=== PATIENT | male | born 1955 | race Caucasian/White ===

== ENCOUNTER 2021-02-18 09:30 | Outpatient (REF) | payer OTHER, SELFPAY ==
[2021-02-18 12:32] LABS: Prostate Specific Antigen < 0.05 ng/mL (<0.05-4.0)
== END 2021-02-18 09:31 | disposition home or self-care (01) ==
LOC: HO.HMGCLDS 09:30
PROVIDERS: PCP Internal Medicine; Visit Provider Urology
DX: Z12.5 Encounter for screening for malignant neoplasm of prostate (principal); C61 Malignant neoplasm of prostate
CPT/HCPCS: 36415; 84153

== ENCOUNTER → 2021-02-19 14:23 | Outpatient (BNVA) | payer OTHER, SELFPAY | PROVIDERS: PCP Internal Medicine; Visit Provider Urology ==

== ENCOUNTER 2022-02-24 13:19 | Outpatient (AMB) | payer MEDICARE, SELFPAY ==
--- NOTE | 2022-02-24 08:23 | MHC.OFFVIS ---
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 Morales. They are seen in the office today for the following urologic conditions. ? - prostate cancer PSA stable Urine effective Prostate cancer: Low-grade prostate cancer radical prostatectomy 2007 ?Discussed results ?Continue ED treatment. - stream remains okay ? Prostate cancer was diagnosed?2007.? Diagnosis was reached by?needle biopsy, for elevated PSA, size at TRUS 49cc.? The Jadon grade is?3+3 = 6.? TNM Classification of Malignant Tumours (TNM)?T2a.? The D'Jaret (NCCN) risk category is?Low Risk (PSA< 10, Gl < 7, T1c).? Initial therapy included?Primary treatment, Prostatectomy (RRP/Robotic) ?, Additional treatment, Observation.? Recent labs included?a PSA (prostate-specific antigen) 2014 , < 0.1 ?12/2016 < 0.1, 02/17 < 0.1, 03/21 < 0.1, 03/22 < 0.1, 02/20 <0.1, 02/21 <0.1 ? Associated conditions ? erectile dysfunction ?Yes ? Erectile SIDRA Score ?18 respond to viagra ? hematuria ?No ? hot flashes ?No ? incontinence ?No ? osteopenia ?No ? pathologic fracture ?No ? radiation cystitis ?No ? rectal urgency ?No ? Therapeutic plan:?Continue with surveillance.? Current symptoms include?had narrowing of stream and requred BNI 2009.? PFSH Medical History Allergies BPH (benign prostatic hyperplasia) CA of prostate Erectile dysfunction following radical prostatectomy Hyperlipidemia Spinal stenosis Surgical History History of surgery Social History Patient Tobacco Use Status: Former Tobacco user Review of Systems Const Denies chills and Denies fever(s) Card Reports no additional complaints and Denies syncope Resp Denies cough GI Denies abdominal pain and Denies heartburn Reports as per HPI and Denies change in libido Neuro Denies syncope Psych Denies change in libido Endo Denies change in libido Physical Exam Const General: cooperative, healthy appearing, comfortable and no acute distress Orientation/consciousness: patient oriented x3 HEENT Face and sinus: Yes normal facial exam Mouth: moist mucous membranes Neck Neck: Yes normal visual inspection, Yes full ROM and Yes trachea midline Chest Chest palpation & inspection: normal inspection of the chest Resp Effort & Inspection: normal respiratory effort, able to speak in complete sentences and no respiratory distress GI Inspection: Yes normal to inspection Back/Spine/Pelvis Cervical Spine: normal cervical lordosis Thoracic/Lumbar Spine: thoracic and lumbar spine normal to inspection Skin General skin exam: no rashes or lesions noted Neuro General: patient oriented x3, gait normal, tone normal and moves all extremities Extrem General: Yes normal to inspection and Yes capillary refill normal Assessment & Plan Assessment & Plan (1) Bladder neck stricture: Code(s): N32.0 - Bladder-neck obstruction (2) Otitis media: Code(s): H66.90 - Otitis media, unspecified, unspecified ear (3) Erectile dysfunction following radical prostatectomy: Code(s): N52.31 - Erectile dysfunction following radical prostatectomy Plan continue 6 m review Patient Instructions: Imaging studies, laboratory and physical exam results were discussed and reviewed in detail. No major barriers to patient understanding were identified. An opportunity to ask questions regarding the treatment plan was provided. All questions were answered. The patient expressed understanding and agreement with the above treatment plan. The patient is aware they should contact our office by phone for worsening of their current condition or the appearance of new urologic symptoms. Compliance is encouraged with any medications and followup testing that is ordered. It is a privilege to participate in the urologic care of your patient. If you have any questions or concerns regarding treatment for the above conditions, or other urologic issues, please do not hesitate to contact me. The office telephone contact is [phone]. This note is constructed using voice recognition software. While every effort has been made to ensure accuracy demand planner errors may have been included. Yours sincerely, Dr Eduardo Atkinson MD, [facility] - Urology Providers of Expert, Compassionate Care for the Genitourinary System Coding Level of Care Code Est Pt Level 3 (55358) Diagnoses Bladder neck stricture N32.0 Otitis media H66.90 Erectile dysfunction following radical prostatectomy N52.31
== END 2022-02-24 14:22 | disposition home or self-care (01) ==
PROVIDERS: PCP Internal Medicine; Visit Provider Urology
DX: N32.0 Bladder-neck obstruction (principal); H66.90 Otitis media, unspecified, unspecified ear; N52.31 Erectile dysfunction following radical prostatectomy
CPT/HCPCS: 99499

== ENCOUNTER → 2022-08-26 14:26 | Outpatient (BNVA) | payer MEDICARE, SELFPAY | PROVIDERS: PCP Internal Medicine; Visit Provider Urology | DX: C61 Malignant neoplasm of prostate (principal); N52.31 Erectile dysfunction following radical prostatectomy; N32.0 Bladder-neck obstruction | CPT/HCPCS: 51798; 99212 ==

== ENCOUNTER 2023-03-03 11:13 | Outpatient (AMB) | payer MEDICARE, SELFPAY ==
--- NOTE | 2023-03-03 11:32 | MHC.OFFVIS ---
Intake Intake Visit Reasons: 6M/PSA(set) Intake Note: Patient is present for Follow Up psa Urology Med: None Antibiotic Allergy: Cipro Blood Thinner: Eliquis Pharmacy: [facility] Allergies ciprofloxacin [From CIPRO] Allergy (Unknown, Verified 03/03/23 11:32) UNKNOWN From CIPRO Allergy (Unknown, Uncoded 03/03/23 11:32) UNKNOWN Statins Support Allergy (Unknown, Uncoded 03/03/23 11:32) Unknown Medication List - Last Reconciled 03/03/23 by Eduardo Atkinson MD alirocumab (Praluent Pen) mg subcut amiodarone 100 mg PO DAILY apixaban (Eliquis) 5 mg PO BID aspirin 81 mg PO DAILY azithromycin take 500 mg today (day 1), then 250 mg for 4 days (days 2-5) PO ezetimibe 10 mg PO DAILY metoprolol succinate ER 100 mg PO DAILY pantoprazole 20 mg PO DAILY sertraline 25 mg PO DAILY HPI HPI Comments History of Present Illness Details Mr Lopez is a very pleasant male. He is a patient of Dr. Morales. He is seen for the following urologic conditions. - prostate cancer - bladder neck stricture Has been walking a great deal Feels good about current urinary performance Understands Has likely stricture but at this stage will defer therapy PSA remains low Prostate cancer: Low-grade prostate cancer radical prostatectomy 2007 ?Discussed results ?Continue ED treatment. - stream remains okay ? Prostate cancer was diagnosed?2007.? Diagnosis was reached by?needle biopsy, for elevated PSA, size at TRUS 49cc.? The Jadon grade is?3+3 = 6.? TNM Classification of Malignant Tumours (TNM)?T2a.? The D'Jaret (NCCN) risk category is?Low Risk (PSA< 10, Gl < 7, T1c).? Initial therapy included?Primary treatment, Prostatectomy (RRP/Robotic) ?, Additional treatment, Observation.? Recent labs included?a PSA (prostate-specific antigen) 2014 , < 0.1 ?12/2016 < 0.1, 02/17 < 0.1, 03/21 < 0.1, 03/22 < 0.1, 02/20 <0.1, 02/21 <0.1, 02/22 <0.1 ? Associated conditions ? erectile dysfunction ?Yes ? Erectile SIDRA Score ?18 respond to viagra ? Therapeutic plan:?Continue with surveillance.? Current symptoms include?had narrowing of stream and requred BNI 2009.? PFSH Medical History Allergies BPH (benign prostatic hyperplasia) CA of prostate Erectile dysfunction following radical prostatectomy Hyperlipidemia Spinal stenosis Surgical History History of surgery Social History Patient Tobacco Use Status: Former Tobacco user Review of Systems Const Denies chills and Denies fever(s) Card Reports no additional complaints and Denies syncope Resp Denies cough GI Denies abdominal pain and Denies heartburn Reports as per HPI and Denies change in libido Neuro Denies syncope Psych Denies change in libido Endo Denies change in libido Physical Exam Const General: cooperative, healthy appearing, comfortable and no acute distress Orientation/consciousness: patient oriented x3 HEENT Face and sinus: Yes normal facial exam Mouth: moist mucous membranes Neck Neck: Yes normal visual inspection, Yes full ROM and Yes trachea midline Chest Chest palpation & inspection: normal inspection of the chest Resp Effort & Inspection: normal respiratory effort, able to speak in complete sentences and no respiratory distress GI Inspection: Yes normal to inspection Back/Spine/Pelvis Cervical Spine: normal cervical lordosis Thoracic/Lumbar Spine: thoracic and lumbar spine normal to inspection Skin General skin exam: no rashes or lesions noted Neuro General: patient oriented x3, gait normal, tone normal and moves all extremities Extrem General: Yes normal to inspection and Yes capillary refill normal Assessment & Plan Assessment & Plan (1) Bladder neck stricture: Code(s): N32.0 - Bladder-neck obstruction (2) CA of prostate: Comment: Radical prostatectomy 2008 low-grade Code(s): C61 - Malignant neoplasm of prostate (3) Erectile dysfunction following radical prostatectomy: Code(s): N52.31 - Erectile dysfunction following radical prostatectomy Plan Twelve month follow-up PSA Orders: Orders Prostate Specific Antigen 364 Days C61 - Malignant neoplasm of prostate Patient Instructions: Imaging studies, laboratory and physical exam results were discussed and reviewed in detail. No major barriers to patient understanding were identified. An opportunity to ask questions regarding the treatment plan was provided. All questions were answered. The patient expressed understanding and agreement with the above treatment plan. The patient is aware they should contact our office by phone for worsening of their current condition or the appearance of new urologic symptoms. Compliance is encouraged with any medications and followup testing that is ordered. It is a privilege to participate in the urologic care of your patient. If you have any questions or concerns regarding treatment for the above conditions, or other urologic issues, please do not hesitate to contact me. The office telephone contact is [phone]. This note is constructed using voice recognition software. While every effort has been made to ensure accuracy presiding judge errors may have been included. Yours sincerely, Dr Eduardo Atkinson MD, [facility] - Urology Providers of Expert, Compassionate Care for the Genitourinary System Coding Level of Care Code Est Pt Level 4 (76746) Diagnoses Bladder neck stricture N32.0 CA of prostate C61 Erectile dysfunction following radical prostatectomy N52.31
== END 2023-03-03 11:51 | disposition home or self-care (01) ==
PROVIDERS: PCP Internal Medicine; Visit Provider Urology
DX: N32.0 Bladder-neck obstruction (principal); C61 Malignant neoplasm of prostate; N52.31 Erectile dysfunction following radical prostatectomy
CPT/HCPCS: 99214

== ENCOUNTER → 2023-03-03 11:13 | Outpatient (BNVA) | payer MEDICARE, SELFPAY | PROVIDERS: Visit Provider Urology | DX: N32.0 Bladder-neck obstruction (principal); C61 Malignant neoplasm of prostate; N52.31 Erectile dysfunction following radical prostatectomy | CPT/HCPCS: 99212 ==

== ENCOUNTER 2024-03-05 09:21 | Outpatient (AMB) | payer MEDICARE, SELFPAY ==
--- NOTE | 2024-03-05 09:25 | A.OFFVIS_ITS ---
Intake Visit Reasons: cysto/PSA(Hematuria) Intake Note: Patient is present for Cystoscopy/PSA(HEMATURIA) Urology Medication:DIAZEPAM Antibiotic Allergy:CIPROFLOXACIN Blood Thinner:ASPIRIN, ELIQUIS Lot:[id number] Exp:08/17/2026 Food Service Supervisor Required: No Allergies ciprofloxacin [From CIPRO] Allergy (Unknown, Verified 03/05/24 09:27) UNKNOWN From CIPRO Allergy (Unknown, Uncoded 03/05/24 09:27) UNKNOWN Statins Support Allergy (Unknown, Uncoded 03/05/24 09:27) Unknown Medication List - Last Reconciled 03/05/24 by Eduardo Atkinson MD alirocumab (Praluent Pen) mg subcut amiodarone 100 mg PO DAILY apixaban (Eliquis) 5 mg PO BID aspirin 81 mg PO DAILY azithromycin take 500 mg today (day 1), then 250 mg for 4 days (days 2-5) PO diazepam 2 mg PO BID PRN 1 day ezetimibe 10 mg PO DAILY metoprolol succinate ER 100 mg PO DAILY pantoprazole 20 mg PO DAILY sertraline 25 mg PO DAILY HPI Comments Details: Mr Lopez is a very pleasant male. He is a patient of Dr. Morales. He is seen for the following urologic conditions. - prostate cancer - bladder neck stricture Here for cystoscopy 3+ blood urine Has been on Xarelto for AFib Cystoscopy with good vesicourethral junction Has multiple areas of inflamed bladder mucosa Recommend bladder biopsy fulguration Prostate cancer: Low-grade prostate cancer radical prostatectomy 2007 ?Discussed results ?Continue ED treatment. - stream remains okay - probable stricture ? Prostate cancer was diagnosed?2007.? Diagnosis was reached by?needle biopsy, for elevated PSA, size at TRUS 49cc.? The Jadon grade is?3+3 = 6.? TNM Classification of Malignant Tumours (TNM)?T2a.? The D'Jaret (NCCN) risk category is?Low Risk (PSA< 10, Gl < 7, T1c).? Initial therapy included?Primary treatment, Prostatectomy (RRP/Robotic) ?, Additional treatment, Observation.? Recent labs included?a PSA (prostate-specific antigen) 2014 , < 0.1 ?12/2016 < 0.1, 02/17 < 0.1, 03/21 < 0.1, 03/22 < 0.1, 02/20 <0.1, 02/21 <0.1, 02/22 <0.1, 02/23 <0.1 ? Associated conditions ? erectile dysfunction ?Yes ? Erectile SIDRA Score ?18 respond to viagra ? Therapeutic plan:?Continue with surveillance.? Current symptoms include?had narrowing of stream and requred BNI 2009.? PFSH Medical History Allergies BPH (benign prostatic hyperplasia) CA of prostate Erectile dysfunction following radical prostatectomy Hyperlipidemia Spinal stenosis Surgical History History of surgery Social History Patient Tobacco Use Status: Former Tobacco user Review of Systems Const Denies chills and Denies fever(s) Card Reports no additional complaints and Denies syncope Resp Denies cough GI Denies abdominal pain and Denies heartburn Reports as per HPI and Denies change in libido Neuro Denies syncope Psych Denies change in libido Endo Denies change in libido Physical Exam Const General: cooperative, healthy appearing, comfortable and no acute distress Orientation/consciousness: patient oriented x3 HEENT Face and sinus: Yes normal facial exam Mouth: moist mucous membranes Neck Neck: Yes normal visual inspection, Yes full ROM and Yes trachea midline Chest Chest palpation & inspection: normal inspection of the chest Resp Effort & Inspection: normal respiratory effort, able to speak in complete sentences and no respiratory distress GI Inspection: Yes normal to inspection Back/Spine/Pelvis Cervical Spine: normal cervical lordosis Thoracic/Lumbar Spine: thoracic and lumbar spine normal to inspection Skin General skin exam: no rashes or lesions noted Neuro General: patient oriented x3, gait normal, tone normal and moves all extremities Extrem General: Yes normal to inspection and Yes capillary refill normal Office Procedures Cystoscopy Consent Discussed risk and benefit or proposed procedure with the patient. Information consent for procedure given to the patient. Discussed technical aspects, risks, benefits and alternatives in full. Addressed all of the patient's questions and concerns regarding the procedure. The patient demonstrated knowledge and understanding. They wish to proceed with this procedure. Preparation The patient was prepped in the usual manner. A dcs engineer was present and in the room. Genitalia was prepped with betadine solution in a sterile manner. Lidocaine Jelly 2% was placed into the urethra and 16Fr flexible Olympus cystoscope was inserted into the meatus after adequate lubrication. Procedure Cystoscopy performed using a disposable Urovue digital 16 Uzbek cystoscope. Meatus normal position Urethra anterior and posterior urethra normal Prostatic Urethra prior prostatectomy with effective anastomosis Bladder examination with retroflexion of cystoscope Bladder Orifices normal shape and position Bladder Capacity medium Trabeculations stage I Cellule Formation - Diverticulum Formation - Mucosal Erythema areas of inflammation particularly on left lateral sidewall Bladder Tumor - [id number]-[id number] DISPOSABLE SCOPE URO-G FLEXIBLE SCOPE Procedure code (CPT) selection complete Office Meds lidocaine HCl 2 % mucosal jelly in applicator Performing Provider: Eduardo Atkinson MD [place] [facility] [facility] Administered by: Shailesh Michaud LPN on 03/05/24 09:48 Dose Route Admin Location Dispensed Lot Number Expiration Date NDC Stock Control Supervisor 10 mL intra-urethral 10 mL nitrofurantoin monohydrate/macrocrystals 100 mg capsule Performing Provider: Eduardo Atkinson MD [place] [facility] [place] [facility] Administered by: Shailesh Michaud LPN on 03/05/24 09:48 Dose Route Admin Location Dispensed Lot Number Expiration Date NDC Stock Control Supervisor 100 mg PO 1 cap naproxen 500 mg tablet Performing Provider: Eduardo Atkinson MD [place] [facility] [place] [facility] Administered by: Shailesh Mcihaud LPN on 03/05/24 09:48 Dose Route Admin Location Dispensed Lot Number Expiration Date NDC Stock Control Supervisor 500 mg PO 1 tab Results AMB Urinalysis, Automated UA Leukoctes 0 Josselyn/uL Last Edit by DEAN Dick on 03/05/24 09:51 UA Nitrite Negative Last Edit by DEAN Dick on 03/05/24 09:51 UA Urobilinogen 0.2 mg/dL Last Edit by DEAN Dick on 03/05/24 09:5 1 UA Protein 0 mg/dL Last Edit by DEAN Dick on 03/05/24 09:51 UA pH 6.0 Last Edit by DEAN Dick on 03/05/24 09:51 UA Blood 200 Chandan/uL Last Edit by DEAN Dick on 03/05/24 09:51 UA Specific Mouthcard 1.020 Last Edit by DEAN Dick on 03/05/24 09: 51 UA Ketone Negative Last Edit by DEAN Dick on 03/05/24 09:51 UA Bilirubin 0 mg/dL Last Edit by DEAN Dick on 03/05/24 09:51 UA Glucose 0 mg/dL Last Edit by DEAN Dick on 03/05/24 09:51 Results Reviewed Results Reviewed: Laboratory Last Values Urine pH (Auto) 6.0 03/05/24 09:50 Specific Mouthcard (Auto) 1.020 03/05/24 09:50 Urine Protein (Auto) 0 mg/dL 03/05/24 09:50 Glucose (UA)(Auto) 0 mg/dL 03/05/24 09:50 Urine Ketones (Auto) Negative 03/05/24 09:50 Urine Blood (Auto) 200 Chandan/uL 03/05/24 09:50 Urine Nitrite (Auto) Negative 03/05/24 09:50 Urine Bilirubin (Auto) 0 mg/dL 03/05/24 09:50 Urine Urobilinogen (Auto) 0.2 mg/dL 03/05/24 09:50 Leukocyte Esterase (Auto) 0 Josselyn/uL 03/05/24 09:50 Assessment & Plan Assessment & Plan (1) Cystitis: Code(s): N30.90 - Cystitis, unspecified without hematuria Category: Medical (2) Gross hematuria: Code(s): R31.0 - Gross hematuria Category: Medical Plan Risks, benefits and alternatives to therapy were discussed. These include but are not limited to infection, bleeding, damage to local organs and tissues, need for further interventions. Anesthetic risks regarding cardiac arrhythmia, blood clots, and potential mortality were discussed. The patient understands the typical recovery time and the outpatient nature of the procedure. After consideration of these risks the patient gives full informed consent and they wish to move ahead with the procedure. Cystoscopy with bladder biopsy fulguration Orders: Orders AMB Cystoscopy Today C61 - Malignant neoplasm of prostate, N32.0 - Bladder-neck obstruction, N52.31 - Erectile dysfunction following radical prostatectomy AMB Urinalysis Automated Today Z13.9 - Encounter for screening, unspecified Patient Instructions: Imaging studies, laboratory and physical exam results were discussed and reviewed in detail. No major barriers to patient understanding were identified. An opportunity to ask questions regarding the treatment plan was provided. All questions were answered. The patient expressed understanding and agreement with the above treatment plan. The patient is aware they should contact our office by phone for worsening of their current condition or the appearance of new urologic symptoms. Compliance is encouraged with any medications and followup testing that is ordered. It is a privilege to participate in the urologic care of your patient. If you have any questions or concerns regarding treatment for the above conditions, or other urologic issues, please do not hesitate to contact me. The office telephone contact is [phone]. This note is constructed using voice recognition software. While every effort has been made to ensure accuracy reaming machine operator errors may have been included. Yours sincerely, Dr Eduardo Atkinson MD, [facility] - Urology Providers of Expert, Compassionate Care for the Genitourinary System Coding Level of Care Code Est Pt Level 4 (77754) Diagnoses Cystitis N30.90 Gross hematuria R31.0 CPT Codes Cystoscopy - CPT: 22069-[id number] ([id number])
== END 2024-03-05 10:28 | disposition home or self-care (01) ==
PROVIDERS: PCP Internal Medicine; Visit Provider Urology
DX: N32.0 Bladder-neck obstruction (principal); N52.31 Erectile dysfunction following radical prostatectomy; C61 Malignant neoplasm of prostate; N30.90 Cystitis, unspecified without hematuria; R31.0 Gross hematuria; Z13.9 Encounter for screening, unspecified
CPT/HCPCS: 52000; 99214

== ENCOUNTER → 2024-03-05 09:21 | Outpatient (BNVA) | payer MEDICARE, SELFPAY | PROVIDERS: PCP Internal Medicine; Visit Provider Urology | DX: N30.91 Cystitis, unspecified with hematuria (principal); C61 Malignant neoplasm of prostate | CPT/HCPCS: 52000; 81003; 99212 ==

== ENCOUNTER 2024-04-01 06:53 | Day surgery (SDC) | payer MEDICARE, SELFPAY ==
[2024-03-29 08:37] VITALS: BMI 29.6
--- NOTE | 2024-03-29 12:05 | HO.ANESPROP2 ---
Documented by User: Ramona Wilkerson NP 03/29/24 12:09 HPI - Anesthesia Eval Consult details Narrative: 68yo M for Cystoscopy Bladder Fulguration,with biopsy Follows [facility] cardiology for CAD s/p CABG 2020, ND, PAF, CMP (resolved) Cardiac optimized per 03/2024 addenedum [facility] Active Problems Active Problems: All Active Problems Gross hematuria (Acute) Cystitis (Acute) Otitis media (Acute) Bladder neck stricture (Acute) Erectile dysfunction following radical prostatectomy (Acute) CA of prostate (Acute) Past Medical History Medical History Wears dentures Spinal stenosis Back pain Arthritis GERD (gastroesophageal reflux disease) Hx of transient ischemic attack (TIA) (~2021) Cardiomyopathy Hx of myocardial infarction CAD (coronary artery disease) PAF (paroxysmal atrial fibrillation) Seasonal allergies PONV (postoperative nausea and vomiting) Spinal stenosis Allergies Hyperlipidemia BPH (benign prostatic hyperplasia) Erectile dysfunction following radical prostatectomy CA of prostate Family History Family History Sister PONV (postoperative nausea and vomiting) Sister PONV (postoperative nausea and vomiting) Surgical History Surgical History Hx of tonsillectomy Hx of cardiac catheterization Hx of coronary artery bypass graft (~2019) Hx of radical prostatectomy (~2008) History of bilateral knee replacement Social History Social History Are you a primary home health care coordinator to a significant other at home: No Do you presently have visiting nurse or other home services: No Patient Tobacco Use Status: Former Tobacco user Tobacco use type: Cigarette Smoked in Last 30 Days: No Use of substances other than those prescribed or required for medical reasons: No Have you been hit, kicked, punched, or otherwise hurt by someone within the past year? If so, by whom?: No Are you DNR?: No Advance Directives: No Advance Directives Information Provided: Yes Advance Directives on File: No Recently lost weight without trying: No Nutrition Risks: No Nutritional Risk Meds Allergies Allergy/AdvReac Type Severity Reaction Status Date / Time oxycodone Allergy Severe Nausea and Verified 04/01/24 08:00 Vomiting ciprofloxacin [From CIPRO] Allergy Unknown UNKNOWN Verified 04/01/24 08:00 [id number] Reductase AdvReac Intermediate Muscle Pain Verified 04/01/24 08:00 Inhibitor Home Medications ?Medication ?Instructions ?Recorded ?Confirmed ?Last Taken ?Type aspirin 81 mg tablet,delayed 81 mg PO DAILY 02/19/21 04/01/24 03/25/24 History release alirocumab 150 mg/mL subcutaneous 150 mg subcut Q2W 08/26/22 04/01/24 Unknown History pen injector (Praluent Pen) pantoprazole 20 mg tablet,delayed 20 mg PO DAILY 08/26/22 04/01/24 04/01/24 History release carvedilol 3.125 mg tablet 3.125 mg PO BID 03/29/24 04/01/24 04/01/24 History cetirizine 10 mg tablet 10 mg PO DAILY 03/29/24 04/01/24 04/01/24 History rivaroxaban 20 mg tablet (Xarelto) 20 mg PO QPM 03/29/24 04/01/24 03/29/24 History Exam Height,Weight and Vital Signs: Height 5 ft 8.9 in Weight 90.718 kg Narrative Narrative: EKG 02/2024 Ventricular Rate: 50 BPM Atrial Rate: 50 BPM P-R Interval: 264 ms QRS Duration: 126 ms Q-T Interval: 436 ms QTC Calculation(Bazett): 397 ms P [place]: 44 degrees R [place]: -46 degrees T [place]: -26 degrees Sinus bradycardia with 1st degree A-V block Left axis deviation Non-specific intra-ventricular conduction block Minimal voltage criteria for LVH, may be normal variant ( Nitin product ) Nonspecific T wave abnormality Abnormal ECG When compared with ECG of 12-FEB-2024 09:08, Non-specific intra-ventricular conduction delay has replaced Right bundle branch block Confirmed by Dre Layne ([id number]) on 02/12/2024 3:48:42 PM Echocardiogram - Complete ? 14:00:10 Summary The left ventricular size is normal. Left ventricular wall thickness is normal. The LV systolic function is normal . The left ventricular ejection fraction is 60-65 %. No obvious wall motion abnormalities seen on limited views. There is abnormal septal motion consistent with prior cardiac surgery . Normal diastolic function. The aortic valve is trileaflet . The right coronary cusp is moderately thickened and calcified . The aortic valve leaflet opening is mildly decreased . There is no significant aortic stenosis. There is mild to moderate aortic regurgitation. The right ventricle is normal in size. Right ventricular systolic function appears preserved. Comparison Comparison is made to the study of May 19, 2020. There is only mild to moderate aortic regurgitation. VL Carotid Duplex Scan Bilat ? 08:51:11 Summary: Right Side: 50-69% stenosis in the Bulb/Internal Carotid Artery. Antegrade flow in the Vertebral Artery. Turbulent / disturbed flow is seen in the Subclavian Artery. Left Side: 1-49% stenosis in the Internal Carotid Artery. Antegrade flow in the Vertebral Artery. Multiphasic flow is seen in the Subclavian Artery. Assessment and Plan Assessment Anesthesia Assessment: Chart Reviewed Documented by User: Lisa Ding MD 04/01/24 08:45 PMFSH Past Medical History Medical History Wears dentures Spinal stenosis Back pain Arthritis GERD (gastroesophageal reflux disease) Hx of transient ischemic attack (TIA) (~2021) Cardiomyopathy Hx of myocardial infarction CAD (coronary artery disease) PAF (paroxysmal atrial fibrillation) Seasonal allergies PONV (postoperative nausea and vomiting) Spinal stenosis Allergies Hyperlipidemia BPH (benign prostatic hyperplasia) Erectile dysfunction following radical prostatectomy CA of prostate Family History Family History Sister PONV (postoperative nausea and vomiting) Sister PONV (postoperative nausea and vomiting) Family history of problems with anesthesia: No Surgical History Surgical History Hx of tonsillectomy Hx of cardiac catheterization Hx of coronary artery bypass graft (~2019) Hx of radical prostatectomy (~2008) History of bilateral knee replacement History of Problems with Anesthesia: No Social History Social History Are you a primary home health care coordinator to a significant other at home: No Do you presently have visiting nurse or other home services: No Patient Tobacco Use Status: Former Tobacco user Tobacco use type: Cigarette Smoked in Last 30 Days: No Use of substances other than those prescribed or required for medical reasons: No Have you been hit, kicked, punched, or otherwise hurt by someone within the past year? If so, by whom?: No Are you DNR?: No Advance Directives: No Advance Directives Information Provided: Yes Advance Directives on File: No Recently lost weight without trying: No Nutrition Risks: No Nutritional Risk Meds Allergies Allergy/AdvReac Type Severity Reaction Status Date / Time oxycodone Allergy Severe Nausea and Verified 04/01/24 08:00 Vomiting ciprofloxacin [From CIPRO] Allergy Unknown UNKNOWN Verified 04/01/24 08:00 Esyfove-[id number]-KeT Reductase AdvReac Intermediate Muscle Pain Verified 04/01/24 08:00 Inhibitor Home Medications ?Medication ?Instructions ?Recorded ?Confirmed ?Last Taken ?Type aspirin 81 mg tablet,delayed 81 mg PO DAILY 02/19/21 04/01/24 03/25/24 History release alirocumab 150 mg/mL subcutaneous 150 mg subcut Q2W 08/26/22 04/01/24 Unknown History pen injector (Praluent Pen) pantoprazole 20 mg tablet,delayed 20 mg PO DAILY 08/26/22 04/01/24 04/01/24 History release carvedilol 3.125 mg tablet 3.125 mg PO BID 03/29/24 04/01/24 04/01/24 History cetirizine 10 mg tablet 10 mg PO DAILY 03/29/24 04/01/24 04/01/24 History rivaroxaban 20 mg tablet (Xarelto) 20 mg PO QPM 03/29/24 04/01/24 03/29/24 History Exam Airway Mallampati Class: II TM Dist: >3cm Neck ROM: Limited Denture: Upper Heart: rrr Lungs: cta Assessment and Plan Assessment Anesthesia Assessment: Anesthesia Plan Discussed Final Anesthetic Review Family History of Problems with Anesthesia: No History of Problems with Anesthesia: No NPO: Yes ASA Class: III Final Preanesthetic Review: No Changes in Pt Med Stat, Meds/Allgs Chart Reviewed, Consent Obtained/Reviewed and Anes Risks/Benef Reviewed Patient Risk: Intermediate Procedure Risk: Low Anesthetic Plan Anesthetic Plan: GA (ekg ordered stat) Disposition: Standard PACU
--- OUTSIDE RECORDS SUMMARY | 2024-04-01 06:55 | XMS_ITS | Continuity of Care Document ---
Author Organization [facility] Address [address] [place] [address]- Care Team Providers Care Egg Sorter Name Role Phone Carmen KENT, Samir Ansari Primary Care Physician [phone] Encounter [facility] [place] Date(s): 10/05/20 - 12/06/20 [facility] [address] [place] [id number] Attending Physician: Gilma Goss MD Admitting Physician: Ana Paula KENT, Gilma Referring Physician: Samir Morales MD Allergies, Adverse Reactions, Alerts Substance Reaction Severity Status ciprofloxacin Active statins 1 Active 1severe muscle aches Immunizations Not Given Vaccine Date Status Refusal Reason influenza virus vaccine, inactivated 04/06/20 Not Given Patient Refuses Medications apixaban 5 mg oral tablet 1 tablet = 5 mg, By Mouth, 2 times a day, # 60 tablet, 11 Refills, Maintenance, 11/03/20 9:16:00 EDT, Tablet, [facility] # [id number], 175, cm, 06/13/20 7:01:00 EST, Height, 91.1, kg, 06/12/20 19:26:00EST, Dry Weight Start Date: 11/03/20 Stop Date: 10/29/21 Status: Ordered aspirin 81 mg oral delayed release tablet = 81 mg, By Mouth, Daily, # 30 tablet, 5 Refills, Maintenance, 05/06/20 11:44:00 EST, EC Tablet, [facility] # 302, 175, cm, 05/05/20 10:39:00 EST, Height, 90.8, kg, 03/31/20 17:25:00 EDT, Dry Weight Start Date: 05/06/20 Stop Date: 11/02/20 Status: Ordered Docusate Sodium Capsule 100 mg, 1, capsule, By Mouth, 2 times a day, Refills 0, Maintenance, 04/09/20 9:25:00 EDT Start Date: 04/09/20 Status: Ordered KLS Aspirin Low Dose Oral Tablet Delayed Release 81 MG KLS Aspirin Low Dose Oral Tablet Delayed Release 81 MG, 1, tablet, By Mouth, Daily, # 30 tablet, 11Refills, Maintenance, 10/23/20 10:56:00 EDT, 175, cm, 06/13/20 7:01:00 EST, Height, 91.1, kg, 06/12/20 19:26:00 EST, Dry Weight Start Date: 10/23/20 Status: Ordered Metoprolol Succinate ER 100 mg oral tablet, extended release 1 tablet, By Mouth, Daily, # 30 tablet, 5 Refills, Maintenance, 12/03/20 15:07:00 EDT, [facility] #[id number], 175, cm, 11/06/20 9:43:00 EDT, Height, 91.1, kg, 06/12/20 19:26:00 EST, Dry Weight Start Date: 12/03/20 Status: Ordered Repatha 140 mg/mL subcutaneous solution = 140 mg, Subcutaneous Infusion, Every 28 days, # 1 kit, 11 Refills, Maintenance, 11/06/20 10:01:00EDT, [facility] # [facility], Partial fill upon patient request if the prescription is for a scheduleII opioid drug., 175, cm, 11/06/20 9:43:00 EDT, Hei... Start Date: 11/06/20 Status: Ordered Symbicort 160mcg/4.5mcg Inhaler 2, puffs, Inhalation, 2 times a day, # 6 Gm, Refills 0, Maintenance, 03/31/20 19:06:00 EDT, Aerosol Start Date: 03/31/20 Status: Ordered Zetia 10 mg oral tablet 1 tablet = 10 mg, By Mouth, Daily, # 30 tablet, 11 Refills, Maintenance, 11/18/20 14:19:00 EDT, Tablet, [facility] # 302, Partial fill upon patient request if the prescription is for a schedule II opioid drug., 175, cm, 11/06/20 9:43:00 EDT, Heig... Start Date: 11/18/20 Stop Date: 11/13/21 Status: Ordered ZyrTEC 10 mg oral tablet 1 tablet = 10 mg, By Mouth, Daily, # 30 tablet, 0 Refills, Maintenance, 03/31/20 19:05:00 EDT, Tablet Start Date: 03/31/20 Status: Ordered Problem List Condition Effective Dates Status Health Status Inform ant FH: CABG (coronary artery by pass surgery)(Confirmed) Active Hypercholesteremia(Confirmed) Active Ischemic cardiomyopathy(Confirmed) Active Old myocardial infarct(Confirmed) Active PAF (paroxysmal atrial fibrillation)(Confirmed) Active Statin intolerance(Confirmed) Active Social History Social History Type Response Smoking Status Former smoker, quit more than 30 days ago entered on: 03/31/20 Sex
--- OUTSIDE RECORDS SUMMARY | 2024-04-01 06:55 | XMS_ITS | Continuity of Care Document ---
Author Organization [facility] Address [address] [place] [address]- Care Team Providers Care Graphic Engineer Name Role Phone Carmen KENT, Samir Ansari Primary Care Physician [phone] Encounter [facility] Date(s): 11/06/20 - 12/06/20 [facility] [address] [place] [id number] Attending Physician: Anna Marie Becerra Admitting Physician: AdmAnna Marie roberts Referring Physician: AdmtrAnna Marie Allergies, Adverse Reactions, Alerts Substance Reaction Severity Status ciprofloxacin Active statins 1 Active 1severe muscle aches Immunizations Not Given Vaccine Date Status Refusal Reason influenza virus vaccine, inactivated 04/06/20 Not Given Patient Refuses Medications apixaban 5 mg oral tablet 1 tablet = 5 mg, By Mouth, 2 times a day, # 60 tablet, 11 Refills, Maintenance, 11/03/20 9:16:00 EDT, Tablet, [facility] # 302, 175, cm, 06/13/20 7:01:00 EST, Height, 91.1, kg, 06/12/20 19:26:00EST, Dry Weight Start Date: 11/03/20 Stop Date: 10/29/21 Status: Ordered aspirin 81 mg oral delayed release tablet = 81 mg, By Mouth, Daily, # 30 tablet, 5 Refills, Maintenance, 05/06/20 11:44:00 EST, EC Tablet, [facility] # 302, 175, cm, 05/05/20 10:39:00 [...] tablet, 5 Refills, Maintenance, 12/03/20 15:07:00 EDT, [facility] #[id number], 175, cm, 11/06/20 9:43:00 EDT, Height, 91.1, kg, 06/12/20 19:26:00 EST, Dry Weight Start Date: 12/03/20 Status: Ordered Repatha 140 mg/mL subcutaneous solution = 140 mg, Subcutaneous Infusion, Every 28 days, # 1 kit, 11 Refills, Maintenance, 11/06/20 10:01:00EDT, [facility] # 302, Partial fill upon patient [...] 11 Refills, Maintenance, 11/18/20 14:19:00 EDT, Tablet, [facility] # 302, Partial fill upon patient [...]
--- OUTSIDE RECORDS SUMMARY | 2024-04-01 06:55 | XMS_ITS | Continuity of Care Document ---
Author Organization [facility] Address [address] [place] [id number]- Care Team Providers Care Lead Custodian Name Role Phone Carmen KENT, Samir Ansari Primary Care Physician [phone] Encounter [facility] [place] Date(s): 06/18/21 - 07/18/21 [facility] [address] [place] [id number] [place] Allergies, Adverse Reactions, Alerts Substance Reaction Severity Status ciprofloxacin Active statins 1 Active 1severe muscle aches Immunizations Not Given Vaccine Date Status Refusal Reason influenza virus vaccine, inactivated 04/06/20 Not Given Patient Refuses Medications apixaban 5 mg oral tablet 1 tablet = 5 mg, By Mouth, 2 times a day, # 60 tablet, 11 Refills, Maintenance, 11/03/20 9:16:00 EDT, Tablet, [facility] # 302, 175, cm, 06/13/20 7:01:00 EST, Height, 91.1, kg, 06/12/20 19:26:00EST, Dry Weight Start Date: 11/03/20 Stop Date: 10/29/21 Status: Ordered aspirin 81 mg oral delayed release tablet = 81 mg, By Mouth, Daily, # 30 tablet, 5 Refills, Maintenance, 05/06/20 11:44:00 EST, EC Tablet, [facility] # 302, 175, cm, 05/05/20 10:39:00 EST, Height, 90.8, kg, 03/31/20 17:25:00 EDT, Dry Weight Start Date: 05/06/20 Stop Date: 11/02/20 Status: Ordered Docusate Sodium Capsule 100 mg, 1, capsule, By Mouth, 2 times a day, Refills 0, Maintenance, 04/09/20 9:25:00 EDT Start Date: 04/09/20 Status: Ordered Metoprolol Succinate ER 100 mg oral tablet, extended release 1 tablet, By Mouth, Daily, # 30 tablet, 6 Refills, [facility] #[id number], 175, cm, 11/06/20 9:43:00 EDT, Height, 91.1, kg, 06/12/20 19:26:00 EST, Dry Weight Start Date: 05/28/21 Status: Ordered Symbicort 160mcg/4.5mcg Inhaler 2, puffs, Inhalation, 2 times a day, # 6 Gm, Refills 0, Maintenance, 03/31/20 19:06:00 EDT, Aerosol Start Date: 03/31/20 Status: Ordered Zetia 10 mg oral tablet 1 tablet = 10 mg, By Mouth, Daily, # 30 tablet, 11 Refills, Maintenance, 11/18/20 14:19:00 EDT, Tablet, [facility] # 302, Partial fill upon patient [...]
--- OUTSIDE RECORDS SUMMARY | 2024-04-01 06:55 | XMS_ITS | Continuity of Care Document ---
Author Organization [facility] Address [address] [place] [id number]- Care Team Providers Care Instructor Of Education Name Role Phone Carmen KENT, Samir Ansari Primary Care Physician Encounter [facility] [place] Date(s): 03/15/22 - 04/14/22 [facility] [address] [place] [id number]- Allergies, Adverse Reactions, Alerts Substance Reaction Severity Status ciprofloxacin Active statins 1 Active 1severe muscle aches Immunizations Not Given Vaccine Date Status Refusal Reason influenza virus vaccine, inactivated 04/06/20 Not Given Patient Refuses Medications acetaminophen 325 mg oral tablet 650 mg, By Mouth, Every 6 hours, May take OTC, follow directions on bottle, Refills 0, Maintenance,10/09/21 7:57:00 EDT, Partial fill upon patient request if the prescription is for a schedule II opioid drug. Start Date: 10/09/21 Status: Ordered docusate sodium 100 mg oral capsule 100 mg, 1, capsule, By Mouth, 2 times a day, hold for loose stool, # 60 capsule, Refills 0, Tot. Refills 0, Maintenance, 10/09/21 7:58:00 EDT, Route to Pharmacy Electronically, [id number], Partial fill upon patient request if the prescri... Start Date: 10/09/21 Status: Ordered Maalox Plus Liquid 30 mL, By Mouth, Every 4 hours, PRN Other, Heartburn, 0 Refills, Maintenance, 10/09/21 7:58:00 EDT,Suspension, Partial fill upon patient request if the prescription is for a schedule II opioid drug. Start Date: 10/09/21 Status: Ordered Metoprolol Succinate ER 100 mg oral tablet, extended release 1 tablet, By Mouth, Daily, # 30 tablet, 5 Refills, [facility] #[id number], 175, cm, 11/01/21 10:05:00 EDT, Height, 87, kg, 10/08/21 6:42:00 EDT, Dry Weight Start Date: 12/28/21 Status: Ordered Milk of Magnesia Liquid 30 mL, By Mouth, Daily, PRN Constipation, 0 Refills, Maintenance, 10/09/21 8:01:00 EDT, Suspension,Partial fill upon patient request if the prescription is for a schedule II opioid drug. Start Date: 10/09/21 Status: Ordered MiraLax Powder 1 pack/packet = 17 Gm, By Mouth, Daily, PRN Constipation, 0 Refills, Maintenance, 10/09/21 8:02:00 EDT, Powder, Partial fill upon patient request if the prescription is for a schedule II opioid drug. Start Date: 10/09/21 Status: Ordered pantoprazole 40 mg oral delayed release tablet = 40 mg, By Mouth, Daily in AM, # 30 tablet, 0 Refills, Maintenance, 10/09/21 11:08:00 EDT, EC Tablet, 175, cm, 10/09/21 7:05:00 EDT, Height, 87, kg, 10/08/21 6:42:00 EDT, Dry Weight Start Date: 10/09/21 Stop Date: 11/08/21 Status: Ordered pantoprazole 40 mg oral delayed release tablet = 40 mg, By Mouth, Daily, # 30 tablet, 0 Refills, Maintenance, 08/19/21 7:20:00 EST, EC Tablet, 175, cm, 08/19/21 6:30:00 EST, Height, 91.1, kg, 08/18/21 7:55:00 EST, Dry Weight Start Date: 08/19/21 Stop Date: 09/18/21 Status: Ordered Praluent Pen 150 mg/mL subcutaneous solution = 150 mg, Subcutaneous Infusion, Every 14 days, # 2 each, 11 Refills, Maintenance, 07/19/21 8:14:00EST, [facility] # [facility], 175, cm, 06/23/21 12:10:00 EST, Height, 91.1, kg, 06/12/20 19:26:00 EST, Dry Weight Start Date: 07/19/21 Stop Date: 07/14/22 Status: Ordered senna 187 mg oral tablet 1 tablet = 8.6 mg, By Mouth, Daily at bedtime, PRN as needed for constipation, 0 Refills, Maintenance, 10/09/21 8:02:00 EDT, Tablet, Partial fill upon patient request if the prescription is for a schedule II opioid drug. Start Date: 10/09/21 Status: Ordered Symbicort 160mcg/4.5mcg Inhaler 2, puffs, Inhalation, 2 times a day, # 6 Gm, Refills 0, Maintenance, 03/31/20 19:06:00 EDT, Aerosol Start Date: 03/31/20 Status: Ordered Xarelto 20 mg oral tablet 1 tablet = 20 mg, By Mouth, Daily at supper, discontinue eliquis, # 90 tablet, 3 Refills, Maintenance, 12/09/21 12:19:00 EDT, Tablet, [facility][id number], 175, cm, 11/01/21 10:05:00 EDT, Height, 87, kg, 10/08/21 6:42:00 EDT, Dry Weight Start Date: 12/09/21 Stop Date: 12/04/22 Status: Ordered Zetia 10 mg oral tablet 1 tablet = 10 mg, By Mouth, Daily, # 30 tablet, 11 Refills, Maintenance, 11/18/20 14:19:00 EDT, Tablet, [facility] # 302, Partial fill upon patient request if the prescription is for a schedule II opioid drug., 175, cm, 11/06/20 9:43:00 EDT, Heig... Start Date: 11/18/20 Stop Date: 11/13/21 Status: Ordered ZyrTEC 10 mg oral tablet 1 tablet = 10 mg, By Mouth, Daily, # 30 tablet, 0 Refills, Maintenance, 03/31/20 19:05:00 EDT, Tablet Start Date: 03/31/20 Status: Ordered Problem List Condition Confirmation Course Effective Dates Status Health Status Informant FH: CABG (coronary artery bypass surgery) Confirmed Active Hypercholesteremia Confirmed Active Ischemic cardiomyopathy Confirmed Active Old myocardial infarct Confirmed Active PAF (paroxysmal atrial fibrillation) Confirmed Active Statin intolerance Confirmed Active Social History Social History Type Response Smoking Status Former smoker, quit more than 30 days ago entered on: 03/31/20 Sex Patient Care team information Personnel Name: Carmen KENT, Samir Ansari Address: Address: [address] [place] [id number]
--- OUTSIDE RECORDS SUMMARY | 2024-04-01 06:55 | XMS_ITS | Continuity of Care Document ---
Author Organization [facility] ter Address [address] [place] [id number]- Care Team Providers Care Campus Administrator Name Role Phone Samir Morales MD Primary Care Physician [phone] Encounter [facility] [place] Date(s): 04/07/20 - 05/07/[address] [address] Attending Physician: Not on Staff, Attending MD Admitting Physician: Not on Staff, Admitting MD Referring Physician: Not on Staff, Referring MD Allergies, Adverse Reactions, Alerts Substance Reaction Severity Status ciprofloxacin Active Immunizations Not Given Vaccine Date Status Refusal Reason influenza virus vaccine, inactivated 04/06/20 Not Given Patient Refuses Medications acetaminophen 325 mg oral tablet 975 mg, By Mouth, Every 6 hours, Refills 0, Maintenance, 04/09/20 9:20:00 EDT Start Date: 04/09/20 Status: Ordered albuterol 0.083% inhalation solution 3 mL = 2.5 mg, Inhalation, Every 6 hours, # 120 each, 0 Refills, Maintenance, 03/31/20 19:06:00 EDT, Solution Start Date: 03/31/20 Status: Ordered amiodarone 200 mg oral tablet 200 mg, 1, tablet, By Mouth, 2 times a day, START on 04/13/20, once higher dose is finished., # 60 tablet, Refills 0, Tot. Refills 0, Maintenance, 04/13/20 9:00:00 EDT, Route to Pharmacy Electronically, [facility] 175, cm, 04/09/20 7:28... Start Date: 04/13/20 Stop Date: 05/13/20 Status: Ordered apixaban 5 mg oral tablet 1 tablet = 5 mg, By Mouth, 2 times a day, # 60 tablet, 5 Refills, Maintenance, 05/06/20 11:44:00 EST, Tablet, [facility] # 302, 175, cm, 05/05/20 10:39:00 EST, Height, 90.8, kg, 03/31/20 17:25:00 EDT, Dry Weight Start Date: 05/06/20 Stop Date: 11/02/20 Status: Ordered aspirin 81 mg oral delayed release tablet = 81 mg, By Mouth, Daily, # 30 tablet, 5 Refills, Maintenance, 05/06/20 11:44:00 EST, EC Tablet, [facility] # 302, 175, cm, 05/05/20 10:39:00 EST, Height, 90.8, kg, 03/31/20 17:25:00 EDT, Dry Weight Start Date: 05/06/20 Stop Date: 11/02/20 Status: Ordered atorvastatin 80 mg oral tablet 1 tablet = 80 mg, By Mouth, Daily at bedtime, # 30 tablet, 5 Refills, Maintenance, 05/06/20 11:44:00 EST, Tablet, [facility] # 302, 175, cm, 05/05/20 10:39:00 EST, Height, 90.8, kg, 03/31/20 17:25:00 EDT, Dry Weight Start Date: 05/06/20 Stop Date: 11/02/20 Status: Ordered Docusate Sodium Capsule 100 mg, 1, capsule, By Mouth, 2 times a day, Refills 0, Maintenance, 04/09/20 9:25:00 EDT Start Date: 04/09/20 Status: Ordered metoprolol 100 mg oral tablet, extended release 100 mg, 1, tablet, By Mouth, Daily, # 30 tablet, Refills 0, Tot. Refills 0, Maintenance, 05/05/20 10:47:00 EST, Route to Pharmacy Electronically, [facility] # 302, 175, cm, 05/05/20 10:39:00 EST, Height, 90.8, kg, 03/31/20 17:25:00 EDT, Dry Weight Start Date: 05/05/20 Status: Ordered MiraLax Powder 1 pack/packet = 17 Gm, By Mouth, Daily, 0 Refills, Maintenance, 04/09/20 9:25:00 EDT, Powder Start Date: 04/09/20 Status: Ordered Symbicort 160mcg/4.5mcg Inhaler 2, puffs, Inhalation, 2 times a day, # 6 Gm, Refills 0, Maintenance, 03/31/20 19:06:00 EDT, Aerosol Start Date: 03/31/20 Status: Ordered ZyrTEC 10 mg oral tablet 1 tablet = 10 mg, By Mouth, Daily, # 30 tablet, 0 Refills, Maintenance, 03/31/20 19:05:00 EDT, Tablet Start Date: 03/31/20 Status: Ordered Social History Social History Type Response Smoking Status Former smoker, quit more than 30 days ago entered on: 03/31/20 Sex
--- OUTSIDE RECORDS SUMMARY | 2024-04-01 06:55 | XMS_ITS | Continuity of Care Document ---
Author Organization [facility] Address [address] [place] [phone]- Care Team Providers Care Monorail Charger Operator Name Role Phone Carmen KENT, Samir Ansari Primary Care Physician [phone] [place] [facility] [place] Date(s): 10/13/23 - 11/12/23 [facility] [address] [place] [address]- Allergies, Adverse Reactions, Alerts Substance Reaction Severity Status ciprofloxacin Active statins 1 Active 1severe muscle aches Medications acetaminophen 325 mg oral tablet 650 mg, By Mouth, Every 6 hours, May take OTC, follow directions on bottle, Refills 0, Maintenance,10/09/21 7:57:00 EDT, Partial fill upon patient request if the prescription is for a schedule II opioid drug. Start Date: 10/09/21 Status: Ordered aspirin 81 mg oral capsule 1 capsule = 81 mg, By Mouth, Daily at bedtime, 0 Refills, Maintenance, 09/09/22 16:03:00 EST, Partial fill upon patient request if the prescription is for a schedule II opioid drug. Start Date: 09/09/22 Status: Ordered docusate sodium 100 mg oral capsule 100 mg, 1, capsule, By Mouth, 2 times a day, hold for loose stool, # 60 capsule, Refills 0, Tot. Refills 0, Maintenance, 10/09/21 7:58:00 EDT, Route to Pharmacy Electronically, [facility], Partial fill upon patient [...] Mouth, Daily, # 30 tablet, 5 Refills, [facility][id number], 175, cm, 11/01/21 10:05:00 EDT, Height, 87, kg, 10/08/21 6:42:00 EDT, Dry Weight Start Date: 12/28/21 Status: Ordered Metoprolol Succinate ER 100 mg oral tablet, extended release See Instructions, TAKE ONE TABLET BY MOUTH ONCE DAILY, # 30 tablet, 11 Refills, Maintenance, 07/23/22 15:53:00 EST, [facility] #[id number], 175, cm, 03/23/22 10:03:00 EDT, Height, 87, kg, 10/08/21 6:42:00 EDT, Dry Weight Start Date: 07/23/22 Status: Ordered Milk of Magnesia Liquid 30 [...] Ordered Praluent Pen 150 mg/mL subcutaneous solution See Instructions, INJECT 150MG SUBCUTANEOUSLY EVERY 14 DAYS, # 2 mL, 10 Refills, Maintenance, 09/07/23 15:16:00 EST, [facility], 175, cm, 11/02/22 9:38:00 EDT, Height, 87, kg, 10/08/21 6:42:00 EDT, Dry Weight Start Date: 09/07/23 Status: Ordered senna 187 mg oral tablet 1 tablet = 8.6 mg, By Mouth, Daily at bedtime, PRN as needed for constipation, 0 Refills, Maintenance, 10/09/21 8:02:00 EDT, Tablet, Partial fill upon patient request if the prescription is for a schedule II opioid drug. Start Date: 10/09/21 Status: Ordered sertraline 25 mg oral tablet TAKE 1 TABLET BY MOUTH DAILY Start Date: 11/02/22 Status: Ordered Symbicort 160mcg/4.5mcg Inhaler 2, puffs, Inhalation, 2 times a day, # 6 Gm, Refills 0, Maintenance, 03/31/20 19:06:00 EDT, Aerosol Start Date: 03/31/20 Status: Ordered Xarelto 20 mg oral tablet 1 tablet = 20 mg, By Mouth, Daily at supper, discontinue eliquis, # 90 tablet, 3 Refills, Maintenance, 11/19/23 10:45:00 EDT, Tablet, [facility]198, 175, cm, 11/02/22 9:38:00 EDT, Height, 87, kg, 10/08/21 6:42:00 EDT, Dry Weight Start Date: 11/19/23 Stop Date: 11/13/24 Status: Ordered Xarelto 20 mg oral tablet 1 tablet = 20 mg, By Mouth, Daily at supper, for 90 days, discontinue eliquis, # 90 tablet, 3 Refills, Hard Stop 08/26/24 12:49:00 EST, 09/01/23 12:49:00 EST, Tablet, [facility][id number], 175, cm, 11/02/22 9:38:00 EDT, Height, 87, kg, 10/08/21 6:42:00... Start Date: 09/01/23 Stop Date: 08/26/24 Status: Ordered Zetia 10 mg oral tablet 1 tablet = 10 mg, By Mouth, Daily, # 30 tablet, 11 Refills, Maintenance, 11/18/20 14:19:00 EDT, Tablet, [facility] # 302, Partial fill upon patient [...] on: 03/31/20 Sex Patient Care team information Care Team Personnel Name: Herminia David RN Position: S RN Member Role: Primary Care Nurse Name: Naila Mcgregor RN Position: S RN Member Role: Primary Care Nurse Name: Mary Joshi RN Position: S RN Member Role: Primary Care Nurse Name: Samir Moraels MD Position: Reference Physician Member Role: PCP Address: Address: [address] [place] [address]- Care Team Related Persons Name: LALIT NELSON Address: home [address] [place] [address]
--- OUTSIDE RECORDS SUMMARY | 2024-04-01 06:55 | XMS_ITS | Continuity of Care Document ---
Author Organization [facility] Address [address] [place] [address]- Care Team Providers Care Clinical Evaluator Name Role Phone Carmen KENT, Samir Ansari Primary Care Physician En[place] [facility] [place] Date(s): 08/02/22 - 09/01/22 [facility] [address] [place] [address]- Allergies, Adverse Reactions, Alerts Substance Reaction Severity [...] 10/09/21 7:58:00 EDT, Route to Pharmacy Electronically, [facility], Partial fill upon patient request [...] Mouth, Daily, # 30 tablet, 5 Refills, [facility] #[id number], 175, cm, 11/01/21 10:05:00 EDT, Height, 87, kg, 10/08/21 6:42:00 EDT, Dry Weight Start Date: 12/28/21 Status: Ordered Metoprolol Succinate ER 100 mg oral tablet, extended release See Instructions, TAKE ONE TABLET BY MOUTH ONCE DAILY, # 30 tablet, 11 Refills, Maintenance, 07/23/22 15:53:00 EST, [facility] #[id number], 175, cm, 03/23/22 10:03:00 EDT, Height, 87, [...] See Instructions, INJECT 150MG SUBCUTANEOUSLY EVERY 14 DAYS , # 2 mL, 6 Refills, Maintenance, 06/07/22 11:53:00 EST, [facility] #[id number], 175, cm, 03/23/22 10:03:00 EDT, Height, 87, kg, 10/08/21 6:42:00 EDT, Dry Weight Start Date: 06/07/22 Status: Ordered Praluent Pen 150 mg/mL subcutaneous solution = 150 mg, Subcutaneous Infusion, Every 14 days, # 2 each, 11 Refills, Maintenance, 07/19/21 8:14:00EST, [facility] # 302, 175, cm, 06/23/21 12:10:00 [...] 3 Refills, Maintenance, 12/09/21 12:19:00 EDT, Tablet, [facility]198, 175, cm, 11/01/21 10:05:00 EDT, Height, 87, kg, 10/08/21 6:42:00 EDT, Dry Weight Start Date: 12/09/21 Stop Date: 12/04/22 Status: Ordered Zetia 10 mg oral tablet 1 tablet = 10 mg, By Mouth, Daily, # 30 tablet, 11 Refills, Maintenance, 11/18/20 14:19:00 EDT, Tablet, [facility] # 302, Partial fill upon patient [...] RN Member Role: Primary Care Nurse Name: Nyla Torres RN Position: S RN Member Role: Primary Care Nurse Name: Samir Morales MD Position: Reference Physician Member Role: PCP Address: Address: [address] [place] [address]- Care Team Related Persons Name: LESLIE LALIT Address: [address] [address]
--- OUTSIDE RECORDS SUMMARY | 2024-04-01 06:55 | XMS_ITS | Continuity of Care Document ---
Author Organization [facility] Address [address] [place] [phone]- Care Team Providers Care Professional Housing Consultant Name Role Phone Samir Morales MD Primary Care Physician Encounter [facility] [place] Date(s): 05/06/20 - 07/03/20 [facility] [address] [place] [address] Attending Physician: Maria Fernanda Ferreira NP Admitting Physician: Maria Fernanda Ferreira NP Referring Physician: Samir Morales MD Allergies, Adverse [...] Status: Ordered amiodarone 200 mg oral tablet 100 mg, 0.5, tablet, By Mouth, Daily, # 45 tablet, Refills 3, Tot. Refills 3, Maintenance, 06/04/2015:32:00 EST, Route to Pharmacy Electronically, [facility] # [facility], 175, cm, 06/02/20 9:11:00 EST, Height, 90.8, kg, 03/31/20 17:25:00 EDT, Dry Weight Start Date: 06/04/20 Stop Date: 07/04/20 Status: Ordered apixaban 5 mg oral tablet 1 tablet = 5 mg, By Mouth, 2 times a day, # 60 tablet, 5 Refills, Maintenance, 05/06/20 11:44:00 EST, Tablet, [facility] # 302, 175, cm, 05/05/20 10:39:00 EST, Height, 90.8, kg, 03/31/20 17:25:00 EDT, Dry Weight Start Date: 05/06/20 Stop Date: 11/02/20 Status: Ordered aspirin 81 mg oral delayed release tablet = 81 mg, By Mouth, Daily, # 30 tablet, 5 Refills, Maintenance, 05/06/20 11:44:00 EST, EC Tablet, [facility] # 302, 175, cm, 05/05/20 10:39:00 EST, Height, 90.8, kg, 03/31/20 17:25:00 EDT, Dry Weight Start Date: 05/06/20 Stop Date: 11/02/20 Status: Ordered atorvastatin 80 mg oral tablet 1 tablet = 80 mg, By Mouth, Daily at bedtime, # 30 tablet, 5 Refills, Maintenance, 05/06/20 11:44:00 EST, Tablet, [facility] # 302, 175, cm, 05/05/20 10:39:00 EST, Height, 90.8, kg, 03/31/20 17:25:00 EDT, Dry Weight Start Date: 05/06/20 Stop Date: 11/02/20 Status: Ordered Docusate Sodium Capsule 100 mg, 1, capsule, By Mouth, 2 times a day, Refills 0, Maintenance, 04/09/20 9:25:00 EDT Start Date: 04/09/20 Status: Ordered ibuprofen 400 mg oral tablet 400 mg, 1, tablet, By Mouth, 3 times a day, PRN, Refills 0, Maintenance, Pain , Moderate, 06/13/20 11:30:00 EST, Partial fill upon patient request if the prescription is for a schedule II opioid drug. Start Date: 06/13/20 Status: Ordered metoprolol 100 mg oral tablet, extended release 100 mg, 1, tablet, By Mouth, Daily, # 30 tablet, Refills 5, Tot. Refills 5, Maintenance, 06/08/20 12:13:00 EST, Route to Pharmacy Electronically, [facility] # 302, 175, cm, 06/02/20 9:11:00 EST,Height, 90.8, kg, 03/31/20 17:25:00 EDT, Dry Weight Start Date: 06/08/20 Stop Date: 12/05/20 Status: Ordered MiraLax Powder 1 pack/packet = 17 Gm, By Mouth, Daily, 0 Refills, Maintenance, 04/09/20 9:25:00 EDT, Powder Start Date: 04/09/20 Status: Ordered omeprazole 20 mg oral enteric coated capsule 1 capsule = 20 mg, By Mouth, Daily, # 30 capsule, 0 Refills, Maintenance, 06/02/20 9:15:00 EST, EC Capsule, Partial fill upon patient request Start Date: 06/02/20 Status: Ordered Symbicort 160mcg/4.5mcg Inhaler 2, puffs, [...]
--- OUTSIDE RECORDS SUMMARY | 2024-04-01 06:55 | XMS_ITS | Continuity of Care Document ---
Author Organization [facility] ter Address [address] [place] [id number]- Care Team Providers Care Otolaryngology Physician Name Role Phone Carmen KENT, Samir Ansari Primary Care Physician Encounter [facility] [place] Date(s): 06/12/20 - 06/13/[address] [address] Discharge Disposition: A-D/C Home Attending Physician: Osorio Desai MD Admitting Physician: Margaux Wellington MD Referring Physician: Not on Staff, Referring MD Allergies, Adverse Reactions, Alerts Substance Reaction Severity Status ciprofloxacin Active Immunizations Not Given Vaccine Date Status Refusal Reason influenza virus vaccine, inactivated 04/06/20 Not Given Patient Refuses Medications acetaminophen 325 mg oral tablet 975 mg, By Mouth, Every 6 hours, Refills 0, Maintenance, 04/09/20 9:20:00 EDT Start Date: 04/09/20 Status: Ordered acetaminophen 325 mg oral tablet 975 mg, Tablet, By Mouth, 06/13/20 6:00:00 EST Start Date: 06/13/20 Stop Date: 06/13/20 Status: Completed albuterol 0.083% inhalation solution 3 mL = 2.5 mg, Inhalation, Every 6 hours, # 120 each, 0 Refills, Maintenance, 03/31/20 19:06:00 EDT, Solution Start Date: 03/31/20 Status: Ordered amiodarone 200 mg oral tablet 100 mg, 0.5, tablet, By Mouth, Daily, # 45 tablet, Refills 3, Tot. Refills 3, Maintenance, 06/04/2015:32:00 EST, Route to Pharmacy Electronically, [facility] # [facility], 175, cm, 06/02/20 9:11:00 EST, Height, 90.8, kg, 03/31/20 17:25:00 EDT, Dry Weight Start Date: 06/04/20 Stop Date: 07/04/20 Status: Ordered apixaban 5 mg oral tablet 1 tablet = 5 mg, By Mouth, 2 times a day, # 60 tablet, 5 Refills, Maintenance, 05/06/20 11:44:00 EST, Tablet, [facility] # [facility], 175, cm, 05/05/20 10:39:00 EST, Height, 90.8, kg, 03/31/20 17:25:00 EDT, Dry Weight Start Date: 05/06/20 Stop Date: 11/02/20 Status: Ordered aspirin 81 mg oral delayed release tablet = 81 mg, By Mouth, Daily, # 30 tablet, 5 Refills, Maintenance, 05/06/20 11:44:00 EST, EC Tablet, [facility] # 302, 175, cm, 05/05/20 10:39:00 EST, Height, 90.8, kg, 03/31/20 17:25:00 EDT, Dry Weight Start Date: 05/06/20 Stop Date: 11/02/20 Status: Ordered atorvastatin 80 mg oral tablet 1 tablet = 80 mg, By Mouth, Daily at bedtime, # 30 tablet, 5 Refills, Maintenance, 05/06/20 11:44:00 EST, Tablet, [facility] # 302, 175, cm, 05/05/20 10:39:00 [...] 06/08/20 12:13:00 EST, Route to Pharmacy Electronically, [facility] # [facility], 175, cm, 06/02/20 9:11:00 [...] EDT, Tablet Start Date: 03/31/20 Status: Ordered Results Radiology Reports * Exam Date Time Procedure Performing Provider Status 06/12/20 10:22 AM Chest Portable Cyndy Fernandez; Susi (Verified) Notes: (Chest Portable) Reason For Exam: Chest Pain;Other: RESULT: Chest Portable Chest Portable Hx of Present Illness: Pt to Ed with CP in left side started last night while sleeping. pain worse while taking a deep breath. Denies fever, chills. 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 LUNGS AND PLEURA: Minimal left basilar subsegmental atelectasis. No pleural effusion. No pneumothorax. HEART, MEDIASTINUM AND GIOVANI: Heart is normal in size. Normal upper mediastinal and hilar contour. BONES AND SOFT TISSUES: No acute abnormality. Status post median sternotomy. IMPRESSION: Minimal left basilar subsegmental atelectasis. Lungs are otherwise clear. WSN: [id number] Ordering Physician: Neeru Pinedo Dictated By: Mode Skelton MD Dictated Date/Time: 06/12/20 10:24 a Reviewed By: Mode Skelton MD Signed By: Mode Skelton MD Signed Date/Time: 06/12/20 10:24 am Transcribed By: ESTELLA Transcribed Date/Time: 06/12/20 10:23 am Vital Signs Most recent to oldest [Reference Range]: 1 2 3 Height 175 cm (06/13/20 7:01 AM) 175 cm (06/13/20 4:24 AM) 175 cm (06/12/20 11:31 PM) Weight 91.1 kg (06/12/20 7:26 PM) 84.5 kg (06/12/20 9:53 AM) 84.5 kg (06/12/20 8:58 AM) Oxygen Saturation [94-100 %] 96 % (06/13/20 7:01 AM) 97 % (06/13/20 4:24 AM) 93 % *L* (06/12/20 11:31 PM) Pulse Rate [55-90 bpm] 71 bpm (06/13/20 7:01 AM) 66 bpm (06/13/20 4:24 AM) 76 bpm (06/12/20 11:31 PM) Body Mass Index [18.5-24.99] 29.75 *H* (06/12/20 7:26 PM) 27.59 *H* (06/12/20 9:53 AM) 27.59 *H* (06/12/20 8:58 AM) Blood Pressure [90-138/55-84 mm Hg] 113/61mm Hg (06/13/20 7:01 AM) 104/57mm Hg (06/13/20 4:24 AM) 121/72mm Hg (06/12/20 11:31 PM) Respiratory Rate [16-30 br/min] 18 br/min (06/13/20 9:00 AM) 18 br/min (06/13/20 8:49 AM) 20 br/min (06/13/20 7:01 AM) Temperature [96.8-100.4 DegF] 97.6 DegF (06/13/20 7:01 AM) 98.7 DegF (06/13/20 4:24 AM) 99.9 DegF (06/12/20 11:31 PM) Mode of Delivery (Oxygen) Room air (06/13/20 7:01 AM) Room air (06/13/20 4:24 AM) Room air (06/12/20 11:31 PM) Blood pressure sites Arm, left (06/13/20 7:01 AM) Arm, left (06/13/20 4:24 AM) Arm, right (06/12/20 11:31 PM) Temperature Route Oral (06/13/20 7:01 AM) Oral (06/13/20 4:24 AM) Oral (06/12/20 11:31 PM) Dry Weight 91.1 kg (06/12/20 7:26 PM) 84.5 kg (06/12/20 9:53 AM) 84.5 kg (06/12/20 8:58 AM) Weight Obtained Via Bed scale (06/12/20 7:26 PM) Standing scale (06/12/20 8:58 AM) Dry Weight Obtained Via Bed scale (06/12/20 7:26 PM) Standing scale (06/12/20 8:58 AM) Social History Social History Type Response Smoking Status Former smoker, quit more than 30 days ago entered on: 03/31/20 Sex
--- OUTSIDE RECORDS SUMMARY | 2024-04-01 06:55 | XMS_ITS | Continuity of Care Document ---
Author Organization [facility] Address [address] [place] [address]- Care Team Providers Care Tongue Lining Stitcher Name Role Phone Samir Morales MD Primary Care Physician Encounter [facility] [place] Date(s): 06/09/21 - 07/09/21 [facility] [address] [place] [id number]- Attending Physician: Anna Marie Becerra Admitting Physician: Anna Marie Becerra Referring Physician: Anna Marie Becerra Allergies, Adverse Reactions, Alerts Substance Reaction Severity Status ciprofloxacin Active statins 1 Active 1severe muscle aches Immunizations Not Given Vaccine Date Status Refusal Reason influenza virus vaccine, inactivated 04/06/20 Not Given Patient Refuses Medications apixaban 5 mg oral tablet 1 tablet = 5 mg, By Mouth, 2 times a day, # 60 tablet, 11 Refills, Maintenance, 11/03/20 9:16:00 EDT, Tablet, [email or web address] # 302, 175, cm, 06/13/20 7:01:00 EST, Height, 91.1, kg, 06/12/20 19:26:00EST, Dry Weight Start Date: 11/03/20 Stop Date: 10/29/21 Status: Ordered aspirin 81 mg oral delayed release tablet = 81 mg, By Mouth, Daily, # 30 tablet, 5 Refills, Maintenance, 05/06/20 11:44:00 EST, EC Tablet, [email or web address] # 302, 175, cm, 05/05/20 10:39:00 [...] Mouth, Daily, # 30 tablet, 6 Refills, [facility] #[id number], 175, cm, 11/06/20 9:43:00 EDT, Height, 91.1, [...] 11 Refills, Maintenance, 11/18/20 14:19:00 EDT, Tablet, [email or web address] # 302, Partial fill upon patient [...]
--- OUTSIDE RECORDS SUMMARY | 2024-04-01 06:55 | XMS_ITS | Continuity of Care Document ---
Author Organization [facility] Address [address] [place] [address]- Care Team Providers Care Information Systems Auditor Name Role Phone Carmen KENT, Samir Ansari Primary Care Physician [phone] Encounter [facility] [place] Date(s): 03/09/22 - 04/08/22 [facility] [address] [place] [address]- Allergies, Adverse Reactions, Alerts Substance Reaction Severity [...] 10/09/21 7:58:00 EDT, Route to Pharmacy Electronically, [facility], Partial fill upon patient request [...] Mouth, Daily, # 30 tablet, 5 Refills, [facility] #[id number], 175, cm, 11/01/21 10:05:00 EDT, Height, 87, [...] 2 each, 11 Refills, Maintenance, 07/19/21 8:14:00EST, [facility] # 302, 175, cm, 06/23/21 12:10:00 [...] 3 Refills, Maintenance, 12/09/21 12:19:00 EDT, Tablet, [facility] #198, 175, cm, 11/01/21 10:05:00 EDT, Height, 87, kg, 10/08/21 6:42:00 EDT, Dry Weight Start Date: 12/09/21 Stop Date: 12/04/22 Status: Ordered Zetia 10 mg oral tablet 1 tablet = 10 mg, By Mouth, Daily, # 30 tablet, 11 Refills, Maintenance, 11/18/20 14:19:00 EDT, Tablet, [facility] # 302, Partial fill upon patient [...] Name: Carmen KENT, Samir Ansari Address: Address: [address] [place] [address]
--- OUTSIDE RECORDS SUMMARY | 2024-04-01 06:55 | XMS_ITS | Continuity of Care Document ---
Author Organization [facility] Address [address] [place] [phone]- Care Team Providers Care Chorus Dancer Name Role Phone Carmen KENT, Samir Ansari Primary Care Physician [phone] Encounter [facility] [place] [facility] R [id number] Date(s): 07/06/20 - 07/13/20 [facility] [address] [place] [id number] Attending Physician: Donn Thomas MD Referring Physician: Ana Paula KENT, [facility] Allergies, Adverse Reactions, Alerts Substance Reaction Severity [...] Maintenance, 06/04/2015:32:00 EST, Route to Pharmacy Electronically, [facility] # 302, 175, cm, 06/02/20 9:11:00 EST, Height, 90.8, kg, 03/31/20 17:25:00 EDT, Dry Weight Start Date: 06/04/20 Stop Date: 07/04/20 Status: Ordered apixaban 5 mg oral tablet 1 tablet = 5 mg, By Mouth, 2 times a day, # 60 tablet, 5 Refills, Maintenance, 05/06/20 11:44:00 EST, Tablet, [facility] # 302, 175, cm, 05/05/20 10:39:00 EST, Height, 90.8, kg, 03/31/20 17:25:00 EDT, Dry Weight Start Date: 05/06/20 Stop Date: 11/02/20 Status: Ordered aspirin 81 mg oral delayed release tablet = 81 mg, By Mouth, Daily, # 30 tablet, 5 Refills, Maintenance, 05/06/20 11:44:00 EST, EC Tablet, [facility] # 302, 175, cm, 05/05/20 10:39:00 EST, Height, 90.8, kg, 03/31/20 17:25:00 EDT, Dry Weight Start Date: 05/06/20 Stop Date: 11/02/20 Status: Ordered atorvastatin 80 mg oral tablet 1 tablet = 80 mg, By Mouth, Daily at bedtime, # 30 tablet, 5 Refills, Maintenance, 05/06/20 11:44:00 EST, Tablet, [facility] # 302, 175, cm, 05/05/20 10:39:00 [...] 06/08/20 12:13:00 EST, Route to Pharmacy Electronically, [facility] # 302, 175, cm, 06/02/20 9:11:00 [...]
--- OUTSIDE RECORDS SUMMARY | 2024-04-01 06:55 | XMS_ITS | Continuity of Care Document ---
Author Organization [facility] Address [address] [place] [address]- Care Team Providers Care Chemical Plant Technical Director Name Role Phone Samir Morales MD Primary Care Physician [phone] Encounter [facility] [place] Date(s): 07/22/21 - 08/21/21 [facility] [address] [place] [id number]- Attending Physician: Anna Marie Becerra Admitting Physician: Anna Marie Becerra Referring Physician: Anna Marie Becerra Allergies, Adverse Reactions, Alerts Substance Reaction Severity Status ciprofloxacin Active statins 1 Active 1severe muscle aches Immunizations Not Given Vaccine Date Status Refusal Reason influenza virus vaccine, inactivated 04/06/20 Not Given Patient Refuses Medications acetaminophen 325 mg oral tablet 650 mg, By Mouth, Every 6 hours, May take OTC not to exceed 3000 mg/day, Refills 0, Maintenance, 08/19/21 7:28:00 EST, Partial fill upon patient request if the prescription is for a schedule II opioid drug. Start Date: 08/19/21 Status: Ordered apixaban 2.5 mg oral tablet 1 tablet = 2.5 mg, By Mouth, 2 times a day, Take for the first 7 days, 0 Refills, Maintenance, 08/19/21 7:28:00 EST, Tablet, Partial fill upon patient request if the prescription is for a schedule IIopioid drug. Start Date: 08/19/21 Status: Ordered apixaban 5 mg oral tablet 1 tablet = 5 mg, By Mouth, 2 times a day, # 60 tablet, 11 Refills, Maintenance, 11/03/20 9:16:00 EDT, Tablet, [facility], 175, cm, 06/13/20 7:01:00 EST, Height, 91.1, kg, 06/12/20 19:26:00EST, Dry Weight Start Date: 11/03/20 Stop Date: 10/29/21 Status: Ordered Dilaudid 2 mg oral tablet See Instructions, PRN Pain , Severe, 1-2 tablet By Mouth Every 4 hours, # 84 tablet, 0 Refills, Acute 08/26/21 7:25:00 EST, 08/19/21 7:25:00 EST, Tablet, [facility], Partial fill upon patient request if the prescription is for a schedule... Start Date: 08/19/21 Stop Date: 08/26/21 Status: Ordered docusate sodium 100 mg oral capsule 1 capsule = 100 mg, By Mouth, 2 times a day, # 60 capsule, 0 Refills, Maintenance, 08/19/21 7:20:00EST, Capsule, [facility], Partial fill upon patient request if the prescription is for a schedule II opioid drug., 175, cm, 08/19/21 6:30... Start Date: 08/19/21 Status: Ordered Metoprolol Succinate ER 100 mg oral tablet, extended release 1 tablet, By Mouth, Daily, # 30 tablet, 6 Refills, [facility] #[id number], 175, cm, 11/06/20 9:43:00 EDT, Height, 91.1, kg, 06/12/20 19:26:00 EST, Dry Weight Start Date: 05/28/21 Status: Ordered MiraLax Powder 1 pack/packet = 17 Gm, By Mouth, Daily, PRN Constipation, 0 Refills, Maintenance, 08/19/21 7:28:00 EST, Powder, Partial fill upon patient request if the prescription is for a schedule II opioid drug. Start Date: 08/19/21 Status: Ordered ondansetron 4 mg oral tablet 1 tablet = 4 mg, By Mouth, Every 8 hours, PRN as needed for nausea/vomiting, for 7 days, # 21 tablet, 0 Refills, Acute 08/26/21 7:21:00 EST, 08/19/21 7:21:00 EST, Tablet, [facility], Partial fill upon patient request if the prescription... Start Date: 08/19/21 Stop Date: 08/26/21 Status: Ordered pantoprazole 40 mg oral delayed [...] 2 each, 11 Refills, Maintenance, 07/19/21 8:14:00EST, [facility], 175, cm, 06/23/21 12:10:00 EST, Height, 91.1, kg, 06/12/20 19:26:00 EST, Dry Weight Start Date: 07/19/21 Stop Date: 07/14/22 Status: Ordered senna 187 mg oral tablet 1 tablet = 8.6 mg, By Mouth, Daily at bedtime, PRN as needed for constipation, 0 Refills, Maintenance, 08/19/21 7:29:00 EST, Tablet, Partial fill upon patient request if the prescription is for a schedule II opioid drug. Start Date: 08/19/21 Status: Ordered Symbicort 160mcg/4.5mcg Inhaler 2, puffs, Inhalation, 2 times a day, # 6 Gm, Refills 0, Maintenance, 03/31/20 19:06:00 EDT, Aerosol Start Date: 03/31/20 Status: Ordered traMADol 50 mg oral tablet See Instructions, PRN Pain , Mild, 1-2 tablet By Mouth Every 6 hours not to exceed 400 mg/day, # 56tablet, 0 Refills, Acute 08/26/21 7:25:00 EST, 08/19/21 7:24:00 EST, Tablet, [facility], Partial fill upon patient request if the presc... Start Date: 08/19/21 Stop Date: 08/26/21 Status: Ordered Zetia 10 mg oral tablet 1 tablet = 10 mg, By Mouth, Daily, # 30 tablet, 11 Refills, Maintenance, 11/18/20 14:19:00 EDT, Tablet, [facility] # [facility], Partial fill upon [...]
--- OUTSIDE RECORDS SUMMARY | 2024-04-01 06:55 | XMS_ITS | Continuity of Care Document ---
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 Start Date: 04/13/20 Stop Date: 05/13/20 Status: Ordered apixaban 5 mg oral tablet 1 tablet = 5 mg, By Mouth, 2 times a day, # 60 tablet, 0 Refills, Maintenance, 04/09/20 9:24:00 EDT, Tablet, [facility], 175, cm, 04/09/20 7:28:00 EDT, Height, 90.8, kg, 03/31/20 17:25:00 EDT, Dry Weight Start Date: 04/09/20 Status: Ordered aspirin 81 mg oral delayed release tablet = 81 mg, By Mouth, Daily, # 30 tablet, 0 Refills, Maintenance, 04/09/20 9:24:00 EDT, EC Tablet, [facility], 175, cm, 04/09/20 7:28:00 EDT, Height, 90.8, kg, 03/31/20 17:25:00 EDT, Dry Weight Start Date: 04/09/20 Stop Date: 05/09/20 Status: Ordered atorvastatin 80 mg oral tablet 1 tablet = 80 mg, By Mouth, Daily at bedtime, # 30 tablet, 0 Refills, Maintenance, 04/09/20 9:20:00EDT, [facility], [facility], 04/09/20 7:28:00 EDT, Height, 90.8, kg, 03/31/20 17:25:00 EDT, Dry Weight Start Date: 04/09/20 Status: Ordered Docusate Sodium Capsule 100 mg, 1, capsule, By Mouth, 2 times a day, Refills 0, Maintenance, 04/09/20 9:25:00 EDT Start Date: 04/09/20 Status: Ordered metoprolol 50 mg oral tablet 50 mg, 1, tablet, By Mouth, 3 times a day, # 90 tablet, Refills 0, Tot. Refills 0, Maintenance, 04/09/20 9:25:00 EDT, Route to Pharmacy Electronically, [facility], 175, cm, 04/09/20 7:28:00 EDT, Height, 90.8, kg, 03/31/20 17:25:00 EDT, D... Start Date: 04/09/20 Stop Date: 05/09/20 Status: Ordered MiraLax Powder 1 pack/packet = [...]
--- OUTSIDE RECORDS SUMMARY | 2024-04-01 06:55 | XMS_ITS | Continuity of Care Document ---
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 Start Date: 09/09/22 Status: Ordered carvedilol 6.25 mg oral tablet 6.25 mg, 1, tablet, By Mouth, 2 times a day, # 180 tablet, Refills 3, Tot. Refills 3, Maintenance, 12/26/23 15:59:00 EDT, Route to Pharmacy Electronically, [facility] # [id number], Partial fill upon patient request if the prescription is for a schedule... Start Date: 12/26/23 Stop Date: 12/20/24 Status: Ordered docusate sodium 100 mg oral capsule 100 mg, 1, capsule, By Mouth, 2 times a day, hold for loose stool, # 60 capsule, Refills 0, Tot. Refills 0, Maintenance, 10/09/21 7:58:00 EDT, Route to Pharmacy Electronically, [facility], Partial fill upon patient request if the prescri... Start Date: 10/09/21 Status: Ordered Maalox Plus Liquid 30 mL, By Mouth, Every 4 hours, PRN Other, Heartburn, 0 Refills, Maintenance, 10/09/21 7:58:00 EDT,Suspension, Partial fill upon patient request if the prescription is for a schedule II opioid drug. Start Date: 10/09/21 Status: Ordered Milk of Magnesia Liquid 30 [...] mL, 10 Refills, Maintenance, 09/07/23 15:16:00 EST, [facility], 175, cm, 11/02/22 9:38:00 [...] 3 Refills, Maintenance, 11/19/23 10:45:00 EDT, Tablet, [id number], 175, cm, 11/02/22 9:38:00 EDT, Height, 87, kg, 10/08/21 6:42:00 EDT, Dry Weight Start Date: 11/19/23 Stop Date: 11/13/24 Status: Ordered Xarelto 20 mg oral tablet 1 tablet = 20 mg, By Mouth, Daily at supper, for 90 days, discontinue eliquis, # 90 tablet, 3 Refills, Hard Stop 08/26/24 12:49:00 EST, 09/01/23 12:49:00 EST, Tablet, [facility] #[id number], 175, cm, 11/02/22 9:38:00 EDT, Height, 87, kg, 10/08/21 6:42:00... Start Date: 09/01/23 Stop Date: 08/26/24 Status: Ordered Zetia 10 mg oral tablet 1 tablet = 10 mg, By Mouth, Daily, # 30 tablet, 11 Refills, Maintenance, 11/18/20 14:19:00 EDT, Tablet, [facility] # [facility], Partial fill upon [...] Reference Physician Member Role: PCP Address: Address: [address] [place] [address] Care Team Related Persons Name: LALIT NELSON Address: [address] [place] [address]
--- OUTSIDE RECORDS SUMMARY | 2024-04-01 06:55 | XMS_ITS | Continuity of Care Document ---
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 Name Role Phone Samir Morales MD Primary Care Physician Encounter [facility] [place] Date(s): 07/06/20 - 08/05/20 [facility] [address] [place] [id number] Attending Physician: Anna Marie Becerra Admitting Physician: AdmtrAnna Marie Referring Physician: Admtr, Ar8 Allergies, Adverse Reactions, Alerts Substance Reaction Severity [...] Maintenance, 06/04/2015:32:00 EST, Route to Pharmacy Electronically, [id number], 175, cm, 06/02/20 9:11:00 EST, Height, 90.8, kg, 03/31/20 17:25:00 EDT, Dry Weight Start Date: 06/04/20 Stop Date: 07/04/20 Status: Ordered apixaban 5 mg oral tablet 1 tablet = 5 mg, By Mouth, 2 times a day, # 60 tablet, 5 Refills, Maintenance, 05/06/20 11:44:00 EST, Tablet, [facility], 175, cm, 05/05/20 10:39:00 EST, Height, 90.8, kg, 03/31/20 17:25:00 EDT, Dry Weight Start Date: 05/06/20 Stop Date: 11/02/20 Status: Ordered aspirin 81 mg oral delayed release tablet = 81 mg, By Mouth, Daily, # 30 tablet, 5 Refills, Maintenance, 05/06/20 11:44:00 EST, EC Tablet, [facility], 175, cm, 05/05/20 10:39:00 EST, Height, 90.8, kg, 03/31/20 17:25:00 EDT, Dry Weight Start Date: 05/06/20 Stop Date: 11/02/20 Status: Ordered atorvastatin 80 mg oral tablet 1 tablet = 80 mg, By Mouth, Daily at bedtime, # 30 tablet, 5 Refills, Maintenance, 05/06/20 11:44:00 EST, Tablet, [facility] # [facility], 175, cm, 05/05/20 [...] 06/08/20 12:13:00 EST, Route to Pharmacy Electronically, [facility] # [facility], 175, cm, 06/02/20 9:11:00 [...]
--- OUTSIDE RECORDS SUMMARY | 2024-04-01 06:55 | XMS_ITS | Continuity of Care Document ---
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 Start Date: 10/09/21 Status: Ordered apixaban 2.5 mg oral tablet 1 tablet = 2.5 mg, By Mouth, 2 times a day, may split 5 mg tablets in half for 1 week then restart home dose in 1 week, # 60 tablet, 0 Refills, Maintenance, 10/09/21 7:56:00 EDT, Tablet, [facility], Partial fill upon patient request if t... Start Date: 10/09/21 Status: Ordered apixaban 5 mg oral tablet 1 tablet = 5 mg, By Mouth, 2 times a day, # 60 tablet, 11 Refills, Maintenance, 11/03/20 9:16:00 EDT, Tablet, [facility], 175, cm, 06/13/20 7:01:00 EST, Height, 91.1, kg, 06/12/20 19:26:00EST, Dry Weight Start Date: 11/03/20 Stop Date: 10/29/21 Status: Ordered docusate sodium 100 mg oral capsule 100 mg, 1, capsule, By Mouth, 2 times a day, hold for loose stool, # 60 capsule, Refills 0, Tot. Refills 0, Maintenance, 10/09/21 7:58:00 EDT, Route to Pharmacy Electronically, [facility], Partial fill upon patient request if the prescri... Start Date: 10/09/21 Status: Ordered HYDROmorphone 2 mg oral tablet See Instructions, PRN Pain , Moderate, Take 1-2 tablets By Mouth Every 4 hours as needed, # 84 tablet, 0 Refills, Acute 10/16/21 8:01:00 EDT, 10/09/21 7:59:00 EDT, Tablet, [facility], Partial fill upon patient request if the prescription... Start Date: 10/09/21 Stop Date: 10/16/21 Status: Ordered Maalox Plus Liquid 30 mL, By Mouth, Every 4 hours, PRN Other, Heartburn, 0 Refills, Maintenance, 10/09/21 7:58:00 EDT,Suspension, Partial fill upon patient request if the prescription is for a schedule II opioid drug. Start Date: 10/09/21 Status: Ordered Metoprolol Succinate ER 100 mg oral tablet, extended release 1 tablet, By Mouth, Daily, # 30 tablet, 6 Refills, [facility] #[id number], 175, cm, 11/06/20 9:43:00 EDT, Height, 91.1, kg, 06/12/20 19:26:00 EST, Dry Weight Start Date: 05/28/21 Status: Ordered Milk of Magnesia Liquid 30 [...] opioid drug. Start Date: 10/09/21 Status: Ordered ondansetron 4 mg oral tablet, disintegrating = 4 mg, By Mouth, Every 6 hours, PRN Nausea & Vomiting, for 7 days, # 28 tablet, 0 Refills, Acute 10/16/21 8:01:00 EDT, 10/09/21 8:01:00 EDT, Tablet, [facility], Partial fill upon patient request if the prescription is for a schedule II... Start Date: 10/09/21 Stop Date: 10/16/21 Status: Ordered pantoprazole 40 mg oral delayed [...] 2 each, 11 Refills, Maintenance, 07/19/21 8:14:00EST, [facility], 175, cm, 06/23/21 [...] tablet See Instructions, PRN Pain , Mild, Take 1-2 tablets By Mouth Every 6 hours as needed, # 56 tablet, 0 Refills, Acute 10/16/21 8:04:00 EDT, 10/09/21 8:02:00 EDT, Tablet, [facility], Partial fill upon patient request if the prescription is... Start Date: 10/09/21 Stop Date: 10/16/21 Status: Ordered Zetia 10 mg oral tablet [...]
--- OUTSIDE RECORDS SUMMARY | 2024-04-01 06:55 | XMS_ITS | Continuity of Care Document ---
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 Name Role Phone Carmen KENT, Samir Ansari Primary Care Physician Encounter [facility] [place] Date(s): 10/29/21 - 11/28/21 [facility] [address] [place] [id number]- [place] Allergies, Adverse Reactions, Alerts Substance Reaction [...] 10/09/21 7:58:00 EDT, Route to Pharmacy Electronically, [facility], Partial fill upon patient request [...] Mouth, Daily, # 30 tablet, 6 Refills, [facility][id number], 175, cm, 11/06/20 9:43:00 EDT, Height, 91.1, [...] 2 each, 11 Refills, Maintenance, 07/19/21 8:14:00EST, [facility], 175, [...] Mouth, Daily at supper, discontinue eliquis, # 30 tablet, 5 Refills, Maintenance, 11/01/21 14:13:00 EDT, Tablet, [facility], 175, cm, 11/01/21 10:05:00 EDT, Height, 87, kg, 10/08/21 6:42:00 EDT, Dry Weight Start Date: 11/01/21 Stop Date: 04/30/22 Status: Ordered Zetia 10 mg oral tablet 1 tablet = 10 mg, By Mouth, Daily, # 30 tablet, 11 Refills, Maintenance, 11/18/20 14:19:00 EDT, Tablet, [facility] # [facility], Partial fill upon patient [...]
--- OUTSIDE RECORDS SUMMARY | 2024-04-01 06:55 | XMS_ITS | Continuity of Care Document ---
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 Phone Carmen KENT, Samir Ansari Primary Care Physician Encounter [facility] Date(s): 03/31/20 - 04/09/[address] [address]- [facility] Encounter Diagnosis Non-ST elevation [place] (NSTEMI)(Final) - 04/07/20 Discharge Disposition: A-D/C Home Attending Physician: Donn Thomas MD Admitting Physician: Blanca Lakhani MD Referring Physician: Blanca Lakhani MD Allergies, Adverse Reactions, Alerts Substance Reaction [...] Status: Ordered amiodarone 200 mg oral tablet 400 mg, 2, tablet, By Mouth, 2 times a day, TAKE 2 tablets by mouth tonight, then twice a day starting tomorrow morning., # 14 tablet, Refills 0, Tot. Refills 0, Maintenance, 04/09/20 21:00:00 EDT, Route to Pharmacy Electronically, [facility] Start Date: 04/09/20 Stop Date: 04/13/20 Status: Ordered amiodarone 200 mg oral tablet 200 mg, 1, tablet, By Mouth, 2 times a day, START on 04/13/20, once higher dose is finished., # 60 tablet, Refills 0, Tot. Refills 0, Maintenance, 04/13/20 9:00:00 EDT, Route to Pharmacy Electronically, [facility], 175, cm, 04/09/20 7:28... Start Date: 04/13/20 Stop Date: 05/13/20 Status: Ordered apixaban 5 mg oral tablet 1 tablet = 5 mg, By Mouth, 2 times a day, # 60 tablet, 0 Refills, Maintenance, 04/09/20 9:24:00 EDT, Tablet, [facility], 175, cm, 04/09/20 7:28:00 EDT, Height, 90.8, kg, 03/31/20 17:25:00 EDT, Dry Weight Start Date: 04/09/20 Status: Ordered aspirin 81 mg oral delayed release tablet = 81 mg, By Mouth, Daily, # 30 tablet, 0 Refills, Maintenance, 04/09/20 9:24:00 EDT, EC Tablet, [facility], 175, cm, 04/09/20 7:28:00 EDT, Height, 90.8, kg, 03/31/20 17:25:00 EDT, Dry Weight Start Date: 04/09/20 Stop Date: 05/09/20 Status: Ordered atorvastatin 80 mg oral tablet 1 tablet = 80 mg, By Mouth, Daily at bedtime, # 30 tablet, 0 Refills, Maintenance, 04/09/20 9:20:00EDT, [facility], [facility], cm, 04/09/20 7:28:00 EDT, Height, 90.8, kg, 03/31/20 17:25:00 EDT, Dry Weight Start Date: 04/09/20 Status: Ordered Docusate Sodium Capsule 100 mg, 1, capsule, By Mouth, 2 times a day, Refills 0, Maintenance, 04/09/20 9:25:00 EDT Start Date: 04/09/20 Status: Ordered Lasix 40 mg oral tablet 40 mg, 1, tablet, By Mouth, Daily, # 5 tablet, Refills 0, Tot. Refills 0, Maintenance, 04/10/20 9:25:00 EDT, Route to Pharmacy Electronically, [facility], 175, cm, 04/09/20 7:28:00 EDT,Height, 90.8, kg, 03/31/20 17:25:00 EDT, Dry Weight Start Date: 04/10/20 Stop Date: 04/15/20 Status: Ordered metoprolol 50 mg oral tablet 50 mg, 1, tablet, By Mouth, 3 times a day, # 90 tablet, Refills 0, Tot. Refills 0, Maintenance, 04/09/20 9:25:00 EDT, Route to Pharmacy Electronically, [facility], 175, cm, 04/09/20 7:28:00 EDT, Height, 90.8, kg, 03/31/20 17:25:00 EDT, D... Start Date: 04/09/20 Stop Date: 05/09/20 Status: Ordered MiraLax Powder 1 pack/packet = 17 Gm, By Mouth, Daily, 0 Refills, Maintenance, 04/09/20 9:25:00 EDT, Powder Start Date: 04/09/20 Status: Ordered Senna 8.6 mg oral tablet 17.2 mg, 2, tablet, By Mouth, Daily, stop taking if having loose stool. take with plenty of water for 7 days, # 14 tablet, Refills 0, Tot. Refills 0, Acute, 04/16/20 9:25:00 EDT, 04/09/20 9:25:00 EDT, Route to Pharmacy Electronically, [facility] Start Date: 04/09/20 Stop Date: 04/16/20 Status: Ordered Symbicort 160mcg/4.5mcg Inhaler 2, puffs, [...] Exam Date Time Procedure Performing Provider Status 04/08/20 6:53 AM Chest Portable Kayla Barba; Auth (V erified) Notes: (Chest Portable) Reason For Exam: 2 LNC diurese;S/P Cardiac Surgery RESULT: Chest Portable Chest Portable Reason: S P Cardiac Surgery; 2 LNC diurese; Clinical Question(s): Pleural Effusion COMPARISON: Wrist radiograph, 04/05/2020 FINDINGS: LINES AND TUBES: None. LUNGS AND PLEURA: Bibasilar airspace opacity again demonstrated, with probable pleural effusions, right greater than left. No pneumothorax. HEART, MEDIASTINUM AND LINDSAY: Unchanged cardiomegaly. BONES AND SOFT TISSUES: No acute abnormality. IMPRESSION: Persistent bibasilar airspace disease with probable pleural effusions, right greater than left. WSN: [id number] Ordering Physician: Nikita Bunch Dictated By: Debbie Garsia MD Dictated Date/Time: 04/08/20 12:33 p Reviewed By: Debbie Garsia MD Signed By: Debbie Garsia MD Signed Date/Time: 04/08/20 12:33 pm Transcribed By: ESTELLA Transcribed Date/Time: 04/08/20 12:32 pm * Exam Date Time Procedure Performing Provider Status 04/05/20 10:48 AM Chest Portable Maria Fernanda Owusu; [facility] (Verified) Notes: (Chest Portable) Reason For Exam: tube removal;Other: RESULT: Chest Portable Chest Portable AP upright Reason: Other:; tube removal; Clinical Question(s): Pneumothorax COMPARISON: 04/04/2020 and sent to 2019. FINDINGS: LINES AND TUBES: None. LUNGS AND PLEURA: There are bibasilar lung opacities compatible with atelectasis versus airspace disease. Underlying pleural effusions cannot be excluded. No pneumothorax. HEART, MEDIASTINUM AND LINDSAY: The cardiomediastinal silhouette is enlarged. There is bilateral prominence of the lindsay. BONES AND SOFT TISSUES: No acute abnormality. IMPRESSION: 1. Bibasilar lung opacities compatible with atelectasis versus airspace disease. Underlying effusions cannot be excluded. 2. Persistent enlarged cardiomediastinal silhouette. 3. Bilateral prominence of the lindsay which may represent adenopathy. WSN: [id number] Ordering Physician: Mirian Newsome Dictated By: Elisa Thakkar MD Dictated Date/Time: 04/05/20 1:51 pm Reviewed By: Elisa Thakkar MD Signed By: Elisa Thakkar MD Signed Date/Time: 04/05/20 1:51 pm Transcribed By: ESTELLA Transcribed Date/Time: 04/05/20 1:49 pm * Exam Date Time Procedure Performing Provider Status 04/04/20 6:38 AM Chest Portable Del Vigil; Auth (Verified) Notes: (Chest Portable) Reason For Exam: S/P Cardiac Surgery RESULT: Chest Portable Chest Portable Reason: S P Cardiac Surgery COMPARISON: 04/03/2020 FINDINGS: Stable right IJ Tatamy-Lenny catheter. Stable mediastinal drain. Stable intra-aortic balloon pump marker. Endotracheal tube has been removed. Enteric tube has been removed. Left basilar thoracostomy tube is stable. Stable mild left basilar consolidation. IMPRESSION: Support lines and tubes are outlined above. Stable mild left basilar consolidation. WSN: [id number] Ordering Physician: Nikita Bunch Dictated By: Jose Maria Humphries MD Dictated Date/Time: 04/04/20 10:34 a Reviewed By: Jose Maria Humphries MD Signed By: Jose Maria Humphries MD Signed Date/Time: 04/04/20 10:34 am Transcribed By: ESTELLA Transcribed Date/Time: 04/04/20 10:32 am * Exam Date Time Procedure Performing Provider Status 04/03/20 3:46 PM Chest Portable Sara Morocho; Auth (Verified) Notes: (Chest Portable) Reason For Exam: S/P Cardiac Surgery RESULT: Chest Portable Chest Portable Reason: S P Cardiac Surgery; Clinical Question(s): Other:; Cardiac Tamponade; Special Instructions:On Admission to [facility] COMPARISON: Prior chest radiographs, most recently April 03, 2020. FINDINGS: LINES AND TUBES: The endotracheal tube terminates 2.3 cm in ying. Enteric tube extends to at least the level of the diaphragm but is not clearly seen more distally. A right IJ approach Tatamy-Lenny catheter is noted with tip in the region of the right main pulmonary artery. There is a midline mediastinal drain, and a chest tube noted in the left lung base. LUNGS AND PLEURA: Lung volumes are low with vascular crowding and bibasilar atelectasis. Pulmonary vascularity is mildly congested without aleyda edema. There is no pleural effusion or pneumothorax. HEART, MEDIASTINUM AND LINDSAY: Expected postoperative appearance of the mediastinum. BONES AND SOFT TISSUES: No acute abnormality. IMPRESSION: Enteric tube is not well seen below the diaphragm, likely due to underpenetration and superimposition of additional support devices. If confirmation of placement is desired, consider radiographs of the upper abdomen. Otherwise well-positioned support devices with low lung volumes and mild pulmonaryvascular congestion but no edema or pneumothorax. WSN: [id number] Ordering Physician: Carlos Kenyon Dictated By: Samir Szymanski MD Dictated Date/Time: 04/03/20 4:17 pm Reviewed By: Samir Szymanski MD Signed By: Samir Szymanski MD Signed Date/Time: 04/03/20 4:17 pm Transcribed By: ESTELLA Transcribed Date/Time: 04/03/20 4:14 pm * Exam Date Time Procedure Performing Provider Status 04/03/20 6:24 AM Chest Portable Nata Lopez ( Verified) Notes: (Chest Portable) Reason For Exam: Line Placement RESULT: Chest Portable Chest Portable INDICATION: Line Placement COMPARISON: Multiple priors, most recent 04/02/2020. FINDINGS: LINES AND TUBES: IABP in place with marker projecting approximately 3.6 cm inferior to the top of the aortic arch. LUNGS AND PLEURA: Clear lungs. Normal pulmonary vascularity. No pleural effusion. No pneumothorax. HEART, MEDIASTINUM AND LINDSAY: Unchanged cardiomediastinal silhouette. BONES AND SOFT TISSUES: No acute abnormality. IMPRESSION: IABP in place with marker projecting approximately 3.6 cm inferior to top of the aortic arch. I have personally reviewed the images and I agree with this report. WSN: [id number] Ordering Physician: Jose Maria Burden Dictated By: Yuan Gardner MD Dictated Date/Time: 04/03/20 8:57 am Reviewed By: Vonda Garcia MD, V Signed By: Vonda Garcia MD, V Signed Date/Time: 04/03/20 9:02 am Transcribed By: ESTELLA Transcribed Date/Time: 04/03/20 8:54 am * Exam Date Time Procedure Performing Provider Status 04/02/20 3:05 AM Chest Portable Deotte , Deja; Susi (V erified) Notes: (Chest Portable) Reason For Exam: Tube Placement RESULT: Chest Portable Chest Portable INDICATION: Tube Placement COMPARISON: 04/01/2020, 03/31/2020 FINDINGS: LINES AND TUBES: IABP in place with marker projecting approximately 3 cm inferior to the top of the aortic arch, and2 cm above the level of the ying. Multiple wires project over the patient. LUNGS AND PLEURA: Low lung volumes with mild basilar atelectasis. Lungs are otherwise clear with no consolidation or edema. No pleural effusion. No pneumothorax. HEART, MEDIASTINUM AND LINDSAY: Unchanged cardiomediastinal silhouette. BONES AND SOFT TISSUES: No acute abnormality. IMPRESSION: No significant change. IABP with marker projecting approximately 3 cm inferior to top of the aortic arch. I have personally reviewed the images and I agree with this report. WSN: [id number] Ordering Physician: Noemi Venegas Dictated By: Yuan Gardner MD Dictated Date/Time: 04/02/20 8:21 am Reviewed By: Efrain Rodriguez MD Signed By: Efrain Rodriguez MD Signed Date/Time: 04/02/20 8:26 am Transcribed By: ESTELLA Transcribed Date/Time: 04/02/20 8:13 am * Exam Date Time Procedure Performing Provider Status 04/01/20 6:20 AM Chest Portable Larissa Maciel (V erified) Notes: (Chest Portable) Reason For Exam: Line Placement RESULT: Chest Portable Chest Portable performed supine at 5:14 AM Reason: Line Placement COMPARISON: Chest x-ray dated 03/31/2020. FINDINGS: LINES AND TUBES: The metallic marker of an intra-aortic balloon pump is seen projecting inferior to the top of the aortic arch by 4 cm. LUNGS AND PLEURA: Clear lungs. Normal pulmonary vascularity. No pleural effusion. No pneumothorax. HEART, MEDIASTINUM AND LINDSAY: Heart is normal in size. Normal mediastinal and hilar contour. BONES AND SOFT TISSUES: No acute abnormality. IMPRESSION: 1. Intra-aortic balloon pump marker seen 4 cm inferior to the top of the aortic arch. 2. No acute pulmonary process. WSN: [id number] Ordering Physician: Nevin Chen Dictated By: Maddy Boggs MD Dictated Date/Time: 04/01/20 9:00 am Reviewed By: Maddy Boggs MD Signed By: Mdady Boggs MD Signed Date/Time: 04/01/20 9:00 am Transcribed By: ESTELLA Transcribed Date/Time: 04/01/20 8:59 am * Exam Date Time Procedure Performing Provider Status 03/31/20 4:54 PM Chest Portable Melissa Chávez; Auth (Verified) Notes: (Chest Portable) Reason For Exam: Line Placement RESULT: Chest Portable AP supine portable view of the chest dated March 31, 2020. No prior studies are available. HISTORY: Line placement. FINDINGS: The cardiac silhouette is at the upper limits of normal for size. The aorta is mildly unfolded. A marker clip from an intra-aortic balloon pump is present at the level of the ying. This is inferior to the superior margin of the aortic arch by approximately 6.2 cm. No airspace infiltrate or pleural effusion is seen. Minimal degenerative changes are noted in the spine. IMPRESSION: Intra-aortic balloon pump in place as described above. No evidence of acute pulmonary disease. Examination 69820. Thank you for allowing me to participate in the care of this patient. WSN: [id number] Ordering Physician: Rafi Nicolas Dictated By: Derian Nogueira MD Dictated Date/Time: 03/31/20 5:37 pm Reviewed By: Derian Nogueira MD Signed By: Derian Nogueira MD Signed Date/Time: 03/31/20 5:37 pm Transcribed By: ESTELLA Transcribed Date/Time: 03/31/20 5:27 pm Vital Signs Most recent to oldest [Reference Range]: 1 2 3 Height 175 cm (04/09/20 7:28 AM) 175 cm (04/09/20 5:20 AM) 175 cm (04/08/20 10:39 PM) Weight 90.1 kg (04/09/20 5:21 AM) 93 kg (04/08/20 6:30 AM) 93.6 kg (04/07/20 7:31 AM) Oxygen Saturation [94-100 %] 94 % (04/09/20 7:28 AM) 97 % (04/09/20 5:20 AM) 96 % (04/08/20 10:39 PM) Pulse Rate [55-90 bpm] 70 bpm (04/09/20 8:23 AM) 70 bpm (04/09/20 7:28 AM) 67 bpm (04/09/20:20 AM) Body Mass Index [18.5-24.99] 29.65 *H* (03/31/20 4:50 PM) Blood Pressure [90-138/55-84 mm Hg] 148/66mm Hg *H* (04/09/20 8:23 AM) 148/66mm Hg *H* (04/09/20: AM) 153/78mm Hg *H* (04/09/20:20 AM) Respiratory Rate [16-30 br/min] 18 br/min (04/09/20:28 AM) 18 br/min (04/09/20: AM) 18 br/min (04/08/20 11:14 PM) Temperature [96.8-100.4 DegF] 97.9 DegF (04/09/20:28 AM) 98.2 DegF (04/09/20:20 AM) 98.1 DegF (04/08/20 10:39 PM) Liters per Minute 2 L/min (04/07/20 7:27 AM) 2 L/min (04/07/20 3:00 AM) 2 L/min (04/06/20 11:37 PM) Mode of Delivery (Oxygen) Room air (04/09/20 7:28 AM) Room air (04/09/20 5:20 AM) Room air (04/08/20 10:39 PM) Blood pressure sites Arm, right (04/09/20 7:28 AM) Arm, right (04/09/20 5:20 AM) Arm, right (04/08/20 10:39 PM) Temperature Route Oral (04/09/20 7:28 AM) Oral (04/09/20 5:20 AM) Oral (04/08/20 10:39 PM) Dry Weight 90.8 kg (03/31/20 4:50 PM) Weight Obtained Via Standing scale (04/09/20 5:21 AM) Bed scale (04/08/20 3:57 AM) Bed scale (04/03/20 5:19 AM) Mobility assistance Independent (04/05/20 8:00 AM) Partial assistance (04/05/20 12:00 AM) Partial assistance (04/04/20 8:00 PM) Social History Social History Type Response Smoking Status Former smoker, quit more than 30 days ago entered on: 03/31/20 Sex
--- OUTSIDE RECORDS SUMMARY | 2024-04-01 06:55 | XMS_ITS | Continuity of Care Document ---
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 Role Phone Samir Morales MD Primary Care Physician [phone] Encounter [facility] Date(s): 09/27/22 - 10/27/[address] [place] [address]- Allergies, Adverse Reactions, Alerts Substance Reaction Severity [...] 10/09/21 7:58:00 EDT, Route to Pharmacy Electronically, [facility], Partial fill upon patient request if [...] Mouth, Daily, # 30 tablet, 5 Refills, [id number], 175, cm, 11/01/21 10:05:00 EDT, Height, 87, kg, 10/08/21 6:42:00 EDT, Dry Weight Start Date: 12/28/21 Status: Ordered Metoprolol Succinate ER 100 mg oral tablet, extended release See Instructions, TAKE ONE TABLET BY MOUTH ONCE DAILY, # 30 tablet, 11 Refills, Maintenance, 07/23/22 15:53:00 EST, [id number], 175, cm, 03/23/22 10:03:00 EDT, Height, 87, [...] SUBCUTANEOUSLY EVERY 14 DAYS, # 2 mL, 5 Refills, Maintenance, 09/27/22 14:38:00 EDT, [facility], 175, cm, 03/23/22 10:03:00 EDT, Height, 87, kg, 10/08/21 6:42:00 EDT, Dry Weight Start Date: 09/27/22 Status: Ordered senna 187 mg oral tablet [...] 3 Refills, Maintenance, 12/09/21 12:19:00 EDT, Tablet, [facility], 175, cm, 11/01/21 10:05:00 EDT, Height, 87, kg, 10/08/21 6:42:00 EDT, Dry Weight Start Date: 12/09/21 Stop Date: 12/04/22 Status: Ordered Zetia 10 mg oral tablet 1 tablet = 10 mg, By Mouth, Daily, # 30 tablet, 11 Refills, Maintenance, 11/18/20 14:19:00 EDT, Tablet, [facility], Partial fill upon patient [...] Reference Physician Member Role: PCP Address: Address: [address] [place] [id number]- Care Team Related Persons Name: LESLIE LALIT Address: home [address] [place] [address]
--- OUTSIDE RECORDS SUMMARY | 2024-04-01 06:55 | XMS_ITS | Continuity of Care Document ---
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 Start Date: 04/13/20 Stop Date: 05/13/20 Status: Ordered apixaban 5 mg oral tablet 1 tablet = 5 mg, By Mouth, 2 times a day, # 60 tablet, 0 Refills, Maintenance, 04/09/20 9:24:00 EDT, Tablet, [facility], 175, cm, 04/09/20 7:28:00 EDT, Height, 90.8, kg, 03/31/20 17:25:00 EDT, Dry Weight Start Date: 04/09/20 Status: Ordered aspirin 81 mg oral delayed release tablet = 81 mg, By Mouth, Daily, # 30 tablet, 0 Refills, Maintenance, 04/09/20 9:24:00 EDT, EC Tablet, [facility], 175, cm, 04/09/20 7:28:00 EDT, Height, 90.8, kg, 03/31/20 17:25:00 EDT, Dry Weight Start Date: 04/09/20 Stop Date: 05/09/20 Status: Ordered atorvastatin 80 mg oral tablet 1 tablet = 80 mg, By Mouth, Daily at bedtime, # 30 tablet, 0 Refills, Maintenance, 04/09/20 9:20:00EDT, Tablet, [facility], 175, cm, 04/09/20 7:28:00 EDT, Height, [...] 04/09/20 9:25:00 EDT, Route to Pharmacy Electronically, [facility], 175, cm, 04/09/20 7:28:00 EDT, Height, [...]
--- OUTSIDE RECORDS SUMMARY | 2024-04-01 06:55 | XMS_ITS | Continuity of Care Document ---
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 Start Date: 09/09/22 Status: Ordered carvedilol 3.125 mg oral tablet 3.125 mg, 1, tablet, By Mouth, 2 times a day, # 60 tablet, Refills 0, Tot. Refills 0, Maintenance, 03/21/24 15:49:00 EDT, Route to Pharmacy Electronically, [facility], Partial fill upon patient request if the prescription is for a lauren... Start Date: 03/21/24 Status: Ordered docusate sodium 100 mg oral capsule 100 mg, 1, capsule, By Mouth, 2 times a day, hold for loose stool, # 60 capsule, Refills 0, Tot. Refills 0, Maintenance, 10/09/21 7:58:00 EDT, Route to Pharmacy Electronically, [facility], Partial fill upon patient [...] mL, 10 Refills, Maintenance, 09/07/23 15:16:00 EST, [facility], 175, cm, 11/02/22 9:38:00 [...] opioid drug. Start Date: 10/09/21 Status: Ordered Xarelto 20 mg oral tablet 1 tablet = 20 mg, By Mouth, Daily at supper, discontinue eliquis, # 90 tablet, 3 Refills, Maintenance, 11/19/23 10:45:00 EDT, Tablet, [facility], 175, cm, 11/02/22 9:38:00 EDT, Height, 87, kg, 10/08/21 6:42:00 EDT, Dry Weight Start Date: 11/19/23 Stop Date: 11/13/24 Status: Ordered Xarelto 20 mg oral tablet 1 tablet = 20 mg, By Mouth, Daily at supper, for 90 days, discontinue eliquis, # 90 tablet, 3 Refills, Hard Stop 02/13/25 15:05:00 EDT, 02/19/24 15:05:00 EDT, Tablet, [facility],178, cm, 02/13/24 8:03:00 EDT, Height, 90.8, kg, 08... Start Date: 02/19/24 Stop Date: 02/13/25 Status: Ordered Zetia 10 mg oral tablet 1 tablet = 10 mg, By Mouth, Daily, # 30 tablet, 11 Refills, Maintenance, 11/18/20 14:19:00 EDT, Tablet, [facility], Partial fill upon patient [...] RN Member Role: Primary Care Nurse Name: Arianna Arenas RN Position: S RN Member Role: Primary Care Nurse Name: Samir Morales MD Position: Reference Physician Member Role: PCP Address: Address: [address] [place] [address]- Care Team Related Persons Name: LALIT NELSON Address: [address] [address]
--- OUTSIDE RECORDS SUMMARY | 2024-04-01 06:55 | XMS_ITS | Continuity of Care Document ---
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 Name Role Phone Carmen KENT, Samir Ansari Primary Care Physician [phone] [place] [facility] [place] 06/24/21 - 07/24/21 [facility] [address] [place] [address]- Allergies, Adverse Reactions, Alerts Substance Reaction Severity Status ciprofloxacin Active statins 1 Active 1severe muscle aches Immunizations Not Given Vaccine Date Status Refusal Reason influenza virus vaccine, inactivated 04/06/20 Not Given Patient Refuses Medications apixaban 5 mg oral tablet 1 tablet = 5 mg, By Mouth, 2 times a day, # 60 tablet, 11 Refills, Maintenance, 11/03/20 9:16:00 EDT, Tablet, [facility], 175, cm, 06/13/20 7:01:00 EST, Height, 91.1, kg, 06/12/20 19:26:00EST, Dry Weight Start Date: 11/03/20 Stop Date: 10/29/21 Status: Ordered aspirin 81 mg oral delayed release tablet = 81 mg, By Mouth, Daily, # 30 tablet, 5 Refills, Maintenance, 05/06/20 11:44:00 EST, EC Tablet, [facility], 175, cm, 05/05/20 10:39:00 [...] Mouth, Daily, # 30 tablet, 6 Refills, [id number], 175, cm, 11/06/20 9:43:00 EDT, Height, 91.1, kg, 06/12/20 19:26:00 EST, Dry Weight Start Date: 05/28/21 Status: Ordered Praluent Pen 150 mg/mL subcutaneous solution = 150 mg, Subcutaneous Infusion, Every 14 days, # 2 each, 11 Refills, Maintenance, 07/19/21 8:14:00EST, [facility], 175, cm, 06/23/21 12:10:00 EST, Height, 91.1, kg, 06/12/20 19:26:00 EST, Dry Weight Start Date: 07/19/21 Stop Date: 07/14/22 Status: Ordered Symbicort 160mcg/4.5mcg Inhaler 2, puffs, Inhalation, 2 times a day, # 6 Gm, Refills 0, Maintenance, 03/31/20 19:06:00 EDT, Aerosol Start Date: 03/31/20 Status: Ordered Zetia 10 mg oral tablet 1 tablet = 10 mg, By Mouth, Daily, # 30 tablet, 11 Refills, Maintenance, 11/18/20 14:19:00 EDT, Tablet, [facility] # [facility], Partial fill upon patient [...]
--- OUTSIDE RECORDS SUMMARY | 2024-04-01 06:55 | XMS_ITS | Continuity of Care Document ---
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 Name Role Phone Carmen KENT, Samir Ansari Primary Care Physician Encounter [facility] [place] Date(s): 06/11/21 - 07/11/21 [facility] [address] [place] [address]- Allergies, Adverse Reactions, Alerts Substance Reaction Severity Status ciprofloxacin Active statins 1 Active 1severe muscle aches Immunizations Not Given Vaccine Date Status Refusal Reason influenza virus vaccine, inactivated 04/06/20 Not Given Patient Refuses Medications apixaban 5 mg oral tablet 1 tablet = 5 mg, By Mouth, 2 times a day, # 60 tablet, 11 Refills, Maintenance, 11/03/20 9:16:00 EDT, Tablet, [facility] # 302, 175, cm, 06/13/20 7:01:00 EST, Height, 91.1, kg, 06/12/20 19:26:00EST, Dry Weight Start Date: 11/03/20 Stop Date: 10/29/21 Status: Ordered aspirin 81 mg oral delayed release tablet = 81 mg, By Mouth, Daily, # 30 tablet, 5 Refills, Maintenance, 05/06/20 11:44:00 EST, EC Tablet, [facility] # 302, 175, cm, 05/05/20 10:39:00 [...] # 30 tablet, 6 Refills, [facility] #[id number], 175, cm, 11/06/20 9:43:00 EDT, Height, 91.1, [...] 11 Refills, Maintenance, 11/18/20 14:19:00 EDT, Tablet, [facility] # 302, Partial fill upon patient [...]
--- OUTSIDE RECORDS SUMMARY | 2024-04-01 06:55 | XMS_ITS | Continuity of Care Document ---
Author Organization [facility] Address [address] [place] [address] [address] [place] [address]- Care Team Providers Care Millstone Cleaner Name Role Phone Samir Morales MD Primary Care Physician [phone] Encounter [facility] [place] Date(s): 08/01/23 - 08/31/[address] [place] [address]- Allergies, Adverse Reactions, Alerts Substance Reaction Severity [...] 10/09/21 7:58:00 EDT, Route to Pharmacy Electronically, [facility], Partial fill upon patient request [...] Mouth, Daily, # 30 tablet, 5 Refills, [facility] #[id number], 175, cm, 11/01/21 10:05:00 EDT, Height, 87, kg, 10/08/21 6:42:00 EDT, Dry Weight Start Date: 12/28/21 Status: Ordered Metoprolol Succinate ER 100 mg oral tablet, extended release See Instructions, TAKE ONE TABLET BY MOUTH ONCE DAILY, # 30 tablet, 11 Refills, Maintenance, 07/23/22 15:53:00 EST, [facility] #[id number], 175, cm, 03/23/22 10:03:00 EDT, Height, 87, [...] DAYS, # 2 mL, 5 Refills, Maintenance, 03/14/23 9:13:00 EDT, [facility], 175, cm, 11/02/22 9:38:00 EDT, Height, 87, kg, :42:00 EDT, Dry Weight Start Date: 03/14/23 Status: Ordered senna 187 mg oral tablet [...] # 90 tablet, 3 Refills, Hard Stop 11/19/23 10:45:00 EDT, 11/24/22 10:45:00 EDT, Tablet, [facility] # 302, 175, cm, 11/02/22 9:38:00 EDT, Height, 87, kg, 10/08/21 6:42:... Start Date: 11/24/22 Stop Date: 11/19/23 Status: Ordered Xarelto 20 mg oral tablet 1 tablet = 20 mg, By Mouth, Daily at supper, discontinue eliquis, # 90 tablet, 3 Refills, Maintenance, 11/19/23 10:45:00 EDT, Tablet, [facility] #198, 175, cm, 11/02/22 9:38:00 EDT, Height, 87, kg, 10/08/21 6:42:00 EDT, Dry Weight Start Date: 11/19/23 Stop Date: 11/13/24 Status: Ordered Zetia 10 mg oral tablet 1 tablet = 10 mg, By Mouth, Daily, # 30 tablet, 11 Refills, Maintenance, 11/18/20 14:19:00 EDT, Tablet, [facility] # 302, Partial fill upon patient [...] Reference Physician Member Role: PCP Address: Address: [address] [place] [address]- Care Team Related Persons Name: LALIT NELSON Address: home [address] [place] [address]
--- OUTSIDE RECORDS SUMMARY | 2024-04-01 06:55 | XMS_ITS | Continuity of Care Document ---
Author Organization [facility] Address [address] [place] [address]- Care Team Providers Care Tenter Name Role Phone Carmen KENT, Samir Ansari Primary Care Physician Encounter [facility] Date(s): 05/25/20 - 06/24/20 [facility] [address] [place] [id number] Allergies, Adverse Reactions, Alerts Substance Reaction Severity [...] Maintenance, 06/04/2015:32:00 EST, Route to Pharmacy Electronically, [facility] # 302, 175, cm, 06/02/20 9:11:00 EST, Height, 90.8, kg, 03/31/20 17:25:00 EDT, Dry Weight Start Date: 06/04/20 Stop Date: 07/04/20 Status: Ordered apixaban 5 mg oral tablet 1 tablet = 5 mg, By Mouth, 2 times a day, # 60 tablet, 5 Refills, Maintenance, 05/06/20 11:44:00 EST, Tablet, [facility] # 302, 175, cm, 05/05/20 10:39:00 EST, Height, 90.8, kg, 03/31/20 17:25:00 EDT, Dry Weight Start Date: 05/06/20 Stop Date: 11/02/20 Status: Ordered aspirin 81 mg oral delayed release tablet = 81 mg, By Mouth, Daily, # 30 tablet, 5 Refills, Maintenance, 05/06/20 11:44:00 EST, EC Tablet, [facility] # 302, 175, cm, 05/05/20 10:39:00 EST, Height, 90.8, kg, 03/31/20 17:25:00 EDT, Dry Weight Start Date: 05/06/20 Stop Date: 11/02/20 Status: Ordered atorvastatin 80 mg oral tablet 1 tablet = 80 mg, By Mouth, Daily at bedtime, # 30 tablet, 5 Refills, Maintenance, 05/06/20 11:44:00 EST, Tablet, [facility] # 302, 175, cm, 05/05/20 10:39:00 [...] 06/08/20 12:13:00 EST, Route to Pharmacy Electronically, [facility] # 302, 175, cm, 06/02/20 9:11:00 [...]
--- OUTSIDE RECORDS SUMMARY | 2024-04-01 06:55 | XMS_ITS | Continuity of Care Document ---
Author Organization [facility] Address [address] [place] [address]- Care Team Providers Care Cv Tech Name Role Phone Carmen KENT, Samir Ansari Primary Care Physician [place] [facility] [place]/15[place]22 - 04/14/22 [facility] [address] [place] [address]- [place] Allergies, Adverse Reactions, Alerts Substance Reaction [...] 10/09/21 7:58:00 EDT, Route to Pharmacy Electronically, [facility], Partial fill upon patient request if [...] Mouth, Daily, # 30 tablet, 5 Refills, [facility] #[id number], 175, cm, 11/01/21 10:05:00 EDT, Height, 87, [...] 2 each, 11 Refills, Maintenance, 07/19/21 8:14:00EST, [facility] # [facility], 175, cm, 06/23/21 12:10:00 [...] 11 Refills, Maintenance, 11/18/20 14:19:00 EDT, Tablet, [facility] # 302, Partial fill upon patient [...] Name: Carmen KENT, Samir Ansari Address: Address: [address] [place] [id number]
--- OUTSIDE RECORDS SUMMARY | 2024-04-01 06:55 | XMS_ITS | Continuity of Care Document ---
Author Organization [facility] Address [address] [place] [address]- Care Team Providers Care Rheumatology Nurse Name Role Phone Samir Morales MD Primary Care Physician [place] [facility] [place] 11/15/23 - 12/15/23 [facility] [address] [place], [place] [id number]- Attending Physician: Anna Marie Becerra Admitting Physician: [...] times a day, # 60 tablet, Refills 11, Tot. Refills 11, Maintenance,11/15/23 12:13:00 EDT, Route to Pharmacy Electronically, [facility] # 302, Partial fill upon patient request if the prescription is for a schedule... Start Date: 11/15/23 Stop Date: 11/09/24 Status: Ordered docusate sodium 100 mg oral capsule 100 mg, 1, capsule, By Mouth, 2 times a day, hold for loose stool, # 60 capsule, Refills 0, Tot. Refills 0, Maintenance, 10/09/21 7:58:00 EDT, Route to Pharmacy Electronically, [facility], Partial fill upon patient request [...] mL, 10 Refills, Maintenance, 09/07/23 15:16:00 EST, [facility], 175, cm, 11/02/22 9:38:00 [...] 3 Refills, Maintenance, 11/19/23 10:45:00 EDT, Tablet, [facility] #198, 175, cm, 11/02/22 9:38:00 EDT, Height, 87, kg, 10/08/21 6:42:00 EDT, Dry Weight Start Date: 11/19/23 Stop Date: 11/13/24 Status: Ordered Xarelto 20 mg oral tablet 1 tablet = 20 mg, By Mouth, Daily at supper, for 90 days, discontinue eliquis, # 90 tablet, 3 Refills, Hard Stop 08/26/24 12:49:00 EST, 09/01/23 12:49:00 EST, Tablet, [id number], 175, cm, 11/02/22 9:38:00 EDT, Height, 87, kg, 10/08/21 6:42:00... Start Date: 09/01/23 Stop Date: 08/26/24 Status: Ordered Zetia 10 mg oral tablet 1 tablet = 10 mg, By Mouth, Daily, # 30 tablet, 11 Refills, Maintenance, 11/18/20 14:19:00 EDT, Tablet, [facility] # 302, Partial fill upon [...] 30 days ago entered on: 03/31/20 Sex Cardiology * Event Display: Non Cardiovascular Results Authored Date: * Event Display: EKG Non Authored Date: * Event Display: EKG Non Authored Date: Patient Care team information Care Team Personnel Name: Herminia David RN Position: [facility] RN Member Role: Primary Care Nurse Name: Naila Mcgregor RN Position: S RN Member Role: Primary Care Nurse Name: Mary Joshi RN Position: S RN Member Role: Primary Care Nurse Name: Samir Morales MD Position: Reference Physician Member Role: PCP Address: Address: [address] [place] [address]- Care Team Related Persons Name: LESLIE LALIT Address: home [address] [place] [address]
--- OUTSIDE RECORDS SUMMARY | 2024-04-01 06:55 | XMS_ITS | Continuity of Care Document ---
Author Organization [facility] Address [address] [place] [address]- Care Team Providers Care Road Contractor Name Role Phone Carmen KENT, Samir Ansari Primary Care Physician [phone] En[place] [facility] [place] Date(s): 06/23/21 - 07/23/21 [facility] [address] [place], [place] [address] Attending Physician: Anna Marie Becerra Admitting Physician: AdmtrAnna Marie Referring Physician: AdmtrAnna Marie Allergies, Adverse Reactions, [...] 11 Refills, Maintenance, 11/03/20 9:16:00 EDT, Tablet, [facility] # 302, 175, cm, 06/13/20 7:01:00 EST, Height, 91.1, kg, 06/12/20 19:26:00EST, Dry Weight Start Date: 11/03/20 Stop Date: 10/29/21 Status: Ordered aspirin 81 mg oral delayed release tablet = 81 mg, By Mouth, Daily, # 30 tablet, 5 Refills, Maintenance, 05/06/20 11:44:00 EST, EC Tablet, [facility] # 302, 175, cm, 05/05/20 10:39:00 [...] Mouth, Daily, # 30 tablet, 6 Refills, [facility] #[id number], 175, cm, 11/06/20 9:43:00 EDT, Height, 91.1, kg, 06/12/20 19:26:00 EST, Dry Weight Start Date: 05/28/21 Status: Ordered Praluent Pen 150 mg/mL subcutaneous solution = 150 mg, Subcutaneous Infusion, Every 14 days, # 2 each, 11 Refills, Maintenance, 07/19/21 8:14:00EST, [facility] # [facility], 175, cm, 06/23/21 12:10:00 [...] 11 Refills, Maintenance, 11/18/20 14:19:00 EDT, Tablet, [facility] # 302, Partial fill upon patient request if the prescription is for a schedule II opioid drug., 175, cm, 11/06/20 9:43:00 EDT, Xavier... Start Date: 11/18/20 Stop Date: 11/13/21 Status: [...]
--- OUTSIDE RECORDS SUMMARY | 2024-04-01 06:55 | XMS_ITS | Continuity of Care Document ---
Author Organization [facility] Address [address] [place] [address]- Care Team Providers Care Circus Performer Name Role Phone Samir Morales MD Primary Care Physician [phone] Encounter [facility] [place] Date(s): 06/01/20 - 07/08/20 [facility] [address] [place] [id number] Attending Physician: Maria Fernanda Ferreira NP Admitting [...] Maintenance, 06/04/2015:32:00 EST, Route to Pharmacy Electronically, [facility] # 302, 175, cm, 06/02/20 9:11:00 EST, Height, 90.8, kg, 03/31/20 17:25:00 EDT, Dry Weight Start Date: 06/04/20 Stop Date: 07/04/20 Status: Ordered apixaban 5 mg oral tablet 1 tablet = 5 mg, By Mouth, 2 times a day, # 60 tablet, 5 Refills, Maintenance, 05/06/20 11:44:00 EST, Tablet, [facility] # 302, 175, cm, 05/05/20 10:39:00 EST, Height, 90.8, kg, 03/31/20 17:25:00 EDT, Dry Weight Start Date: 05/06/20 Stop Date: 11/02/20 Status: Ordered aspirin 81 mg oral delayed release tablet = 81 mg, By Mouth, Daily, # 30 tablet, 5 Refills, Maintenance, 05/06/20 11:44:00 EST, EC Tablet, [facility] # 302, 175, cm, 05/05/20 10:39:00 EST, Height, 90.8, kg, 03/31/20 17:25:00 EDT, Dry Weight Start Date: 05/06/20 Stop Date: 11/02/20 Status: Ordered atorvastatin 80 mg oral tablet 1 tablet = 80 mg, By Mouth, Daily at bedtime, # 30 tablet, 5 Refills, Maintenance, 05/06/20 11:44:00 EST, Tablet, [facility] # 302, 175, cm, 05/05/20 10:39:00 [...] 06/08/20 12:13:00 EST, Route to Pharmacy Electronically, [facility] # 302, 175, cm, 06/02/20 9:11:00 [...]
--- OUTSIDE RECORDS SUMMARY | 2024-04-01 06:56 | XMS_ITS | Continuity of Care Document ---
Author Organization [facility] Address [address] [facility], [address] Floor, [address] [place] [address]- Care Team Providers Care Dynamics Ax Consultant Name Role Phone Samir Morales MD Primary Care Physician [phone] Encounter [facility] [place] [facility] R [id number] Date(s): 09/09/22 - 10/09/22 [facility] [address], [address], [address] [place] [address]- Attending Physician: Anna Marie Becerra Admitting Physician: AdmtrAnna Marie Referring Physician: Admtr, Anna Marie Allergies, Adverse Reactions, Alerts Substance Reaction [...] 10/09/21 7:58:00 EDT, Route to Pharmacy Electronically, [facility], Partial fill upon patient request [...] Mouth, Daily, # 30 tablet, 5 Refills, [facility] #[id number], 175, cm, 11/01/21 10:05:00 EDT, Height, 87, kg, 10/08/21 6:42:00 EDT, Dry Weight Start Date: 12/28/21 Status: Ordered Metoprolol Succinate ER 100 mg oral tablet, extended release See Instructions, TAKE ONE TABLET BY MOUTH ONCE DAILY, # 30 tablet, 11 Refills, Maintenance, 07/23/22 15:53:00 EST, [facility] #[id number], 175, cm, 03/23/22 10:03:00 EDT, Height, 87, [...] mL, 5 Refills, Maintenance, 09/27/22 14:38:00 EDT, [facility], 175, cm, 03/23/22 10:03:00 EDT, [...] 3 Refills, Maintenance, 12/09/21 12:19:00 EDT, Tablet, [facility] #198, 175, cm, 11/01/21 10:05:00 EDT, Height, 87, kg, 10/08/21 6:42:00 EDT, Dry Weight Start Date: 12/09/21 Stop Date: 12/04/22 Status: Ordered Zetia 10 mg oral tablet 1 tablet = 10 mg, By Mouth, Daily, # 30 tablet, 11 Refills, Maintenance, 11/18/20 14:19:00 EDT, Tablet, [facility] # 302, Partial fill upon patient request if the prescription is for a schedule II opioid drug., 175, cm, 11/06/20 9:43:00 EDT, Lily Start Date: 11/18/20 Stop Date: 11/13/21 Status: [...] Team Personnel Name: Herminia David RN Position: [facility] RN Member Role: Primary Care Nurse Name: Naila Mcgregor RN Position: S RN Member Role: Primary Care Nurse Name: Mary Joshi RN Position: [facility] RN Member Role: Primary Care Nurse Name: Nyla Torres RN Position: S RN Member Role: Primary Care Nurse Name: Samir Morales MD Position: Reference Physician Member Role: PCP Address: Address: [address] [place] [address]- Care Team Related Persons Name: LALIT NELSON Address: [address] [address]
--- OUTSIDE RECORDS SUMMARY | 2024-04-01 06:56 | XMS_ITS | Continuity of Care Document ---
Author Organization [facility] Address [address] [place] [address]- Care Team Providers Care Police Captain Precinct Name Role Phone Carmen KENT, Samir Ansari Primary Care Physician [phone] Encounter [facility] [place] Date(s): 08/05/20 - 09/04/20 [facility] [address] [place] [id number] Allergies, Adverse Reactions, Alerts Substance [...] Maintenance, 06/04/2015:32:00 EST, Route to Pharmacy Electronically, [facility] # 302, 175, cm, 06/02/20 9:11:00 EST, Height, 90.8, kg, 03/31/20 17:25:00 EDT, Dry Weight Start Date: 06/04/20 Stop Date: 07/04/20 Status: Ordered apixaban 5 mg oral tablet 1 tablet = 5 mg, By Mouth, 2 times a day, # 60 tablet, 5 Refills, Maintenance, 05/06/20 11:44:00 EST, Tablet, [facility] # 302, 175, cm, 05/05/20 10:39:00 EST, Height, 90.8, kg, 03/31/20 17:25:00 EDT, Dry Weight Start Date: 05/06/20 Stop Date: 11/02/20 Status: Ordered aspirin 81 mg oral delayed release tablet = 81 mg, By Mouth, Daily, # 30 tablet, 5 Refills, Maintenance, 05/06/20 11:44:00 EST, EC Tablet, [facility] # 302, 175, cm, 05/05/20 10:39:00 EST, Height, 90.8, kg, 03/31/20 17:25:00 EDT, Dry Weight Start Date: 05/06/20 Stop Date: 11/02/20 Status: Ordered atorvastatin 80 mg oral tablet 0.5 tablet = 40 mg, By Mouth, Daily at bedtime, # 15 tablet, 5 Refills, Maintenance, 05/06/20 11:44:00 EST, Tablet, [facility] # 302, 175, cm, 05/05/20 [...] 06/08/20 12:13:00 EST, Route to Pharmacy Electronically, [facility] # 302, 175, cm, 06/02/20 [...]
--- OUTSIDE RECORDS SUMMARY | 2024-04-01 06:56 | XMS_ITS | Continuity of Care Document ---
Author Organization [facility] Address [address] [place] [address]- Care Team Providers Care Staff Pharmacist Hospital Name Role Phone Carmen KENT, Samir Ansari Primary Care Physician [phone] Encounter [facility] [place] Date(s): 11/03/20 - 12/03/20 [facility] [address] [place] [id number] Allergies, Adverse Reactions, Alerts Substance Reaction Severity Status ciprofloxacin Active statins 1 Active 1severe muscle aches Immunizations Not Given Vaccine Date Status Refusal Reason influenza virus vaccine, inactivated 04/06/20 Not Given Patient Refuses Medications apixaban 5 mg oral tablet 1 tablet = 5 mg, By Mouth, 2 times a day, # 60 tablet, 11 Refills, Maintenance, 11/03/20 9:16:00 EDT, Tablet, [facility] # 302, 175, cm, 06/13/20 7:01:00 EST, Height, 91.1, kg, 06/12/20 19:26:00EST, Dry Weight Start Date: 11/03/20 Stop Date: 10/29/21 Status: Ordered aspirin 81 mg oral delayed release tablet = 81 mg, By Mouth, Daily, # 30 tablet, 5 Refills, Maintenance, 05/06/20 11:44:00 EST, EC Tablet, [facility] # 302, 175, cm, 05/05/20 10:39:00 [...] Dry Weight Start Date: 10/23/20 Status: Ordered metoprolol 100 mg oral tablet, extended release 100 mg, 1, tablet, By Mouth, Daily, # 30 tablet, Refills 5, Tot. Refills 5, Maintenance, 06/08/20 12:13:00 EST, Route to Pharmacy Electronically, [facility] # 302, 175, cm, 06/02/20 9:11:00 EST,Height, 90.8, kg, 03/31/20 17:25:00 EDT, Dry Weight Start Date: 06/08/20 Stop Date: 12/05/20 Status: Ordered Metoprolol Succinate ER 100 mg oral tablet, extended release 1 tablet, By Mouth, Daily, # 30 tablet, 5 Refills, Maintenance, 12/03/20 15:07:00 EDT, [facility] #[id number], 175, cm, 11/06/20 9:43:00 EDT, Height, 91.1, kg, 06/12/20 19:26:00 EST, Dry Weight Start Date: 12/03/20 Status: Ordered Repatha 140 mg/mL subcutaneous solution = 140 mg, Subcutaneous Infusion, Every 28 days, # 1 kit, 11 Refills, Maintenance, 11/06/20 10:01:00EDT, [facility] # 302, Partial fill upon [...] 11 Refills, Maintenance, 11/18/20 14:19:00 EDT, Tablet, [facility] # 302, Partial fill upon patient [...]
--- OUTSIDE RECORDS SUMMARY | 2024-04-01 06:56 | XMS_ITS | Continuity of Care Document ---
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 # [id number], Partial fill upon patient request if the prescription is for a schedule... Start Date: 12/26/23 Stop Date: 12/20/24 Status: Ordered docusate sodium 100 mg oral capsule 100 mg, 1, capsule, By Mouth, 2 times a day, hold for loose stool, # 60 capsule, Refills 0, Tot. Refills 0, Maintenance, 10/09/21 7:58:00 EDT, Route to Pharmacy Electronically, [facility], Partial fill upon patient request if [...] mL, 10 Refills, Maintenance, 09/07/23 15:16:00 EST, [facility], 175, cm, 11/02/22 9:38:00 EDT, Height, [...] 08/26/24 12:49:00 EST, 09/01/23 12:49:00 EST, Tablet, [facility] #[id number], 175, cm, 11/02/22 9:38:00 EDT, Height, 87, kg, 10/08/21 6:42:00... Start Date: 09/01/23 Stop Date: 08/26/24 Status: Ordered Zetia 10 mg oral tablet 1 tablet = 10 mg, By Mouth, Daily, # 30 tablet, 11 Refills, Maintenance, 11/18/20 14:19:00 EDT, Tablet, [facility] # [id number], Partial fill upon patient [...] fibrillation) Confirmed Active Statin intolerance Confirmed Active Results Radiology Reports * Exam Date Time Procedure Performing Provider Status 02/12/24 10:11 AM Chest 2 Views Frontal and Lat Mery Graf; Auth (Verified) Notes: (Chest 2 Views Frontal and Lat) Reason For Exam: Chest Pain;Other: RESULT: Chest 2 Views Frontal and Lat Chest 2 Views Frontal and Lat INDICATION: pt sts he woke up at 530 this morning with some increased chest pain on right sdie, worse when he moves around, sts pain decreased when he just stands , no other symptoms, does have hx of CABG; COMPARISON: 06/12/2020 FINDINGS: LINES AND TUBES: None. LUNGS AND PLEURA: Clear lungs. Normal pulmonary vascularity. No pleural effusion. No pneumothorax. HEART, MEDIASTINUM AND GIOVANI: Heart is normal in size. Normal mediastinal and hilar contour. BONES AND SOFT TISSUES: Prior median sternotomy. IMPRESSION: No radiographic evidence of an acute cardiopulmonary process. I have personally reviewed the images and I agree with this report. WSN: [id number] Ordering Physician: Una Nation Dictated By: Ray Bonilla MD Dictated Date/Time: 02/12/24 10:52 a Reviewed By: Ammon Galicia MD, V Signed By: Ammon Galicia MD, V Signed Date/Time: 02/12/24 10:57 am Transcribed By: ESTELLA Transcribed Date/Time: 02/12/24 10:26 am Vital Signs Most recent to oldest [Reference Range]: 1 2 3 Height 178 cm (02/13/24 8:03 AM) 178 cm (02/12/24 10:40 PM) 178 cm (02/12/24 3:58 PM) Weight 90.8 kg (02/12/24 10:40 PM) 90.8 kg (02/12/24 3:58 PM) 90.8 kg (02/12/24 8:57 AM) Oxygen Saturation [94-100 %] 98 % (02/13/24 8:03 AM) 96 % (02/13/24 4:00 AM) 98 % (02/12/24 10:40 PM) Pulse Rate [55-90 bpm] 62 bpm (02/13/24 8:03 AM) 61 bpm (02/13/24 4:00 AM) 52 bpm *L* (02/12/24 10:40 PM) Body Mass Index [18.5-24.99 kg/m2] 28.66 kg/m2 *H* (02/12/24 10:40 PM) 28.66 kg/m2 *H* (02/12/24 3:58 PM) 28.66 kg/m2 *H* (02/12/24 8:57 AM) Blood Pressure [90-138/55-84 mm Hg] 143/81mm Hg *H* (02/13/24 8:03 AM) 136/75mm Hg (02/13/24 4:00 AM) 176/66mm Hg *H* (02/12/24 10:40 PM) Respiratory Rate [16-30 br/min] 20 br/min (02/13/24 8:03 AM) 16 br/min (02/13/24 4:00 AM) 18 br/min (02/12/24 10:40 PM) Temperature [96.8-100.4 DegF] 97.9 DegF (02/13/24 8:03 AM) 97.7 DegF (02/13/24 4:00 AM) 97.5 DegF (02/12/24 10:40 PM) Mode of Delivery (Oxygen) Room air (02/13/24 8:03 AM) Room air (02/13/24 4:00 AM) Room air (02/12/24 10:40 PM) Blood pressure sites Arm, right (02/13/24 8:03 AM) Arm, right (02/13/24 4:00 AM) Arm, right (02/12/24 10:40 PM) Temperature Route Oral (02/13/24 8:03 AM) Oral (02/13/24 4:00 AM) Oral (02/12/24 10:40 PM) Dry Weight 90.8 kg (02/12/24 10:40 PM) 90.8 kg (02/12/24 3:58 PM) 90.8 kg (02/12/24 8:57 AM) Weight Obtained Via Patient/family state d (02/12/24 8:57 AM) Dry Weight Obtained Via Patient/family s tated (02/12/24 8:57 AM) Social History Social History Type Response Smoking Status Former smoker, quit more than 30 days ago entered on: 03/31/20 Sex Admission evaluation note * Nolan KENT, Tang Butcher: PERFORM, MODIFY Event Display: Admission Note Authored Date: [id number] Patient: ??RANJANA NELSON ? Age:??68 Years?Sex:??Male?:??1955?? Chief Complaint/Reason for Consultation chest pain, may need a consult History of Present Illness 68-year-old male patient with a past medical history of essential hypertension, dyslipidemia, coronary artery disease complicated by NSTEMI s/p CABG x 6, and paroxysmal atrial fibrillation who presents to the emergency department for evaluation of chest pain.?? Patient woke up this morning with pressure-like chest pain right-sided pressure-like chest pain started this morning when he tries to getup out of bed.?? He feels it is a positional nature and better when when he is lying flat however he claims that it is worse with ambulation.?? He denies fever, chills, dizziness, diaphoresis, shortness of breath, or sweating.?? Reports that he still have residual chest pain and never went away.?? He feels like he pulled a muscle since he played pickle ball at the [employer] a week ago.?? Upon presentation emergency department, he was hemodynamically stable pressure 140/69, afebrile, maintaining saturation at 96% on room air.?? Initial blood work was fairly stable without any abnormalities.?? Initial troponin was 10.?? EKG was obtained, reviewed by myself with evidence of sinus bradycardia, heartrate of 53, first-degree AV block, CT interval was 240 ms, evidence of bifascicular block includingright bundle branch block and left anterior hemiblock.?? Repeat EKG was similar sinus bradycardia bifascicular block was not noted.?? chest x-ray was obtained, reviewed by myself with no acute cardiopulmonary abnormalities (sternotomy wires noted),. Repeat troponin remained flat.?? Consult was placed in the ER and the patient was admitted under medicine for observation for cardiology evaluation.?? Upon my evaluation, he was lying comfortably bed without any signs of distress.?? Reports that he still have chest pain only when he gets up and walk Review of Systems A full review of systems was completed and is otherwise negative except as mentioned in history of present illness. Objective Measurements?? Height: 178 cm (02/12/24) Weight: 90.8 kg (02/12/24) Dry Weight: 90.8 kg (02/12/24) Body Mass Index:??28.66 kg/m2??High (02/12/24) ? Vital Signs?? Temperature: 98.4 DegF (02/12/24 15:58:00) Temperature Route: Oral (02/12/24 15:58:00) Pulse Rate:??52 bpm??Low (02/12/24 15:58:00) Respiratory Rate: 19 br/min (02/12/24 15:58:00) Systolic Blood Pressure:??144 mm Hg??High (02/12/24 15:58:00) Diastolic Blood Pressure:??96 mm Hg??High (02/12/24 15:58:00) Blood pressure sites: Arm, left (02/12/24 11:01:00) Mean Arterial Pressure: 112 mm Hg (02/12/24 15:58:00) Pulse Pressure: 48 mm Hg (02/12/24 15:58:00) Oxygen Saturation: 98 % (02/12/24 15:58:00) Mode of Delivery (Oxygen): Room air (02/12/24 15:58:00) Early Warning Score: 0 (02/12/24 16:56:39) ? Intake/Output? No Data Available ? Physical Exam General Appearance: The patient is in NAD. Head: atraumatic EENT: MMM, no scleral icterus Cardiovascular: RRR no MRG Respiratory:?? Breath sounds clear to auscultation bilaterally. No wheezing. room air. GI: Soft. Nontender and nondistended. Normal bowel sounds present throughout abdomen. MS:?? No edema or erythema in the lower extremities. Peripheral sensation intact. Skin: warm, dry, no rashes Neuro:?? No slurred speech.?? Patient seen moving their upper and lower extremities independently. Psych: calm Lines: Peripheral IV in place. Assessment/Plan Diagnoses Atrial fibrillation ??(I48.91) Bradycardia ??(R00.1) Chest pain ??(R07.9) Chest pain, unspecified ??(R07.9) Coronary artery disease ??(I25.10) Dyslipidemia ??(E78.5) Essential hypertension ??(I10) First degree AV block ??(I44.0) History of non-ST elevation myocardial infarction (NSTEMI) ??(I25.2) S/P CABG x 6 ??(Z95.1) Statin intolerance ??(Z78.9) ? Chest pain, unspecified (R07.9) ?Grouped with??S/P CABG x 6 (Z95.1),??Coronary artery disease (I25.10),??History of non-ST elevation myocardial infarction (NSTEMI) (I25.2) ? Patient with past medical history as noted above who was brought to the emergency department for evaluation??of??atypical chest pain. EKG is nonischemic. Troponins negative remained flat. EKG is dynamic in terms of??interventricular conduction delay??but no actual??T wave/ST changes. Cardiology's been consulted from the ER. Continue to monitor telemetry. Continue aspirin,??and beta-lopez. As needed EKG for chest pain. Pending cardiology evaluation in case they want??inpatient ischemic workup. ?? Bradycardia (R00.1) ?Grouped with??First degree AV block (I44.0) ? Bradycardia with heart rate of 57 noted on EKG. He had bradycardia on prior EKGs without AV block. Likely secondary to beta-lopez. Will decrease the dose ?? Essential hypertension (I10):??Resume Coreg ?? Dyslipidemia (E78.5) ?Grouped with??Statin intolerance (Z78.9) ? On Zetia, nonformulary. ?? Atrial fibrillation (I48.91):??Slow rate. Continue??Coreg, Xarelto. ?? VTE Prophylaxis:??on Xarelto ?VTE Prophylaxis Assessment:??VTE Prophylaxis Ordered ?? Discharge Planning:? Code Status:??Full code ?Order Code Status:??Code Status Ordered ? Histories Allergies Allergies ?(Active and Proposed Allergies Only) statins? (Severity: Unknown severity, Onset: Unknown) ?Comments: severe muscle aches ciprofloxacin? (Severity: Unknown severity, Onset: Unknown) ? Past Medical History/Problem List Active Problems(6) FH: CABG (coronary artery bypass surgery) Hypercholesteremia Ischemic cardiomyopathy Old myocardial infarct PAF (paroxysmal atrial fibrillation) Statin intolerance ? Past Surgical History No surgery history documented. ? Social History Tobacco Details:??Use: Former smoker, quit more than 30 days ago. ? Family History Brother: CAD - Coronary artery disease ? Medications Home Medications Acetaminophen (acetaminophen 325 mg oral tablet)?650?Milligram?By Mouth?Every 6 hours?May take OTC, follow directions on bottle Al Hydroxide/Mg Hydroxide/Simethicone (Maalox Plus Liquid)?30?Milliliter?By Mouth?Every4 hours?as needed?Other?Heartburn alirocumab (Praluent Pen 150 mg/mL subcutaneous solution)?See Instructions?INJECT 150MG SUBCUTANEOUSLY EVERY 14 DAYS Aspirin (aspirin 81 mg oral capsule)?1?capsule?81?Milligram?By Mouth?Daily at bedtime Budesonide-Formoterol (Symbicort 160mcg/4.5mcg Inhaler)?2?puff(s)?Inhalation?2 times a day Carvedilol (carvedilol 6.25 mg oral tablet)?6.25?Milligram?1?tablet?By Mouth?2 times a day?for 90?Days Cetirizine (ZyrTEC 10 mg oral tablet)?1?tab(s)?10?Milligram?By Mouth?Daily Docusate (docusate sodium 100 mg oral capsule)?100?Milligram?1?capsule?By Mouth?2times a day?hold for loose stool Ezetimibe (Zetia 10 mg oral tablet)?1?tab(s)?10?Milligram?By Mouth?Daily?for 30?Days Milk of Magnesia (Milk of Magnesia Liquid)?30?Milliliter?By Mouth?Daily?as needed?Constipation Pantoprazole (pantoprazole 40 mg oral delayed release tablet)?40?Milligram?By Mouth?Daily?for 30?Days Pantoprazole (pantoprazole 40 mg oral delayed release tablet)?40?Milligram?By Mouth?Daily in AM?for 30?Days Polyethylene Glycol 3350 (MiraLax Powder)?1?pack/packet?17?gram?By Mouth?Daily?as needed?Constipation rivaroxaban (Xarelto 20 mg oral tablet)?1?tab(s)?20?Milligram?By Mouth?Daily at supper?for 90?Days?discontinue eliquis rivaroxaban (Xarelto 20 mg oral tablet)?1?tab(s)?20?Milligram?By Mouth?Daily at supper?for 90?Days?discontinue eliquis Senna (senna 187 mg oral tablet)?1?tab(s)?8.6?Milligram?By Mouth?Daily at bedtime?as needed?as needed for constipation ? Results Recent Labs BLOOD COUNT & DIFF WBC 8.5 k/mm3 ()?? 02/12/2024 11:00 RBC 4.65 m/mm3 (Low)?? 02/12/2024 11:00 Hgb 15.0 Gm/dL ()?? 02/12/2024 11:00 Hct 43.5 % ()?? 02/12/2024 11:00 MCV 93.5 femtoliters ()?? 02/12/2024 11:00 MCH 32.3 pg ()?? 02/12/2024 11:00 MCHC 34.5 g/dL ()?? 02/12/2024 11:00 Platelet Count 192 k/mm3 ()?? 02/12/2024 11:00 RDW-SD 41.0 femtoliters ()?? 02/12/2024 11:00 MPV 9.4 femtoliters ()?? 02/12/2024 11:00 Nucleated RBC (Automated) 0.0 #/100 WBC'S ()?? 02/12/2024 11:00 Abs. NRBC 0.0 k/mm3 ()?? 02/12/2024 11:00 Abs. Neut 3.7 k/mm3 ()?? 02/12/2024 09:17 Abs. Lymph 3.4 k/mm3 (High)?? 02/12/2024 09:17 Abs. [place] 0.5 k/mm3 ()?? 02/12/2024 09:17 Abs. Eo 0.2 k/mm3 ()?? 02/12/2024 09:17 Abs. Baso 0.1 k/mm3 ()?? 02/12/2024 09:17 Neut % 46.5 % ()?? 02/12/2024 09:17 Lymph % 43.3 % (High)?? 02/12/2024 09:17 [place] % 6.0 % ()?? 02/12/2024 09:17 Eos % 3.0 % ()?? 02/12/2024 09:17 Baso % 0.8 % ()?? 02/12/2024 09:17 Imm Gran 0.4 % ()?? 02/12/2024 09:17 Abs. Imm Gran 0.0 k/mm3 ()?? 02/12/2024 09:17 ?? CARDIAC Nt-Probnp 71 pg/mL ()?? 02/12/2024 09:17 High Sensitivity Troponin (HSTnT) 10 ng/L ()?? 02/12/2024 14:45 ?? CHEM GENERAL Sodium 141 mmol/L ()?? 02/12/2024 09:17 Potassium 4.8 mmol/L ()?? 02/12/2024 09:17 Chloride 106 mmol/L ()?? 02/12/2024 09:17 Bicarbonate Level 24 mmol/L ()?? 02/12/2024 09:17 Anion Gap 11 ()?? 02/12/2024 09:17 Glucose Level 80 mg/dL ()?? 02/12/2024 09:17 BUN 18 mg/dL ()?? 02/12/2024 09:17 Creatinine-Blood 0.91 mg/dL ()?? 02/12/2024 09:17 Estimated GFR Creatinine 91 ML/MIN/1.73 M2 ()?? 02/12/2024 09:17 Calcium 9.2 mg/dL ()?? 02/12/2024 09:17 ?? HEME OTHER Hold Blue Top SPECIMEN DISCARDED AFTER 4 HOURS. ()?? 02/12/2024 09:17 ?? URINE OTHER Est Creatinine Clearance 78.18 mL/min ()?? 02/12/2024 10:22 ? EKG study * Event Display: ECG 12-Lead Authored Date: Please click on pdf link to open report * Event Display: ECG 12-Lead Authored Date: Ventricular Rate: 50 BPM Atrial Rate: 50 BPM P-R Interval: 264 ms QRS Duration: 126 ms Q-T Interval: 436 ms QTC Calculation(Bazett): 397 ms P [employer] [place]: 44 degrees R [employer] [place]: -46 degrees T [employer] [place]: -26 degrees Sinus bradycardia with 1st degree A-V block Left axis deviation Non-specific intra-ventricular conduction block Minimal voltage criteria for LVH, may be normal variant ( Nitin product ) Nonspecific T wave abnormality Abnormal ECG When compared with ECG of 12-FEB-2024 09:08, Non-specific intra-ventricular conduction delay has replaced Right bundle branch block Confirmed by Dre Layne ([id number]) on 02/12/2024 3:48:42 PM [place]: Dre Layne * Event Display: ECG 12-Lead Authored Date: Please click on pdf link to open report * Event Display: ECG 12-Lead Authored Date: Ventricular Rate: 53 BPM Atrial Rate: 53 BPM P-R Interval: 240 ms QRS Duration: 162 ms Q-T Interval: 464 ms QTC Calculation(Bazett): 435 ms P [employer] [place]: 54 degrees R [employer] [place]: -57 degrees T [employer] [place]: 25 degrees Sinus bradycardia with 1st degree A-V block Right bundle branch block Left anterior fascicular block Bifascicular block Abnormal ECG When compared with ECG of 23-MAR-2022 10:26, CT interval has increased Right bundle branch block is now Present Confirmed by BRITTANY ECKERT ([id number]) on 02/13/2024 10:00:52 AM [place]: BRITTANY ECKERT Cardiology * Event Display: Cardiac Rhythm Strips Authored Date: Consult note * Danielle KENT, [facility] [place]: MODIFY, PERFORM, MODIFY, MODIFY Event Display: Consultation Note Authored Date: Patient: ??RANJANA NELSON ? Age:??68 Years?Sex:??Male?:??1955?? Indication for Consult Requesting physician: Dr. Parada Consulting physician: Dr. Trejo Reason for consult: Chest pain and dynamic EKG changes Outpatient vp talent management: Dr. Goss History of Present Illness/Interval History 68-year-old male patient with PMHx of CAD s/p NSTEMI 2020 with cardiac catheterization showing left main or multivessel CAD s/p CABG x 6 (CARRILLO???LAD, radial???OM1, SVG???diagonal, SVG???OM 2/OM 3 and RPDA as a triple sequential graft) with postoperative paroxysmal A- fib presenting with chest pain ?? HPI: Patient follows in clinic with Dr. Goss and last saw him in October of this year and has been doing well with resolution of ischemic cardiomyopathy but he is maintained on carvedilol 6.25 as well as Xarelto for paroxysmal A-fib. ?? Patient presented to the ED on 02/11 complaining of pressure-like chest pain after waking up which is worse with exertion/walking and improves with rest and without any associated symptoms.?? In the ED, patient was hypertensive 142/69 but otherwise hemodynamically stable.?? EKG showed first-degree AV block and new RBBB with left anterior fascicular block.?? Patient's troponins were negative x2 10-10 and chest x-ray showed no acute cardiopulmonary process. ?? On my encounter, patient reports that he is extremely active, walking 25 miles a week??and doing??straight stretches of 5 miles??at once without having to stop for any chest pain or shortness of breath.?? Patient woke up this morning??and suddenly felt??chest pain that feels different from the painthat he had during his NSTEMI. ??It is described as soreness in his chest??like something hit him, retrosternal but radiating to the right side.?? Patient thinks that his pain??gets worse when he walks around at low speeds. ??Pain??3/10 at its worst. ?? Pertinent labs: CBC and BMP unremarkable.?? Troponin negative x 2.?? LDL 44. Pertinent home meds: Aspirin 81, carvedilol 6.25 twice daily, Xarelto 20 daily, Zetia 10. ?? Chest x-ray: No evidence of acute cardiopulmonary process EKG 02/12/2024 at 1433: Sinus bradycardia HR 50 with first-degree AV block, IVCD, left axis deviation. EKG 02/12/2024?? at 0908: Sinus bradycardia with third-degree AV block.?? Bifascicular block with RBBB and left anterior fascicular block (i.e. trifascicular block) Prior EKG 03/23/2022: Sinus bradycardia with left anterior fascicular block. TTE: 11/10/2022: EF 60 to 65%.?? No RWMA.?? Abnormal septal motion consistent with prior cardiac surgery.?? No significant aortic stenosis, mild to moderate AI, trivial MR.?? Normal RV size with preserved RV systolic function. Review of Systems Constitutional, Eye, Skin, Head/Neck, ENMT, Respiratory, Cardiovascular, Gastrointestinal, Endocrine, Musculoskeletal, Neurologic, Psych reviewed and negative except as noted in HPI Physical Exam Vitals & Measurements T:??98.4?F?? HR:??59??(Peripheral)?? RR:??16?? BP:??152/83?? SpO2:??96%?? HT:??178??cm?? WT:??90.8??kg?? BMI:??28.66?? Weight lb/oz: 200 lb 3 oz General:??No apparent distress, appears stated age. HEENT:??NCAT, EOMI, Sclera are anicteric. Moist oral mucosa. Neck:??Supple, No lymphadenopathy. No JVD noted. Cardiovascular:??Regular rate and rhythm, normal S1, S2. No S3 or S4 heard. No appreciable murmurs/gallops or rubs. No carotid bruits noted. Palpable peripheral upper and lower extremity pulses noted. Respiratory:??Clear to auscultation bilaterally without wheezes, rales or rhonchi. Abdomen:??Soft, nontender, non-distended, no abnormal BS, no HSM.?? Extremities:??No lower extremity edema noted.?? Neurology:??No focal neurological deficits.?? Assessment/Plan 68-year-old male patient with PMHx of CAD s/p NSTEMI 2019 with cardiac catheterization showing left main or multivessel CAD s/p CABG x 6 (CARRILLO???LAD, radial???OM1, SVG???diagonal, SVG???OM 2/OM 3 and RPDA as a triple sequential graft) with postoperative paroxysmal A- fib presenting with chest pain ?? Assessment and plan: Patient with??past medical history of significant CAD??who has been very active with no limitation??in the past making stable coronary artery disease less likely. ??Patient presents with??resting chest pain??since this morning. ??Patient's troponins have been negative so far??and with atypical??description of his chest pain,??ACS has been ruled out.??To rule out acute pericarditis, recommend obtaining ESR/CRP today. If negative, patient can be??discharged, and if positive he will need an echo to look for pericardial effusion. ?? Patient does have??new EKG changes in the form of??intermittent progression??of his AV marck conduction??disease.?? Patient has??baseline??first-degree AV block??and left anterior fascicular block??now shows evidence of intermittent??right bundle branch block.?? Patient denies any syncope, lighthead edness, dizziness or palpitations.?? There is no current indication for a permanent pacemaker??but we will plan to send the patient out??on a 2- week??monitor to screen for??worsening AV marck disease.? Recommendations: ??? ACS ruled out. ?Patient has no??evidence of angina. ?Check ESR/CRP today to help rule out acute pericarditis from the differential and if positive he will need a TTE. ??? Continue outpatient home medications including??aspirin,??Zetia, carvedilol and rivaroxaban. ?We will arrange for a 1-week??monitor to assess for any worsening AV marck disease. ?? Case discussed with attending, Dr. Trejo ?? Mohamud Santos MD, PGY-5 Cardiovascular disease fellow Pager [phone], available on [facility] Allergies ciprofloxacin statins Home Medications Acetaminophen: 650 mg, By Mouth, Every 6 hours, May take OTC, follow directions on bottle Al Hydroxide/Mg Hydroxide/Simethicone: 30 mL, By Mouth, Every 4 hours, PRN (Other), Heartburn alirocumab: See Instructions, INJECT 150MG SUBCUTANEOUSLY EVERY 14 DAYS Aspirin: 81 mg = 1 capsule, By Mouth, Daily at bedtime Budesonide-Formoterol: 2 puffs, Inhalation, 2 times a day Carvedilol: 6.25 mg = 1 tablet, By Mouth, 2 times a day Cetirizine: 10 mg = 1 tablet, By Mouth, Daily Docusate: 100 mg = 1 capsule, By Mouth, 2 times a day, hold for loose stool Ezetimibe: 10 mg = 1 tablet, By Mouth, Daily Milk of Magnesia: 30 mL, By Mouth, Daily, PRN (Constipation) Pantoprazole: 40 mg, By Mouth, Daily Pantoprazole: 40 mg, By Mouth, Daily in AM Polyethylene Glycol 3350: 17 Gm = 1 pack/packet, By Mouth, Daily, PRN (Constipation) rivaroxaban: 20 mg = 1 tablet, By Mouth, Daily at supper, discontinue eliquis rivaroxaban: 20 mg = 1 tablet, By Mouth, Daily at supper, discontinue eliquis Senna: 8.6 mg = 1 tablet, By Mouth, Daily at bedtime, PRN (as needed for constipation) Hospital Medications Medications (7) Active SCHEDULED: (1) NaCl 0.9% Flush 3ml (NaCL 0.9% Flush) ??3 mL, IV Push, Every 8 hours CONTINUOUS: (0) PRN: (6) Acetaminophen 325 mg Tablet (Acetaminophen Tablet) ??650 mg, By Mouth, Every 4 hours Docusate Sodium 100 mg Capsule (Docusate Sodium Capsule) ??100 mg 1 capsule, By Mouth, 2 times a day Melatonin 3 mg Tablet (Melatonin Tablet) ??3 mg, By Mouth, Daily at bedtime NaCl 0.9% Flush 3ml (NaCL 0.9% Flush) ??3 mL, IV Push, Every 8 hours Polyethylene Glycol 17 Gm Powder (MiraLax Powder) ??17 Gm 1 pack/packet, By Mouth, Daily Senna Tablet ??8.6 mg 1 tablet, By Mouth, 2 times a day Lab Results Cardiology Labs WBC: 8.5 k/mm3 (02/12/24) RBC:??4.65 m/mm3??Low (02/12/24) Hgb: 15 Gm/dL (02/12/24) Hct: 43.5 % (02/12/24) MCV: 93.5 femtoliters (02/12/24) MCH: 32.3 pg (02/12/24) MCHC: 34.5 g/dL (02/12/24) Platelet Count: 192 k/mm3 (02/12/24) RDW-SD: 41 femtoliters (02/12/24) Nucleated RBC (Automated): 0 #/100 WBC'S (02/12/24) Abs. Neut: 3.7 k/mm3 (02/12/24) Abs. Lymph:??3.4 k/mm3??High (02/12/24) Abs. [place]: 0.5 k/mm3 (02/12/24) Abs. Eo: 0.2 k/mm3 (02/12/24) Abs. Baso: 0.1 k/mm3 (02/12/24) Neut %: 46.5 % (02/12/24) [place] %: 6 % (02/12/24) Eos %: 3 % (02/12/24) Baso %: 0.8 % (02/12/24) Imm Gran: 0.4 % (02/12/24) Abs. Imm Gran: 0 k/mm3 (02/12/24) Sodium: 141 mmol/L (02/12/24) Potassium: 4.8 mmol/L (02/12/24) Chloride: 106 mmol/L (02/12/24) Bicarbonate Level: 24 mmol/L (02/12/24) Glucose Level: 80 mg/dL (02/12/24) BUN: 18 mg/dL (02/12/24) Creatinine-Blood: 0.91 mg/dL (02/12/24) Calcium: 9.2 mg/dL (02/12/24) Nt-Probnp: 71 pg/mL (02/12/24) Cholesterol: 110 mg/dL (11/06/23) Triglycerides: 94 mg/dL (11/06/23) HDL Cholesterol: 48 mg/dL (11/06/23) Non HDL Cholesterol: 62 mg/dL (11/06/23) LDL Chol Calc ([facility]): 44 mg/dL (11/06/23) Diagnostic Impression ECG ECG 12-Lead ?? 14:33:43 Please click on pdf link to open report ?? Signed By: Dre Layne MD ?? ECG 12-Lead ?? 14:33:43 Ventricular Rate: 50 BPM Atrial Rate: 50 BPM P-R Interval: 264 ms QRS Duration: 126 ms Q-T Interval: 436 ms QTC Calculation([place]): 397 ms P [place]: 44 degrees R [place]: -46 degrees T [place]: -26 degrees Sinus bradycardia with 1st degree A-V block Left axis deviation Non-specific intra-ventricular conduction block Minimal voltage criteria for LVH, may be normal variant ( [place] product ) Nonspecific T wave abnormality Abnormal ECG When compared with ECG of 12-FEB-2024 09:08, Non-specific intra-ventricular conduction delay has replaced Right bundle branch block Confirmed by Dre Layne ([id number]) on 02/12/2024 3:48:42 PM ?? [place]: Dre Layne ?? Signed By: Dre Layne MD Echo Echocardiogram - Complete ?? 14:00:10 Summary The left ventricular size is normal. Left ventricular wall thickness is normal. The LV systolic function is normal . The left ventricular ejection fraction is 60-65 %. No obvious wall motion abnormalities seen on limited views. There is abnormal septal motion consistent with prior cardiac surgery . Normal diastolic function. ?? The aortic valve is trileaflet . The right coronary cusp is moderately thickened and calcified . The aortic valve leaflet opening is mildly decreased . There is no significant aortic stenosis. There is mild to moderate aortic regurgitation. ?? The right ventricle is normal in size. Right ventricular systolic function appears preserved. ?? Comparison Comparison is made to the study of May 19, 2020. There is only mild to moderate aortic regurgitation. ?? Signature ?? Signed By: Zuleika KENT, Danis Ansari VL Studies VL Carotid Duplex Scan Bilat ?? 08:51:11 Summary: Right Side: 50-69% stenosis in the Bulb/Internal Carotid Artery. Antegrade flow in the Vertebral Artery. Turbulent / disturbed flow is seen in the Subclavian Artery. ?? Left Side: 1-49% stenosis in the Internal Carotid Artery. Antegrade flow in the Vertebral Artery. Multiphasic flow is seen in the Subclavian Artery. ?? Signed By: Jose R White MD Cardiac Cath Procedure Cardiac Cath Procedure ?? 14:52:00 Conclusions ?? Diagnostic Summary Recent onset angina culminating in NSTEMI with recurrent ischemic Sx at rest. Severe triple-vessel CAD with good targets for surgical revascularization. ?? Diagnostic Recommendations IABP insertion for ongoing ischemic symptoms. Urgent CABG during this hospitalization. ?? Signatures ?? Signed By: Kamryn KENT, James Hurst Problem List/Past Medical History Ongoing FH: CABG (coronary artery bypass surgery) Hypercholesteremia Ischemic cardiomyopathy Old myocardial infarct PAF (paroxysmal atrial fibrillation) Statin intolerance Procedure/Surgical History No qualifying data available. Social History Tobacco Use: Former smoker, quit more than 30 days ago. Family History Brother: CAD - Coronary artery disease * Maya KENT, Elvie Butcher: PERFORM Event Display: Consultation Note Authored Date: [id number] Attending Attestation: I have discussed the case and its management with the fellow and agree with the findings and plan as documented in the above note with the following modifications/additions (if any): Patient was discharged prior to my evaluation, I was not able to speak to or examine the patient. ?? The above note was prepared with the help of voice recognition software. Please excuse any grammatical or spelling errors that may have occurred. ?? Note * Arianna Arenas RN: PERFORM Event Display: Discharge/Transfer Note Hospital Authored Date: [id number] Nursing Discharge Note Entered On: 02/13/2024 10:44 EDT Performed On: 02/13/2024 10:43 EDT by Arianna Arenas RN Nursing Discharge Note 2 Discharge Time : 02/13/2024 10:40 EDT Discharge Level of Care at Discharge : Home/Detention/Foster Care Patient Left Unit Via : Ambulatory Patient Accompanied Off Unit with : Significant other DC Instructions Provided & Signed by Pt : Yes Patient Understands D/C Instructions : Yes Patient Instructions Discharge Signed : Yes Did Pt have Specialty Bed or Wound Vac : No Deepa MARTIN, Arianna - 02/13/2024 10:43 EDT * Patrick KENT, Madelyn: PERFORM Event Display: Discharge/Transfer Note Hospital Authored Date: [id number] Patient: ??RANJANA NELSON ? Age:??68 Years?Sex:??Male?:??1955?? Patient Information Discharge Location: B Primary Care Physician: Samir Morales MD Admit Date/Time: 02/12/24 08:49 Discharge Disposition Discharge Disposition: ?? Discharge Diagnosis Chest pain, unspecified (R07.9) Chest pain (R07.9) Coronary artery disease (I25.10) S/P CABG x 6 (Z95.1) History of non-ST elevation myocardial infarction (NSTEMI) (I25.2) Atrial fibrillation (I48.91) First degree AV block (I44.0) Bradycardia (R00.1) Dyslipidemia (E78.5) Statin intolerance (Z78.9) Essential hypertension (I10) _ Discharge Medications Acetaminophen (acetaminophen 325 mg oral tablet)?650?Milligram?By Mouth?Every 6 hours?May take OTC, follow directions on bottle Al Hydroxide/Mg Hydroxide/Simethicone (Maalox Plus Liquid)?30?Milliliter?By Mouth?Every4 hours?as needed?Other?Heartburn alirocumab (Praluent Pen 150 mg/mL subcutaneous solution)?See Instructions?INJECT 150MG SUBCUTANEOUSLY EVERY 14 DAYS Aspirin (aspirin 81 mg oral capsule)?1?capsule?81?Milligram?By Mouth?Daily at bedtime Carvedilol (carvedilol 6.25 mg oral tablet)?6.25?Milligram?1?tablet?By Mouth?2 times a day?for 90?Days Cetirizine (ZyrTEC 10 mg oral tablet)?1?tab(s)?10?Milligram?By Mouth?Daily Docusate (docusate sodium 100 mg oral capsule)?100?Milligram?1?capsule?By Mouth?2times a day?hold for loose stool Ezetimibe (Zetia 10 mg oral tablet)?1?tab(s)?10?Milligram?By Mouth?Daily?for 30?Days Milk of Magnesia (Milk of Magnesia Liquid)?30?Milliliter?By Mouth?Daily?as needed?Constipation Pantoprazole (pantoprazole 40 mg oral delayed release tablet)?40?Milligram?By Mouth?Daily?for 30?Days Pantoprazole (pantoprazole 40 mg oral delayed release tablet)?40?Milligram?By Mouth?Daily in AM?for 30?Days Polyethylene Glycol 3350 (MiraLax Powder)?1?pack/packet?17?gram?By Mouth?Daily?as needed?Constipation rivaroxaban (Xarelto 20 mg oral tablet)?1?tab(s)?20?Milligram?By Mouth?Daily at supper?for 90?Days?discontinue eliquis rivaroxaban (Xarelto 20 mg oral tablet)?1?tab(s)?20?Milligram?By Mouth?Daily at supper?for 90?Days?discontinue eliquis Senna (senna 187 mg oral tablet)?1?tab(s)?8.6?Milligram?By Mouth?Daily at bedtime?as needed?as needed for constipation ? Objective Assessment and Plan Assessment:??68-year-old male??with a past medical history of essential hypertension, dyslipidemia,coronary artery disease complicated by NSTEMI s/p CABG x 6, and paroxysmal atrial fibrillation who presents to the emergency department for evaluation of chest pain. ?? Patient also reported reproducible mid sternal chest pain??which did not??completely resolve after taking Tylenol.??He has no other associated??complaints, patient was seen by [facility] cardiology??rec ommended??inflammatory markers to be checked and outpatient follow-up??was planned. ?? Chest pain,??by history appears to be atypical and noncardiac There is associated reproducibility??patient is able to walk??more than 5 miles without any chest pain or shortness of breath ?Grouped with??S/P CABG x 6 (Z95.1),??Coronary artery disease (I25.10),??History of non-ST elevation myocardial infarction (NSTEMI) (I25.2) ? Patient with past medical history as noted above who was brought to the emergency department for evaluation??of??atypical chest pain. ?Troponins were negative??EKG showed??first-degree AV block patient was seen by [facility] cardiology??recommended to check ESR and CRP Currently clinically no evidence of pancreatitis,??CRP was unremarkable ESR pending ??? Continue outpatient home medications including??aspirin,??Zetia, carvedilol and rivaroxaban. Cardiology will arrange??a 1-week??monitor to assess for any worsening AV marck disease. Continue aspirin,??and beta-lopez. ? Essential hypertension (I10):??Resume Coreg ?? Dyslipidemia (E78.5) ?Grouped with??Statin intolerance (Z78.9) ? On Zetia, nonformulary. ?? Atrial fibrillation (I48.91):??Slow rate. Continue??Coreg, Xarelto. ? disposition, home ?? Discharge Planning:? Vital Signs?? Temperature: 97.9 DegF (02/13/24 08:03:00) Temperature Route: Oral (02/13/24 08:03:00) Pulse Rate: 62 bpm (02/13/24 08:03:00) Respiratory Rate: 20 br/min (02/13/24 08:03:00) Systolic Blood Pressure:??143 mm Hg??High (02/13/24 08:03:00) Diastolic Blood Pressure: 81 mm Hg (02/13/24 08:03:00) Blood pressure sites: Arm, right (02/13/24 08:03:00) Mean Arterial Pressure: 102 mm Hg (02/13/24 08:03:00) Pulse Pressure: 62 mm Hg (02/13/24 08:03:00) Oxygen Saturation: 98 % (02/13/24 08:03:00) Mode of Delivery (Oxygen): Room air (02/13/24 08:03:00) Early Warning Score: 2 (02/13/24 08:03:22) ? . Physical Exam General: [Alert, in no acute cardiopulmonary distress.] Mental Status: [Oriented to person, place and time. Normal affect.] Head: [Normocephalic.] Eyes: [Pupils are equal, round and reactive to light. Extraocular muscles intact.] Ear, Nose and Throat: [Oropharynx clear, mucous membranes moist. Ears and nose without masses, lesions or deformities. Tympanic membranes clear bilaterally. Trachea midline.] Neck: [Supple, Full range of motion.] Respiratory: [Clear to auscultation and percussion. No wheezing, rales or rhonchi.] Cardiovascular: [Heart sounds normal. No thrills. Regular rate and rhythm, no murmurs, rubs or gallops.] Gastrointestinal: [Abdomen soft, non-tender, non-distended. Normal bowel sounds. No pulsatile mass.No hepatosplenomegaly.] Genitourinary: [No costovertebral angle tenderness.] Neurologic: [Cranial nerves II-XII grossly intact. No focal neurological deficits. Deep tendon reflexes +2 bilaterally. Flexor plantar response. Moves all extremities spontaneously. Sensation intact bilaterally.] Skin: [No rashes or lesions. No petechiae or purpura. No edema.] Musculoskeletal: [No cyanosis or clubbing. No gross deformities. Normal range of motion.] Lymphatics: [Palpation of neck reveals no swelling or tenderness of neck nodes. Palpation of groin reveals no swelling or tenderness of groin nodes.] Psychiatric: [Not anxious fully cooperative following commands.] Pending Results Add On Lab Order ordered on 02/12/2024 High??Sensitivity??Troponin T ordered on 02/12/2024 Follow-Up Appointments Added Follow Up ?Time Frame ?Comments Carmen KENT , Samir Menjivar?1 to 2 weeks Post Discharge Care Discharge ?02/13/24 9:36:00 EDT Home Health Face to Face ^HomeHealthFTF Results Discharge Labs BLOOD COUNT & DIFF WBC 8.5 k/mm3 ()?? 02/12/2024 11:00 RBC 4.65 m/mm3 (Low)?? 02/12/2024 11:00 Hgb 15.0 Gm/dL ()?? 02/12/2024 11:00 Hct 43.5 % ()?? 02/12/2024 11:00 MCV 93.5 femtoliters ()?? 02/12/2024 11:00 MCH 32.3 pg ()?? 02/12/2024 11:00 MCHC 34.5 g/dL ()?? 02/12/2024 11:00 Platelet Count 192 k/mm3 ()?? 02/12/2024 11:00 RDW-SD 41.0 femtoliters ()?? 02/12/2024 11:00 MPV 9.4 femtoliters ()?? 02/12/2024 11:00 Nucleated RBC (Automated) 0.0 #/100 WBC'S ()?? 02/12/2024 11:00 Abs. NRBC 0.0 k/mm3 ()?? 02/12/2024 11:00 Abs. Neut 3.7 k/mm3 ()?? 02/12/2024 09:17 Abs. Lymph 3.4 k/mm3 (High)?? 02/12/2024 09:17 Abs. [place] 0.5 k/mm3 ()?? 02/12/2024 09:17 Abs. Eo 0.2 k/mm3 ()?? 02/12/2024 09:17 Abs. Baso 0.1 k/mm3 ()?? 02/12/2024 09:17 Neut % 46.5 % ()?? 02/12/2024 09:17 Lymph % 43.3 % (High)?? 02/12/2024 09:17 [place] % 6.0 % ()?? 02/12/2024 09:17 Eos % 3.0 % ()?? 02/12/2024 09:17 Baso % 0.8 % ()?? 02/12/2024 09:17 Imm Gran 0.4 % ()?? 02/12/2024 09:17 Abs. Imm Gran 0.0 k/mm3 ()?? 02/12/2024 09:17 ?? CARDIAC Nt-Probnp 71 pg/mL ()?? 02/12/2024 09:17 High Sensitivity Troponin (HSTnT) 11 ng/L ()?? 02/12/2024 23:11 ?? CHEM GENERAL Sodium 141 mmol/L ()?? 02/12/2024 09:17 Potassium 4.8 mmol/L ()?? 02/12/2024 09:17 Chloride 106 mmol/L ()?? 02/12/2024 09:17 Bicarbonate Level 24 mmol/L ()?? 02/12/2024 09:17 Anion Gap 11 ()?? 02/12/2024 09:17 Glucose Level 80 mg/dL ()?? 02/12/2024 09:17 BUN 18 mg/dL ()?? 02/12/2024 09:17 Creatinine-Blood 0.91 mg/dL ()?? 02/12/2024 09:17 Estimated GFR Creatinine 91 ML/MIN/1.73 M2 ()?? 02/12/2024 09:17 Calcium 9.2 mg/dL ()?? 02/12/2024 09:17 C-Reactive Protein <0.3 mg/dL ()?? 02/13/2024 08:28 ? HEME OTHER Hold Lavender Top SPECIMEN DISCARDED AFTER 24 HOURS. ()?? 02/12/2024 23:11 Hold Blue Top SPECIMEN DISCARDED AFTER 4 HOURS. ()?? 02/12/2024 09:17 ?? MISC. CHEMISTRY Hold Gel Top SPECIMEN DISCARDED AFTER 1 WEEK ()?? 02/12/2024 23:11 ? URINE OTHER Est Creatinine Clearance 78.18 mL/min ()?? 02/12/2024 10:22 ? VIROLOGY COVID-19 by RT-PCR NEGATIVE ()?? 02/12/2024 19:39 ? Microbiology ?? COVID-19 (Novel Coronavirus), Rapid PCR?? Completed?? Source: Nasal Body Site: Nose Collected Dt/Tm: 02/12/2024 15:27 Last Updated Dt/Tm: 02/12/2024 21:19 ? 25minutes spent on discharge * Arianna Arenas RN: PERFORM Event Display: Patient Education/Instruction Authored Date: Inpatient Adult Discharge Instructions. [address] [id number] Name: RANJANA NELSON : 1955?? Visit: 02/12/2024 08:49?? Current Date: 02/13/2024 10:05 ?? Account: [id number]?? Inpatient Adult Discharge Instructions We would like to thank you for allowing us to assist you with your healthcare needs. The following includes patient education materials and information regarding your injury/illness. Our entire staffstrives to provide an excellent experience for our patients and their families. PLEASE ENSURE YOU FOLLOW-UP PER THE INSTRUCTIONS BELOW! ?? YOUR OPINION IS IMPORTANT TO US! Please complete the survey you may receive by mail or email. Your feedback will be used to make improvements to the healthcare experiences of our patients and their families. Surveys are administered by [employer] ?? If further treatment with your primary care physician or another doctor is recommended, it is important for you to keep the appointment. Call your primary care physician or return to the Emergency Department immediately if your condition worsens, fails to improve, or new symptoms develop. If you need to find a doctor, you can call [facility] for a referral at [phone] or toll free at [phone] or log in to [email or web address].. ?? [facility], in keeping with [facility] guidance, no longer requires face masks for staff, patientsor visitors in most situations. Similiar to time spent indoors at other locations, there is the chance that you were exposed to repiratory viruses during your time with us (such as flu or COVID-19). If you develop symptoms concerning for a viral respiratory infection, please seek testing (and treatment if indicated) from your medical provider or home test kit. ?? You can view and manage your care through the patient portal or by using a health care reji of your choosing. [employer] is a website that allows you to securely view your medical information including your hospital discharge summary, office visit summaries, medications and follow-up visits. You can also request appointments, renew medications, and request access to your medical information using a health care reji of your choosing, or just ask a question. You can enroll at [email or web address] or register during your next office visit. You have been discharged from [facility], Patient Care Unit: D3B??. If you have any questions regarding these instructions, including results of studies pending, afteryou leave, please call us and we will be happy to assist you 23/01. [facility] Your Care Team Attending Physician Madelyn Nguyen MD?? Consulting Providers Madelyn Nguyen MD?? Discharging Providers Madelyn Nguyen MD Reason for Your Visit Dynamic EKG changes with Chest Pain?? Your Diagnosis Atrial fibrillation Bradycardia Chest pain Coronary artery disease Dyslipidemia Essential hypertension First degree AV block History of non-ST elevation myocardial infarction (NSTEMI) S/P CABG x 6 Statin intolerance Tests Performed Below is a partial list of the tests performed during your hospitalization. You may have had other tests and procedures not included in this list. Please discuss all test results with your provider. Basic Metabolic Panel CBC CBC w/ Differential COVID-19 (Novel Coronavirus), Rapid PCR CRP High??Sensitivity??Troponin T Hold Blue Top Tube HOLD GEL TUBE HOLD LAVENDER TUBE PROBNP XR Chest 2 Views Frontal and Lat Add On Lab Order (Lab Add On Order)?? B Type Natriuretic Peptide (PROBNP)?? Basic Metabolic Panel?? C Reactive Protein (CRP)?? CBC?? CBC w/ Differential?? COVID-19 (Novel Coronavirus), Rapid PCR?? High??Sensitivity??Troponin T?? Hold Blue Top Tube?? Hold Gel Top Tube (HOLD GEL TUBE)?? Hold Lavender Top Tube (HOLD LAVENDER TUBE)?? Chest 2 Views Frontal and Lat (XR Chest 2 Views Frontal and Lat)?? Primary Care Provider Samir Morales MD? Advance Directive Health Care Proxy on File Yes - Health Care Proxy Discharge Vitals Temperature: 97.9 DegF Height: 178 cm Pulse Rate: 62 bpm Weight: 90.8 kg Respiratory Rate: 20 br/min Body Mass Index:??28.66 kg/m2??High Systolic Blood Pressure:??143 mm Hg??High Body surface area: 2.12 Diastolic Blood Pressure: 81 mm Hg ?? Oxygen Saturation: 98 % ?? Studies Pending All studies ordered during this hospital stay have been completed unless listed below. Please discuss all pending results with your provider listed above in these instructions. ?? Add On Lab Order (Lab Add On Order)?? High??Sensitivity??Troponin T?? What to do next Instructions From Your Doctor ?? Orders? 02/13/24 9:36:00 EDT?? You Need to Schedule the Following Appointments Follow Up with??Samir Morales MD When:??Within 1 to 2 weeks Discharge Medications RANJANA NELSON :1955 Visit Date:02/12/2024 Medications: Please continue your medications until treatment is completed or stopped by your provider. Medications not listed below should be discontinued. Discuss any questions related to medications with your provider. What How Much When Instructions Next Dose Unchanged Acetaminophen (acetaminophen 325 mg oral tablet) 650 Milligram Oral Every 6 hours May take OTC, follow directions on bottle ?? As needed Unchanged Al Hydroxide/ Mg Hydroxide/ Simethicone (Maalox Plus Liquid) 30 Milliliter Oral Every 4 hours as needed for Other Heartburn ?? as needed Unchanged alirocumab (Praluent Pen 150 mg/ mL subcutaneous solution) See instructions INJECT 150MG SUBCUTANEOUSLY EVERY 14 DAYS ?? as instructed Unchanged Aspirin (aspirin 81 mg oral capsule) 1 capsule Oral Daily at Bedtime Tonight 02/13/2024 Unchanged Carvedilol (carvedilol 6.25 mg oral tablet) 1 tab(s) Oral Twice a day Duration: 90 Days Tonight 02/13/2024 Unchanged Cetirizine (ZyrTEC 10 mg oral tablet) 1 tab(s) Oral Daily Today 02/13/2024 Unchanged Docusate (docusate sodium 100 mg oral capsule) 1 capsule Oral Twice a day hold for loose stool ?? Tonight 02/13/2024 Unchanged Ezetimibe (Zetia 10 mg oral tablet) 1 tab(s) Oral Daily Duration: 30 Days Today 02/13/2024 Unchanged Milk of Magnesia (Milk of Magnesia Liquid) 30 Milliliter Oral Daily as needed for Constipation As needed Unchanged Pantoprazole (pantoprazole 40 mg oral delayed release tablet) 40 Milligram Oral Daily in the morning Duration: 30 Days Today 02/13/2024 Unchanged Polyethylene Glycol 3350 (MiraLax Powder) 17 gram Oral Daily as needed for Constipation As needed Unchanged rivaroxaban (Xarelto 20 mg oral tablet) 1 tab(s) Oral Daily at supper Duration: 90 Days discontinue eliquis ?? Today 02/13/2024 Unchanged Senna (senna 187 mg oral tablet) 1 tab(s) Oral Daily at Bedtime as needed for as needed for constipation As needed ?? What How Much When Comments Stop Taking Budesonide-Formoterol (Symbicort 160mcg/ 4.5mcg Inhaler) 2 puff(s) Inhalation Twice a day Prescription Given During Visit No new medications prescribed at time of discharge.?? Laboratory Results Below is a partial list of the most recent Laboratory test results done prior to this discharge. You may have had other tests and procedures not included in this list. Please discuss all test resultswith your provider. Est Creatinine Clearance - 78.18 mL/min (02/12/2024) Basic Metabolic Panel (02/12/2024) ???Sodium - 141 mmol/L???Potassium - 4.8 mmol/L???Chloride - 106 mmol/L???Bicarbonate Level - 24 mmol/L???Anion Gap - 11???Glucose Level - 80 mg/dL???BUN - 18 mg/dL???Creatinine-Blood - 0.91 mg/dL???Estimated GFR Creatinine - 91 ML/MIN/1.73 M2???Calcium - 9.2 mg/dL CBC (02/12/2024) ???WBC - 8.5 k/mm3???RBC - 4.65 m/mm3???Hgb - 15.0 Gm/dL???Hct - 43.5 %???MCV - 93.5 femtoliters???MCH - 32.3 pg???MCHC - 34.5 g/dL???Platelet Count - 192 k/mm3???RDW-SD - 41.0 femtoliters???MPV - 9.4 femtoliters???Nucleated RBC (Automated) - 0.0 #/100 WBC'S???Abs. NRBC - 0.0 k/mm3 CBC w/ Differential (02/12/2024) ???WBC - 7.9 k/mm3???RBC - 4.66 m/mm3???Hgb - 15.1 Gm/dL???Hct - 43.9 %???MCV - 94.2 femtoliters???MCH - 32.4 pg???MCHC - 34.4 g/dL???Platelet Count - 204 k/mm3???RDW-SD - 41.2 femtoliters???MPV - 9.3 femtoliters???Nucleated RBC (Automated) - 0.0 #/100 WBC'S???Abs. NRBC - 0.0 k/mm3???Abs. Neut - 3.7 k/mm3???Abs. Lymph - 3.4 k/mm3???Abs. [place] - 0.5 k/mm3???Abs. Eo - 0.2 k/mm3???Abs. Baso - 0.1 k/mm3???Neut % - 46.5 %???Lymph % - 43.3 %???[place] % - 6.0 %???Eos % - 3.0 %???Baso % - 0.8 %???Imm Gran- 0.4 %???Abs. Imm Gran - 0.0 k/mm3 COVID-19 (Novel Coronavirus), Rapid PCR (02/12/2024) ???COVID-19 by RT-PCR - NEGATIVE CRP (02/13/2024) ? ?C-Reactive Protein - <0.3 mg/dL High??Sensitivity??Troponin T (02/12/2024) ???High Sensitivity Troponin (HSTnT) - 11 ng/L Hold Blue Top Tube (02/12/2024) ???Hold Blue Top - SPECIMEN DISCARDED AFTER 4 HOURS. HOLD GEL TUBE (02/12/2024) ???Hold Gel Top - SPECIMEN DISCARDED AFTER 1 WEEK HOLD LAVENDER TUBE (02/12/2024) ???Hold Lavender Top - SPECIMEN DISCARDED AFTER 24 HOURS. PROBNP (02/12/2024) ???Nt-Probnp - 71 pg/mL You will be contacted within 72 hours with your results. Allergies (NKA means No Known Allergies) ciprofloxacin statins Problems Active Problems??(6) FH: CABG (coronary artery bypass surgery)?? Hypercholesteremia?? Ischemic cardiomyopathy?? Old myocardial infarct?? PAF (paroxysmal atrial fibrillation)?? Statin intolerance?? Education Materials Below is the list of Educational Leaflet Providered with your Discharge Instructions. Valuables and Belongings I fully understand and agree that [facility] accepts no responsibility for all my personal property including clothing, toilet articles, radios, jewelry, dentures, hearing aids, rings, money, or any other property that is in my possession or is brought to me after admission. I understand certain valuables may be placed in a hospital safe for a short period of time. I understand that the hospital is not liable for loss or damage due to accident, fire, or other natural occurrence while said property is in the safe. I accept full responsibility for any personal property that I keep with me, and will not hold the hospital responsible in case of loss or disappearance. I acknowledge that i have been encouraged to send valuables and belongings home. ?? Review of Valuable and Belonging List: With patient Date for Pt to Sign Valuables/Belongings: 02/12/24 15:56:00 ?? Other Discharge Information ? Pulmonary Rehab Status?? Pulmonary Rehab Discharge Status?? Respiratory Rate: 20 br/min ? Common Emergency Awareness Tips IS IT A STROKE? Act FAST and Check for these signs: FACE Does the face look uneven? ARM Does one arm drift down? SPEECH Does their speech sound strange? TIME Call at any sign of stroke ?? Heart Attack Signs Chest discomfort: Most heart attacks involve discomfort in the center of the chest and lasts more than a few minutes, or goes away and comes back. It can feel like uncomfortable pressure, squeezing, fullness or pain. Discomfort in upper body: Symptoms can include pain or discomfort in one or both arms, back, neck, jaw or stomach. Shortness of breath: With or without discomfort. Other signs: Breaking out in a cold sweat, nausea, or lightheaded. Remember, MINUTES DO MATTER. If you experience any of these heart attack warning signs, call to get immediate medical attention! ?? Smoking can increase your chances of developing chronic health problems and can cause harmful effects to other family members in your house. If you smoke, you are strongly encouraged to quit. Please call [facility] [employer] Link at [phone] or [phone] ([phone]) or log in to [email or web address] for referrals to smoking cessation programs. ?? 423 Suicide & Crisis Lifeline is available 23/01 if you or someone you know needs to find a reason to keep living. By calling 669 you'll be connected to a skilled, trained counselor at a crisis center in your area. INPATIENT DISCHARGE INSTRUCTIONS SIGNATURE PAGE RANJANA NELSON Location:[facility] Registration Date and Time:02/12/2024 08:49 EDT Primary Care Physician: Carmen KENT, Samir Ansari, Attending Physician: Madelyn Nguyen MD, I RANJANA NELSON, have received the above patient education materials/instructions and have verbalized understanding. If ambulance or transport services are being used I further acknowledge being given a choice of service. ?? If you need to contact me, please call me at this number: . Patient/Salesforce Administrator Name: Patient/Salesforce Administrator Signature: Relationship to Patient: Witness Name/Signature: Date: Patient Care team information Care Team [...] Reference Physician Member Role: PCP Address: Address: [address] [place] [id number] Care Team Related Persons Name: LALIT NELSON Address: home [address] [place] [address]
--- OUTSIDE RECORDS SUMMARY | 2024-04-01 06:56 | XMS_ITS | Continuity of Care Document ---
Author Organization [facility] Address [address] [place] [address]- Care Team Providers Care Lieutenant General Name Role Phone Carmen KENT, Samir Ansari Primary Care Physician Encounter [facility] [place] Date(s): 06/11/21 - 07/11/21 [facility] [address] [place] [address]- [place] Allergies, Adverse Reactions, Alerts Substance Reaction Severity Status ciprofloxacin Active statins 1 Active 1severe muscle aches Immunizations Not Given Vaccine Date Status Refusal Reason influenza virus vaccine, inactivated 04/06/20 Not Given Patient Refuses Medications apixaban 5 mg oral tablet 1 tablet = 5 mg, By Mouth, 2 times a day, # 60 tablet, 11 Refills, Maintenance, 11/03/20 9:16:00 EDT, Tablet, [facility] # 302, 175, cm, 06/13/20 7:01:00 EST, Height, 91.1, kg, 06/12/20 19:26:00EST, Dry Weight Start Date: 11/03/20 Stop Date: 10/29/21 Status: Ordered aspirin 81 mg oral delayed release tablet = 81 mg, By Mouth, Daily, # 30 tablet, 5 Refills, Maintenance, 05/06/20 11:44:00 EST, EC Tablet, [facility] # 302, 175, cm, 05/05/20 10:39:00 [...] # 30 tablet, 6 Refills, [facility] #[id number], 175, cm, 11/06/20 9:43:00 EDT, Height, 91.1, [...] 11 Refills, Maintenance, 11/18/20 14:19:00 EDT, Tablet, [facility] # 302, Partial fill upon patient [...]
--- OUTSIDE RECORDS SUMMARY | 2024-04-01 06:56 | XMS_ITS | Continuity of Care Document ---
Author Organization [facility] Address [address] [place] [address]- Care Team Providers Care Commercial Food Instructor Name Role Phone Carmen KENT, Samir Ansari Primary Care Physician [place] [facility] [place] 01/23/21 [facility] [address] [place] [id number] All[facility]ies, Adverse Reactions, Alerts Substance Reaction Severity Status ciprofloxacin Active statins 1 Active 1severe muscle aches Immunizations Not Given Vaccine Date Status Refusal Reason influenza virus vaccine, inactivated 04/06/20 Not Given Patient Refuses Medications apixaban 5 mg oral tablet 1 tablet = 5 mg, By Mouth, 2 times a day, # 60 tablet, 11 Refills, Maintenance, 11/03/20 9:16:00 EDT, Tablet, [facility] # 302, 175, cm, 06/13/20 7:01:00 EST, Height, 91.1, kg, 06/12/20 19:26:00EST, Dry Weight Start Date: 11/03/20 Stop Date: 10/29/21 Status: Ordered aspirin 81 mg oral delayed release tablet = 81 mg, By Mouth, Daily, # 30 tablet, 5 Refills, Maintenance, 05/06/20 11:44:00 EST, EC Tablet, [facility] # 302, 175, cm, 05/05/20 10:39:00 [...] tablet, 5 Refills, Maintenance, 12/03/20 15:07:00 EDT, [facility] #[id number], 175, cm, 11/06/20 9:43:00 EDT, Height, 91.1, kg, 06/12/20 19:26:00 EST, Dry Weight Start Date: 12/03/20 Status: Ordered Repatha 140 mg/mL subcutaneous solution = 140 mg, Subcutaneous Infusion, Every 28 days, # 1 kit, 11 Refills, Maintenance, 11/06/20 10:01:00EDT, [facility] # [facility], Partial fill upon [...] 11 Refills, Maintenance, 11/18/20 14:19:00 EDT, Tablet, [facility] # [facility], Partial fill upon [...]
--- OUTSIDE RECORDS SUMMARY | 2024-04-01 06:56 | XMS_ITS | Continuity of Care Document ---
Author Organization [facility] Address [address] [place] [address]- Care Team Providers Care Lamp Shade Sewer Name Role Phone Carmen KENT, Samir Ansari Primary Care Physician En[place] [facility] [place] Date(s): 12/03/20 - 01/02/21 [facility] [address] [place] [id number] Allergies, Adverse Reactions, Alerts Substance Reaction Severity Status ciprofloxacin Active statins 1 Active 1severe muscle aches Immunizations Not Given Vaccine Date Status Refusal Reason influenza virus vaccine, inactivated 04/06/20 Not Given Patient Refuses Medications apixaban 5 mg oral tablet 1 tablet = 5 mg, By Mouth, 2 times a day, # 60 tablet, 11 Refills, Maintenance, 11/03/20 9:16:00 EDT, Tablet, [facility] # 302, 175, cm, 06/13/20 7:01:00 EST, Height, 91.1, kg, 06/12/20 19:26:00EST, Dry Weight Start Date: 11/03/20 Stop Date: 10/29/21 Status: Ordered aspirin 81 mg oral delayed release tablet = 81 mg, By Mouth, Daily, # 30 tablet, 5 Refills, Maintenance, 05/06/20 11:44:00 EST, EC Tablet, [facility] # 302, 175, cm, 05/05/20 10:39:00 [...] tablet, 5 Refills, Maintenance, 12/03/20 15:07:00 EDT, [facility] #[id number], 175, cm, 11/06/20 9:43:00 EDT, Height, 91.1, kg, 06/12/20 19:26:00 EST, Dry Weight Start Date: 12/03/20 Status: Ordered Repatha 140 mg/mL subcutaneous solution = 140 mg, Subcutaneous Infusion, Every 28 days, # 1 kit, 11 Refills, Maintenance, 11/06/20 10:01:00EDT, [facility] # 302, Partial fill [...] 11 Refills, Maintenance, 11/18/20 14:19:00 EDT, Tablet, [facility] # [facility], Partial fill upon patient [...]
--- OUTSIDE RECORDS SUMMARY | 2024-04-01 06:56 | XMS_ITS | Continuity of Care Document ---
Author Organization [facility] Address [address] [place] [address]- Care Team Providers Care Warp Knitter Helper Name Role Phone Samir Morales MD Primary Care Physician [phone] Encounter [facility] [place] Date(s): 11/02/22 - 12/02/22 [facility] [address] [place] [address]- Attending Physician: Anna Marie Becerra Admitting Physician: [...] 10/09/21 7:58:00 EDT, Route to Pharmacy Electronically, [facility], Partial fill upon patient request if [...] Mouth, Daily, # 30 tablet, 5 Refills, [facility] #[id number], 175, cm, 11/01/21 10:05:00 EDT, Height, 87, kg, 10/08/21 6:42:00 EDT, Dry Weight Start Date: 12/28/21 Status: Ordered Metoprolol Succinate ER 100 mg oral tablet, extended release See Instructions, TAKE ONE TABLET BY MOUTH ONCE DAILY, # 30 tablet, 11 Refills, Maintenance, 07/23/22 15:53:00 EST, [facility] #[id number], 175, cm, 03/23/22 10:03:00 EDT, Height, 87, [...] mL, 5 Refills, Maintenance, 09/27/22 14:38:00 EDT, [facility], 175, cm, 03/23/22 10:03:00 [...] eliquis, # 90 tablet, 3 Refills, Maintenance, 11/24/22 10:45:00 EDT, Tablet, [facility] # 302, 175, cm, 11/02/22 9:38:00 EDT, Height, 87,kg, 10/08/21 6:42:00 EDT, Dry Weight Start Date: 11/24/22 Stop Date: 11/19/23 Status: Ordered Zetia 10 mg oral tablet 1 tablet = 10 mg, By Mouth, Daily, # 30 tablet, 11 Refills, Maintenance, 11/18/20 14:19:00 EDT, Tablet, [facility] # 302, Partial fill upon patient [...] Team Personnel Name: Herminia David RN Position: [facility] RN Member Role: Primary Care Nurse Name: Naila Mcgregor RN Position: S RN Member Role: Primary Care Nurse Name: Mary Joshi RN Position: S RN Member Role: Primary Care Nurse Name: Nyla Torres RN Position: [facility] RN Member Role: Primary Care Nurse Name: Samir Morales MD Position: Reference Physician Member Role: PCP Address: Address: [address] [place] [address]- Care Team Related Persons Name: MALCOLMSUHASLALIT BOSCH Address: home [address] [place] [address]
--- OUTSIDE RECORDS SUMMARY | 2024-04-01 06:56 | XMS_ITS | Continuity of Care Document ---
Author Organization [facility] Address [address] [place] [address]- Care Team Providers Care Systems Administrator Name Role Phone Samir Morales MD Primary Care Physician [phone] Encounter [facility] [place] Date(s): 03/24/22 - 04/23/22 [facility] [address] [place], [place] [address] Attending Physician: Anna Marie Becerra Admitting [...] 10/09/21 7:58:00 EDT, Route to Pharmacy Electronically, [facility], Partial fill upon patient request [...] Mouth, Daily, # 30 tablet, 5 Refills, [facility] #[id number], 175, cm, 11/01/21 10:05:00 EDT, Height, 87, [...] 2 each, 11 Refills, Maintenance, 07/19/21 8:14:00EST, [facility] # 302, 175, cm, 06/23/21 12:10:00 [...] 3 Refills, Maintenance, 12/09/21 12:19:00 EDT, Tablet, [facility] #198, 175, cm, 11/01/21 10:05:00 EDT, Height, 87, kg, 10/08/21 6:42:00 EDT, Dry Weight Start Date: 12/09/21 Stop Date: 12/04/22 Status: Ordered Zetia 10 mg oral tablet 1 tablet = 10 mg, By Mouth, Daily, # 30 tablet, 11 Refills, Maintenance, 11/18/20 14:19:00 EDT, Tablet, [facility] # 302, Partial fill upon [...] Name: Carmen KENT, Samir Ansari Address: Address: [address] [place] [address]
--- OUTSIDE RECORDS SUMMARY | 2024-04-01 06:56 | XMS_ITS | Continuity of Care Document ---
Author Organization [facility] Address [address] [place] [address] [address] [place] [address]- Care Team Providers Care Station Gateman Name Role Phone Samir Morales MD Primary Care Physician [phone] Encounter [id number] Date(s): 11/06/23 - 11/06/[address] [place] [address]- Allergies, Adverse Reactions, Alerts Substance Reaction Severity [...] 10/09/21 7:58:00 EDT, Route to Pharmacy Electronically, [facility], Partial fill upon patient request if [...] Mouth, Daily, # 30 tablet, 5 Refills, [facility] #[id number], 175, cm, 11/01/21 10:05:00 EDT, Height, 87, kg, 10/08/21 6:42:00 EDT, Dry Weight Start Date: 12/28/21 Status: Ordered Metoprolol Succinate ER 100 mg oral tablet, extended release See Instructions, TAKE ONE TABLET BY MOUTH ONCE DAILY, # 30 tablet, 11 Refills, Maintenance, 07/23/22 15:53:00 EST, [facility] #[id number], 175, cm, 03/23/22 10:03:00 EDT, Height, 87, [...] mL, 10 Refills, Maintenance, 09/07/23 15:16:00 EST, [facility], 175, cm, 11/02/22 9:38:00 [...] 3 Refills, Maintenance, 11/19/23 10:45:00 EDT, Tablet, [facility] #198, 175, cm, 11/02/22 9:38:00 EDT, Height, 87, kg, 10/08/21 6:42:00 EDT, Dry Weight Start Date: 11/19/23 Stop Date: 11/13/24 Status: Ordered Xarelto 20 mg oral tablet 1 tablet = 20 mg, By Mouth, Daily at supper, for 90 days, discontinue eliquis, # 90 tablet, 3 Refills, Hard Stop 08/26/24 12:49:00 EST, 09/01/23 12:49:00 EST, Tablet, [facility] #[id number], 175, cm, 11/02/22 9:38:00 EDT, Height, 87, kg, 10/08/21 6:42:00... Start Date: 09/01/23 Stop Date: 08/26/24 Status: Ordered Zetia 10 mg oral tablet 1 tablet = 10 mg, By Mouth, Daily, # 30 tablet, 11 Refills, Maintenance, 11/18/20 14:19:00 EDT, Tablet, [facility] # 302, Partial fill upon patient [...] Team Personnel Name: Herminia David RN Position: [facility] RN Member Role: Primary Care Nurse Name: Naila Mcgregor RN Position: S RN Member Role: Primary Care Nurse Name: Mary Joshi RN Position: S RN Member Role: Primary Care Nurse Name: Samir Morales MD Position: Reference Physician Member Role: PCP Address: Address: [address] [place] [address]- Care Team Related Persons Name: LALIT NELSON Address: home [address] [place] [address]
--- OUTSIDE RECORDS SUMMARY | 2024-04-01 06:56 | XMS_ITS | Continuity of Care Document ---
Author Organization [facility] ter Address [address] [place] [address]- Care Team Providers Care Residential Assistant Name Role Phone Carmen KENT, Samir Ansari Primary Care Physician [phone] [place] [facility] [place] - 10/09/[address] [address] Discharge Disposition: A-Transfer VNA/Home Health Attending Physician: Dre Ash MD Admitting Physician: Dre Ash MD Referring Physician: Dre Ash MD Allergies, Adverse Reactions, Alerts Substance Reaction [...] opioid drug. Start Date: 10/09/21 Status: Ordered Acetaminophen Tablet 650 mg, Tablet, By Mouth, 10/09/21 9:00:00 EDT Start Date: 10/09/21 Stop Date: 10/09/21 Status: Completed apixaban 2.5 mg oral tablet 1 tablet = 2.5 mg, By Mouth, 2 times a day, may split 5 mg tablets in half for 1 week then restart home dose in 1 week, # 60 tablet, 0 Refills, Maintenance, 10/09/21 7:56:00 EDT, Tablet, [facility], Partial fill upon patient request if t... Start Date: 10/09/21 Status: Ordered apixaban 5 mg oral tablet 1 tablet = 5 mg, By Mouth, 2 times a day, # 60 tablet, 11 Refills, Maintenance, 11/03/20 9:16:00 EDT, Tablet, [facility] # 302, 175, cm, 06/13/20 7:01:00 EST, Height, 91.1, kg, 06/12/20 19:26:00EST, Dry Weight Start Date: 11/03/20 Stop Date: 10/29/21 Status: Ordered docusate sodium 100 mg oral capsule 100 mg, 1, capsule, By Mouth, 2 times a day, hold for loose stool, # 60 capsule, Refills 0, Tot. Refills 0, Maintenance, 10/09/21 7:58:00 EDT, Route to Pharmacy Electronically, [facility], Partial fill upon patient request if the prescri... Start Date: 10/09/21 Status: Ordered HYDROmorphone 2 mg oral tablet See Instructions, PRN Pain , Moderate, Take 1-2 tablets By Mouth Every 4 hours as needed, # 84 tablet, 0 Refills, Acute 10/16/21 8:01:00 EDT, 10/09/21 7:59:00 EDT, Tablet, [facility], Partial fill upon patient request [...] Mouth, Daily, # 30 tablet, 6 Refills, [facility] #[id number], 175, cm, 11/06/20 9:43:00 EDT, Height, 91.1, [...] 10/16/21 8:01:00 EDT, 10/09/21 8:01:00 EDT, Tablet, [facility], Partial fill upon patient request [...] 2 each, 11 Refills, Maintenance, 07/19/21 8:14:00EST, [facility] # 302, 175, cm, [...] 10/16/21 8:04:00 EDT, 10/09/21 8:02:00 EDT, Tablet, [facility], Partial fill upon patient request if the prescription is... Start Date: 10/09/21 Stop Date: 10/16/21 Status: Ordered Tramadol Tablet 100 mg, Tablet, By Mouth, Every 6 hours, PRN for Pain , Moderate, Routine, 10/08/21 12:55:00 EDT Start Date: 10/08/21 Stop Date: 10/09/21 Status: Discontinued Zetia 10 mg oral tablet 1 tablet = 10 mg, By Mouth, Daily, # 30 tablet, 11 Refills, Maintenance, 11/18/20 14:19:00 EDT, Tablet, [facility] # 302, Partial fill [...] (paroxysmal atrial fibrillation)(Confirmed) Active Statin intolerance(Confirmed) Active Results Radiology Reports * Exam Date Time Procedure Performing Provider Status 10/08/21 11:14 PM Knee 1 or 2 Views Left Quinton Espitia; Susi (Verified) Notes: (Knee 1 or 2 Views Left) Reason For Exam: Postop;Postop RESULT: Knee 1 or 2 Views Left Knee 1 or 2 Views Left 1 view INDICATION/CLINICAL QUESTION: Reason: Postop; Clinical Question(s): Other:; Implant Position; Special Instructions: Do today at 2200, No flexed knee in the lateral position. Keep leg straight; 2 Views COMPARISON: None. FINDINGS: Total knee arthroplasty with intact hardware and normal alignment. No fracture. Surgical drain in place. IMPRESSION: No apparent complication. WSN: [id number] Ordering Physician: Brayden Christian Dictated By: Chase Mariee MD Dictated Date/Time: 10/08/21 11:24 p Reviewed By: Chase Mariee MD Signed By: Chase Mariee MD Signed Date/Time: 10/08/21 11:24 pm Transcribed By: ESTELLA Transcribed Date/Time: 10/08/21 11:24 pm Vital Signs Most recent to oldest [Reference Range]: 1 2 3 Height 175 cm (10/09/21 7:05 AM) 175 cm (10/09/21 4:56 AM) 175 cm (10/09/21 12:16 AM) Weight 87 kg (10/08/21 9:40 AM) 87 kg (10/08/21 6:42 AM) Oxygen Saturation [94-100 %] 99 % (10/09/21 7:05 AM) 98 % (10/09/21 4:56 AM) 96 % (10/09/21 12:16 AM) Pulse Rate [55-90 bpm] 57 bpm (10/09/21 7:05 AM) 57 bpm (10/09/21 4:56 AM) 62 bpm (10/09/21 12:16 AM) Body Mass Index [18.5-24.99] 28.41 *H* (10/08/21 9:40 AM) 28.41 *H* (10/08/21 6:42 AM) Blood Pressure [90-138/55-84 mm Hg] 128/72mm Hg (10/09/21 7:05 AM) 113/59mm Hg (10/09/21 4:56 AM) 111/59mm Hg (10/09/21 12:16 AM) Respiratory Rate [16-30 br/min] 18 br/min (10/09/21 10:51 AM) 18 br/min (10/09/21 10:51 AM) 20 br/min (10/09/21 7:05 AM) Temperature [96.8-100.4 DegF] 98.3 DegF (10/09/21 7:05 AM) 97.7 DegF (10/09/21 4:56 AM) 97.4 DegF (10/09/21 12:16 AM) Mode of Delivery (Oxygen) Room air (10/09/21 7:05 AM) Room air (10/09/21 4:56 AM) Room air (10/09/21 12:16 AM) Blood pressure sites Arm, left (10/09/21 7:05 AM) Arm, right (10/09/21 4:56 AM) Arm, right (10/09/21 12:16 AM) Temperature Route Oral (10/09/21 7:05 AM) Oral (10/09/21 4:56 AM) Oral (10/09/21 12:16 AM) Dry Weight 87 kg (10/08/21 6:42 AM) Social History Social History Type Response Smoking Status Former smoker, quit more than 30 days ago entered on: 03/31/20 Sex
--- OUTSIDE RECORDS SUMMARY | 2024-04-01 06:56 | XMS_ITS | Continuity of Care Document ---
Author Organization [facility] Address [address] [facility], [address] d Floor, [address] [place] [address]- Care Team Providers Care Holistic Health Practitioner Name Role Phone Samir Morales MD Primary Care Physician [phone] [place] [facility] [place]19[place]22 - 09/18/22 [facility] [address] [place], [address], [address] [place] [address]- Allergies, Adverse Reactions, Alerts Substance Reaction Severity [...] 7:58:00 EDT, Route to Pharmacy Electronically, [facility], Partial fill upon patient request [...] Daily, # 30 tablet, 5 Refills, [facility] #[id number], 175, cm, 11/01/21 10:05:00 EDT, Height, 87, kg, 10/08/21 6:42:00 EDT, Dry Weight Start Date: 12/28/21 Status: Ordered Metoprolol Succinate ER 100 mg oral tablet, extended release See Instructions, TAKE ONE TABLET BY MOUTH ONCE DAILY, # 30 tablet, 11 Refills, Maintenance, 07/23/22 15:53:00 EST, [facility] #[id number], 175, cm, 03/23/22 10:03:00 EDT, Height, 87, [...] 6 Refills, Maintenance, 06/07/22 11:53:00 EST, [facility] #[id number], 175, cm, 03/23/22 10:03:00 EDT, Height, 87, kg, 10/08/21 6:42:00 EDT, Dry Weight Start Date: 06/07/22 Status: Ordered Praluent Pen 150 mg/mL subcutaneous solution = 150 mg, Subcutaneous Infusion, Every 14 days, # 2 each, 11 Refills, Maintenance, 07/19/21 8:14:00EST, [facility] # [facility], 175, cm, 06/23/21 [...] 3 Refills, Maintenance, 12/09/21 12:19:00 EDT, Tablet, [facility] #[facility], 175, cm, 11/01/21 10:05:00 EDT, Height, 87, kg, 10/08/21 6:42:00 EDT, Dry Weight Start Date: 12/09/21 Stop Date: 12/04/22 Status: Ordered Zetia 10 mg oral tablet 1 tablet = 10 mg, By Mouth, Daily, # 30 tablet, 11 Refills, Maintenance, 11/18/20 14:19:00 EDT, Tablet, [facility] # 302, Partial fill upon patient [...] Reference Physician Member Role: PCP Address: Address: [address] [place] [address]- Care Team Related Persons Name: LALIT NELSON Address: home [address] [place] [address]
--- OUTSIDE RECORDS SUMMARY | 2024-04-01 06:56 | XMS_ITS | Continuity of Care Document ---
Author Organization [facility] ter Address [address] [place] [address]- Care Team Providers Care Surface Logging Systems Logger Name Role Phone Samir Morales MD Primary Care Physician [phone] [place] [facility] [place] 09/30/21 - 10/30/[address] [address] Attending Physician: Anna Marie Becerra [...] 0 Refills, Maintenance, 10/09/21 7:56:00 EDT, Tablet, [facility], Partial fill upon patient request if t... Start Date: 10/09/21 Status: Ordered apixaban 5 mg oral tablet 1 tablet = 5 mg, By Mouth, 2 times a day, # 60 tablet, 11 Refills, Maintenance, 11/03/20 9:16:00 EDT, Tablet, [facility], 175, cm, 06/13/20 7:01:00 EST, Height, 91.1, kg, 06/12/20 19:26:00EST, Dry Weight Start Date: 11/03/20 Stop Date: 10/29/21 Status: Ordered docusate sodium 100 mg oral capsule 100 mg, 1, capsule, By Mouth, 2 times a day, hold for loose stool, # 60 capsule, Refills 0, Tot. Refills 0, Maintenance, 10/09/21 7:58:00 EDT, Route to Pharmacy Electronically, [facility], Partial fill upon patient request [...] Mouth, Daily, # 30 tablet, 6 Refills, [facility][id number], 175, cm, 11/06/20 9:43:00 EDT, Height, 91.1, [...] each, 11 Refills, Maintenance, 07/19/21 8:14:00EST, [facility] # [facility], 175, cm, 06/23/21 12:10:00 [...] Refills, Maintenance, 11/18/20 14:19:00 EDT, Tablet, [facility] # 302, Partial fill upon patient [...]
--- OUTSIDE RECORDS SUMMARY | 2024-04-01 06:56 | XMS_ITS | Continuity of Care Document ---
Author Organization [facility] Address [address] [place] [phone]- Care Team Providers Care Sheriffs Detective Name Role Phone Carmen KENT, Samir Ansari Primary Care Physician Encounter [facility] [place] Date(s): 12/21/20 - 01/20/21 [facility] [address] [place] [id number] Allergies, Adverse Reactions, Alerts Substance Reaction Severity Status ciprofloxacin Active statins 1 Active 1severe muscle aches Immunizations Not Given Vaccine Date Status Refusal Reason influenza virus vaccine, inactivated 04/06/20 Not Given Patient Refuses Medications apixaban 5 mg oral tablet 1 tablet = 5 mg, By Mouth, 2 times a day, # 60 tablet, 11 Refills, Maintenance, 11/03/20 9:16:00 EDT, Tablet, [facility] # 302, 175, cm, 06/13/20 7:01:00 EST, Height, 91.1, kg, 06/12/20 19:26:00EST, Dry Weight Start Date: 11/03/20 Stop Date: 10/29/21 Status: Ordered aspirin 81 mg oral delayed release tablet = 81 mg, By Mouth, Daily, # 30 tablet, 5 Refills, Maintenance, 05/06/20 11:44:00 EST, EC Tablet, [facility] # 302, 175, cm, 05/05/20 10:39:00 [...] tablet, 5 Refills, Maintenance, 12/03/20 15:07:00 EDT, [facility] #[id number], 175, cm, 11/06/20 9:43:00 EDT, Height, 91.1, kg, 06/12/20 19:26:00 EST, Dry Weight Start Date: 12/03/20 Status: Ordered Repatha 140 mg/mL subcutaneous solution = 140 mg, Subcutaneous Infusion, Every 28 days, # 1 kit, 11 Refills, Maintenance, 11/06/20 10:01:00EDT, [facility] # 302, Partial fill [...] 11 Refills, Maintenance, 11/18/20 14:19:00 EDT, Tablet, [facility] # 302, Partial fill [...]
--- OUTSIDE RECORDS SUMMARY | 2024-04-01 06:56 | XMS_ITS | Continuity of Care Document ---
Author Organization [facility] Address [address] [place] [address]- Care Team Providers Care Water Systems Designer Name Role Phone Samir Morales MD Primary Care Physician Encounter 08/20/21 - 08/24/21 [facility] [address] [place] [address]- Discharge Disposition: [facility] Allergies, Adverse Reactions, [...] 11 Refills, Maintenance, 11/03/20 9:16:00 EDT, Tablet, [facility] # 302, 175, cm, 06/13/20 7:01:00 EST, Height, 91.1, kg, 06/12/20 19:26:00EST, Dry Weight Start Date: 11/03/20 Stop Date: 10/29/21 Status: Ordered Dilaudid 2 mg oral tablet See Instructions, PRN Pain , Severe, 1-2 tablet By Mouth Every 4 hours, # 84 tablet, 0 Refills, Acute 08/26/21 7:25:00 EST, 08/19/21 7:25:00 EST, Tablet, [facility], Partial fill upon patient request if the prescription is for a schedule... Start Date: 08/19/21 Stop Date: 08/26/21 Status: Ordered docusate sodium 100 mg oral capsule 1 capsule = 100 mg, By Mouth, 2 times a day, # 60 capsule, 0 Refills, Maintenance, 08/19/21 7:20:00EST, Capsule, [facility], Partial fill upon patient request if the prescription is for a schedule II opioid drug., 175, cm, 08/19/21 6:30... Start Date: 08/19/21 Status: Ordered Metoprolol Succinate ER 100 mg oral tablet, extended release 1 tablet, By Mouth, Daily, # 30 tablet, 6 Refills, [facility] #[id number], 175, cm, 11/06/20 9:43:00 EDT, Height, 91.1, [...] 08/26/21 7:21:00 EST, 08/19/21 7:21:00 EST, Tablet, [facility], Partial fill upon patient [...] 2 each, 11 Refills, Maintenance, 07/19/21 8:14:00EST, [facility] # 302, 175, cm, [...] 08/26/21 7:25:00 EST, 08/19/21 7:24:00 EST, Tablet, [facility], Partial fill upon patient request if the presc... Start Date: 08/19/21 Stop Date: 08/26/21 Status: Ordered Zetia 10 mg oral tablet 1 tablet = 10 mg, By Mouth, Daily, # 30 tablet, 11 Refills, Maintenance, 11/18/20 14:19:00 EDT, Tablet, [facility] # 302, Partial fill [...]
--- OUTSIDE RECORDS SUMMARY | 2024-04-01 06:56 | XMS_ITS | Continuity of Care Document ---
Author Organization [facility] Address [address] [place] [address]- Care Team Providers Care Pattern Marking Supervisor Name Role Phone Carmen KENT, Samir Ansari Primary Care Physician [phone] Encounter [facility] Date(s): 02/04/21 - 03/06/21 [facility] [address] [place] [address]- [place] Allergies, Adverse Reactions, Alerts Substance Reaction Severity Status ciprofloxacin Active statins 1 Active 1severe muscle aches Immunizations Not Given Vaccine Date Status Refusal Reason influenza virus vaccine, inactivated 04/06/20 Not Given Patient Refuses Medications apixaban 5 mg oral tablet 1 tablet = 5 mg, By Mouth, 2 times a day, # 60 tablet, 11 Refills, Maintenance, 11/03/20 9:16:00 EDT, Tablet, [facility] # 302, 175, cm, 06/13/20 7:01:00 EST, Height, 91.1, kg, 06/12/20 19:26:00EST, Dry Weight Start Date: 11/03/20 Stop Date: 10/29/21 Status: Ordered aspirin 81 mg oral delayed release tablet = 81 mg, By Mouth, Daily, # 30 tablet, 5 Refills, Maintenance, 05/06/20 11:44:00 EST, EC Tablet, [facility] # 302, 175, cm, 05/05/20 10:39:00 [...] tablet, 5 Refills, Maintenance, 12/03/20 15:07:00 EDT, [facility] #[id number], 175, cm, 11/06/20 9:43:00 EDT, Height, 91.1, kg, 06/12/20 19:26:00 EST, Dry Weight Start Date: 12/03/20 Status: Ordered Repatha 140 mg/mL subcutaneous solution = 140 mg, Subcutaneous Infusion, Every 28 days, # 1 kit, 11 Refills, Maintenance, 11/06/20 10:01:00EDT, [facility] # 302, Partial fill upon patient [...] 11 Refills, Maintenance, 11/18/20 14:19:00 EDT, Tablet, [facility] # [facility], Partial fill upon patient [...]
--- OUTSIDE RECORDS SUMMARY | 2024-04-01 06:56 | XMS_ITS | Continuity of Care Document ---
Author Organization [facility] Address [address] [place] [address]- Care Team Providers Care Consumer Experience Consultant Name Role Phone Samir Morales MD Primary Care Physician [place] [facility] [place] 04/22/22 [facility] [address] [place] [address]- Attending Physician: Anna Marie Becerra Admitting Physician: [...] 10/09/21 7:58:00 EDT, Route to Pharmacy Electronically, [facility], Partial fill upon patient request [...] Mouth, Daily, # 30 tablet, 5 Refills, [facility] #[id number], 175, cm, 11/01/21 10:05:00 EDT, Height, 87, [...] 3 Refills, Maintenance, 12/09/21 12:19:00 EDT, Tablet, [facility] #198, 175, cm, 11/01/21 10:05:00 EDT, Height, 87, kg, 10/08/21 6:42:00 EDT, Dry Weight Start Date: 12/09/21 Stop Date: 12/04/22 Status: Ordered Zetia 10 mg oral tablet 1 tablet = 10 mg, By Mouth, Daily, # 30 tablet, 11 Refills, Maintenance, 11/18/20 14:19:00 EDT, Tablet, [facility] # 302, Partial fill [...] Sex Patient Care team information Personnel Name: Samir Morales MD Address: Address: [address] [place] [id number]
--- OUTSIDE RECORDS SUMMARY | 2024-04-01 06:56 | XMS_ITS | Continuity of Care Document ---
Author Organization [facility] ter Address [address] [place] [address]- Care Team Providers Care Civil Structural Designer Name Role Phone Carmen KENT, Samir Ansari Primary Care Physician [phone] Encounter [facility] [place] Date(s): 09/15/21 - 10/30/[address] [address] Attending Physician: Dre Ash MD Admitting Physician: [...] 0 Refills, Maintenance, 10/09/21 7:56:00 EDT, Tablet, [facility], Partial fill upon patient request if t... Start Date: 10/09/21 Status: Ordered apixaban 5 mg oral tablet 1 tablet = 5 mg, By Mouth, 2 times a day, # 60 tablet, 11 Refills, Maintenance, 11/03/20 9:16:00 EDT, Tablet, [facility] # [facility], 175, cm, 06/13/20 7:01:00 EST, Height, 91.1, kg, 06/12/20 19:26:00EST, Dry Weight Start Date: 11/03/20 Stop Date: 10/29/21 Status: Ordered docusate sodium 100 mg oral capsule 100 mg, 1, capsule, By Mouth, 2 times a day, hold for loose stool, # 60 capsule, Refills 0, Tot. Refills 0, Maintenance, 10/09/21 7:58:00 EDT, Route to Pharmacy Electronically, [facility], Partial fill upon patient request [...] Mouth, Daily, # 30 tablet, 6 Refills, [facility] #[id number], 175, cm, 11/06/20 9:43:00 EDT, Height, 91.1, [...] 2 each, 11 Refills, Maintenance, 07/19/21 8:14:00EST, [facility] # [facility], 175, cm, [...] 11 Refills, Maintenance, 11/18/20 14:19:00 EDT, Tablet, [facility] # 302, Partial fill [...]
--- OUTSIDE RECORDS SUMMARY | 2024-04-01 06:56 | XMS_ITS | Continuity of Care Document ---
Author Organization [facility] Address [address] [place] [address]- Care Team Providers Care Cloud Security Architect Name Role Phone Carmen KENT, Samir Ansari Primary Care Physician [phone] Encounter [facility] [place] Date(s): 02/26/24 - 03/27/24 [facility] [address] [place] [address]- [place] Allergies, Adverse Reactions, Alerts Substance Reaction [...] 03/21/24 15:49:00 EDT, Route to Pharmacy Electronically, [facility], Partial fill upon patient request if the prescription is for a lauren... Start Date: 03/21/24 Status: Ordered docusate sodium 100 mg oral capsule 100 mg, 1, capsule, By Mouth, 2 times a day, hold for loose stool, # 60 capsule, Refills 0, Tot. Refills 0, Maintenance, 10/09/21 7:58:00 EDT, Route to Pharmacy Electronically, [facility], Partial fill upon patient request [...] mL, 10 Refills, Maintenance, 09/07/23 15:16:00 EST, [facility], 175, cm, 11/02/22 9:38:00 [...] 3 Refills, Maintenance, 11/19/23 10:45:00 EDT, Tablet, [facility] #198, 175, cm, 11/02/22 9:38:00 EDT, Height, 87, kg, 10/08/21 6:42:00 EDT, Dry Weight Start Date: 11/19/23 Stop Date: 11/13/24 Status: Ordered Xarelto 20 mg oral tablet 1 tablet = 20 mg, By Mouth, Daily at supper, for 90 days, discontinue eliquis, # 90 tablet, 3 Refills, Hard Stop 02/13/25 15:05:00 EDT, 02/19/24 15:05:00 EDT, Tablet, [facility] #198,178, cm, 02/13/24 8:03:00 EDT, Height, 90.8, kg, 08... Start Date: 02/19/24 Stop Date: 02/13/25 Status: Ordered Zetia 10 mg oral tablet 1 tablet = 10 mg, By Mouth, Daily, # 30 tablet, 11 Refills, Maintenance, 11/18/20 14:19:00 EDT, Tablet, [facility] # 302, Partial fill upon patient request if the prescription is for a schedule II opioid drug., 175, cm, 11/06/20 9:43:00 EDT, [facility]... Start Date: 11/18/20 Stop Date: 11/13/21 Status: [...] Reference Physician Member Role: PCP Address: Address: [address] [place] [address]- Care Team Related Persons Name: LALIT NELSON Address: [address] [address]
--- OUTSIDE RECORDS SUMMARY | 2024-04-01 06:56 | XMS_ITS | Continuity of Care Document ---
Author Organization [facility] Address [address] [place] [address]- Care Team Providers Care Nascar Racer Name Role Phone Carmen KENT, Samir Ansari Primary Care Physician Encounter [facility] [place] Date(s): 08/06/21 - 09/05/21 [facility] [address] [place] [address]- Allergies, Adverse Reactions, Alerts Substance Reaction Severity [...] 11 Refills, Maintenance, 11/03/20 9:16:00 EDT, Tablet, [facility], 175, cm, 06/13/20 7:01:00 EST, Height, 91.1, kg, 06/12/20 19:26:00EST, Dry Weight Start Date: 11/03/20 Stop Date: 10/29/21 Status: Ordered docusate sodium 100 mg oral capsule 1 capsule = 100 mg, By Mouth, 2 times a day, # 60 capsule, 0 Refills, Maintenance, 08/19/21 7:20:00EST, Capsule, [facility], Partial fill upon patient request if the prescription is for a schedule II opioid drug., 175, cm, 08/19/21 6:30... Start Date: 08/19/21 Status: Ordered Metoprolol Succinate ER 100 mg oral tablet, extended release 1 tablet, By Mouth, Daily, # 30 tablet, 6 Refills, [facility] #[id number], 175, cm, 11/06/20 9:43:00 EDT, Height, 91.1, kg, 06/12/20 19:26:00 EST, Dry Weight Start Date: 05/28/21 Status: Ordered MiraLax Powder 1 pack/packet = 17 Gm, By Mouth, Daily, PRN Constipation, 0 Refills, Maintenance, 08/19/21 7:28:00 EST, Powder, Partial fill upon patient request if the prescription is for a schedule II opioid drug. Start Date: 08/19/21 Status: Ordered pantoprazole 40 mg oral delayed [...] 2 each, 11 Refills, Maintenance, 07/19/21 8:14:00EST, [facility] # [facility], 175, cm, 06/23/21 12:10:00 [...] 11 Refills, Maintenance, 11/18/20 14:19:00 EDT, Tablet, [facility], Partial fill upon patient [...]
--- OUTSIDE RECORDS SUMMARY | 2024-04-01 06:56 | XMS_ITS | Continuity of Care Document ---
Author Organization [facility] Address [address] [place] [address]- Care Team Providers Care Personal Care Aid Name Role Phone Carmen KENT, Samir Ansari Primary Care Physician [phone] Encounter [facility] [place] Date(s): 06/23/20 - 07/23/20 [facility] [address] [place] [address] Attending Physician: Anna Marie Becerra Admitting Physician: Anna Marie Becerra Referring Physician: AdmtrAnna Marie Allergies, Adverse Reactions, [...] Maintenance, 06/04/2015:32:00 EST, Route to Pharmacy Electronically, [facility] # [facility], 175, cm, 06/02/20 9:11:00 EST, Height, 90.8, kg, 03/31/20 17:25:00 EDT, Dry Weight Start Date: 06/04/20 Stop Date: 07/04/20 Status: Ordered apixaban 5 mg oral tablet 1 tablet = 5 mg, By Mouth, 2 times a day, # 60 tablet, 5 Refills, Maintenance, 05/06/20 11:44:00 EST, Tablet, [facility] # 302, 175, cm, 05/05/20 10:39:00 EST, Height, 90.8, kg, 03/31/20 17:25:00 EDT, Dry Weight Start Date: 05/06/20 Stop Date: 11/02/20 Status: Ordered aspirin 81 mg oral delayed release tablet = 81 mg, By Mouth, Daily, # 30 tablet, 5 Refills, Maintenance, 05/06/20 11:44:00 EST, EC Tablet, [facility] # 302, 175, cm, 05/05/20 10:39:00 EST, Height, 90.8, kg, 03/31/20 17:25:00 EDT, Dry Weight Start Date: 05/06/20 Stop Date: 11/02/20 Status: Ordered atorvastatin 80 mg oral tablet 1 tablet = 80 mg, By Mouth, Daily at bedtime, # 30 tablet, 5 Refills, Maintenance, 05/06/20 11:44:00 EST, Tablet, [facility] # [facility], 175, [...] 06/08/20 12:13:00 EST, Route to Pharmacy Electronically, [facility] # [facility], 175, [...]
--- OUTSIDE RECORDS SUMMARY | 2024-04-01 06:57 | XMS_ITS | Continuity of Care Document ---
Author Organization [facility] ter Address [address] [place] [address]- Care Team Providers Care Agricultural Extension Agent Name Role Phone Samir Morales MD Primary Care Physician Encounter 12/24/23 - 12/25/[address] [address] Attending Physician: Not on Staff, Attending MD Referring Physician: Not on Staff, Referring [...] Maintenance,11/15/23 12:13:00 EDT, Route to Pharmacy Electronically, [facility] # [facility], Partial fill upon patient request if the prescription is for a schedule... Start Date: 11/15/23 Stop Date: 11/09/24 Status: Ordered docusate sodium 100 mg oral capsule 100 mg, 1, capsule, By Mouth, 2 times a day, hold for loose stool, # 60 capsule, Refills 0, Tot. Refills 0, Maintenance, 10/09/21 7:58:00 EDT, Route to Pharmacy Electronically, [facility], Partial fill upon patient request [...] mL, 10 Refills, Maintenance, 09/07/23 15:16:00 EST, [facility], 175, cm, 11/02/22 9:38:00 [...] 3 Refills, Maintenance, 11/19/23 10:45:00 EDT, Tablet, [facility]198, 175, cm, 11/02/22 [...] 11 Refills, Maintenance, 11/18/20 14:19:00 EDT, Tablet, [facility] # 302, Partial fill upon patient request if the prescription is for a schedule II opioid drug., 175, cm, 11/06/20 9:43:00 EDT, [facility] Start Date: 11/18/20 Stop Date: 11/13/21 Status: [...] Reference Physician Member Role: PCP Address: Address: [address] [place] [address]- Care Team Related Persons Name: LESLIE LALIT Address: home [address] [place] [address]
--- OUTSIDE RECORDS SUMMARY | 2024-04-01 06:57 | XMS_ITS | Continuity of Care Document ---
Author Organization [facility] Address [address] [place] [address]- Care Team Providers Care Manager Mechanical Maintenance Name Role Phone Carmen KENT, Samir Ansari Primary Care Physician Encounter [facility] [place] Date(s): 08/06/20 - 12/04/20 [facility] [address] [place] [id number] Attending Physician: Ana Paula KENT, Ashequdavid Admitting Physician: Ana Paula KENT, Ashequdavid Allergies, Adverse Reactions, Alerts Substance Reaction Severity Status ciprofloxacin Active statins 1 Active 1severe muscle aches Immunizations Not Given Vaccine Date Status Refusal Reason influenza virus vaccine, inactivated 04/06/20 Not Given Patient Refuses Medications apixaban 5 mg oral tablet 1 tablet = 5 mg, By Mouth, 2 times a day, # 60 tablet, 11 Refills, Maintenance, 11/03/20 9:16:00 EDT, Tablet, [facility], 175, cm, 06/13/20 7:01:00 EST, Height, 91.1, kg, 06/12/20 19:26:00EST, Dry Weight Start Date: 11/03/20 Stop Date: 10/29/21 Status: Ordered aspirin 81 mg oral delayed release tablet = 81 mg, By Mouth, Daily, # 30 tablet, 5 Refills, Maintenance, 05/06/20 11:44:00 EST, EC Tablet, [facility] # [facility], 175, cm, 05/05/20 10:39:00 [...] tablet, 5 Refills, Maintenance, 12/03/20 15:07:00 EDT, [facility] #[id number], 175, cm, 11/06/20 9:43:00 EDT, Height, 91.1, kg, 06/12/20 19:26:00 EST, Dry Weight Start Date: 12/03/20 Status: Ordered Repatha 140 mg/mL subcutaneous solution = 140 mg, Subcutaneous Infusion, Every 28 days, # 1 kit, 11 Refills, Maintenance, 11/06/20 10:01:00EDT, [facility] # 302, Partial [...]
--- OUTSIDE RECORDS SUMMARY | 2024-04-01 06:57 | XMS_ITS | Continuity of Care Document ---
Author Organization [facility] ter Address [address] [place] [address]- Care Team Providers Care Behavior Interventionist Name Role Phone Carmen KENT, Samir Ansari Primary Care Physician Encounter [facility] [place] Date(s): 08/18/21 - 08/19/[address] [address] Discharge Disposition: A-Transfer VNA/Home Health Attending Physician: [...] 11 Refills, Maintenance, 11/03/20 9:16:00 EDT, Tablet, [facility] # [facility], 175, cm, 06/13/20 7:01:00 EST, Height, 91.1, kg, 06/12/20 19:26:00EST, Dry Weight Start Date: 11/03/20 Stop Date: 10/29/21 Status: Ordered Dilaudid 2 mg oral tablet See Instructions, PRN Pain , Severe, 1-2 tablet By Mouth Every 4 hours, # 84 tablet, 0 Refills, Acute 08/26/21 7:25:00 EST, 08/19/21 7:25:00 EST, Tablet, [facility], Partial fill upon patient request if the prescription is for a schedule... Start Date: 08/19/21 Stop Date: 08/26/21 Status: Ordered docusate sodium 100 mg oral capsule 1 capsule = 100 mg, By Mouth, 2 times a day, # 60 capsule, 0 Refills, Maintenance, 08/19/21 7:20:00EST, Capsule, [facility], Partial fill upon patient request if the prescription is for a schedule II opioid drug., 175, cm, 08/19/21 6:30... Start Date: 08/19/21 Status: Ordered Metoprolol Succinate ER 100 mg oral tablet, extended release 1 tablet, By Mouth, Daily, # 30 tablet, 6 Refills, [facility][id number], 175, cm, 11/06/20 9:43:00 EDT, Height, 91.1, [...] 08/26/21 7:21:00 EST, 08/19/21 7:21:00 EST, Tablet, [facility], Partial fill upon patient request [...] 2 each, 11 Refills, Maintenance, 07/19/21 8:14:00EST, [facility] # [facility], 175, cm, [...] 08/26/21 7:25:00 EST, 08/19/21 7:24:00 EST, Tablet, [facility], Partial fill upon patient request if the presc... Start Date: 08/19/21 Stop Date: 08/26/21 Status: Ordered Tramadol Tablet 100 mg, Tablet, By Mouth, Every 6 hours, PRN for Pain , Moderate, Routine, 08/18/21 11:26:00 EST Start Date: 08/18/21 Stop Date: 08/19/21 Status: Discontinued Zetia 10 mg oral tablet 1 tablet = 10 mg, By Mouth, Daily, # 30 tablet, 11 Refills, Maintenance, 11/18/20 14:19:00 EDT, Tablet, [facility] # [facility], Partial fill upon patient [...] Exam Date Time Procedure Performing Provider Status 08/18/21 10:30 PM Knee 1 or 2 Views Right Juancho Hess na; Auth (Verified) Notes: (Knee 1 or 2 Views Right) Reason For Exam: Postop;Postop RESULT: Knee 1 or 2 Views Right PROCEDURE: Knee 1 or 2 Views Right CLINICAL INDICATION: 65 years old Male, status post total RIGHT knee joint replacement. TECHNIQUE: Portable AP and crosstable lateral views of the RIGHT knee obtained. COMPARISONS: None. FINDINGS: Bones and joints: Metallic cemented femoral and tibial components are noted, in good alignment. Lucent patellar component not well seen without a lateral view. Soft Tissues: As expected, there is subcutaneous gas and joint space gas at the knee. A drainage catheter noted extending to the joint space. Compression device noted around the calf. IMPRESSION: 1. Status post total knee joint replacement in good alignment on single AP view. Expected postoperative changes. Thank you for allowing me to participate in the care of this patient. WSN: [id number] Ordering Physician: Brayden Christian Dictated By: Domo Norris MD Dictated Date/Time: 08/18/21 11:17 p Reviewed By: Domo Norris MD Signed By: Domo Norris MD Signed Date/Time: 08/18/21 11:17 pm Transcribed By: ESTELLA Transcribed Date/Time: 08/18/21 11:16 pm Vital Signs Most recent to oldest [Reference Range]: 1 2 3 Height 175 cm (08/19/21 6:30 AM) 175 cm (08/19/21 4:35 AM) 175 cm (08/18/21 11:29 PM) Weight 91.1 kg (08/18/21 7:55 AM) Oxygen Saturation [94-100 %] 98 % (08/19/21 6:30 AM) 96 % (08/19/21 4:35 AM) 96 % (08/19/21 12:25 AM) Pulse Rate [55-90 bpm] 60 bpm (08/19/21 6:30 AM) 51 bpm *L* (08/19/21 4:35 AM) 62 bpm (08/18/21 11:29 PM) Body Mass Index [18.5-24.99] 29.75 *H* (08/18/21 7:55 AM) Blood Pressure [90-138/55-84 mm Hg] 111/62mm Hg (08/19/21 6:30 AM) 110/49mm Hg (08/19/21 4:35 AM) 128/55mm Hg (08/18/21 11:29 PM) Respiratory Rate [16-30 br/min] 18 br/min (08/19/21 9:23 AM) 18 br/min (08/19/21 6:30 AM) 18 br/min (08/19/21 4:35 AM) Temperature [96.8-100.4 DegF] 97.9 DegF (08/19/21 6:30 AM) 97.7 DegF (08/19/21 4:35 AM) 97.7 DegF (08/18/21 11:29 PM) Mode of Delivery (Oxygen) Room air (08/19/21 6:30 AM) Room air (08/19/21 4:35 AM) Room air (08/18/21 11:29 PM) Blood pressure sites Arm, right (08/19/21 6:30 AM) Arm, right (08/19/21 4:35 AM) Arm, right (08/18/21 11:29 PM) Temperature Route Oral (08/19/21 6:30 AM) Oral (08/19/21 4:35 AM) Oral (08/18/21 11:29 PM) Dry Weight 91.1 kg (08/18/21 7:55 AM) Social History Social History Type Response Smoking Status Former smoker, quit more than 30 days ago entered on: 03/31/20 Sex
--- OUTSIDE RECORDS SUMMARY | 2024-04-01 06:57 | XMS_ITS | Continuity of Care Document ---
Author Organization [facility] Address [address] [place] [address]- Care Team Providers Care Director Digital Strategy Name Role Phone Carmen KENT, Samir Ansari Primary Care Physician [phone] [place] [facility] [place] - 08/22/22 [facility] [address] [place] [address]- Allergies, Adverse Reactions, Alerts Substance Reaction Severity [...] 10/09/21 7:58:00 EDT, Route to Pharmacy Electronically, [facility], Partial fill upon patient request if [...] Mouth, Daily, # 30 tablet, 5 Refills, [facility] #[id number], 175, cm, 11/01/21 10:05:00 EDT, Height, 87, kg, 10/08/21 6:42:00 EDT, Dry Weight Start Date: 12/28/21 Status: Ordered Metoprolol Succinate ER 100 mg oral tablet, extended release See Instructions, TAKE ONE TABLET BY MOUTH ONCE DAILY, # 30 tablet, 11 Refills, Maintenance, 07/23/22 15:53:00 EST, [facility] #[id number], 175, cm, 03/23/22 10:03:00 EDT, Height, 87, [...] 6 Refills, Maintenance, 06/07/22 11:53:00 EST, [facility] #[id number], 175, cm, 03/23/22 10:03:00 EDT, Height, 87, kg, 10/08/21 6:42:00 EDT, Dry Weight Start Date: 06/07/22 Status: Ordered Praluent Pen 150 mg/mL subcutaneous solution = 150 mg, Subcutaneous Infusion, Every 14 days, # 2 each, 11 Refills, Maintenance, 07/19/21 8:14:00EST, [facility] # 302, 175, cm, 06/23/21 [...] 3 Refills, Maintenance, 12/09/21 12:19:00 EDT, Tablet, [facility] #198, 175, cm, 11/01/21 10:05:00 EDT, Height, 87, kg, 10/08/21 6:42:00 EDT, Dry Weight Start Date: 12/09/21 Stop Date: 12/04/22 Status: Ordered Zetia 10 mg oral tablet 1 tablet = 10 mg, By Mouth, Daily, # 30 tablet, 11 Refills, Maintenance, 11/18/20 14:19:00 EDT, Tablet, [facility] # 302, Partial fill upon [...] Reference Physician Member Role: PCP Address: Address: [address] [place] [address]- Care Team Related Persons Name: LESLIE LALIT Address: [address] [address]
--- OUTSIDE RECORDS SUMMARY | 2024-04-01 06:57 | XMS_ITS | Continuity of Care Document ---
Author Organization [facility] Address [address] [place] [address]- Care Team Providers Care Renewable Energy Technician Name Role Phone Samir Morales MD Primary Care Physician [phone] Encounter [facility] [place] Date(s): 11/02/21 - 12/02/21 [facility] [address] [place] [address]- Attending Physician: Anna Marie Becerra Admitting Physician: [...] 10/09/21 7:58:00 EDT, Route to Pharmacy Electronically, [facility], Partial fill upon patient request [...] # 30 tablet, 6 Refills, [facility] #[id number], 175, cm, 11/06/20 9:43:00 EDT, Height, 91.1, [...] 2 each, 11 Refills, Maintenance, 07/19/21 8:14:00EST, [facility] # [facility], 175, cm, 06/23/21 12:10:00 [...] 5 Refills, Maintenance, 11/01/21 14:13:00 EDT, Tablet, [facility] # 302, 175, cm, 11/01/21 10:05:00 EDT, Height, 87, kg, 10/08/21 6:42:00 EDT, Dry Weight Start Date: 11/01/21 Stop Date: 04/30/22 Status: Ordered Zetia 10 mg oral tablet 1 tablet = 10 mg, By Mouth, Daily, # 30 tablet, 11 Refills, Maintenance, 11/18/20 14:19:00 EDT, Tablet, [facility] # 302, Partial fill upon patient [...]
--- OUTSIDE RECORDS SUMMARY | 2024-04-01 06:57 | XMS_ITS | Continuity of Care Document ---
Author Organization [facility] Address [address] [facility], 3[address] d Floor, [address] [place] [address]- Care Team Providers Care Unix Developer Name Role Phone Samir Morales MD Primary Care Physician En[place] [facility] [place] Date(s): 08/23/22 - 09/22/22 [facility] [address], [address], [address] [place] [address]- Allergies, Adverse Reactions, Alerts Substance Reaction Severity [...] 10/09/21 7:58:00 EDT, Route to Pharmacy Electronically, [facility], Partial fill upon patient request [...] Mouth, Daily, # 30 tablet, 5 Refills, [facility] #[id number], 175, cm, 11/01/21 10:05:00 EDT, Height, 87, kg, 10/08/21 6:42:00 EDT, Dry Weight Start Date: 12/28/21 Status: Ordered Metoprolol Succinate ER 100 mg oral tablet, extended release See Instructions, TAKE ONE TABLET BY MOUTH ONCE DAILY, # 30 tablet, 11 Refills, Maintenance, 07/23/22 15:53:00 EST, [facility] #[id number], 175, cm, 03/23/22 10:03:00 EDT, Height, 87, [...] mL, 6 Refills, Maintenance, 06/07/22 11:53:00 EST, [facility] #[id number], 175, cm, 03/23/22 10:03:00 EDT, Height, 87, kg, 10/08/21 6:42:00 EDT, Dry Weight Start Date: 06/07/22 Status: Ordered Praluent Pen 150 mg/mL subcutaneous solution = 150 mg, Subcutaneous Infusion, Every 14 days, # 2 each, 11 Refills, Maintenance, 07/19/21 8:14:00EST, [facility] # 302, 175, cm, 06/23/21 [...] Refills, Maintenance, 12/09/21 12:19:00 EDT, Tablet, [facility] #198, 175, cm, 11/01/21 10:05:00 EDT, Height, 87, kg, 10/08/21 6:42:00 EDT, Dry Weight Start Date: 12/09/21 Stop Date: 12/04/22 Status: Ordered Zetia 10 mg oral tablet 1 tablet = 10 mg, By Mouth, Daily, # 30 tablet, 11 Refills, Maintenance, 11/18/20 14:19:00 EDT, Tablet, [facility] # 302, Partial fill upon patient [...] Reference Physician Member Role: PCP Address: Address: [address] [place] [address]- Care Team Related Persons Name: LALIT NELSON Address: home [address] [place] [address]
--- OUTSIDE RECORDS SUMMARY | 2024-04-01 06:57 | XMS_ITS | Continuity of Care Document ---
Author Organization [facility] Address [address] [place] [address]- Care Team Providers Care Chemistry Instructor Name Role Phone Carmen KENT, Samir Ansari Primary Care Physician [phone] En[place] [facility] [place](s): 03/24/22 - 04/23/22 [facility] [address] [place] [address]- [place] Allergies, Adverse Reactions, Alerts Substance Reaction [...] 10/09/21 7:58:00 EDT, Route to Pharmacy Electronically, [facility], Partial fill upon patient request if [...] Mouth, Daily, # 30 tablet, 5 Refills, [facility] #[id number], 175, cm, 11/01/21 10:05:00 EDT, Height, 87, kg, 04/08/22 6:42:00 EDT, Dry Weight Start Date: 12/28/21 [...] 3 Refills, Maintenance, 12/09/21 12:19:00 EDT, Tablet, [facility] #198, 175, cm, 11/01/21 10:05:00 EDT, Height, 87, kg, 10/08/21 6:42:00 EDT, Dry Weight Start Date: 12/09/21 Stop Date: 12/04/22 Status: Ordered Zetia 10 mg oral tablet 1 tablet = 10 mg, By Mouth, Daily, # 30 tablet, 11 Refills, Maintenance, 11/18/20 14:19:00 EDT, Tablet, [facility] # 302, Partial fill upon patient [...] Name: Carmen KENT, Samir Ansari Address: Address: [address] [place] [address]
--- OUTSIDE RECORDS SUMMARY | 2024-04-01 06:57 | XMS_ITS | Continuity of Care Document ---
Author Organization [facility] Address [address] [place] [address]- Care Team Providers Care Manager Activities Name Role Phone Carmen KENT, Samir Ansari Primary Care Physician En[place] [facility] [place] Date(s): 09/01/23 - 10/01/23 [facility] [address] [place] [address]- [place] Allergies, Adverse Reactions, Alerts Substance Reaction [...] 10/09/21 7:58:00 EDT, Route to Pharmacy Electronically, [facility], Partial fill upon patient [...] Daily, # 30 tablet, 5 Refills, [facility] #[id number], 175, cm, 11/01/21 10:05:00 EDT, Height, 87, kg, 10/08/21 6:42:00 EDT, Dry Weight Start Date: 12/28/21 Status: Ordered Metoprolol Succinate ER 100 mg oral tablet, extended release See Instructions, TAKE ONE TABLET BY MOUTH ONCE DAILY, # 30 tablet, 11 Refills, Maintenance, 07/23/22 15:53:00 EST, [facility] #[id number], 175, cm, 03/23/22 10:03:00 EDT, Height, 87, [...] mL, 10 Refills, Maintenance, 09/07/23 15:16:00 EST, [facility], 175, cm, 11/02/22 9:38:00 EDT, [...] 3 Refills, Maintenance, 11/19/23 10:45:00 EDT, Tablet, [facility] #198, 175, cm, 11/02/22 9:38:00 EDT, Height, 87, kg, 10/08/21 6:42:00 EDT, Dry Weight Start Date: 11/19/23 Stop Date: 11/13/24 Status: Ordered Xarelto 20 mg oral tablet 1 tablet = 20 mg, By Mouth, Daily at supper, for 90 days, discontinue eliquis, # 90 tablet, 3 Refills, Hard Stop 08/26/24 12:49:00 EST, 09/01/23 12:49:00 EST, Tablet, [facility] #[id number], 175, cm, 11/02/22 9:38:00 EDT, Height, 87, kg, 10/08/21 6:42:00... Start Date: 09/01/23 Stop Date: 08/26/24 Status: Ordered Zetia 10 mg oral tablet 1 tablet = 10 mg, By Mouth, Daily, # 30 tablet, 11 Refills, Maintenance, 11/18/20 14:19:00 EDT, Tablet, [facility] # [facility], Partial fill upon patient [...] Reference Physician Member Role: PCP Address: Address: [address] [place] [address]- Care Team Related Persons Name: LALIT NELSON Address: home [address] [place] [address]
--- OUTSIDE RECORDS SUMMARY | 2024-04-01 06:57 | XMS_ITS | Continuity of Care Document ---
Author Organization [facility] Address [address] [place] [address]- Care Team Providers Care Privacy Officer Name Role Phone Carmen KENT, Samir Ansari Primary Care Physician [place] [facility] [place]20 - 09/19/20 [facility] [address] [place] [phone] Allergies, Adverse Reactions, Alerts Substance Reaction Severity [...] Maintenance, 06/04/2015:32:00 EST, Route to Pharmacy Electronically, [facility] # 302, 175, cm, 06/02/20 9:11:00 EST, Height, 90.8, kg, 03/31/20 17:25:00 EDT, Dry Weight Start Date: 06/04/20 Stop Date: 07/04/20 Status: Ordered apixaban 5 mg oral tablet 1 tablet = 5 mg, By Mouth, 2 times a day, # 60 tablet, 5 Refills, Maintenance, 05/06/20 11:44:00 EST, Tablet, [facility] # 302, 175, cm, 05/05/20 10:39:00 EST, Height, 90.8, kg, 03/31/20 17:25:00 EDT, Dry Weight Start Date: 05/06/20 Stop Date: 11/02/20 Status: Ordered aspirin 81 mg oral delayed release tablet = 81 mg, By Mouth, Daily, # 30 tablet, 5 Refills, Maintenance, 05/06/20 11:44:00 EST, EC Tablet, [facility] # 302, 175, cm, 05/05/20 [...] 06/08/20 12:13:00 EST, Route to Pharmacy Electronically, [facility] # 302, 175, cm, 06/02/20 [...]
--- OUTSIDE RECORDS SUMMARY | 2024-04-01 06:57 | XMS_ITS | Continuity of Care Document ---
Author Organization [facility] Address [address] [place] [address]- Care Team Providers Care Applied Technologist Name Role Phone Carmen KENT, Samir Ansari Primary Care Physician Encounter [facility] [place] Date(s): 12/09/21 - 01/08/22 [facility] [address] [place] [address]- [place] Allergies, Adverse Reactions, Alerts Substance Reaction [...] 10/09/21 7:58:00 EDT, Route to Pharmacy Electronically, [facility], Partial fill upon patient request [...] Mouth, Daily, # 30 tablet, 5 Refills, [facility] #[id number], 175, cm, 11/01/21 10:05:00 EDT, Height, 87, [...] 2 each, 11 Refills, Maintenance, 07/19/21 8:14:00EST, [facility] # [facility], 175, cm, 06/23/21 [...] 3 Refills, Maintenance, 12/09/21 12:19:00 EDT, Tablet, [facility] #198, 175, cm, 11/01/21 10:05:00 EDT, Height, 87, kg, 10/08/21 6:42:00 EDT, Dry Weight Start Date: 12/09/21 Stop Date: 12/04/22 Status: Ordered Zetia 10 mg oral tablet 1 tablet = 10 mg, By Mouth, Daily, # 30 tablet, 11 Refills, Maintenance, 11/18/20 14:19:00 EDT, Tablet, [facility] # 302, Partial fill upon [...]
--- OUTSIDE RECORDS SUMMARY | 2024-04-01 06:57 | XMS_ITS | Continuity of Care Document ---
Author Organization [facility] Address [address] [place] [address]- Care Team Providers Care Limnology Teacher Name Role Phone Carmen KENT, Samir Ansari Primary Care Physician En[place] [facility] [place] Date(s): 09/16/20 - 10/16/20 [facility] [address] [place] [id number] Allergies, Adverse Reactions, Alerts Substance Reaction Severity [...] Maintenance, 06/04/2015:32:00 EST, Route to Pharmacy Electronically, [facility] # 302, 175, cm, 06/02/20 9:11:00 EST, Height, 90.8, kg, 03/31/20 17:25:00 EDT, Dry Weight Start Date: 06/04/20 Stop Date: 07/04/20 Status: Ordered apixaban 5 mg oral tablet 1 tablet = 5 mg, By Mouth, 2 times a day, # 60 tablet, 5 Refills, Maintenance, 05/06/20 11:44:00 EST, Tablet, [facility] # 302, 175, cm, 05/05/20 10:39:00 EST, Height, 90.8, kg, 03/31/20 17:25:00 EDT, Dry Weight Start Date: 05/06/20 Stop Date: 11/02/20 Status: Ordered aspirin 81 mg oral delayed release tablet = 81 mg, By Mouth, Daily, # 30 tablet, 5 Refills, Maintenance, 05/06/20 11:44:00 EST, EC Tablet, [facility] # 302, 175, cm, 05/05/20 [...] 06/08/20 12:13:00 EST, Route to Pharmacy Electronically, [facility] # 302, 175, cm, 06/02/20 [...]
--- OUTSIDE RECORDS SUMMARY | 2024-04-01 06:57 | XMS_ITS | Continuity of Care Document ---
Author Organization [facility] ter Address [address] [place] [address]- Care Team Providers Care Heel Attacher Wood Name Role Phone Samir Morales MD Primary Care Physician Encounter [facility] [place] Date(s): 06/22/21 - 07/22/[address] [address] Attending Physician: AdmAnna Marie roberts Admitting Physician: AdmtrAnna Marie Referring Physician: AdmtrAnna [...] 11 Refills, Maintenance, 11/03/20 9:16:00 EDT, Tablet, [facility] # 302, 175, cm, 06/13/20 7:01:00 EST, Height, 91.1, kg, 06/12/20 19:26:00EST, Dry Weight Start Date: 11/03/20 Stop Date: 10/29/21 Status: Ordered aspirin 81 mg oral delayed release tablet = 81 mg, By Mouth, Daily, # 30 tablet, 5 Refills, Maintenance, 05/06/20 11:44:00 EST, EC Tablet, [facility] # 302, 175, cm, 05/05/20 10:39:00 [...] Mouth, Daily, # 30 tablet, 6 Refills, [facility][id number], 175, cm, 11/06/20 9:43:00 EDT, Height, 91.1, kg, 06/12/20 19:26:00 EST, Dry Weight Start Date: 05/28/21 Status: Ordered Praluent Pen 150 mg/mL subcutaneous solution = 150 mg, Subcutaneous Infusion, Every 14 days, # 2 each, 11 Refills, Maintenance, 07/19/21 8:14:00EST, [email or web address] # [facility], 175, cm, 06/23/21 12:10:00 [...] 11 Refills, Maintenance, 11/18/20 14:19:00 EDT, Tablet, [email or web address] # [facility], Partial fill upon patient [...]
--- OUTSIDE RECORDS SUMMARY | 2024-04-01 06:57 | XMS_ITS | Continuity of Care Document ---
Author Organization [facility] ter Address [address] [place] [address]- Care Team Providers Care Configurator Name Role Phone Carmen KENT, Samir Ansari Primary Care Physician Encounter [facility] [place] Date(s): 05/28/21 - 07/31/[address] [address] Attending Physician: Dre Ash MD Admitting Physician: Dre Ash MD Allergies, Adverse Reactions, [...] 11 Refills, Maintenance, 11/03/20 9:16:00 EDT, Tablet, [facility] # 302, 175, cm, 06/13/20 7:01:00 EST, Height, 91.1, kg, 06/12/20 19:26:00EST, Dry Weight Start Date: 11/03/20 Stop Date: 10/29/21 Status: Ordered aspirin 81 mg oral delayed release tablet = 81 mg, By Mouth, Daily, # 30 tablet, 5 Refills, Maintenance, 05/06/20 11:44:00 EST, EC Tablet, [facility] # 302, 175, cm, 05/05/20 10:39:00 [...] Mouth, Daily, # 30 tablet, 6 Refills, [facility][id number], 175, cm, 11/06/20 9:43:00 EDT, Height, 91.1, kg, 06/12/20 19:26:00 EST, Dry Weight Start Date: 05/28/21 Status: Ordered Praluent Pen 150 mg/mL subcutaneous solution = 150 mg, Subcutaneous Infusion, Every 14 days, # 2 each, 11 Refills, Maintenance, 07/19/21 8:14:00EST, [facility] # [facility], 175, cm, 06/23/21 12:10:00 [...] 11 Refills, Maintenance, 11/18/20 14:19:00 EDT, Tablet, [facility] # [facility], Partial fill upon patient [...]
--- OUTSIDE RECORDS SUMMARY | 2024-04-01 06:57 | XMS_ITS | Continuity of Care Document ---
Author Organization [facility] Address [address] [place] [address]- Care Team Providers Care Makeup Artist Name Role Phone Carmen KENT, Samir Ansari Primary Care Physician [phone] Encounter [place] Date(s): 12/05/22 - 01/04/23 [facility] [address] [place] [address]- [place] Allergies, Adverse Reactions, Alerts Substance Reaction [...] 10/09/21 7:58:00 EDT, Route to Pharmacy Electronically, [facility], Partial fill upon patient request [...] Mouth, Daily, # 30 tablet, 5 Refills, [facility] #[id number], 175, cm, 11/01/21 10:05:00 EDT, Height, 87, kg, 10/08/21 6:42:00 EDT, Dry Weight Start Date: 12/28/21 Status: Ordered Metoprolol Succinate ER 100 mg oral tablet, extended release See Instructions, TAKE ONE TABLET BY MOUTH ONCE DAILY, # 30 tablet, 11 Refills, Maintenance, 07/23/22 15:53:00 EST, [facility] #[id number], 175, cm, 03/23/22 10:03:00 EDT, Height, 87, [...] mL, 5 Refills, Maintenance, 09/27/22 14:38:00 EDT, [facility], 175, cm, 03/23/22 10:03:00 [...] 11/19/23 10:45:00 EDT, 11/24/22 10:45:00 EDT, Tablet, [facility] # 302, 175, cm, 11/02/22 9:38:00 EDT, Height, 87, kg, 10/08/21 6:42:... Start Date: 11/24/22 Stop Date: 11/19/23 Status: Ordered Xarelto 20 mg oral tablet 1 tablet = 20 mg, By Mouth, Daily at supper, discontinue eliquis, # 90 tablet, 3 Refills, Maintenance, 11/19/23 10:45:00 EDT, Tablet, [facility] #198, 175, cm, 11/02/22 9:38:00 EDT, Height, 87, kg, 10/08/21 6:42:00 EDT, Dry Weight Start Date: 11/19/23 Stop Date: 11/13/24 Status: Ordered Zetia 10 mg oral tablet 1 tablet = 10 mg, By Mouth, Daily, # 30 tablet, 11 Refills, Maintenance, 11/18/20 14:19:00 EDT, Tablet, [facility] # 302, Partial fill upon patient [...] Reference Physician Member Role: PCP Address: Address: [address] [place] [address]- Care Team Related Persons Name: CUATEYong LALIT Address: home [address] [place] [address]
--- OUTSIDE RECORDS SUMMARY | 2024-04-01 06:57 | XMS_ITS | Continuity of Care Document ---
Author Organization [facility] ter Address [address] [place] [address]- Care Team Providers Care Guard Chief Name Role Phone Carmen KENT, Samir Ansari Primary Care Physician [phone] Encounter [facility] [place] Date(s): 05/05/20 - 07/01/[address] [address]- Encounter Diagnosis Non-ST elevation (NSTEMI) myocardial infarction(Final) - Discharge Disposition: A-D/C Home Attending Physician: Donn Thomas MD Admitting Physician: Donn Thomas MD Referring Physician: Donn [place] MD Allergies, Adverse Reactions, Alerts Substance Reaction [...] Maintenance, 06/04/2015:32:00 EST, Route to Pharmacy Electronically, [facility], 175, cm, 06/02/20 9:11:00 EST, Height, 90.8, kg, 03/31/20 17:25:00 EDT, Dry Weight Start Date: 06/04/20 Stop Date: 07/04/20 Status: Ordered apixaban 5 mg oral tablet 1 tablet = 5 mg, By Mouth, 2 times a day, # 60 tablet, 5 Refills, Maintenance, 05/06/20 11:44:00 EST, Tablet, [facility] # 302, 175, cm, 05/05/20 10:39:00 EST, Height, 90.8, kg, 03/31/20 17:25:00 EDT, Dry Weight Start Date: 05/06/20 Stop Date: 11/02/20 Status: Ordered aspirin 81 mg oral delayed release tablet = 81 mg, By Mouth, Daily, # 30 tablet, 5 Refills, Maintenance, 05/06/20 11:44:00 EST, EC Tablet, [facility] # 302, 175, cm, 05/05/20 10:39:00 EST, Height, 90.8, kg, 03/31/20 17:25:00 EDT, Dry Weight Start Date: 05/06/20 Stop Date: 11/02/20 Status: Ordered atorvastatin 80 mg oral tablet 1 tablet = 80 mg, By Mouth, Daily at bedtime, # 30 tablet, 5 Refills, Maintenance, 05/06/20 11:44:00 EST, Tablet, [facility] # [...] 06/08/20 12:13:00 EST, Route to Pharmacy Electronically, [facility] # 302, [...]
--- OUTSIDE RECORDS SUMMARY | 2024-04-01 06:57 | XMS_ITS | Continuity of Care Document ---
Author Organization [facility] Address [address] [place] [address]- Care Team Providers Care Landscape Architect Name Role Phone Carmen KENT, Samir Ansari Primary Care Physician En[place] [facility] [place] Date(s): 06/15/20 - 07/15/20 [facility] [address] [place] [id number] Allergies, Adverse Reactions, Alerts Substance Reaction [...] Maintenance, 06/04/2015:32:00 EST, Route to Pharmacy Electronically, [facility] # 302, 175, cm, 06/02/20 9:11:00 EST, Height, 90.8, kg, 03/31/20 17:25:00 EDT, Dry Weight Start Date: 06/04/20 Stop Date: 07/04/20 Status: Ordered apixaban 5 mg oral tablet 1 tablet = 5 mg, By Mouth, 2 times a day, # 60 tablet, 5 Refills, Maintenance, 05/06/20 11:44:00 EST, Tablet, [facility] # 302, 175, cm, 05/05/20 10:39:00 EST, Height, 90.8, kg, 03/31/20 17:25:00 EDT, Dry Weight Start Date: 05/06/20 Stop Date: 11/02/20 Status: Ordered aspirin 81 mg oral delayed release tablet = 81 mg, By Mouth, Daily, # 30 tablet, 5 Refills, Maintenance, 05/06/20 11:44:00 EST, EC Tablet, [facility] # [facility], 175, cm, 05/05/20 10:39:00 EST, Height, 90.8, kg, 03/31/20 17:25:00 EDT, Dry Weight Start Date: 05/06/20 Stop Date: 11/02/20 Status: Ordered atorvastatin 80 mg oral tablet 1 tablet = 80 mg, By Mouth, Daily at bedtime, # 30 tablet, 5 Refills, Maintenance, 05/06/20 11:44:00 EST, Tablet, [facility] # 302, 175, cm, 05/05/20 10:39:00 [...] 06/08/20 12:13:00 EST, Route to Pharmacy Electronically, [facility] # 302, 175, cm, 06/02/20 9:11:00 [...]
[2024-04-01 07:54] VITALS: BP 138/73; PULSE 51; RESP 16; TEMP 36.4; O2SAT 96
[2024-04-01 07:58] VITALS: BMI 31.1
--- NOTE | 2024-04-01 08:05 | ECG_ITS ---
Test Reason : preop Blood Pressure : / mmHG Vent. Rate : 059 BPM Atrial Rate : 059 BPM P-R Int : 206 ms QRS Dur : 124 ms QT Int : 422 ms P-R-T Axes : 040 -47 008 degrees QTc Int : 417 ms Sinus bradycardia Left anterior fascicular block Minimal voltage criteria for LVH, may be normal variant ( Stanley product ) Abnormal ECG No previous ECGs available Referred By: Lisa Ding Electronically Signed By:KIA KEARNS
[2024-04-01] MEDS: Lactated Ringers 1,000 ML 100 ML IVCONT (08:10)
--- NOTE | 2024-04-01 08:10 | MHC.SHP ---
Pre-Procedural Eval Section A - 24 Hr Update-Section A only Date of Service: 04/01/24 The patient is an INPATIENT: No Changes since office visit: No Cold of Flu in the past 2 weeks, No New Medical Problems, No Changes in Medication and No Patient answered all questions The patient has been examined within 24 hours of the surgical procedure. The History & Physical has been completed within 30 days and I have reviewed it.: Yes Section B - Complete if H&P > 30 days Chief Complaint: Other chronic cystitis without hematuria Allergies: Allergies Allergy/AdvReac Type Severity Reaction Status Date / Time oxycodone Allergy Severe Nausea and Verified 04/01/24 08:00 Vomiting ciprofloxacin [From CIPRO] Allergy Unknown UNKNOWN Verified 04/01/24 08:00 Riindnv-BTN-VtK Reductase AdvReac Intermediate Muscle Pain Verified 04/01/24 08:00 Inhibitor Plan Diagnosis/Plan: Unchanged (Cystoscopy, bladder biopsy, fulguration) I have reviewed the history and physical and performed a pertinent physical examination on my patient. No changes have occurred unless specified. Time Spent With Patient Time: Total time managing care of this patient today ____ minutes.
--- NOTE | 2024-04-01 08:46 | P.OP_ITS ---
Operative Note Operative Note Date of Service: 04/01/24 Narrative: PreOperative Diagnosis: Hyperemic injected bladder mucosa Post Operative Diagnosis: Inflamed bladder mucosa question cystitis versus CIS Procedure: cystoscopy, bladder biopsy, fulguration Surgeon: Dr Eduardo Atkinson Anesthesia: LMA Indications for procedure: Microscopic hematuria. Cystoscopy in office with areas of mucosal change on posterior wall Procedure: After informed consent was verified the patient was brought to the operating room and placed in a supine position. Anesthesia was administered per protocol. The patient was placed in modified dorsal lithotomy position and prepped and draped in a sterile fashion. Safety pause time-out was performed. Antibiotics being given. Cystoscopy was performed. Areas on posterior wall of bladder showed superficial mucosal changes. Biopsy performed x2. Extensive fulguration performed over an area approximately 5-6 cm . Narrow band light used and no definable lesions seen however submucosal vascularity was present throughout this area. The patient tolerated the procedure well. They were extubated in operating room and transferred in stable conditions recovery area. Pathology: Bladder biopsies Drains: None
[2024-04-01 08:59] VITALS: BP 135/76; PULSE 53; RESP 18; TEMP 36.2; O2SAT 93
[2024-04-01 09:04] VITALS: BP 134/79; PULSE 52; RESP 16; O2SAT 96
[2024-04-01] MEDS: Phenazopyridine HCL 100 MG TABLET PO (09:07)
[2024-04-01 09:09] VITALS: BP 144/78; PULSE 54; RESP 16; O2SAT 96
[2024-04-01 09:14] VITALS: BP 150/81; PULSE 50; RESP 16; O2SAT 96
[2024-04-01 09:29] VITALS: BP 150/85; PULSE 56; RESP 16; TEMP 36.3; O2SAT 96
== END 2024-04-01 10:42 | disposition home or self-care (01) ==
PROVIDERS: PCP Internal Medicine; Visit Provider Urology
PROC: 0T5B8ZZ Destruction of Bladder, Via Natural or Artificial Opening Endoscopic (ICD-10-PCS; CPT 52240; principal; 2024-04-01 08:30)
DX: D09.0 Carcinoma in situ of bladder (principal); R31.29 Other microscopic hematuria
CPT/HCPCS: 52240; 88305; 93005; J1956; J2405; J2704; J3010

== ENCOUNTER → 2024-04-01 06:53 | Outpatient (BNV) | payer MEDICARE, SELFPAY | PROVIDERS: PCP Internal Medicine; Visit Provider Urology | DX: N30.20 Other chronic cystitis without hematuria (principal) | CPT/HCPCS: 52204 ==

== ENCOUNTER 2024-04-12 10:37 | Outpatient (AMB) | payer MEDICARE, SELFPAY ==
--- NOTE | 2024-04-12 10:52 | MHC.OFFVIS ---
Intake Visit Reasons: Bladder biopsy results Intake Note: Patient is Present for Follow Up Bladder Biopsy Urology Medication: None Antibiotic Allergies:Cipro Blood Thinners: Aspirin, Xarelto Composite Assembler Required: No Accompanied by: Self / Same As Patient Allergies oxycodone Allergy (Severe, Verified 04/12/24 10:54) Nausea and Vomiting ciprofloxacin [From CIPRO] Allergy (Unknown, Verified 04/12/24 10:54) UNKNOWN Jubklyr-TAV-DsA Reductase Inhibitor Adverse Reaction (Intermediate, Verified 04/12/24 10:54) Muscle Pain HPI Comments Details: Mr Lopez is a very pleasant male. He is a patient of Dr. Morales. He is seen for the following urologic conditions. 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 - stream remains okay - probable stricture ? Prostate cancer was diagnosed?2007.? Diagnosis was reached by?needle biopsy, for elevated PSA, size at TRUS 49cc.? The [place] grade is?3+3 = 6.? TNM Classification of Malignant Tumours (TNM)?T2a.? The D'Jaret (NCCN) risk category is?Low Risk (PSA< 10, Gl < 7, T1c).? Initial therapy included?Primary treatment, Prostatectomy (RRP/Robotic) ?, Additional treatment, Observation.? Recent labs included?a PSA (prostate-specific antigen) 2014 , < 0.1 ?12/2016 < 0.1, 02/17 < 0.1, 03/21 < 0.1, 03/22 < 0.1, 02/20 <0.1, 02/21 <0.1, 02/22 <0.1, 02/23 <0.1 ? Associated conditions ? erectile dysfunction ?Yes ? Erectile SIDRA Score ?18 respond to viagra ? Therapeutic plan:?Continue with surveillance.? Current symptoms include?had narrowing of stream and requred BNI 2009.? PFSH Medical History Wears dentures Spinal stenosis Back pain Arthritis GERD (gastroesophageal reflux disease) Hx of transient ischemic attack (TIA) (~2021) Cardiomyopathy Hx of myocardial infarction CAD (coronary artery disease) PAF (paroxysmal atrial fibrillation) Seasonal allergies PONV (postoperative nausea and vomiting) Spinal stenosis Allergies Hyperlipidemia BPH (benign prostatic hyperplasia) Erectile dysfunction following radical prostatectomy CA of prostate Surgical History Hx of tonsillectomy Hx of cardiac catheterization Hx of coronary artery bypass graft (~2019) Hx of radical prostatectomy (~2008) History of bilateral knee replacement Family History Sister PONV (postoperative nausea and vomiting) Sister PONV (postoperative nausea and vomiting) Social History Are you a primary wound care specialist to a significant other at home: No Do you presently have visiting nurse or other home services: No Patient Tobacco Use Status: Former Tobacco user Tobacco use type: Cigarette Review of Systems Const Denies chills and Denies fever(s) Card Reports no additional complaints and Denies syncope Resp Denies cough GI Denies abdominal pain and Denies heartburn Reports as per HPI and Denies change in libido Neuro Denies syncope Psych Denies change in libido Endo Denies change in libido Physical Exam Const General: cooperative, healthy appearing, comfortable and no acute distress Orientation/consciousness: patient oriented x3 HEENT Face and sinus: Yes normal facial exam Mouth: moist mucous membranes Neck Neck: Yes normal visual inspection, Yes full ROM and Yes trachea midline Chest Chest palpation & inspection: normal inspection of the chest Resp Effort & Inspection: normal respiratory effort, able to speak in complete sentences and no respiratory distress GI Inspection: Yes normal to inspection Back/Spine/Pelvis Cervical Spine: normal cervical lordosis Thoracic/Lumbar Spine: thoracic and lumbar spine normal to inspection Skin General skin exam: no rashes or lesions noted Neuro General: patient oriented x3, gait normal, tone normal and moves all extremities Extrem General: Yes normal to inspection and Yes capillary refill normal Assessment & Plan Assessment & Plan (1) CA of prostate: Comment: Radical prostatectomy 2008 low-grade Code(s): C61 - Malignant neoplasm of prostate Category: Medical (2) Bladder cancer: Code(s): C67.9 - Malignant neoplasm of bladder, unspecified Category: Medical Plan Risks, benefits and alternatives to therapy were discussed. These include but are not limited to infection, bleeding, damage to local organs and tissues, need for further interventions. Anesthetic risks regarding cardiac arrhythmia, blood clots, and potential mortality were discussed. The patient understands the typical recovery time and the outpatient nature of the procedure. After consideration of these risks the patient gives full informed consent and they wish to move ahead with the procedure. Immunotherapy with mitomycin-C and cytarabine 6 weeks followed by follow-up cystoscopy Patient Instructions: Imaging studies, laboratory and physical exam results were discussed and reviewed in detail. No major barriers to patient understanding were identified. An opportunity to ask questions regarding the treatment plan was provided. All questions were answered. The patient expressed understanding and agreement with the above treatment plan. The patient is aware they should contact our office by phone for worsening of their current condition or the appearance of new urologic symptoms. Compliance is encouraged with any medications and followup testing that is ordered. It is a privilege to participate in the urologic care of your patient. If you have any questions or concerns regarding treatment for the above conditions, or other urologic issues, please do not hesitate to contact me. The office telephone contact is [phone]. This note is constructed using voice recognition software. While every effort has been made to ensure accuracy child care associate teacher errors may have been included. Yours sincerely, Dr Eduardo Atkinson MD, [facility] - Urology Providers of Expert, Compassionate Care for the Genitourinary System Coding Level of Care Code Est Pt Level 3 (52864) Diagnoses CA of prostate C61 Bladder cancer C67.9
== END 2024-04-12 12:05 | disposition home or self-care (01) ==
PROVIDERS: PCP Internal Medicine; Visit Provider Urology
DX: C61 Malignant neoplasm of prostate (principal); C67.9 Malignant neoplasm of bladder, unspecified
CPT/HCPCS: 99213

== ENCOUNTER → 2024-04-12 10:37 | Outpatient (BNVA) | payer MEDICARE, SELFPAY | PROVIDERS: PCP Internal Medicine; Visit Provider Urology | DX: N52.9 Male erectile dysfunction, unspecified (principal); Z85.46 Personal history of malignant neoplasm of prostate | CPT/HCPCS: 99212 ==

== ENCOUNTER 2024-08-13 12:55 | Outpatient (REF) | payer MEDICARE, SELFPAY ==
--- OUTSIDE RECORDS SUMMARY | 2024-08-13 14:30 | XMS_ITS | Encounter Summary ---
Author Organization [facility] Address [address] [place] [address] Care Team Providers Care Front End Drupal Developer Name Role Phone Marquita Morales MD Primary Care Provider [phone] Reason for Visit * Reason Onset Date Comments Nasal Congestion 07/30/2024 Encounter Details Date Type Department Care Team (Late st Contact Info) Description 07/30/2024 Telephone Adult [facility] [address] [place] [phone] Marquita Morales MD [address] [place], [place] [phone] Nasal Congestion Social History Tobacco Use Types [...] traveled recently to another state outside of [place], [place], [place], [place], [place], [place], [place]? no o If yes, did you quarantine [...] of accident/Injury: No If yes, gather 3rd constitution party insurance information Third Alliance Party Information: not applicable PCP: Marquita Morales MD Payor: MEDICARE / Plan: MEDICARE PART A & B / Product Type: Medicare / documented in this encounter Plan of Treatment Upcoming Encounters Date Type Department Care Team (Late st Contact Info) Description 10/03/2024 11:00 AM EDT Office Visit [facility] [address] [place] [address] Marquita Morales MD [address] [place] [address] documented as of this encounter Visit Diagnoses Not on filedocumented in this encounter Care Teams Front End Drupal Developer Relationship Specialty Start Date End Date Marquita Morales MD [address] [place] [address] PCP - General 03/17/1994 documented as of this encounter
--- OUTSIDE RECORDS SUMMARY | 2024-08-13 14:30 | XMS_ITS | Encounter Summary ---
Author Organization [facility] Address [address] [place] [address] Care Team Providers Care Teamcenter Solution Architect Name Role Phone Marquita Morales MD Primary Care Provider [phone] Reason for Visit * Reason Comments Nasal Congestion On and off x1 month congestion Encounter Details Date Type Department Care Team (Late st Contact Info) Description 07/30/2024 11:30 AM EST Office Visit Adult Medicine [facility] [address] [place] [phone] Kirit Downs STRIPPING AND BOOKING MACHINE OPERATOR [address] [place] [phone] Allergic rhinitis, unspecified seasonality, unspecified trigger (Primary [...] this encounter Progress Notes * Kirit Downs STRIPPING AND BOOKING MACHINE OPERATOR - 07/30/2024 11:30 AM ESTAssociated Problem(s): Allergic rhinitis I will try patient on Singulair 10 mg at bedtime. Patient is to continue following up with electromagnet crane operator Orders: albuterol HFA (Proventil HFA) 90 mcg/actuation [...] of allergic rhinitis. He is followed by electromagnet crane operator and gets allergy shots monthly. He is currently on Zyrtec's and Flonase. Patient is states he need a refill on his Flonase. He has an appointment with his electromagnet crane operator this week. He denies fever or chills, Shortness of breath, or cough. Patient was diagnosed with bladder cancer in 2023. Back in October patient was referred to urology due to hematuria. He is followed by [facility] urologist and oncologist, Dr. Galvan. He completed [...] 2 times daily with meals, Prescribed By [facility] Cardiology EPINEPHRINE HCL INJ injection, See [...] directed every 14 (fourteen) days. Prescribed By [facility] Cardiology for High Cholesterol Physical Exam Vitals [...] Patient is to continue following up with electromagnet crane operator Orders: albuterol HFA (Proventil HFA) 90 mcg/actuation [...] following up with urologist and oncologist at [facility]. He has an appointment August 12, 2024 [...] PCP 10/2024. Kirit Downs NP ADULT MEDICINE [address] [address] Today's documentation was made using voice recognition software.This note may contain grammatical errors secondary to this software. documented in this encounter Plan of Treatment Upcoming Encounters Date Type Department Care Team (Late st Contact Info) Description 10/03/2024 11:00 AM EDT Office Visit [address] [address] Marquita Morales MD [address] [place] [address] Scheduled Orders Name Type Priority Associated Diagnoses [...] documented as of this encounter Care Teams Teamcenter Solution Architect Relationship Specialty Start Date End Date Marquita Morales MD [address] [place] [address] PCP - General 03/17/1994 documented as of this encounter
--- OUTSIDE RECORDS SUMMARY | 2024-08-13 14:30 | XMS_ITS | Clinical Summary ---
Author Organization [facility] Address [address] [place] [address] Care Team Providers Care Dishwashing Machine Repairer Name Role Phone Marquita Morales MD Primary Care Provider [phone] Allergies No known active allergies Medications Medication [...] age to complete this topic Care Teams Dishwashing Machine Repairer Relationship Specialty Start Date End Date Marquita Morales MD PCP - General Internal Medicine 05/28/18
--- OUTSIDE RECORDS SUMMARY | 2024-08-13 14:30 | XMS_ITS | Clinical Summary ---
Author Organization [facility] [address] [place] [address] Address [address] [facility] [place] [address] Phone Care Team Providers Care Learning Technologist Name Role Phone Marquita Morales MD Primary Care Provider [phone] Allergies Active Allergy Reactions Criticality Noted Date Comments Atorvastatin Calcium 12/09/2008 Other Reaction(s): Myalgia and Joint Pain Ciprofloxacin Rash 12/27/2007 Other 10/17/2016 Seasonal Allergies Rosuvastatin 11/19/2014 Other Reaction(s): Myalgia and Joint Pain Simvastatin Low 03/01/2010 Other Reaction(s): Myalgia and Joint Pain Medications Praluent Pen 150 mg/mL pen injector Inject 1 mL (150 mg total) as directed every 14 (fourteen) days. Prescribed By [facility] Cardiology for High Cholesterol Active NON FORMULARY [...] times a day with meals. Prescribed By [facility] Cardiology Active albuterol HFA (Proventil HFA) [...] note 07/29/22 Coronary artery disease invo lving [place] coronary artery of [place] heart without angina pectoris 06/05/2022 Overview (04/09/2024): [...] Allergic rhinitis 09/21/2006 Overview (04/09/2024): Follows with outreach director, Dr. Anna Assessment & Plan (07/30/2024 12:44 PM EST): I will try patient on Singulair 10 mg at bedtime. Patient is to continue following up with outreach director Orders: albuterol HFA (Proventil HFA) 90 mcg/actuation [...] 07/30/2024 11:30 AM EST Office Visit Adult [address] [address] Kirit Downs, COAT CUTTER Allergic rhinitis, unspecified seasonality, unspecified trigger (Primary Dx); Malignant neoplasm of urinary bladder, unspecified site (CMS/HCC); Pure hypercholesterolemia; Encounter for screening for cardiovascular disorders; Encounter for screening for malignant neoplasm of prostate 07/30/2024 Telephone Adult [address] [phone] Marquita Morales MD Nasal Congestion 06/04/2024 2:15 PM EST Office Visit [address] [phone] Kirit Downs NP Bronchitis (Primary Dx); Malignant neoplasm of urinary bladder, unspecified site (CMS/HCC) 05/20/2024 2:45 PM EST Office Visit [address] [phone] Marquita Morales MD Allergic rhinitis, unspecified seasonality, unspecified trigger (Primary Dx); Pure hypercholesterolemia; Coronary artery disease involving [place] coronary artery of [place] heart without angina pectoris; Atrial fibrillation, unspecified type (CMS/HCC); Malignant neoplasm of urinary bladder, unspecified site (CMS/HCC); Nasal congestion 05/14/2024 10:00 AM EST Office Visit [address] [phone] Rusty Keating PA Acute non-recurrent maxillary sinusitis (Primary Dx) 05/13/2024 Nurse Triage [address] [phone] Marquita Morales MD Sinus Problem from Last [...] Site/Laterality Comments KNEE ARTHROSCOPY W/ DEBRIDEMENT PROCEDURE: OH ARTHRS KNEE DEBRIDEMENT/SHAVING ARTCLR CRTLG; COMMENT: left PROSTATECTOMY PROCEDURE: PROSTATECTOMY COLONOSCOPY 12/30/2021 PROCEDURE: HISTORICAL COLONOSCOPY; COMMENT: hemorrhoids Medical History Medical History Date Comments Acute bronchitis 12/09/2005 DX:Acute bronch itis; COMMENT: PFT 05/21/01, some mild reversability Hypercholesteremia DX:Hyperchole steremia Prostate cancer ([facility]) DX:Pro state cancer ([facility]) Pure hypercholesterolemia 07/05/2005 DX:Pur e hypercholesterolemia Allergic [...] 11:00 AM EDT Office Visit Adult Medicine [facility] [address] [place] [address] Marquita Morales MD [address] [place] [address] Health Maintenance Due Date Last Done Comments [...] Final Result * Depression Screening (01/16/2024) Pathologist [facility] Depression Screening abstracted [facility] Provider HEALTH MAINTENANCE Final Result * Annual BMP Blood Test (12/18/2023) Pathologist [facility] Annual BMP Blood Test abstracted [facility] Provider HEALTH MAINTENANCE Final Result * Lipid panel (11/21/2022) [facility] LDL/HDL Ratio 2 0 - 4 Triglycerides 113 0 - 150 mg/dL Cholesterol 99 0 - 200 mg/dL HDL 47 >=40 mg/dL LDL Cholesterol 30 0 - 100 mg/dL Blood Venous blood specimen / Unknown [facility] Provider LAB BLOOD ORDERABLES Mary Grace l Result * Colonoscopy (12/30/2021) Pathologist [facility] Colonoscopy no interpretation , abstracted Anatomical Region Laterality Modality Other [facility] Provider HEALTH MAINTENANCE Final Result * Hepatitis C Screening (07/21/2013) [facility] Hepatitis C Screening abstracted [facility] Provider HEALTH MAINTENANCE Final Result * Abdominal Aortic Aneurysm Screen (03/23/2009) Pathologist [facility] Abdominal Aortic Aneurysm (AAA) Screening abstracted Anatomical Region Laterality Modality Other [facility] Provider HEALTH MAINTENANCE Final Result from Last 3 Months or Most Recently Relevant to Health Maintenance Insurance MEDICARE [facility] Care Teams Learning Technologist Relationship Specialty Start Date End Date Marquita Morales MD [address] [place] [address] PCP - General 03/17/1994
--- OUTSIDE RECORDS SUMMARY | 2024-08-13 14:30 | XMS_ITS | Clinical Summary ---
Author Organization [address] Address [address] [place] [address] Phone Care Team Providers Care Apple Press Operator Name Role Phone Promise Morales MD Primary Care Provider [phone] Allergies No known active allergies Social History [...] 65 - 110 mg/dL 03/04/2022 8:55 PM [facility] Comment: Non-fasting: ??65-110 mg/dL Fasting (minimum 6 hrs): ??65-99 mg/dL BUN 18 7 - 18 mg/dL 03/04/2022 8:55 PM [facility] Creatinine 1.05 0.70 - 1.30 mg/dL 03/04/2022 8:55 PM [facility] Sodium 142 136 - 145 mmol/L 03/04/2022 8:55 PM [facility] Potassium 3.7 3.5 - 5.1 mmol/L 03/04/2022 8:55 PM [facility] Chloride 106 98 - 107 mmol/L 03/04/2022 8:55 PM [facility] CO2 26 21 - 32 mmol/L 03/04/2022 8:55 PM [facility] Anion Gap 10 5 - 15 mmol/L 03/04/2022 8:55 PM [facility] Calcium 8.8 8.5 - 10.1 mg/dL 03/04/2022 8:55 PM EDT [facility] eGFR (Creatinine) >60 >=60 mL/min/1.7 3m2 03/04/2022 8:55 PM EDT [facility] Comment:Estimated glomerular filtration rate (eGFR) was [...] MD LAB BLOOD ORDERABLES [place] [address], [facility] [phone] from Last 3 Months or Most Recently Relevant to Health Maintenance Insurance MEDICARE [facility] MEDICARE [facility] MEDICARE [facility] Care Teams Apple Press Operator Relationship Specialty Start Date End Date Promise Morales MD PCP - General Internal Medicine 03/04/22
[2024-08-13 16:29] LABS: Urine Cytology See Pathology rpt
== END 2024-08-13 12:56 | disposition home or self-care (01) ==
LOC: HO.LAB 12:55
PROVIDERS: PCP Internal Medicine; Visit Provider Urology
DX: C67.9 Malignant neoplasm of bladder, unspecified (principal); C61 Malignant neoplasm of prostate; N52.31 Erectile dysfunction following radical prostatectomy
CPT/HCPCS: 52000; 81003; 88112; 99212

== ENCOUNTER 2024-08-13 12:55 | Outpatient (AMB) | payer MEDICARE, SELFPAY ==
--- NOTE | 2024-08-13 13:15 | MHC.OFFVIS ---
Intake Visit Reasons: 4M Cysto(Bladder Ca) Intake Note: Patient is present for 4M Cystoscopy Urology Medication:NONE Antibiotic Allergy:CIPROFLOXACIN Blood Thinner:ASPIRIN,RIVAROXABAN Lot:[id number] Exp:05/06/27 Academic Computing Director Required: No Allergies oxycodone Allergy (Severe, Verified 08/13/24 13:16) Nausea and Vomiting ciprofloxacin [From CIPRO] Allergy (Unknown, Verified 08/13/24 13:16) UNKNOWN Hqqoahy-IEC-EpJ Reductase Inhibitor Adverse Reaction (Intermediate, Verified 08/13/24 13:16) Muscle Pain HPI Comments Details: Mr Lopez is a very pleasant male. He is a patient of Dr. Morales. He is seen for the following urologic conditions. 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 - stream remains okay - probable stricture ? Prostate cancer was diagnosed?2007.? Diagnosis was reached by?needle biopsy, for elevated PSA, size at TRUS 49cc.? The [place] grade is?3+3 = 6.? TNM Classification of Malignant Tumours (TNM)?T2a.? The D'Jaret (NCCN) risk category is?Low Risk (PSA< 10, Gl < 7, T1c).? Initial therapy included?Primary treatment, Prostatectomy (RRP/Robotic) ?, Additional treatment, Observation.? Recent labs included?a PSA (prostate-specific antigen) 2014 , < 0.1 ?12/2016 < 0.1, 02/17 < 0.1, 03/21 < 0.1, 03/22 < 0.1, 02/20 <0.1, 02/21 <0.1, 02/22 <0.1, 02/23 <0.1 ? Associated conditions ? erectile dysfunction ?Yes ? Erectile SIDRA Score ?18 respond to viagra ? Therapeutic plan:?Continue with surveillance.? Current symptoms include?had narrowing of stream and requred BNI 2009.? PFSH Medical History Wears dentures Spinal stenosis Back pain Arthritis GERD (gastroesophageal reflux disease) Hx of transient ischemic attack (TIA) (~2021) Cardiomyopathy Hx of myocardial infarction CAD (coronary artery disease) PAF (paroxysmal atrial fibrillation) Seasonal allergies PONV (postoperative nausea and vomiting) Spinal stenosis Allergies Hyperlipidemia BPH (benign prostatic hyperplasia) Erectile dysfunction following radical prostatectomy CA of prostate Surgical History Hx of tonsillectomy Hx of cardiac catheterization Hx of coronary artery bypass graft (~2019) Hx of radical prostatectomy (~2008) History of bilateral knee replacement Family History Sister PONV (postoperative nausea and vomiting) Sister PONV (postoperative nausea and vomiting) Social History Are you a primary housekeeper child care to a significant other at home: No Do you presently have visiting nurse or other home services: No Patient Tobacco Use Status: Former Tobacco user Tobacco use type: Cigarette Review of Systems Const Denies chills and Denies fever(s) Card Reports no additional complaints and Denies syncope Resp Denies cough GI Denies abdominal pain and Denies heartburn Reports as per HPI and Denies change in libido Neuro Denies syncope Psych Denies change in libido Endo Denies change in libido Physical Exam Const General: cooperative, healthy appearing, comfortable and no acute distress Orientation/consciousness: patient oriented x3 HEENT Face and sinus: Yes normal facial exam Mouth: moist mucous membranes Neck Neck: Yes normal visual inspection, Yes full ROM and Yes trachea midline Chest Chest palpation & inspection: normal inspection of the chest Resp Effort & Inspection: normal respiratory effort, able to speak in complete sentences and no respiratory distress GI Inspection: Yes normal to inspection Back/Spine/Pelvis Cervical Spine: normal cervical lordosis Thoracic/Lumbar Spine: thoracic and lumbar spine normal to inspection Skin General skin exam: no rashes or lesions noted Neuro General: patient oriented x3, gait normal, tone normal and moves all extremities Extrem General: Yes normal to inspection and Yes capillary refill normal Office Procedures Cystoscopy Consent Discussed risk and benefit or proposed procedure with the patient. Information consent for procedure given to the patient. Discussed technical aspects, risks, benefits and alternatives in full. Addressed all of the patient's questions and concerns regarding the procedure. The patient demonstrated knowledge and understanding. They wish to proceed with this procedure. Preparation The patient was prepped in the usual manner. A awning hanger helper was present and in the room. Genitalia was prepped with betadine solution in a sterile manner. Lidocaine Jelly 2% was placed into the urethra and 16Fr flexible Olympus cystoscope was inserted into the meatus after adequate lubrication. Procedure Cystoscopy performed using a disposable Urovue digital 16 Lao cystoscope. Meatus circumcised Urethra anterior and posterior urethra normal Prostatic Urethra absent following prostatectomy Bladder examination with retroflexion of cystoscope Bladder Orifices normal shape and position Bladder Capacity normal Trabeculations grade 1 Cellule Formation - Diverticulum Formation - Mucosal Erythema mild mucosal irritation Bladder Tumor biopsy fulguration posterior wall [id number] DISPOSABLE SCOPE URO-G FLEXIBLE SCOPE Procedure code (CPT) selection complete Office Meds lidocaine HCl 2 % mucosal jelly in applicator Performing Provider: Eduardo Atkinson MD Performing Location: [facility] Administered by: Ro Campbell RN on 08/13/24 13:34 Dose Route Admin Location Dispensed Lot Number Expiration Date NDC Aircraft Cylinder Mechanic 10 mL intra-urethral 10 mL nitrofurantoin monohydrate/macrocrystals 100 mg capsule Performing Provider: Eduardo Atkinson MD Performing Location: [facility] Administered by: Ro Campbell RN on 08/13/24 13:34 Dose Route Admin Location Dispensed Lot Number Expiration Date NDC [employer] Cylinder Mechanic 100 mg PO 1 cap Results AMB Urinalysis, Automated UA Leukoctes 0 Josselyn/uL Last Edit by DEAN Dick on 08/13/24 13:27 UA Nitrite Negative Last Edit by DEAN Dick on 08/13/24 13:27 UA Urobilinogen 3.5 mg/dL Last Edit by DEAN Dick on 08/13/24 13:27 UA Protein 0 mg/dL [facility] 08/13/[facility] 13:27 UA pH 6.0 Last Edit by Rohith David [facility] on 08/13/24 13:27 UA Blood 0 Chandan/uL Last Edit by Rohith David [facility] on 08/13/24 13:27 UA Specific [place] 1.015 Last Edit by Rohith David [facility] on 08/13/24 13:27 UA Ketone Negative Last Edit by Rohith [facility] 08/13/24 13:27 UA Bilirubin 0 mg/dL Last Edit [facility] 08/13/24 13:27 UA Glucose 0 mg/dL Last Edit by Rohith David [facility] on 08/13/24 13:27 Results Reviewed Results Reviewed: Laboratory Last Values Urine pH (Auto) 6.0 08/13/24 13:26 Specific [place] (Auto) 1.015 08/13/24 13:26 Urine Protein (Auto) 0 mg/dL 08/13/24 13:26 Glucose (UA)(Auto) 0 mg/dL 08/13/24 13:26 Urine Ketones (Auto) Negative 08/13/24 13:26 Urine Blood (Auto) 0 Chandan/uL 08/13/24 13:26 Urine Nitrite (Auto) Negative 08/13/24 13:26 Urine Bilirubin (Auto) 0 mg/dL 08/13/24 13:26 Urine Urobilinogen (Auto) 3.5 mg/dL 08/13/24 13:26 Leukocyte Esterase (Auto) 0 Josselyn/uL 08/13/24 13:26 Assessment & Plan Assessment & Plan (1) CA of prostate: Comment: Radical prostatectomy 2008 low-grade Code(s): C61 - Malignant neoplasm of prostate Category: Medical (2) Erectile dysfunction following radical prostatectomy: Code(s): N52.31 - Erectile dysfunction following radical prostatectomy Category: Medical (3) Bladder cancer: Comment: CIS on biopsy taken after hematuria Code(s): C67.9 - Malignant neoplasm of bladder, unspecified Category: Medical Plan Three-month check cysto office Orders: Orders Urine Cytology Today C67.9 - Malignant neoplasm of bladder, unspecified AMB Cystoscopy Today C67.9 - Malignant neoplasm of bladder, unspecified AMB Urinalysis Automated Today Z13.9 - Encounter for screening, unspecified Patient Instructions: This note is constructed using voice recognition software. While every effort has been made to ensure accuracy industrial workers errors may have been included. Imaging studies, laboratory and physical exam results were discussed and reviewed in detail. No major barriers to patient understanding were identified. An opportunity to ask questions regarding the treatment plan was provided. All questions were answered. The patient expressed understanding and agreement with the above treatment plan. The patient is aware they should contact our office by phone for worsening of their current condition or the appearance of new urologic symptoms. Compliance is encouraged with any medications and followup testing that is ordered. It is a privilege to participate in the urologic care of your patient. If you have any questions or concerns regarding treatment for the above conditions, or other urologic issues, please do not hesitate to contact me. The office telephone contact is [phone]. Sincerely, Dr Eduardo Atkinson MD, [facility] - Urology Compassionate Specialist Care for the Genitourinary System Coding Level of Care Code Est Pt Level 3 (88630) Diagnoses CA of prostate C61 Erectile dysfunction following radical prostatectomy N52.31 Bladder cancer C67.9 CPT Codes Cystoscopy - CPT: [id number] ([id number])
--- OUTSIDE RECORDS SUMMARY | 2024-08-13 14:02 | XMS_ITS | Clinical Summary ---
Author Organization [facility] [address] [place] [address] Address [address] [facility] [place] [address] Phone Care Team Providers Care Cigar Head Stringer Name Role Phone Marquita Morales MD Primary Care Provider [phone] Allergies Active Allergy Reactions Criticality Noted Date Comments Atorvastatin Calcium 12/09/2008 Other Reaction(s): Myalgia and Joint Pain Ciprofloxacin Rash 12/27/2007 Other 10/17/2016 Seasonal Allergies Rosuvastatin 11/19/2014 Other Reaction(s): Myalgia and Joint Pain Simvastatin Low 03/01/2010 Other Reaction(s): Myalgia and Joint Pain Medications Praluent Pen 150 mg/mL pen injector Inject 1 mL (150 mg total) as directed every 14 (fourteen) days. Prescribed By [facility] Cardiology for High Cholesterol Active NON FORMULARY Allergy Injection (ALLERGY MONTHLY INJECTION, HISTORIC) Inject as directed every 30 days Active EPINEPHRINE HCL INJ Inject as directed See administration instructions. Active pantoprazole (PROTONIX) 20 mg EC tablet Take 1 tablet (20 mg total) by mouth 1 (one) time each day. Prescribed By Allergies Active carvediloL (COREG) 3.125 mg tablet Take 1 tablet (3.125 mg total) by mouth 2 (two) times a day with meals. Prescribed By [facility] Active albuterol HFA (Proventil HFA) 90 mcg/actuation inhalerIndicat ions:Allergic rhinitis, unspecified seasonality, unspecified trigger Inhale 2 puffs by mouth every 4 (four) hours if needed for wheezing or shortness of breath. 6.7 g 025 2025 Active fluticasone propionate (FLONASE) 50 mcg/actuation nasal sprayIndicatio ns:Allergic rhinitis, unspecified seasonality, unspecified trigger Administer 2 sprays into each nostril 2 (two) times a day. Shake gently. Before first use, prime pump. After use, clean tip and replace cap. 16 g 1 025 2025 Active montelukast (SINGULAIR) 10 mg tabletIndicati ons:Allergic rhinitis, unspecified seasonality, unspecified trigger Take 1 tablet (10 mg total) by mouth at bedtime. 90 each 1 025 Active fluticasone propionate (FLONASE) 50 mcg/actuation nasal spray 2 Sprays by Each Nare route daily for 360 days. 023 2024 Discontinued(R eorder) predniSONE (DELTASONE) 20 mg tablet Take 60 mg PO daily for 3 days, then take 40 mg PO daily for 3 days, then 20 mg PO daily for 3 days, then stop 18 tablet 024 2024 Discontinued albuterol HFA (Proventil HFA) 90 mcg/actuation inhaler Inhale 2 puffs by mouth every 4 (four) hours if needed for wheezing or shortness of breath. 6.7 g 024 2024 Discontinued(R eorder) Active Problems Problem Noted Date Diagnosed Date Cerebral microvascular disease 10/03/2022 Overview (04/09/2024): See comment by neurology, Dr. Wiggins, imaging study for evaluation of TIA TIA (transient ischemic attack) 07/29/2022 Overview (04/09/2024): Very complex clinical picture, please see note 07/29/22 Coronary artery disease invo lving emmonak coronary artery of emmonak heart without angina pectoris 06/05/2022 Overview (04/09/2024): Status post non-ST wave elevation myocardial infarction April 2020, status post CABG x6 with preserved LV function Status post right knee replacement 09/07/2021 Atrial fibrillation 01/22/2021 NSVT (nonsustained ventricular tachycardia) 12/2017 Palpitations 08/09/2017 Allergic conjunctivitis 07/06/2015 CALOS (obstructive sleep apnea) 08/22/2013 PLMD (periodic limb movement disorder) 4 Back pain 03/04/2008 Overview (04/09/2024): 2007 CT: multiple levels of degenerative arthritis and disc disease MRI 2016: DJD, spinal stenosis Allergic rhinitis 09/21/2006 Overview (04/09/2024): [facility], Dr. Anna Assessment & Plan (07/30/2024 12:44 PM EST): I will try patient on Singulair 10 mg at bedtime. Patient is to continue following up with [facility] Orders: albuterol HFA (Proventil HFA) 90 mcg/actuation inhaler; Inhale 2 puffs by mouth every 4 (four) hours if needed for wheezing or shortness of breath. fluticasone propionate (FLONASE) 50 mcg/actuation nasal spray; Administer 2 sprays into each nostril 2 (two) times a day. Shake gently. Before first use, prime pump. After use, clean tip and replace cap. montelukast (SINGULAIR) 10 mg tablet; Take 1 tablet (10 mg total) by mouth at bedtime. Pure hypercholesterolemia 07/05/2005 Overview (04/09/2024): statin would cause myalgia, follows with cardiology/lipis specialist 10/2014 Assessment & Plan (07/30/2024 12:44 PM EST): Last LDL 30. Patient is to continue Praluent as prescribed by cardiology. Cardiovascular risk and specific lipid/LDL goals reiterated. Orders: Lipid panel with reflex to direct LDL; Future Encounters Date Type Department Care Team Description 07/30/2024 11:30 AM EST Office Visit Adult [address] [phone] Kirit Downs, RESIDENTIAL FIELD MANAGER Allergic rhinitis, unspecified seasonality, unspecified trigger (Primary Dx); Malignant neoplasm of urinary bladder, unspecified site (CMS/HCC); Pure hypercholesterolemia; Encounter for screening for cardiovascular disorders; Encounter for screening for malignant neoplasm of prostate 07/30/2024 Telephone Adult [address] [phone] Marquita Morales MD Nasal Congestion 06/04/2024 2:15 PM EST Office Visit [address] [phone] Kirit Downs NP Bronchitis (Primary Dx); Malignant neoplasm of urinary bladder, unspecified site (CMS/HCC) 05/20/2024 2:45 PM EST Office Visit [address] [phone] Marquita Morales MD Allergic rhinitis, unspecified seasonality, unspecified trigger (Primary Dx); Pure hypercholesterolemia; Coronary artery disease involving emmonak coronary artery of emmonak heart without angina pectoris; Atrial fibrillation, unspecified type (CMS/HCC); Malignant neoplasm of urinary bladder, unspecified site (CMS/HCC); Nasal congestion 05/14/2024 10:00 AM EST Office Visit [address] [phone] Rusty Keating PA Acute non-recurrent maxillary sinusitis (Primary Dx) 05/13/2024 Nurse Triage [address] [phone] Marquita Morales MD Sinus Problem from Last 3 Months Immunizations Name Administration Dates Next Due Influenza Quadravalent, MDCK , 0.5ml, preservative free (Flucelvax) 6mo and older 05/23/2018 Influenza Quadravalent, MDCK , 0.5ml, with preservative (Flucelvax) 6mo and older 05/10/2019,06/21/2017 Influenza trivalent, 0.5mL ( Fluzone High-dose) 65yo and older 04/08/2023,03/23/2022,05/13/2021,2019 Influenza trivalent, with preservative (Fluzone; Afluria) 6mo and older 07/06/2016,05/10/2015,07/23/2014,2012,06/05/2012,05/25/2011,04/16/2010,0 03/10/2009,06/03/2008,05/31/2006, 005 PPD Test 02/12/2013 Pfizer (ages 12 & older) Biv alent, COVID-19 05/13/2022 Tdap Tetanus diptheria acell ular pertussis (Boostrix; Adacel) 7yo and older 05/04/2022,08/19/2011 Surgical History Surgery Date Site/Laterality Comments KNEE ARTHROSCOPY W/ DEBRIDEMENT PROCEDURE: [place] ARTHRS KNEE DEBRIDEMENT/SHAVING ARTCLR CRTLG; COMMENT: left PROSTATECTOMY PROCEDURE: PROSTATECTOMY COLONOSCOPY 12/30/2021 PROCEDURE: HISTORICAL COLONOSCOPY; COMMENT: hemorrhoids Medical History Medical History Date Comments Acute bronchitis 12/09/2005 DX:Acute bronch itis; COMMENT: PFT 05/21/01, some mild reversability Hypercholesteremia DX:Hyperchole steremia Prostate cancer ([facility]) DX:Pro state cancer ([facility]) Pure hypercholesterolemia 07/05/2005 DX:Pur e hypercholesterolemia Allergic rhinitis, cause unspecified 09/21/2006 DX:Allergic rhinitis, cause unspecified Allergic conjunctivitis 07/06/2015 DX:Aller gic conjunctivitis Back pain 03/04/2008 DX:Back pain; CO MMENT: 2007 CT: multiple levels of degenerative arthritis and disc disease MRI 2016: DJD, spinal stenosis Family History Medical History Relation Name Comments Heart attack Brother 1 age 44 Other: alzeheimer's Father Arthritis Mother Other: brain ca Mother Arthritis Sister 1 Relation Name Status Comments Brother 1 Brother 2 Father Mother Sister 1 Sister 2 Social History Tobacco Use Types Packs/Day Years Used Date Smoking Tobacco: Former Smokeless Tobacco: Never Tobacco Cessation:Counseling Given: Not Answered Alcohol Use Standard Drinks/Week Comments No 0 (1 standard drink = 0.6 oz pur e alcohol) Sex and Gender Information Value Date Recorded Sex Assigned at Not on file Legal Sex Male 11:36 AM EST Gender Identity Not on file Sexual Orientation Not on file Obstetrics History Last Filed Vital Signs Vital Sign Reading Time Taken Comments Blood Pressure 110/50 07/30/2024 11:28 AM EST Pulse 64 07/30/2024 11:28 AM EST Temperature 36.5 ??C (97.7 ??F) 07/30/2024 11:[address] Respiratory Rate 15 07/30/2024 11:28 AM EST Oxygen Saturation 95% 07/30/2024 11:28 AM EST Inhaled Oxygen Concentration - - Weight 90.3 kg (199 lb) 07/30/2024 11:28 AM EST Height 175.3 cm (5' 9 ) 07/30/2024 11:28 AM EST Body Mass Index 29.39 07/30/2024 11:28 AM EST Plan of Treatment Upcoming Encounters Date Type Department Care Team (Late st Contact Info) Description 10/03/2024 11:00 AM EDT Office Visit Adult Medicine [facility] [address] [place] [address] Marquita Morales MD [address] [place] [address] Health Maintenance Due Date Last Done Comments Pneumococcal Vaccine: 50+ Years (1 of 2 - PCV) 1972 Zoster Vaccines (1 of 2) 1972 RSV Immunization Patients 60+ Years Old (1 - Risk 60-74 years 1-dose series) 2013 Social Influencers of Health Screening 05/31/2022 DTaP,Tdap,and Td Vaccines (3 - Td or Tdap) 11/01/2022 05/04/2022, 08/19/2011 COVID-19 Vaccine ( season) 2024 04/08/2023, 05/13/2022, 04/22/2021, Additional history exists Influenza Vaccine (#1) 2024 , 03/23/2022, 05/13/2021, Additional history exists Hypertension/CHF/CAD Annual BMP Blood Test 12/17/2024 12/18/2023, 12/18/2023, 08/17/2023, Additional history exists Depression Screening 01/15/2025 01/16/2024 Falls Risk Assessment 01/15/2025 01/16/2024 Medicare Annual Wellness Visit 01/15/2025 01/16/2024 Colorectal Cancer Screening: Colonoscopy 12/30/2026 12/30/2021 Cholesterol Screening (Lipid Panel) 11/22/2027 11/21/2022 Hepatitis C Screening Completed 07/21/2013 Abdominal Aortic Aneurysm (AAA) Screen Completed 01/22/2024, 03/23/2009 HIB Vaccines Aged Out No longer eligi ble based on patient's age to complete this topic HPV Vaccines Aged Out No longer eligi ble based on patient's age to complete this topic Hepatitis A Vaccines Aged Out No long er eligible based on patient's age to complete this topic Hepatitis B Vaccines Aged Out No long er eligible based on patient's age to complete this topic IPV Vaccines Aged Out No longer eligi ble based on patient's age to complete this topic MMR Vaccines Aged Out No longer eligi ble based on patient's age to complete this topic Meningococcal ACWY Vaccine Aged Out N o longer eligible based on patient's age to complete this topic Meningococcal B Vacine Aged Out No lo nger eligible based on patient's age to complete this topic RSV Immunization Patients Under 20 months Aged Out No longer eligible based on patient's age to complete this topic Varicella Vaccines Aged Out No longer eligible based on patient's age to complete this topic Procedures Procedure Name Priority Date/Time Associated Diagnosis Comments DEPRESSION SCREENING Routine 01/16/2024 FALLS RISK ASSESSMENT Routine 01/16/2024 ANNUAL BMP BLOOD TEST Routine 12/18/2023 LIPID PANEL Routine 11/21/2022 COLONOSCOPY Routine 12/30/2021 HEPATITIS C SCREENING Routine 07/21/2013 ABDOMINAL AORTIC ANEURYSM SCRREN Routine 03/23/2009 from Last 3 Months or Most Recently Relevant to Health Maintenance Results * Falls Risk Assessment (01/16/2024) Falls Risk Assessment abstracted us Historical Provider HEALTH MAINTENANCE Final Result * Depression Screening (01/16/2024) Pathologist [facility] Depression Screening abstracted [facility] Provider HEALTH MAINTENANCE Final Result * Annual BMP Blood Test (12/18/2023) Pathologist [facility] Annual BMP Blood Test abstracted [facility] Provider HEALTH MAINTENANCE Final Result * Lipid panel (11/21/2022) [facility] LDL/HDL Ratio 2 0 - 4 Triglycerides 113 0 - 150 mg/dL Cholesterol 99 0 - 200 mg/dL HDL 47 >=40 mg/dL LDL Cholesterol 30 0 - 100 mg/dL Blood Venous blood specimen / Unknown [facility] Provider LAB BLOOD ORDERABLES Mary Grace l Result * Colonoscopy (12/30/2021) Pathologist [facility] Colonoscopy no interpretation , abstracted Anatomical Region Laterality Modality Other [facility] Provider HEALTH MAINTENANCE Final Result * Hepatitis C Screening (07/21/2013) [facility] Hepatitis C Screening abstracted [facility] Provider HEALTH MAINTENANCE Final Result * Abdominal Aortic Aneurysm Screen (03/23/2009) Pathologist [facility] Abdominal Aortic Aneurysm (AAA) Screening abstracted Anatomical Region Laterality Modality Other [facility] Provider HEALTH MAINTENANCE Final Result from Last 3 Months or Most Recently Relevant to Health Maintenance Insurance MEDICARE [facility] Care Teams Cigar Head Stringer Relationship Specialty Start Date End Date Marquita Morales MD [address] [place] [address] PCP - General 03/17/1992
--- OUTSIDE RECORDS SUMMARY | 2024-08-13 14:03 | XMS_ITS | Clinical Summary ---
Author Organization [facility] Address [address] [place] [address] Care Team Providers Care Credit Or Loans Officer Name Role Phone Marquita Morales MD Primary Care Provider [phone] Allergies No known active allergies Medications Medication Sig Dispensed Refills Start Date End Date Status atorvastatin (LIPITOR) tablet 10 mg 0 05/23/2018 Active azelastine (ASTELIN) 0.1 % nasal spray 0 05/16/2018 Active montelukast (SINGULAIR) 10 MG tablet 0 05/16/2018 Active Active Problems Problem Noted Date Diagnosed Date Primary osteoarthritis of both knees 06/20/2018 Family History Medical History Relation Name Comments Heart disease Brother Anesthesia problems Mother Cancer Mother Anesthesia problems Sister Relation Name Status Comments Brother Mother Sister Social History Tobacco Use Types Packs/Day Years Used Date Smoking Tobacco: Former Smokeless Tobacco: Never Alcohol Use Standard Drinks/Week Comments Yes 0 (1 standard drink = 0.6 oz pur e alcohol) Sex and Gender Information Value Date Recorded Sex Assigned at Not on file Gender Identity Not on file Sexual Orientation Not on file Job Start Date Occupation Industry Not on file Not on file Not on file Last Filed Vital Signs Vital Sign Reading Time Taken Comments Blood Pressure - - Pulse - - Temperature - - Respiratory Rate - - Oxygen Saturation - - Inhaled Oxygen Concentration - - Weight 90.7 kg (200 lb) 06/20/2018 2:44 PM EST Height 177.8 cm (5' 10 ) 06/20/2018 2:44 PM EST Body Mass Index 28.7 06/20/2018 2:44 PM EST Plan of Treatment Health Maintenance Due Date Last Done Comments Hepatitis C Screening 1953 Depression Screening 1965 Preventative Health Evaluation 09/14/1971 Colon Cancer Screening (Colonoscopy) 1998 Shingrix-Zoster Vaccine (1 of 2) 09/14/2003 Fall Risk Assessment 2018 Pneumococcal Vaccine (1 of 1 - PCV) 2018 COVID-19 Vaccine ( - season) 2024 04/08/2023, 04/22/2021, 09/18/2020, Additional history exists Influenza Vaccine (#1) 2024 , 03/23/2022, 05/13/2021, Additional history exists RSV Adult > 60+ Yrs or (1 - 1-dose 75+ series) 2028 DTap / Tdap / Td (3 - Td or Tdap) 05/04/2032 05/04/2022, 08/19/2011 Hepatitis B Vaccines Aged Out No long er eligible based on patient's age to complete this topic RSV Ped < 20 months Aged Out No longe r eligible based on patient's age to complete this topic Care Teams Credit Or Loans Officer Relationship Specialty Start Date End Date Marquita Morales MD PCP - General Internal Medicine 05/28/18
--- OUTSIDE RECORDS SUMMARY | 2024-08-13 14:03 | XMS_ITS | Clinical Summary ---
Author Organization [address] Address [address] [place] [phone] Phone Care Team Providers Care Net Coordinator Name Role Phone Promise Morales MD Primary Care Provider [phone] Allergies No known active allergies Social History Tobacco Use Types Packs/Day Years Used Date Smoking Tobacco: Never Assessed Sex and Gender Information Value Date Recorded Sex Assigned at Male 03/04/2022 8:09 PM EDT Legal Sex Male 7:51 PM EDT Gender Identity Male 03/04/2022 8:09 PM EDT Sexual Orientation Not on file Last Filed Vital Signs Vital Sign Reading Time Taken Comments Blood Pressure 148/88 03/04/2022 10:45 PM EDT Pulse 69 03/04/2022 9:02 PM EDT Temperature 36.9 ??C (98.4 ??F) 03/04/2022 8:00 PM ED T Respiratory Rate 18 03/04/2022 9:02 PM EDT Oxygen Saturation 97% 03/04/2022 8:00 PM EDT Inhaled Oxygen Concentration - - Weight 85.5 kg (188 lb 7.9 oz) 03/04/2022 8:03 P M EDT Height 175.3 cm (5' 9 ) 03/04/2022 8:03 PM EDT Body Mass Index 27.84 03/04/2022 8:03 PM EDT Plan of Treatment Health Maintenance Due Date Last Done Comments HIV screening 1966 Hepatitis C screening 09/14/1971 Lipid disorder screening 1993 Colon cancer screening, Colonoscopy 1998 Shingles vaccine (Shingrix) (1 of 2 - Shingrix (RZV) 2 Dose Standard Series) 09/14/2003 Pneumo Vaccine 65+ (1 of 1 - PCV) 2018 Tetanus adult (Td q 10,TDAP once) 08/19/2021 08/19/2011 Influenza vaccine 02/01/2024 05/13/2021, , 05/10/2019, Additional history exists Covid-19 vaccine series ( season) 2024 04/22/2021, 09/18/2020, 08/27/2020 Diabetes screening 03/04/2025 03/04/2022 RSV Discussion (1 - 1-dose 75+ series) 2028 Meningococcal Vaccine Aged Out No guerline mark eligible based on patient's age to complete this topic Procedures Procedure Name Priority Date/Time Associated Diagnosis Comments BASIC METABOLIC PANEL STAT 03/04/2022 8:30 PM EDT from Last 3 Months or Most Recently Relevant to Health Maintenance Results * (ABNORMAL) Basic metabolic panel (03/04/2022 8:30 PM EDT) Glucose 180(H) 65 - 110 mg/dL 03/04/2022 8:55 PM [facility] Comment: Non-fasting: ??65-110 mg/dL Fasting (minimum 6 hrs): ??65-99 mg/dL BUN 18 7 - 18 mg/dL 03/04/2022 8:55 PM [facility] Creatinine 1.05 0.70 - 1.30 mg/dL 03/04/2022 8:55 PM [facility] Sodium 142 136 - 145 mmol/L 03/04/2022 8:55 PM [facility] Potassium 3.7 3.5 - 5.1 mmol/L 03/04/2022 8:55 PM [facility] Chloride 106 98 - 107 mmol/L 03/04/2022 8:55 PM [facility] CO2 26 21 - 32 mmol/L 03/04/2022 8:55 PM [facility] Anion Gap 10 5 - 15 mmol/L 03/04/2022 8:55 PM [facility] Calcium 8.8 8.5 - 10.1 mg/dL 03/04/2022 8:55 PM EDT [facility] eGFR (Creatinine) >60 >=60 mL/min/1.7 3m2 03/04/2022 8:55 PM EDT [facility] Comment:Estimated glomerular filtration rate (eGFR) was calculated using the improved CKD-EPI Creatinine (2020) equation. The eGFR provides a rough estimate of kidney function within 30% variability. Values under 60 mL/min/1.73 m2 may indicate CKD if noted for more than 3 months. The eGFR is only valid if creatinine is at steady state. Blood Venipuncture / Unknown 03/04/2022 8:30 PM EDT 03/04/2022 8:32 PM EDT Donn Pickard MD LAB BLOOD [place] [address], [facility] [phone] from Last 3 Months or Most Recently Relevant to Health Maintenance Insurance MEDICARE [facility] MEDICARE [facility] MEDICARE [facility] Care Teams Net Coordinator Relationship Specialty Start Date End Date Promise Morales MD PCP - General Internal Medicine 03/04/22
--- OUTSIDE RECORDS SUMMARY | 2024-08-13 14:03 | XMS_ITS | Encounter Summary ---
Author Organization [facility] Address [address] [place] [address] Care Team Providers Care Denture Packer Name Role Phone Marquita Morales MD Primary Care Provider [phone] Reason for Visit * Reason Onset Date Comments Nasal Congestion 07/30/2024 Encounter Details Date Type Department Care Team (Late st Contact Info) Description 07/30/2024 Telephone Adult Medicine [facility] [address] [place] [phone] Marquita Morales MD [address], [place] [phone] Nasal Congestion Social History Tobacco Use Types Packs/Day Years Used Date Smoking Tobacco: Former Smokeless Tobacco: Never Alcohol Use Standard Drinks/Week Comments No 0 (1 standard drink = 0.6 oz pur e alcohol) Sex and Gender Information Value Date Recorded Sex Assigned at Not on file Legal Sex Male 11:36 AM EST Gender Identity Not on file Sexual Orientation Not on file documented as of this encounter Progress Notes * Michelle Cuevas, MARIO - 07/30/2024 10:14 AM EST Pt has had congestion since he was seen in June , cough persisted for a month, a week ago coughresolved but he still has nasal congestion No chest wall pain with deep breath and cough, denies SOB, able to speak in full sentences and has no audible wheezing, using inhaler, Flonase as directed with relief, cough is productive for Sputum,nasal congestion is worse all day, has allergies but this is causing problems all day long , deniesfever (has not taken temp) able to take PO with no difficulty, denies N/V/D, Advised homecare following the cough Protocol. RN reinforced telephone consultation and advice. Reviewed with the patient the signs and symptoms to watch for that would require immediate attention. If symptoms change, worsen or increase in intensity, to call back immediately. Appointment at 11:30 * Gemma Barba - 07/30/2024 10:04 AM EST Patient call requires triage: Symptoms patient is presenting: patient is calling stating that he is had a constant nasal conjestion on and off again systems since 05/03/2025. Patient is wondering if he should be seen or just needs new medication. How long has patient had these symptoms?: 05/03/2024 For ALL patients calling to schedule any appointment (routine, sick visit, follow up, consult, etc.) in the outpatient setting please ask the following questions: Do you have fever of higher than 101, sore throat with difficulty swallowing or severe shortness ofbreath? Yes- shortness of breath, coughing first month. If YES to any of these above symptoms, send a message to triage and do not book. Red dot. If no, an audio or video visit should be booked. Have you had close contact with someone with Coronavirus in the last 14 days? no Have you traveled abroad? no Have you traveled recently to another state outside of [place], [place], [place], [place], [place], [place], [place]? no o If yes, did you quarantine for 14 days or have a negative covid test? no If yes to any of the above, patient is not to be scheduled in office until after 14 day quarantine or negative covid test. If pain or injury related was it due to an accident at work or from a motor vehicle accident? If yes, date of accident/Injury: No If yes, gather 3rd libertarian insurance information Third Democrat Information: not applicable PCP: Marquita Morales MD Payor: MEDICARE / Plan: MEDICARE PART A & B / Product Type: Medicare / documented in this encounter Plan of Treatment Upcoming Encounters Date Type Department Care Team (Late st Contact Info) Description 10/03/2024 11:00 AM EDT Office Visit Adult Medicine [facility] [address] [place] [phone] Marquita Morales MD [address] [place] [address] documented as of this encounter Visit Diagnoses Not on filedocumented in this encounter Care Teams Denture Packer Relationship Specialty Start Date End Date Marquita Morales MD [address] [place] [id number] PCP - General 03/17/1992 documented as of this encounter
--- OUTSIDE RECORDS SUMMARY | 2024-08-13 14:03 | XMS_ITS | Encounter Summary ---
Author Organization [facility] Address [address] [place] [address] Care Team Providers Care Facing Grinder Name Role Phone Marquita Morales MD Primary Care Provider [phone] Reason for Visit * Reason Comments Nasal Congestion On and off x1 month congestion Encounter Details Date Type Department Care Team (Late st Contact Info) Description 07/30/2024 11:30 AM EST Office Visit Adult Medicine [facility] [address] [place] [phone] Kirit Downs [employer]LECT[employer]ICAL [employer]TACTS ADJUSTER [address] [place] [phone] Allergic rhinitis, unspecified seasonality, unspecified trigger (Primary Dx); Malignant neoplasm of urinary bladder, unspecified site (CMS/HCC); Pure hypercholesterolemia; Encounter for screening for cardiovascular disorders; Encounter for screening for malignant neoplasm of prostate Social History Tobacco Use Types Packs/Day Years [...] on file documented as of this encounter Last Filed Vital Signs Vital Sign Reading [...] Mass Index 29.39 07/30/2024 11:28 AM EST documented in this encounter Ordered Prescriptions Prescription Sig Dispense Quantity Refills Last Filled Start Date End Date montelukast (SINGULAIR) 10 mg tabletIndications: Allergic rhinitis, unspecified seasonality, unspecified trigger Take 1 tablet (10 mg total) by mouth at bedtime. 90 each 1 07/30/2024 fluticasone propionate (FLONASE) 50 mcg/actuation nasal sprayIndications:A llergic rhinitis, unspecified seasonality, unspecified trigger Administer 2 sprays into each nostril 2 (two) times a day. Shake gently. Before first use, prime pump. After use, clean tip and replace cap. 16 g 1 07/30/2024 albuterol HFA (Proventil HFA) 90 mcg/actuation inhalerIndications :Allergic rhinitis, unspecified seasonality, unspecified trigger Inhale 2 puffs by mouth every 4 (four) hours if needed for wheezing or shortness of breath. 6.7 g 07/30/2024 documented in this encounter Progress Notes * Kirit Downs ELECT[employer]ICAL CONTACTS ADJUSTER - 07/30/2024 11:30 AM ESTAssociated Problem(s): Allergic rhinitis I will try patient on Singulair 10 mg at bedtime. Patient is to continue following up with biomedical equipment technician Orders: albuterol HFA (Proventil HFA) 90 mcg/actuation [...] (10 mg total) by mouth at bedtime. * Kirit Downs NP - 07/30/2024 11:30 AM ESTAssociated Problem(s): Pure hypercholesterolemia Last LDL 30. Patient is to continue Praluent as prescribed by cardiology. Cardiovascular risk and specific lipid/LDL goals reiterated. Orders: Lipid panel with reflex to direct LDL; Future * Kirit Downs NP - 07/30/2024 11:30 AM EST PATIENT'S PCP: Marquita Morales MD LAST VISIT IN THIS DEPARTMENT: 07/30/2024 Alberto Lopez is a 68 y.o. (: 1955) male who presents today for: Chief Complaint Patient presents with Nasal Congestion On and off x1 month congestion SUBJECTIVE Patient present for recurrent nasal congestion. Patient has a relevant past medical history of allergic rhinitis. He is followed by biomedical equipment technician and gets allergy shots monthly. He is currently on Zyrtec's and Flonase. Patient is states he need a refill on his Flonase. He has an appointment with his biomedical equipment technician this week. He denies fever or chills, Shortness of breath, or cough. Patient was diagnosed with bladder cancer in 2023. Back in October patient was referred to urology due to hematuria. He is followed by [facility] urologist and oncologist, Dr. Galvan. He completed chemotherapy in June 2024, Mitomcim- Cytarabine to treat none muscle-invasive bladder cancer (NMIBC). He has an appointment to follow-up with urology on August 2024 for cystoscope. Today denied hematuria, urinary retention, dysuria fevers or chills. Hypercholesterolemia: LDL was 38. Patient is not on a statin, but he is on Praluent twice monthly. This medication is prescribed by cardiology. He is tolerating medication well. Alberto denies nausea,abdominal pain, jaundice or pronounced persistent, diffuse muscle pain. CARDIAC RISK FACTORS: Hyperlipidemia, atrial fibrillation, coronary artery disease, CALOS, NSVT, CRICKET. Health maintenance: AAA screening completed 01/22/2024. Colonoscopy completed April 27, 2024. Patient is to repeat in 3 years in 2026. ROS Review of Systems Constitutional: Negative. HENT: Positive for congestion. Eyes: Negative. Respiratory: Negative. Negative for cough, shortness of breath and wheezing. Cardiovascular: Negative. Gastrointestinal: Negative. Genitourinary: Negative. Negative for difficulty urinating, dysuria, flank pain, hematuria and testicular pain. Skin: Negative. Neurological: Negative. Hematological: Negative. The following portions of the patient's chart were reviewed in this encounter and updated as appropriate: OBJECTIVE Vitals: 07/30/24 1128 BP: 110/50 Pulse: 64 Resp: 15 Temp: 36.5 ??C (97.7 ??F) SpO2: 95% Weight: 90.3 kg (199 lb) Height: 1.753 m (69 ) Body mass index is 29.39 kg/m??. Plan is deferred until next visit Allergies Allergen Reactions Atorvastatin Calcium Other Reaction(s): Myalgia and Joint Pain Ciprofloxacin Rash Other Seasonal Allergies Rosuvastatin Other Reaction(s): Myalgia and Joint Pain Simvastatin Other Reaction(s): Myalgia and Joint Pain Active Medication: Current Outpatient Medications Medication Instructions albuterol HFA (Proventil HFA) 90 mcg/actuation inhaler 2 puffs, inhalation, Every 4 hours PRN carvediloL (COREG) 3.125 mg, oral, 2 times daily with meals, Prescribed By [facility] EPINEPHRINE HCL INJ injection, See admin instructions fluticasone propionate (FLONASE) 50 mcg/actuation nasal spray 2 sprays, Each Nostril, 2 times daily, Shake gently. Before first use, prime pump. After use, clean tip and replace cap. montelukast (SINGULAIR) 10 mg, oral, Nightly NON FORMULARY Allergy Injection (ALLERGY MONTHLY INJECTION, HISTORIC)
Inject as directed every 30 days pantoprazole (PROTONIX) 20 mg EC tablet 1 tablet, oral, Daily, Prescribed By Allergies Praluent Pen 150 mg/mL pen injector Inject 1 mL (150 mg total) as directed every 14 (fourteen) days. Prescribed By [facility] Cardiology for High Cholesterol Physical Exam Vitals reviewed. Constitutional: Appearance: Normal appearance. HENT: Head: Normocephalic and atraumatic. Nose: Congestion present. Mouth/Throat: Mouth: Mucous membranes are moist. Eyes: Conjunctiva/sclera: Conjunctivae normal. Cardiovascular: Rate and Rhythm: Normal rate and regular rhythm. Pulses: Normal pulses. Heart sounds: Normal heart sounds. Pulmonary: Effort: Pulmonary effort is normal. Breath sounds: Normal breath sounds. Musculoskeletal: Cervical back: Normal range of motion and neck supple. Skin: General: Skin is warm and dry. Neurological: General: No focal deficit present. Mental Status: He is alert and oriented to person, place, and time. Imaging No Pertinent Imaging Laboratory: CBC: No results found for: WBC , HGB , HCT , MCV , PLT Assessment & Plan Allergic rhinitis, unspecified seasonality, unspecified trigger I will try patient on Singulair 10 mg at bedtime. Patient is to continue following up with biomedical equipment technician Orders: albuterol HFA (Proventil HFA) 90 mcg/actuation [...] (10 mg total) by mouth at bedtime. Malignant neoplasm of urinary bladder, unspecified site (CMS/HCC) Patient completed chemotherapy in June 2023 with Mitomcim-Cytarabine treat for none muscle-invasive bladder cancer (NMIBC). Patient is to continue following up with urologist and oncologist at [facility]. He has an appointment August 12, 2024 with urologist for cystoscope Patient is to contact office if he develop any hematuria, dysuria or urinary retention. Pure hypercholesterolemia Last LDL 30. Patient is to continue Praluent as prescribed by cardiology. Cardiovascular risk and specific lipid/LDL goals reiterated. Orders: Lipid panel with reflex to direct LDL; Future Encounter for screening for cardiovascular disorders Orders: Lipid panel with reflex to direct LDL; Future Encounter for screening for malignant neoplasm of prostate Orders: Basic metabolic panel; Future Prostate specific antigen screen; Future FOLLOW-UP: Follow up for Patient has appointment with PCP 10/2024. Kirit Downs NP ADULT MEDICINE [address] [address] Today's documentation was made using voice recognition software.This note may contain grammatical errors secondary to this software. documented in this encounter Plan of Treatment Upcoming Encounters Date Type Department Care Team (Late st Contact Info) Description 10/03/2024 11:00 AM EDT Office Visit [address] [phone] Marquita Morales MD [address] [place] [phone] Scheduled Orders Name Type Priority Associated Diagnoses Orde r Schedule Basic metabolic panel Lab Routine Encounter for screening for malignant neoplasm of prostate 1 Occurrences starting 07/30/2024 until 07/30/2025 Prostate specific antigen screen Lab Routine Encounter for screening for malignant neoplasm of prostate 1 Occurrences starting 07/30/2024 until 01/27/2025 Lipid panel with reflex to direct LDL Lab Routine Pure hypercholesterolemia Encounter for screening for cardiovascular disorders 1 Occurrences starting 07/30/2024 until 07/30/2025 documented as of this encounter Visit Diagnoses Diagnosis Allergic rhinitis, unspecified seasonality, unspecified trigger- Primary Malignant neoplasm of urinary bladder, unspecified site (CMS/HCC) Pure hypercholesterolemia Encounter for screening for cardiovascular disorders Encounter for screening for malignant neoplasm of prostate documented in this encounter Discontinued Medications Medication Sig Discontinue Reason Start Date End Da te predniSONE (DELTASONE) 20 mg tablet Take 60 mg PO daily for 3 days, then take 40 mg PO daily for 3 days, then 20 mg PO daily for 3 days, then stop 06/04/2024 07/30/2024 fluticasone propionate (FLONASE) 50 mcg/actuation nasal spray 2 Sprays by Each Nare route daily for 360 days. Reorder 06/02/2023 07/30/2024 albuterol HFA (Proventil HFA) 90 mcg/actuation inhaler Inhale 2 puffs by mouth every 4 (four) hours if needed for wheezing or shortness of breath. Reorder 06/04/2024 07/30/2024 documented as of this encounter Care Teams Facing Grinder Relationship Specialty Start Date End Date Marquita Morales MD [address] [place] [address] PCP - General 03/[birth year]1992 documented as of this encounter
--- OUTSIDE RECORDS SUMMARY | 2024-08-13 14:03 | XMS_ITS | Continuity of Care Document ---
Author Organization [place] - [facility], [facility] Address [address] [place] [address] Assessment Encounter Date Assessment Date Assessment LastModified by Organization Details LastModified Time 08/09/2024 08/09/2024 68-year-old male presents for cerumen removal. Cerumen impaction removed bilaterally. Follow-up in 6 months for routine debridement. [email or web address] Not available 08/09/2024 10:31:15 Plan of Treatment Reminders Order Date Submit Date Provider Last Modified By Organization Details Last Modified Time Details Appointments Establish ed 15 2024 09:15A M DILMA MILES PA-C Not available Not available Not available Lab None recorded. Referral None recorded. Procedures None recorded. Surgeries None recorded. Imaging None recorded. Medication Orders None recorded. Patient TargetsNo targets recorded. Patient InstructionsNo instructions recorded. Reason for Referral None Reported. 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 Other specifie d disorder s of Eustachi an tube, unspecif ied ear; Note: Date Diagnose d: 2 2:38 PM (H69.80) Not Available [facility] 4 02:50:56 Impacted cerumen of bilatera l ears 38685024309 85902 Active 2022 Impacted cerumen, bilatera l; Note: Date Diagnose d: 04/26/20 10:05 AM (H61.23) Impact ed cerumen, bilatera l; Note: Date Diagnose d: 05/25/20 10:49 AM (H61.23) ; Start Date : 05/25/20 Not Available [facility] 4 02:50:58 Allergic rhinitis caused by pollen 21584196 Active 2021 Allergic rhinitis due to pollen; Note: Date Diagnose d: 2 2:35 PM (J30.1) Not Available [facility] 4 02:50:53 Impacted cerumen in left ear 82966043467 64006 Active 2023 Impacted cerumen, left ear; Note: Date Diagnose d: 08/08/2023 11:22 AM (H61.22) Not Available [facility] 4 02:50:56 Allergic rhinitis 59778188 Active 2023 DILMA MILES PA-C [address] [place] [address],[address], [address] , [facility] - [facility] 4 09:51:15 Problem Notes None recorded. Procedures Surgical History Date Name Laterality Status Provider Name and Address Organization Details Recorded Time 5 Cerumen removal without microscope bilat completed DILMA MILES PA-C [address] [place] [address],[address], [phone], [facility] - [facility] 08/09/2024 10:42:52 4 Cerumen removal without microscope bilat completed DILMA MILES PA-C [address] [facility],[address], [address], [place] - [facility] 02/05/2024 09:51:04 Imaging Results None recorded. Procedure Notes None recorded. Medical Equipment None Reported. Allergies Allergen ID Allergen Name Allergen Category Reaction Reaction Severity Criticality Documentation Date Start Date Code Code System Note Provider Name and Address Organization Details Recorded Time 455299 Cipro medicatio n other Not available Not available 11/14/2023 70662 3 RxNorm React ion: other react ion, Unkno wn; Not Available [facility] 01:23:35 Medications Name Sig Start Date Stop Date Status Note LastModified by Organization Details LastModified Time xarelto no dispense - refill NO DISPENSE active Not Available Not Available No t Available amoxicilli n 500 mg capsule active Not Available Not Available Not Available carvedilol 6.25 mg tablet active Not Available Not Available Not Available prednisone 10 mg tablet active Not Available Not Available Not Available azithromyc in 250 mg tablet active Not Available Not Available Not Available ondansetro n HCl 4 mg tablet 2021 active Medicatio n ID: [id number] Br and Name: ondansetr on HCl Send Method: E-Prescri bed Subs Allowed: subs OK Medica tionGener icName: ondansetr on HCl Not Available Not Available Not Available prednisone 20 mg tablet active Not Available Not Available Not Available tramadol 50 mg tablet 2021 active Medicatio n ID: [id number] Br and Name: tramadol Send Method: E-Prescri bed Subs Allowed: subs OK Medica tionGener icName: tramadol Not Available Not Available Not Available carvedilol 3.125 mg tablet active Not Available Not Available Not Available pantoprazo le 20 mg tablet,del ayed release active Not Available Not Available Not Available ofloxacin 0.3 % ear drops 4 drop into right ear 2021 active Medicatio n ID: [id number] Du ration Value: 10 Prescrib ed By Name: ALBERTA Mohamud Name: ofloxacin Send Method: E-Prescri bed Subs Allowed: subs OK Specia l Instructi on: x 10 days Medi cationGen ericName: ofloxacin Not Available Not Available Not Available hydromorph one 2 mg tablet 2021 active Medicatio n ID: [id number] Br and Name: hydromorp bryan Send Method: E-Prescri bed Subs Allowed: subs OK Medica tionGener icName: hydromorp bryan Not Available Not Available Not Available pantoprazo le 40 mg tablet,del ayed release 2021 active Medicatio n ID: [id number] Br and Name: pantopraz ole Send Method: E-Prescri bed Subs Allowed: subs OK Medica tionGener icName: pantopraz ole Not Available Not Available Not Available clotrimazo le-betamet hasone 1 %-0.05 % topical cream active Not Available Not Available Not Available clotrimazo le 1 % topical solution 2021 active Medicatio n ID: [id number] Du ration Value: 14 Prescrib ed By Name: ALBERTA Mohamud Name: clotrimaz ole Send Method: E-Prescri bed Subs Allowed: subs OK Specia l Instructi on: 4 drops to right ear twice daily X 14 days Medi cationGen ericName: clotrimaz ole Not Available Not Available Not Available montelukas t 10 mg tablet active Not Available Not Available Not Available albuterol sulfate HFA 90 mcg/actuat ion aerosol inhaler active Not Available Not Available Not Available fluticason e propionate 50 mcg/actuat ion nasal spray,susp ension active Not Available Not Available Not Available amoxicilli n 875 mg-potassi um clavulanat e 125 mg tablet active Not Available Not Available Not Available oxycodone 5 mg tablet 2021 active Medicatio n ID: [id number] Br and Name: oxycodone Send Method: E-Prescri bed Subs Allowed: subs OK Medica tionGener icName: oxycodone Not Available Not Available Not Available TobraDex 0.3 %-0.1 % eye drops,susp ension 3 drop 2021 active Medicatio n ID: [id number] Du ration Value: 10 Prescrib ed By Name: ALBERTA Mohamud Name: TobraDex Send Method: E-Prescri bed Subs Allowed: subs OK Specia l Instructi on: Instill 3 drops in the right ear twice daily for 10 days Medi cationGen ericName: TobraDex Not Available Not Available Not Available Xarelto 20 mg tablet TAKE 1 TABLET BY MOUTH EVERY DAY AT SUPPER - DISCONTIN UE ELIQUIS active Not Available Not Available No t Available Eliquis 5 mg tablet 2021 active Medicatio n ID: [id number] Br and Name: Eliquis S end Method: E-Prescri bed Subs Allowed: subs OK Medica tionGener icName: Eliquis Not Available Not Available Not Available Eliquis 2.5 mg tablet 2021 active Medicatio n ID: [id number] Br and Name: Eliquis S end Method: E-Prescri bed Subs Allowed: subs OK Specia l Instructi on: TAKE 1 TABLET BY MOUTH TWO TIMES A DAY FOR 7 DAYS THEN RESTART HOME DOSE Medi cationGen ericName: Eliquis Not Available Not Available Not Available Praluent Pen 150 mg/mL subcutaneo us pen injector active Not Available Not Available Not Available Vitals Date Recorded Body height Body mass index (BMI) Body weight Provider Name and Address Organization Details Last Updated DateTime 08/09/2024 177.8 cm 28.7 kg/m2 53896.47 g Naila Aguirre [place] - [facility] 08/09/2024 10:37:02 Social History None recorded. Functional Status None recorded. Mental Status None recorded. Family History Nothing Reported. Medical History No medical history recorded. Past Encounters Encounter ID Performer Location Encounter Start Date Encounter Closed Date Diagnosis/Indication Diagnosis SNOMED-CT Code Diagnosis ICD10 Code Diagnosis Note [id number] LEBRON REED MD [facility] [address] [address] 08/09/2024 10:27:18 08/09/2024 10:41:56 Impacted cerumen of bilateral ears [id number] 928770 H61.23 Health Concerns Section Related Observation LastModified by Organization Detai ls LastModified Time None Recorded Concern Status LastModified by Organization Details LastModified Time None Recorded Payers Encounter Date Sequence Insurance Name Policy Number Policy Griffin Covered Member ID Griffin Member ID Guarantor Name 08/09/2024 2 [place] [id number] Alberto Lopez [id number] Alberto Lopez 08/09/2024 1 [place] [employer] Alberto Lopez [id number] Alberto Lopez Notes Date Note Type Note Provider Name and Address Organization Details Recorded Time 08/09/2024 text/html 68-year-old male presents for cerumen removal. Uses hearing aids dispensed from [employer]. No concerns today. LEBRON REED MD [address] [place] [address], [phone], [facility] - [facility] 08/12/2024 08:00:21
--- OUTSIDE RECORDS SUMMARY | 2024-08-13 14:03 | XMS_ITS | Data Portability ---
Author Organization [facility], Allergy Address [address] [address] Assessment Encounter Date Assessment Date Assessment LastModified by Organization Details LastModified Time 02/05/2024 02/05/2024 68-year-old male presents for cerumen removal. Cerumen impaction removed bilaterally. Follow-up in 6 months for routine debridement. Patient with history of allergic rhinitis undergoing immunotherapy at [facility]. Recommended trial of Flonase nasal spray once daily in addition to Zyrtec. He will follow-up if symptoms persist or worsen. [email or web address] Not available 02/05/2024 09:52:33 08/09/2024 08/09/2024 68-year-old male presents for cerumen removal. Cerumen impaction removed bilaterally. Follow-up in 6 months for routine debridement. [email or web address] Not available 08/09/2024 10:31:15 Plan of Treatment [...] instructions recorded. Reason for Referral None Reported. Results Created Date Observation Date Name Description Value Unit Range Abnormal Flag Note LastModifiedBy Organization Detail LastModifiedTime 02/22/20 24 10/27/2021 imagi ng/di agnos tic resul t No observ ation record ed. [email or web address] Not Available 17:18:26 02/22/20 24 10/27/2021 audio gram No observ ation record ed. [email or web address] Not Available 17:18:46 Result Notes None recorded. Problems Name Problem SNOMED Code Status Onset Date Resolution Date Notes Provider Name and Address Organization Details Recorded Time Otitis externa of right ear 38957749539 79946 Completed 202102/02/2024 Other otitis externa, right ear; Note: Date Diagnose d: 2 2:15 PM (H60.8X1 ) Not Available [facility] 4 02:50:58 Sensorin eural hearing loss of bilatera l ears 289778748 Active 2021 Sensorin eural hearing loss, bilatera l; Note: Date Diagnose d: 2 2:05 PM (H90.3) Not Available [facility] 4 02:50:56 Eustachi an tube disorder 58560513 Active 2021 Other specifie d disorder s of Eustachi an tube, unspecif ied ear; Note: Date Diagnose d: 2 2:38 PM (H69.80) Not Available [facility] 4 02:50:56 Impacted cerumen of bilatera l ears 87300903949 70562 Active 2022 Impacted cerumen, bilatera l; Note: Date Diagnose d: 04/26/20 10:05 AM (H61.23) Impact ed cerumen, bilatera l; Note: Date Diagnose d: 05/25/20 10:49 AM (H61.23) ; Start Date : 05/25/20 Not Available [facility] 4 02:50:58 Allergic rhinitis caused by pollen 10145097 Active 2021 Allergic rhinitis due to pollen; Note: Date Diagnose d: 2 2:35 PM (J30.1) Not Available [facility] 4 02:50:53 Impacted cerumen in left ear 31588986380 36495 Active 2023 Impacted cerumen, left ear; Note: Date Diagnose d: 08/08/2023 11:22 AM (H61.22) Not Available [facility] 4 02:50:56 Allergic rhinitis 24125371 Active 2023 DILMA MILES PA-C [address] [facility],[place] [address], [place], [address] , [facility] 4 09:51:15 Problem Notes None recorded. Procedures Surgical History Date Name Laterality Status Provider Name and Address Organization Details Recorded Time 5 Cerumen removal without microscope bilat completed DILMA MILES PA-C [address] [facility],[place] [address], [place], [address], [facility] 08/09/2024 10:42:52 4 Cerumen removal without microscope bilat completed DILMA MILES PA-C [address] [facility],[place] [address], [place], [address], [facility] 02/05/2024 09:51:04 Imaging Results Imaging Date Name Status LastModified by Organiz ation Details LastModified Time 10/27/2021 imaging/diagno stic result completed [email or web address] Information not available 02/22/2024 17:18:26 10/27/2021 audiogram completed [email or web address] [email or web address] Information not available 02/22/2024 17:18:46 Procedure Notes None recorded. Medical Equipment None Reported. Allergies Allergen ID Allergen Name Allergen Category Reaction Reaction Severity Criticality Documentation Date Start Date Code Code System Note Provider Name and Address Organization Details Recorded Time 778262 Cipro medicatio n other Not available Not available 11/14/202304989 3 RxNorm React ion: other react ion, Unkno wn; Not Available [facility] 4 01:23:35 Medications Name Sig Start Date Stop [...] mg tablet 2021 active Medicatio n ID: [id number] Br and Name: ondansetr on HCl Send Method: E-Prescri bed Subs Allowed: subs OK Medica tionGener icName: ondansetr on HCl Not Available Not Available Not Available prednisone 20 mg tablet active Not Available Not Available Not Available tramadol 50 mg tablet 2021 active Medicatio n ID: [id number] Br and Name: tramadol Send Method: E-Prescri bed Subs Allowed: subs OK Medica tionGener icName: tramadol Not Available Not Available Not Available carvedilol 3.125 mg tablet active Not Available Not Available Not Available pantoprazo le 20 mg tablet,del ayed release active Not Available Not Available Not Available ofloxacin 0.3 % ear drops 4 drop into right ear 2021 active Medicatio n ID: [id number] Du ration Value: 10 Prescrib ed By Name: ALBERTA Mohamud Name: ofloxacin Send Method: E-Prescri bed Subs Allowed: subs OK Specia l Instructi on: x 10 days Medi cationGen ericName: ofloxacin Not Available Not Available Not Available hydromorph one 2 mg tablet 2021 active Medicatio n ID: [id number] Br and Name: hydromorp bryan Send Method: E-Prescri bed Subs Allowed: subs OK Medica tionGener icName: hydromorp bryan Not Available Not Available Not Available pantoprazo le 40 mg tablet,del ayed release 2021 active Medicatio n ID: [id number] Br and Name: pantopraz ole Send Method: E-Prescri bed Subs Allowed: subs OK Medica tionGener icName: pantopraz ole Not Available Not Available Not Available clotrimazo le-betamet hasone 1 %-0.05 % topical cream active Not Available Not Available Not Available clotrimazo le 1 % topical solution 2021 active Medicatio n ID: [id number] Du ration Value: 14 Prescrib ed By [...] mg tablet 2021 active Medicatio n ID: [id number] Br and Name: oxycodone Send Method: E-Prescri bed Subs Allowed: subs OK Medica tionGener icName: oxycodone Not Available Not Available Not Available TobraDex 0.3 %-0.1 % eye drops,susp ension 3 drop 2021 active Medicatio n ID: [id number] Du ration Value: 10 Prescrib ed By [...] mg tablet 2021 active Medicatio n ID: [id number] Br and Name: Eliquis S end Method: E-Prescri bed Subs Allowed: subs OK Medica tionGener icName: Eliquis Not Available Not Available Not Available Eliquis 2.5 mg tablet 2021 active Medicatio n ID: [id number] Br and Name: Eliquis S end Method: [...] and Address Organization Details Last Updated DateTime 02/05/2024 177.8 cm 28.7 kg/m2 84405.47 g Naila Aguirre [facility] 02/05/2024 09:19:29 Date Recorded Body height Body mass index (BMI) Body weight Provider Name and Address Organization Details Last Updated DateTime 08/09/2024 177.8 cm 28.7 kg/m2 51108.47 g Naila Aguirre [facility] 08/09/2024 10:37:02 Social History None recorded. Functional Status None recorded. Mental Status None recorded. Family History Nothing Reported. Medical History No medical history recorded. Past Encounters Encounter ID Performer Location Encounter Start Date Encounter Closed Date Diagnosis/Indication Diagnosis SNOMED-CT Code Diagnosis ICD10 Code Diagnosis Note [id number] LEBRON REED MD [facility] [address] [address] 02/05/2024 09:12:10 02/05/2024 09:32:13 Impacted cerumen of bilateral ears 5072170212 493256 H61.23 Allergic rhinitis 900655 04 J30.89 [id number] LEBRON REED MD [facility] [address] [address] 08/09/2024 10:27:18 08/09/2024 10:41:56 Impacted cerumen of bilateral ears 1928815946 128290 H61.23 Health Concerns Section Related Observation LastModified by Organization Detai ls LastModified Time None Recorded Concern Status LastModified by Organization Details LastModified Time None Recorded Advance Directives Directive None Recorded Payers Encounter Date Sequence Insurance Name Policy Number Policy Griffin Covered Member ID Griffin Member ID Guarantor Name 02/05/2024 2 [place] [id number] Alberto L Boisseau [id number] Alberto L Boisseau 02/05/2024 1 [place] [employer] Alberto L Boisseau [id number] Alberto L Boisseau 08/09/2024 2 [place] [id number] Alberto L Boisseau [id number] Alberto L Boisseau 08/09/2024 1 [place] [facility] Alberto Simsprince [id number] Alberto Simselvinkamryn Notes Date Note Type Note Provider Name and Address Organization Details Recorded Time 02/05/2024 text/html 68-year-old male presents for cerumen removal. Uses hearing aids dispensed from [email or web address]. Notes some ear pressure, worse in the fall. On immunotherapy at [facility] for allergic rhinitis. Takes Zyrtec daily with improvement. LEBRON REED MD [address] [place] [address], [address], [facility] - [facility] 02/05/2024 17:46:34 08/09/2024 text/html 68-year-old male presents for cerumen removal. Uses hearing aids dispensed from [email or web address]. No concerns today. LEBRON REED MD [address] [place] [address],[address], [address], [facility] - [facility] 08/12/2024 08:00:21
== END 2024-08-13 14:03 | disposition home or self-care (01) ==
PROVIDERS: PCP Internal Medicine; Visit Provider Urology
DX: C61 Malignant neoplasm of prostate (principal); N52.31 Erectile dysfunction following radical prostatectomy; C67.9 Malignant neoplasm of bladder, unspecified; Z13.9 Encounter for screening, unspecified
CPT/HCPCS: 52000; 99213

== ENCOUNTER 2024-11-12 13:54 | Outpatient (REF) | payer MEDICARE, SELFPAY ==
--- OUTSIDE RECORDS SUMMARY | 2024-11-12 15:30 | XMS_ITS | Clinical Summary ---
Author Organization [address] Address [address] [place] [address] Phone Care Team Providers Care Pin Inserter Regulator Name Role Phone Promise Morales MD Primary Care Provider [phone] Allergies No known active allergies Social History [...] - 10.1 mg/dL 03/04/2022 8:55 PM EDT [facility] eGFR (Creatinine) >60 >=60 mL/min/1.7 3m2 03/04/2022 8:55 PM EDT [facility] Comment:Estimated glomerular filtration rate (eGFR) was [...] MD LAB BLOOD ORDERABLES [place] [address], [facility] [phone] from Last 3 Months or Most Recently Relevant to Health Maintenance Insurance MEDICARE [facility] MEDICARE [facility] Member Subscriber Plan / Payer (Ef fective 2022-) Name:Alberto Lopez Relation to Subscriber:Self Name:Alberto Lopez Payer ID:[id number] (NAIC) Group ID:Not on file Type:Not on file Address: [place] [id number] MEDICARE [facility] Care Teams Pin Inserter Regulator Relationship Specialty Start Date End Date Promise Morales MD PCP - General Internal Medicine 03/04/22
--- OUTSIDE RECORDS SUMMARY | 2024-11-12 15:30 | XMS_ITS | Clinical Summary ---
Author Organization [facility] Address [address] [place] [address] Care Team Providers Care Animal Handler Name Role Phone Marquita Morales MD Primary Care Provider [phone] Allergies No known active allergies Medications Medication [...] age to complete this topic Care Teams Animal Handler Relationship Specialty Start Date End Date Marquita Morales MD PCP - General Internal Medicine 05/28/18
--- OUTSIDE RECORDS SUMMARY | 2024-11-12 15:30 | XMS_ITS | Clinical Summary ---
Author Organization [facility] [address] [place] [address] Address [address] [place] [address] Phone Care Team Providers Care Buckram Sewer Name Role Phone Marquita Morales MD Primary Care Provider [phone] Allergies Active Allergy Reactions Criticality Noted Date [...] times a day with meals. Prescribed By [facility] Cardiology Active albuterol HFA (Proventil HFA) [...] Date Malignant neoplasm of urinar y bladder ([facility] V24, [facility] V28) 10/03/2024 Cerebral microvascular disease 10/03/2022 Overview (04/09/2024): See comment by neurology, Dr. Wiggins, imaging study for evaluation of TIA TIA (transient ischemic attack) 07/29/2022 Overview (04/09/2024): Very complex clinical picture, please see note 07/29/22 Coronary artery disease invo lving [place] coronary artery of [place] heart without angina pectoris 06/05/2022 Overview (04/09/2024): Status post non-ST wave elevation myocardial infarction April 2020, status post CABG x6 with preserved LV function Status post right knee replacement 09/07/2021 Atrial fibrillation ([facility] V24, [facility] V28) 0 01/22/2021 NSVT (nonsustained ventricul ar tachycardia) ([facility] V24, [facility] V28) 08/09/2017 Palpitations 08/09/2017 Allergic conjunctivitis 07/06/2015 CALOS (obstructive sleep apnea) 08/22/2013 PLMD (periodic limb movement disorder) 4 Back pain 03/04/2008 Overview (04/09/2024): 2007 CT: multiple levels of degenerative arthritis and disc disease MRI 2016: DJD, spinal stenosis Allergic rhinitis 09/21/2006 Overview (04/09/2024): Follows with machine operator helper, Dr. Anna Assessment & Plan (07/30/2024 12:44 PM EST): I will try patient on Singulair 10 mg at bedtime. Patient is to continue following up with machine operator helper Orders: albuterol HFA (Proventil HFA) 90 mcg/actuation [...] 11:00 AM EDT Office Visit Adult Medicine [address] [address] Marquita Morales MD Allergic rhinitis, unspecified seasonality, unspecified trigger (Primary Dx); Coronary artery disease involving [place] coronary artery of [place] heart without angina pectoris; Pure hypercholesterolemia; Malignant [...] Site/Laterality Comments KNEE ARTHROSCOPY W/ DEBRIDEMENT PROCEDURE: [place] ARTHRS KNEE DEBRIDEMENT/SHAVING ARTCLR CRTLG; COMMENT: left PROSTATECTOMY PROCEDURE: PROSTATECTOMY COLONOSCOPY 12/30/2021 PROCEDURE: HISTORICAL COLONOSCOPY; COMMENT: hemorrhoids Medical History Medical History Date Comments Acute bronchitis 12/09/2005 DX:Acute bronch itis; COMMENT: PFT 05/21/01, some mild reversability Hypercholesteremia DX:Hyperchole steremia Prostate cancer ([facility] V24 , [facility] V28) DX:Prostate cancer ([facility]) Pure hypercholesterolemia 07/05/2005 DX:Pur e hypercholesterolemia [...] 9:30 AM EDT Office Visit Adult Medicine [address] [address] Marquita Morales MD [address] [place] [address] Health Maintenance Due Date Last Done Comments [...] Maintenance Results * Falls Risk Assessment (01/16/2024) [facility] Falls Risk Assessment abstracted [facility] HEALTH MAINTENANCE Final Result * Depression Screening (01/16/2024) [facility] Depression Screening abstracted Result [facility] HEALTH MAINTENANCE Final Result * Annual BMP Blood Test (12/18/2023) [facility] Annual BMP Blood Test abstracted Result [facility] HEALTH MAINTENANCE Final Result * Lipid panel (11/21/2022) [facility] LDL/HDL Ratio 2 0 - 4 Triglycerides 113 0 - 150 mg/dL Cholesterol 99 0 - 200 mg/dL HDL 47 >=40 mg/dL LDL Cholesterol 30 0 - 100 mg/dL Blood Venous blood specimen / Unknown Result [facility] LAB BLOOD ORDERABLES Mary Grace l Result * Colonoscopy (12/30/2021) [facility] Colonoscopy no interpretation , abstracted Anatomical Region Laterality Modality Other Result [facility] HEALTH MAINTENANCE Final Result * Hepatitis C Screening (07/21/2013) [facility] Hepatitis C Screening abstracted Result [facility] HEALTH MAINTENANCE Final Result * Abdominal Aortic Aneurysm Screen (03/23/2009) [facility] Abdominal Aortic Aneurysm (AAA) Screening abstracted Anatomical Region Laterality Modality Other Result [facility] HEALTH MAINTENANCE Final Result from Last 3 Months or Most Recently Relevant to Health Maintenance Insurance MEDICARE [facility] Care Teams Buckram Sewer Relationship Specialty Start Date End Date Marquita Morales MD [address] [place] [address] PCP - General 03/17/1992
[2024-11-12 16:43] LABS: Urine Cytology See Pathology rpt
== END 2024-11-12 13:55 | disposition home or self-care (01) ==
LOC: HO.LAB 13:54
PROVIDERS: PCP Internal Medicine; Visit Provider Urology
DX: C67.9 Malignant neoplasm of bladder, unspecified (principal)
CPT/HCPCS: 52000; 81003; 88112; 99212

== ENCOUNTER 2024-11-12 13:54 | Outpatient (AMB) | payer MEDICARE, SELFPAY ==
--- NOTE | 2024-11-12 14:08 | MHC.OFFVIS ---
Intake Visit Reasons: 3m/cysto Intake Note: Patient is present for 3M/Cystoscopy Urology Medication:NONE Antibiotic Allergy:CIPROFLOXACIN Blood Thinner:ASPIRIN,RIVAROXABAN Lot:[id number] Exp:11/08/26 Educational Aide Required: No Allergies oxycodone Allergy (Severe, Verified 11/12/24 14:09) Nausea and Vomiting ciprofloxacin [From CIPRO] Allergy (Unknown, Verified 11/12/24 14:09) UNKNOWN Yzzebrk-UPX-SyY Reductase Inhibitor Adverse Reaction (Intermediate, Verified 11/12/24 14:09) Muscle Pain HPI Comments Details: Mr Lopez is a very pleasant male. He is a patient of Dr. Morales. He is seen for the following urologic conditions. 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 Here for six-month follow-up Well-healed bladder with only occasional red spots No hematuria Plan for three-week boost mitomycin-C with cytarabine Three-month follow-up check cysto Last cytology rare atypical Upcoming appointment with Cardiology Need to discuss both diagnosis and indication for anticoagulation Will also need to discuss type of anticoagulation as has gross hematuria with Eliquis and Plavix Bladder Cancer CIS 03/26 Bladder biopsy 03/26 Adjuvant therapy - induction mitomycin-C with cytarabine 04/25 - completed 07/27 - boost MMC with cytarabine Cytology 08/27 rare atypical Has had some issues with hematuria secondary to anticoagulation Prostate cancer: Low-grade prostate cancer radical prostatectomy 2007 ?Discussed results ?Continue ED treatment. - stream remains okay - probable stricture ? Prostate cancer was diagnosed?2007.? Diagnosis was reached by?needle biopsy, for elevated PSA, size at TRUS 49cc.? The Jadon grade is?3+3 = 6.? TNM Classification of Malignant Tumours (TNM)?T2a.? The D'Jaret (NCCN) risk category is?Low Risk (PSA< 10, Gl < 7, T1c).? Initial therapy included?Primary treatment, Prostatectomy (RRP/Robotic) ?, Additional treatment, Observation.? Recent labs included?a PSA (prostate-specific antigen) 2014 , < 0.1 ?12/2016 < 0.1, 02/17 < 0.1, 03/21 < 0.1, 03/22 < 0.1, 02/20 <0.1, 02/21 <0.1, 02/22 <0.1, 02/23 <0.1 ? Associated conditions ? erectile dysfunction ?Yes ? Erectile SIDRA Score ?18 respond to viagra ? Therapeutic plan:?Continue with surveillance.? Current symptoms include?had narrowing of stream and requred BNI 2009.? REPLACED BY [facility] Medical History Wears dentures Spinal stenosis Back pain Arthritis GERD (gastroesophageal reflux disease) Hx of transient ischemic attack (TIA) (~2021) Cardiomyopathy Hx of myocardial infarction CAD (coronary artery disease) PAF (paroxysmal atrial fibrillation) Seasonal allergies PONV (postoperative nausea and vomiting) Spinal stenosis Allergies Hyperlipidemia BPH (benign prostatic hyperplasia) Erectile dysfunction following radical prostatectomy CA of prostate Surgical History Hx of tonsillectomy Hx of cardiac catheterization Hx of coronary artery bypass graft (~2019) Hx of radical prostatectomy (~2008) History of bilateral knee replacement Family History Sister PONV (postoperative nausea and vomiting) Sister PONV (postoperative nausea and vomiting) Social History Are you a primary healthcare insurance sales agent to a significant other at home: No Do you presently have visiting nurse or other home services: No Patient Tobacco Use Status: Former Tobacco user Tobacco use type: Cigarette Review of Systems Const Denies chills and Denies fever(s) Card Reports no additional complaints and Denies syncope Resp Denies cough GI Denies abdominal pain and Denies heartburn Reports as per HPI and Denies change in libido Neuro Denies syncope Psych Denies change in libido Endo Denies change in libido Physical Exam Const General: cooperative, healthy appearing, comfortable and no acute distress Orientation/consciousness: patient oriented x3 HEENT Face and sinus: Yes normal facial exam Mouth: moist mucous membranes Neck Neck: Yes normal visual inspection, Yes full ROM and Yes trachea midline Chest Chest palpation & inspection: normal inspection of the chest Resp Effort & Inspection: normal respiratory effort, able to speak in complete sentences and no respiratory distress GI Inspection: Yes normal to inspection Back/Spine/Pelvis Cervical Spine: normal cervical lordosis Thoracic/Lumbar Spine: thoracic and lumbar spine normal to inspection Skin General skin exam: no rashes or lesions noted Neuro General: patient oriented x3, gait normal, tone normal and moves all extremities Extrem General: Yes normal to inspection and Yes capillary refill normal Office Procedures Cystoscopy Consent Discussed risk and benefit or proposed procedure with the patient. Information consent for procedure given to the patient. Discussed technical aspects, risks, benefits and alternatives in full. Addressed all of the patient's questions and concerns regarding the procedure. The patient demonstrated knowledge and understanding. They wish to proceed with this procedure. Preparation The patient was prepped in the usual manner. A staff development manager was present and in the room. Genitalia was prepped with betadine solution in a sterile manner. Lidocaine Jelly 2% was placed into the urethra and 16Fr flexible Olympus cystoscope was inserted into the meatus after adequate lubrication. Procedure Cystoscopy performed using a disposable Urovue digital 16 Indonesian cystoscope. Meatus circumcised Urethra anterior and posterior urethra normal Prostatic Urethra absent Bladder examination with retroflexion of cystoscope Bladder Orifices normal shape and position Bladder Capacity Normal Trabeculations grade 1 Cellule Formation None Diverticulum Formation None Mucosal Erythema scattered small erythematous areas consistent with intravesical response Bladder Tumor None [id number] DISPOSABLE SCOPE URO-G FLEXIBLE SCOPE Procedure code (CPT) selection complete Office Meds lidocaine HCl 2 % mucosal jelly in applicator Performing Provider: Eduardo Atkinson MD Performing Location: [facility] [place] [facility] Administered by: Shailesh Michaud LPN on 11/12/24 14:25 Dose Route Admin Location Dispensed Lot Number Expiration Date ND Ostomy Nurse 10 mL intra-urethral 10 mL nitrofurantoin monohydrate/macrocrystals 100 mg capsule Performing Provider: Eduardo Atkinson MD Performing Location: [facility] [place] [facility] Administered by: Shailesh Michaud LPN on 11/12/24 14:25 Dose Route Admin Location Dispensed Lot Number Expiration Date ND Ostomy Nurse 100 mg PO 1 cap Assessment & Plan Assessment & Plan (1) Bladder cancer: Comment: CIS on biopsy taken after hematuria Code(s): C67.9 - Malignant neoplasm of bladder, unspecified Category: Medical (2) CA of prostate: Comment: Radical prostatectomy 2008 low-grade Code(s): C61 - Malignant neoplasm of prostate Category: Medical Plan Boost mitomycin with cytarabine Follow-up check cysto three-month Orders: Orders AMB Cystoscopy Today C67.9 - Malignant neoplasm of bladder, unspecified, R31.0 - Gross hematuria Urine Cytology Today C67.9 - Malignant neoplasm of bladder, unspecified Patient Instructions: This note is constructed using voice recognition software. While every effort has been made to ensure accuracy manager floor errors may have been included. Imaging studies, laboratory and physical exam results were discussed and reviewed in detail. No major barriers to patient understanding were identified. An opportunity to ask questions regarding the treatment plan was provided. All questions were answered. The patient expressed understanding and agreement with the above treatment plan. The patient is aware they should contact our office by phone for worsening of their current condition or the appearance of new urologic symptoms. Compliance is encouraged with any medications and followup testing that is ordered. It is a privilege to participate in the urologic care of your patient. If you have any questions or concerns regarding treatment for the above conditions, or other urologic issues, please do not hesitate to contact me. The office telephone contact is [phone]. Sincerely, Dr Eduardo Atkinson MD, [facility] - Urology Compassionate Specialist Care for the Genitourinary System Coding Level of Care Code Est Pt Level 3 (00989) Complex EM visit Add On G2211 Diagnoses Bladder cancer C67.9 CA of prostate C61 CPT Codes Cystoscopy - CPT: 08607-[id number] ([id number])
--- OUTSIDE RECORDS SUMMARY | 2024-11-12 15:09 | XMS_ITS | Clinical Summary ---
Author Organization [facility] Address [address] [place] [address] Care Team Providers Care Environmental Inspector Name Role Phone Marquita Morales MD Primary Care Provider [phone] Allergies No known active allergies Medications Medication [...] age to complete this topic Care Teams Environmental Inspector Relationship Specialty Start Date End Date Marquita Morales MD PCP - General Internal Medicine 05/28/18
--- OUTSIDE RECORDS SUMMARY | 2024-11-12 15:09 | XMS_ITS | Clinical Summary ---
Author Organization [facility] [address] [place] [address] [address] [facility] [place] [address] Phone Care Team Providers Care Manager Site Name Role Phone Marquita Morales MD Primary Care Provider [phone] Allergies Active Allergy Reactions Criticality Noted Date Comments Atorvastatin Calcium 12/09/2008 Other Reaction(s): Myalgia and Joint Pain Ciprofloxacin Rash 12/27/2007 Other 10/17/2016 Seasonal Allergies Rosuvastatin 11/19/2014 Other Reaction(s): Myalgia and Joint Pain Simvastatin Low 03/01/2010 Other Reaction(s): Myalgia and Joint Pain Medications Praluent Pen 150 mg/mL pen injector Inject 1 mL (150 mg total) as directed every 14 (fourteen) days. Prescribed By [facility] for High Cholesterol Active NON FORMULARY [...] times a day with meals. Prescribed By [facility] Active albuterol HFA (Proventil HFA) 90 mcg/actuation inhalerIndicati ons:Allergic rhinitis, unspecified seasonality, unspecified trigger Inhale 2 puffs by mouth every 4 (four) hours if needed for wheezing or shortness of breath. 6.7 g 07/30/19 25 026 Active fluticasone propionate (FLONASE) 50 mcg/actuation nasal sprayIndication s:Allergic rhinitis, unspecified seasonality, unspecified trigger Administer 2 sprays into each nostril 2 (two) times a day. Shake gently. Before first use, prime pump. After use, clean tip and replace cap. 16 g 1 07/30/19 25 026 Active montelukast (SINGULAIR) 10 mg tabletIndicatio ns:Allergic rhinitis, unspecified seasonality, unspecified trigger Take 1 tablet (10 mg total) by mouth at bedtime. 90 each 07/30/19 25 Active Active Problems Problem Noted Date Diagnosed Date Malignant neoplasm of urinar y bladder ([facility] V24, [facility] V28) 10/03/2024 Cerebral microvascular disease 10/03/2022 Overview (04/09/2024): See comment by neurology, Dr. Wiggins, imaging study for evaluation of TIA TIA (transient ischemic attack) 07/29/2022 Overview (04/09/2024): Very complex clinical picture, please see note 07/29/22 Coronary artery disease invo lving [place] coronary artery of [place] heart without angina pectoris 06/05/2022 Overview (04/09/2024): Status post non-ST wave elevation myocardial infarction April 2020, status post CABG x6 with preserved LV function Status post right knee replacement 09/07/2021 Atrial fibrillation ([facility] V24, [facility] V28) 0 01/22/2021 NSVT (nonsustained ventricul ar tachycardia) ([facility] V24, [facility] V28) 08/09/2017 Palpitations 08/09/2017 Allergic conjunctivitis 07/06/2015 CALOS (obstructive sleep apnea) 08/22/2013 PLMD (periodic limb movement disorder) 4 Back pain 03/04/2008 Overview (04/09/2024): 2007 CT: multiple levels of degenerative arthritis and disc disease MRI 2016: DJD, spinal stenosis Allergic rhinitis 09/21/2006 Overview (04/09/2024): Follows with product development engineer, Dr. Anna Assessment & Plan (07/30/2024 12:44 PM EST): I will try patient on Singulair 10 mg at bedtime. Patient is to continue following up with product development engineer Orders: albuterol HFA (Proventil HFA) 90 mcg/actuation [...] Encounters Date Type Department Care Team Description 10/03/2024 11:00 AM EDT Office Visit Adult Medicine [address] [address] Marquita Morales MD Allergic rhinitis, unspecified seasonality, unspecified trigger (Primary Dx); Coronary artery disease involving [place] coronary artery of [place] heart without angina pectoris; Pure hypercholesterolemia; Malignant neoplasm of urinary bladder, unspecified site (CMS/HCC V24, CMS/HCC V28); Hematuria, unspecified type from Last 3 Months Immunizations Name Administration [...] Site/Laterality Comments KNEE ARTHROSCOPY W/ DEBRIDEMENT PROCEDURE: AK ARTHRS KNEE DEBRIDEMENT/SHAVING ARTCLR CRTLG; COMMENT: left PROSTATECTOMY PROCEDURE: PROSTATECTOMY COLONOSCOPY 12/30/2021 PROCEDURE: HISTORICAL COLONOSCOPY; COMMENT: hemorrhoids Medical History Medical History Date Comments Acute bronchitis 12/09/2005 DX:Acute bronch itis; COMMENT: PFT 05/21/01, some mild reversability Hypercholesteremia DX:Hyperchole steremia Prostate cancer ([facility] V24 , [facility] V28) DX:Prostate cancer ([facility]) Pure hypercholesterolemia 07/05/2005 DX:Pur e hypercholesterolemia Allergic [...] Sign Reading Time Taken Comments Blood Pressure 106/76 10/03/2024 11:12 AM EDT Pulse 68 10/03/2024 11:12 AM EDT Temperature 36.4 ??C (97.6 ??F) 10/03/2024 11:12 AM E DT Respiratory Rate 20 10/03/2024 11:12 AM EDT Oxygen Saturation 95% 07/30/2024 11:28 AM EST Inhaled Oxygen Concentration - - Weight 89.8 kg (198 lb) 10/03/2024 11:12 AM EDT Height 175.3 cm (5' 9 ) 10/03/2024 11:12 AM EDT Body Mass Index 29.24 10/03/2024 11:12 AM EDT Plan of Treatment Upcoming Encounters Date Type Department Care Team (Late st Contact Info) Description 02/03/2025 9:30 AM EDT Office Visit Adult Medicine [address] [address] Marquita Morales MD [address] [place] [address] Health Maintenance Due Date Last Done Comments Pneumococcal Vaccine: 50+ Years (1 of 2 - PCV) 1972 Zoster Vaccines (1 of 2) 1972 RSV Immunization Adult Patients (1 - Risk 60-74 years 1-dose series) 2013 Social Influencers of Health Screening 05/31/2022 COVID-19 Vaccine ( season) 2024 04/08/2023, 05/13/2022, 04/22/2021, Additional history exists Hypertension/CHF/CAD Annual BMP Blood Test 12/17/2024 12/18/2023, 12/18/2023, 08/17/2023, Additional history exists Depression Screening 01/15/2025 01/16/2024 Falls Risk Assessment 01/15/2025 01/16/2024 Medicare Annual Wellness Visit 01/15/2025 01/16/2024 Influenza Vaccine (Season Ended) 2025 04/08/2023, 03/23/2022, 05/13/2021, Additional history exists Colorectal Cancer Screening: Colonoscopy 12/30/2026 12/30/2021 Cholesterol Screening (Lipid Panel) 11/22/2027 11/21/2022 DTaP,Tdap,and Td Vaccines (3 - Td or Tdap) 05/04/2032 05/04/2022, 08/19/2011 Hepatitis C Screening Completed 07/21/2013 Abdominal Aortic [...] age to complete this topic Meningococcal B Vaccine Aged Out No l onger eligible based on patient's age to complete [...] Maintenance Results * Falls Risk Assessment (01/16/2024) [facility] Falls Risk Assessment abstracted [facility] HEALTH MAINTENANCE Final Result * Depression Screening (01/16/2024) [facility] Depression Screening abstracted Result [facility] HEALTH MAINTENANCE Final Result * Annual BMP Blood Test (12/18/2023) [facility] Annual BMP Blood Test abstracted Result [facility] HEALTH MAINTENANCE Final Result * Lipid panel (11/21/2022) [facility] LDL/HDL Ratio 2 0 - 4 Triglycerides 113 0 - 150 mg/dL Cholesterol 99 0 - 200 mg/dL HDL 47 >=40 mg/dL LDL Cholesterol 30 0 - 100 mg/dL Blood Venous blood specimen / Unknown Result [facility] LAB BLOOD ORDERABLES Mary Grace l Result * Colonoscopy (12/30/2021) [facility] Colonoscopy no interpretation , abstracted Anatomical Region Laterality Modality Other Result [facility] HEALTH MAINTENANCE Final Result * Hepatitis C Screening (07/21/2013) [facility] Hepatitis C Screening abstracted Result [facility] HEALTH MAINTENANCE Final Result * Abdominal Aortic Aneurysm Screen (03/23/2009) [facility] Abdominal Aortic Aneurysm (AAA) Screening abstracted Anatomical Region Laterality Modality Other Result [facility] HEALTH MAINTENANCE Final Result from Last 3 Months or Most Recently Relevant to Health Maintenance Insurance MEDICARE [facility] Care Teams Manager Site Relationship Specialty Start Date End Date Marquita Morales MD [address] [place] [address] PCP - General 03/17/1992
--- OUTSIDE RECORDS SUMMARY | 2024-11-12 15:09 | XMS_ITS | Clinical Summary ---
Author Organization [address] Address [address] [place] [phone] Phone Care Team Providers Care Unit Control Clerk Name Role Phone Promise Morales MD Primary Care Provider [phone] Allergies No known active allergies Social History [...] screening 1993 Colon cancer screening, Colonoscopy 1998 Pneumococcal Vaccine (50+ years) (1 of 1 - PCV) 09/14/2003 Shingles vaccine (Shingrix) (1 of 2 - Shingrix (RZV) 2 Dose Standard Series) 09/14/2003 Tetanus adult (Td q 10,TDAP once) 08/19/2021 08/19/2011 Covid-19 vaccine series ( season) 2024 04/22/2021, 09/18/2020, 08/27/2020 Influenza vaccine 03/03/2025 05/13/2021, , 05/10/2019, Additional history exists Diabetes screening 03/04/2025 03/04/2022 RSV Immunization (1 - 1-dose 75+ series) 2028 Meningococcal [...] 65 - 110 mg/dL 03/04/2022 8:55 PM [facility] Comment: Non-fasting: ??65-110 mg/dL Fasting (minimum 6 hrs): ??65-99 mg/dL BUN 18 7 - 18 mg/dL 03/04/2022 8:55 PM [facility] Creatinine 1.05 0.70 - 1.30 mg/dL 03/04/2022 8:55 PM [facility] Sodium 142 136 - 145 mmol/L 03/04/2022 8:55 PM [facility] Potassium 3.7 3.5 - 5.1 mmol/L 03/04/2022 8:55 PM [facility] Chloride 106 98 - 107 mmol/L 03/04/2022 8:55 PM [facility] CO2 26 21 - 32 mmol/L 03/04/2022 8:55 PM [facility] Anion Gap 10 5 - 15 mmol/L 03/04/2022 8:55 PM [facility] Calcium 8.8 8.5 - 10.1 mg/dL [...] 8:30 PM EDT 03/04/2022 8:32 PM EDT us Donn Pickard MD LAB BLOOD [place] [address], [facility] [phone] from Last 3 Months or Most Recently Relevant to Health Maintenance Insurance MEDICARE [facility] MEDICARE [facility] Member Subscriber Plan / Payer (Ef fective 2022-) Name:Alberto Lopez Relation to Subscriber:Self Name:Alberto Lopez Payer ID:[id number] (NAIC) Group ID:Not on file Type:Not on file Address: [place] [id number] [facility]ICARE [facility] Care Teams Unit Control Clerk Relationship Specialty Start Date End Date Promise Morales MD PCP - General Internal Medicine 03/04/22
--- OUTSIDE RECORDS SUMMARY | 2024-11-12 15:09 | XMS_ITS | Data Portability ---
Author Organization [place] - [facility], Allergy Address [address] [address] Assessment Encounter Date Assessment Date Assessment LastModified by Organization Details LastModified Time 02/05/2024 02/05/2024 68-year-old male presents for cerumen removal. Cerumen impaction removed bilaterally. Follow-up in 6 months for routine debridement. Patient with history of allergic rhinitis undergoing immunotherapy at [facility]. Recommended trial of Flonase nasal spray once daily in addition to Zyrtec. He will follow-up if symptoms persist or worsen. [email or web address] Not available 02/05/2024 09:52:33 08/09/2024 08/09/2024 68-year-old male presents for cerumen removal. Cerumen impaction removed bilaterally. Follow-up in 6 months for routine debridement. [email or web address] Not available 08/09/2024 10:31:15 Plan of Treatment [...] Recorded Time Otitis externa of right ear [id number] 54016 Completed 202102/02/2024 Other otitis externa, right ear; Note: Date Diagnose d: 2 2:15 PM (H60.8X1 ) Not Available [facility] 4 02:50:58 Sensorin eural hearing loss of bilatera l ears 032762283 Active 2021 Sensorin eural hearing loss, bilatera l; Note: Date Diagnose d: 2 2:05 PM (H90.3) Not Available [facility] 4 02:50:56 Eustachi an tube disorder 52628486 Active 2021 Other specifie d disorder s of Eustachi an tube, unspecif ied ear; Note: Date Diagnose d: 2 2:38 PM (H69.80) Not Available [facility] 4 02:50:56 Impacted cerumen of bilatera l ears 12512492066 79472 Active 2022 Impacted cerumen, bilatera l; Note: Date Diagnose d: 04/26/20 10:05 AM (H61.23) Impact ed cerumen, bilatera l; Note: Date Diagnose d: 05/25/20 10:49 AM (H61.23) ; Start Date : 05/25/20 Not Available [facility] 4 02:50:58 Allergic rhinitis caused by pollen 92364928 Active 2021 Allergic rhinitis due to pollen; Note: Date Diagnose d: 2 2:35 PM (J30.1) Not Available [facility] 4 02:50:53 Impacted cerumen in left ear 37347606289 89053 Active 2023 Impacted cerumen, left ear; Note: Date Diagnose d: 08/08/2023 11:22 AM (H61.22) Not Available [facility] 4 02:50:56 Allergic rhinitis 88434859 Active 2023 DILMA MILES PA-C [address] [facility],[address] [address], [place], [address] , [facility] 4 09:51:15 Problem Notes None recorded. Procedures Surgical History Date Name Laterality Status Provider Name and Address Organization Details Recorded Time 5 Cerumen removal without microscope bilat completed DILMA MILES PA-C [address] [facility],[address] [address], [place], [address], [facility] 08/09/2024 10:42:52 4 Cerumen removal without microscope bilat completed DILMA MILES PA-C [address] [facility],[address] [address], [place], [address], [facility] 02/05/2024 09:51:04 Imaging Results Imaging Date Name Status LastModified by Organiz ation Details LastModified Time 10/27/2021 imaging/diagno stic result completed [email or web address] Information not available 02/22/2024 17:18:26 10/27/2021 audiogram completed [email or web address] Information not available 02/22/2024 17:18:46 Procedure Notes None recorded. Medical Equipment None Reported. Allergies Allergen ID Allergen Name Allergen Category Reaction Reaction Severity Criticality Documentation Date Start Date Code Code System Note Provider Name and Address Organization Details Recorded Time 976056 Cipro medicatio n other Not available Not available 11/14/202368038 3 RxNorm React ion: other react ion, Unkno wn; Not Available Formerly [facility] 4 01:23:35 Medications Name Sig Start [...] mg tablet 2021 active Medicatio n ID: [id number] Br and Name: ondansetr on HCl Send Method: E-Prescri bed Subs Allowed: subs OK Medica tionGener icName: ondansetr on HCl Not Available Not Available Not Available prednisone 20 mg tablet active Not Available Not Available Not Available tramadol 50 mg tablet 2021 active Medicatio n ID: [id number] Br and Name: tramadol Send Method: E-Prescri bed Subs Allowed: subs OK Medica tionGener icName: tramadol Not Available Not Available Not Available carvedilol 3.125 mg tablet active Not Available Not Available Not Available pantoprazo le 20 mg tablet,del ayed release active Not Available Not Available Not Available ofloxacin 0.3 % ear drops 4 drop into right ear 2021 active Medicatio n ID: [id number] Du ration Value: 10 Prescrib ed By Name: ALBERTA Mohamud Name: ofloxacin Send Method: E-Prescri bed Subs Allowed: subs OK Specia l Instructi on: x 10 days Medi cationGen ericName: ofloxacin Not Available Not Available Not Available hydromorph one 2 mg tablet 2021 active Medicatio n ID: [id number] Br and Name: hydromorp bryan Send Method: E-Prescri bed Subs Allowed: subs OK Medica tionGener icName: hydromorp bryan Not Available Not Available Not Available pantoprazo le 40 mg tablet,del ayed release 2021 active Medicatio n ID: [id number] Br and Name: pantopraz ole Send Method: E-Prescri bed Subs Allowed: subs OK Medica tionGener icName: pantopraz ole Not Available Not Available Not Available clotrimazo le-betamet hasone 1 %-0.05 % topical cream active Not Available Not Available Not Available clotrimazo le 1 % topical solution 2021 active Medicatio n ID: [id number] Du ration Value: 14 Prescrib ed By [...] mg tablet 2021 active Medicatio n ID: [id number] Br and Name: oxycodone Send Method: E-Prescri bed Subs Allowed: subs OK Medica tionGener icName: oxycodone Not Available Not Available Not Available TobraDex 0.3 %-0.1 % eye drops,susp ension 3 drop 2021 active Medicatio n ID: [id number] Du ration Value: 10 Prescrib ed By [...] mg tablet 2021 active Medicatio n ID: [id number] Br and Name: Eliquis S end Method: E-Prescri bed Subs Allowed: subs OK Medica tionGener icName: Eliquis Not Available Not Available Not Available Eliquis 2.5 mg tablet 2021 active Medicatio n ID: [id number] Br and Name: Eliquis S end Method: [...] Updated DateTime 02/05/2024 177.8 cm 28.7 kg/m2 60603.47 g Naila Aguirre [place] [facility] 02/05/2024 09:19:29 Date Recorded Body height Body mass index (BMI) Body weight Provider Name and Address Organization Details Last Updated DateTime 08/09/2024 177.8 cm 28.7 kg/m2 75224.47 g Naila Aguirre [facility] 08/09/2024 10:37:02 Social History None recorded. Functional Status None recorded. Mental Status None recorded. Family History Nothing Reported. Medical History No medical history recorded. Past Encounters Encounter ID Performer Location Encounter Start Date Encounter Closed Date Diagnosis/Indication Diagnosis SNOMED-CT Code Diagnosis ICD10 Code Diagnosis Note [id number] DILMA MILES PA-C [facility] [address] [address] 02/05/2024 09:12:10 02/05/2024 09:32:13 Impacted cerumen of bilateral ears [id number] 819292 H61.23 Allergic rhinitis 098606 04 J30.89 [id number] DILMA MILES PA-C [facility] [address] [address] 08/09/2024 10:27:18 08/09/2024 10:41:56 Impacted cerumen of bilateral ears 5880458393 818335 H61.23 Health Concerns Section Related Observation LastModified by Organization Detai ls LastModified Time None Recorded Concern Status LastModified by Organization Details LastModified Time None Recorded Advance Directives Directive None Recorded Payers Insurance Date Sequence Insurance Name Policy Number Policy Griffin Covered Member ID Griffin Member ID Guarantor Name 08/07/2024 2 [place] [id number] Alberto Lopez [id number] Alberto Lopez 08/07/2024 1 [place] [employer] Alberto Simsisseau [id number] Alberto Lopez Notes Date Note Type Note Provider Name and Address Organization Details Recorded Time 02/05/2024 text/html 68-year-old male presents for cerumen removal. Uses hearing aids dispensed from [employer]. Notes some ear pressure, worse in the fall. On immunotherapy at [facility] for allergic rhinitis. Takes Zyrtec daily with improvement. LEBRON REED MD [address] [facility],[address], [address], [facility] - [facility] 02/05/2024 17:46:34 08/09/2024 text/html 68-year-old male presents for cerumen removal. Uses hearing aids dispensed from [employer]. No concerns today. LEBRON REED MD [address] [facility],[address] [address], [place], [address], [facility] 08/12/2024 08:00:21
== END 2024-11-12 15:06 | disposition home or self-care (01) ==
LOC: HO.HUSH 13:55
PROVIDERS: PCP Internal Medicine; Visit Provider Urology
DX: C67.9 Malignant neoplasm of bladder, unspecified (principal); C61 Malignant neoplasm of prostate; Z13.9 Encounter for screening, unspecified
CPT/HCPCS: 52000; 99213

== ENCOUNTER 2025-02-21 10:53 | Outpatient (REF) | payer MEDICARE, SELFPAY | END 2025-02-21 10:54 | disposition home or self-care (01) | LOC: HO.LNP 10:53 | PROVIDERS: PCP Internal Medicine; Visit Provider Urology | DX: C61 Malignant neoplasm of prostate (principal); C67.9 Malignant neoplasm of bladder, unspecified; N52.31 Erectile dysfunction following radical prostatectomy; Z13.9 Encounter for screening, unspecified | CPT/HCPCS: 52000; 81003; 88121; 99212 ==

== ENCOUNTER 2025-02-21 10:53 | Outpatient (AMB) | payer MEDICARE, SELFPAY ==
--- OUTSIDE RECORDS SUMMARY | 2025-02-21 10:57 | XMS_ITS | Clinical Summary ---
Author Organization [facility] [address] [place] [address] Address [address] [place] [address] Phone Care Team Providers Care Senior Sustainability Advisor Name Role Phone Marquita Morales MD Primary Care Provider [phone] Allergies Active Allergy Reactions Criticality Noted Date Comments Atorvastatin Calcium 12/09/2008 Other Reaction(s): Myalgia and Joint Pain Ciprofloxacin Rash 12/27/2007 Other 10/17/2016 Seasonal Allergies Rosuvastatin 11/19/2014 Other Reaction(s): Myalgia and Joint Pain Simvastatin Low 03/01/2010 Other Reaction(s): Myalgia and Joint Pain Medications Praluent Pen 150 mg/mL pen injector Inject 1 mL (150 mg total) as directed every 14 (fourteen) days. Prescribed By [facility] Cardiology for High Cholesterol Active NON FORMULARY [...] times a day with meals. Prescribed By [facility] Cardiology Active albuterol HFA (Proventil HFA) [...] by mouth at bedtime. 90 each 1 07/30/19 25 Active Active Problems Problem Noted Date Diagnosed Date Malignant neoplasm of urinar y bladder ([facility] V24, [facility] V28) 10/03/2024 Cerebral microvascular disease 10/03/2022 Overview (04/09/2024): See comment by neurology, Dr. Wiggins, imaging study for evaluation of TIA TIA (transient ischemic attack) 07/29/2022 Overview (04/09/2024): Very complex clinical picture, please see note 07/29/22 Coronary artery disease invo lving [place] coronary artery of [place] heart without angina pectoris 06/05/2022 Overview (04/09/2024): Status post non-ST wave elevation myocardial infarction April 2020, status post CABG x6 with preserved LV function Status post right knee replacement 09/07/2021 Atrial fibrillation ([facility] V24, [facility] V28) 0 01/22/2021 NSVT (nonsustained ventricul ar tachycardia) ([facility] V24, [facility] V28) 08/09/2017 Palpitations 08/09/2017 Allergic conjunctivitis 07/06/2015 CALOS (obstructive sleep apnea) 08/22/2013 PLMD (periodic limb movement disorder) 4 Back pain 03/04/2008 Overview (04/09/2024): 2007 CT: multiple levels of degenerative arthritis and disc disease MRI 2016: DJD, spinal stenosis Allergic rhinitis 09/21/2006 Overview (04/09/2024): Follows with agricultural economics teacher, Dr. Anna Assessment & Plan (07/30/2024 12:44 PM EST): I will try patient on Singulair 10 mg at bedtime. Patient is to continue following up with agricultural economics teacher Orders: albuterol HFA (Proventil HFA) 90 mcg/actuation [...] panel with reflex to direct LDL; Future Immunizations Name Administration Dates Next Due Influenza Quadravalent, MDCK , 0.5ml, preservative free (Flucelvax) 6mo and older 05/23/2018 Influenza Quadravalent, MDCK , 0.5ml, with preservative (Flucelvax) 6mo and older 05/10/2019,06/21/2017 Influenza trivalent, 0.5mL ( Fluzone High-dose) 65yo and older 04/08/2023,03/23/2022,05/13/2021,2019 Influenza trivalent, with preservative (Fluzone; Afluria) 6mo and older 07/06/2016,05/10/2015,07/23/2014,2012,06/05/2012,05/25/2011,04/16/2010,0 03/10/2009,06/03/2008,05/31/2006, 005 PPD Test 02/12/2013 Pfizer (ages 12 & older) Terence alejayleen, COVID-19 05/13/2022 Tdap Tetanus diptheria acell ular pertussis (Boostrix; Adacel) 7yo and older 05/04/2022,08/19/2011 Surgical History Surgery Date Site/Laterality Comments KNEE ARTHROSCOPY W/ DEBRIDEMENT PROCEDURE: [place] ARTHRS KNEE DEBRIDEMENT/SHAVING ARTCLR CRTLG; COMMENT: left PROSTATECTOMY PROCEDURE: PROSTATECTOMY COLONOSCOPY 12/30/2021 PROCEDURE: HISTORICAL COLONOSCOPY; COMMENT: hemorrhoids Medical History Medical History Date Comments Acute bronchitis 12/09/2005 DX:Acute bronch itis; COMMENT: PFT 05/21/01, some mild reversability Hypercholesteremia DX:Hyperchole steremia Prostate cancer ([facility] V24 , [facility] V28) DX:Prostate cancer ([facility]) Pure hypercholesterolemia 07/05/2005 DX:Pur e hypercholesterolemia Allergic [...] 68 10/03/2024 11:12 AM EDT Temperature 36.4 C (97.6 F) 10/03/2024 11:12 AM EDT Respiratory Rate 20 10/03/2024 11:12 AM EDT Oxygen Saturation 95% 07/30/2024 11:28 AM EST Inhaled Oxygen Concentration - - Weight 89.8 kg (198 lb) 10/03/2024 11:12 AM EDT Height 175.3 cm (5' 9 ) 10/03/2024 11:12 AM EDT Body Mass Index 29.24 10/03/2024 11:12 AM EDT Plan of Treatment Upcoming Encounters Date Type Department Care Team (Late st Contact Info) Description 02/25/2025 1:45 PM EDT Office Visit Adult Medicine [facility] [address] [place] [id number] Marquita Morales MD [address] [place] [address] Health Maintenance Due Date Last Done Comments Pneumococcal Vaccine: 50+ Years (1 of 2 - PCV) 1972 Zoster Vaccines (1 of 2) 1972 RSV Immunization Adult Patients (1 - Risk 60-74 years 1-dose series) 2013 Social Influencers of Health Screening 05/31/2022 COVID-19 Vaccine ( season) 2024 04/08/2023, 05/13/2022, 04/22/2021, Additional history exists Depression Screening 07/03/2024 01/16/2024 Hypertension/CHF/CAD Annual BMP Blood Test 12/17/2024 12/18/2023, 12/18/2023, 08/17/2023, Additional history exists Falls Risk Assessment 01/15/2025 01/16/2024 Medicare Annual Wellness Visit 01/15/2025 01/16/2024 Influenza Vaccine (#1) 2025 , 03/23/2022, 05/13/2021, Additional history exists Colorectal Cancer [...] Risk Assessment (01/16/2024) Falls Risk Assessment abstracted Historical Provider HEALTH MAINTENANCE Final Result * Depression Screening (01/16/2024) [facility] Depression Screening abstracted Historical Provider HEALTH MAINTENANCE Final Result * Annual BMP Blood Test (12/18/2023) Pathologist [facility] Annual BMP Blood Test abstracted [facility] Provider HEALTH MAINTENANCE Final Result * Lipid panel (11/21/2022) [facility] LDL/HDL Ratio 2 0 - 4 Triglycerides 113 0 - 150 mg/dL Cholesterol 99 0 - 200 mg/dL HDL 47 >=40 mg/dL LDL Cholesterol 30 0 - 100 mg/dL Blood Venous blood specimen / Unknown [facility] Provider LAB BLOOD ORDERABLES Mary Grace l Result * Colonoscopy (12/30/2021) Pathologist [facility] Colonoscopy no interpretation , abstracted Anatomical Region Laterality Modality Other [facility] Provider HEALTH MAINTENANCE Final Result * Hepatitis C Screening (07/21/2013) [facility] Hepatitis C Screening abstracted [facility] Provider HEALTH MAINTENANCE Final Result * Abdominal Aortic Aneurysm Screen (03/23/2009) Pathologist [facility] Abdominal Aortic Aneurysm (AAA) Screening abstracted Anatomical Region Laterality Modality Other [facility] Provider HEALTH MAINTENANCE Final Result from Last 3 Months or Most Recently Relevant to Health Maintenance Insurance MEDICARE [facility] Care Teams Senior Sustainability Advisor Relationship Specialty Start Date End Date Marquita Morales MD [address] [place] [address] PCP - General 03/17/1992
--- OUTSIDE RECORDS SUMMARY | 2025-02-21 10:57 | XMS_ITS | Clinical Summary ---
Author Organization [facility] Address [address] [id number] Care Team Providers Care Billet Examiner Name Role Phone Marquita Morales MD Primary Care Provider [phone] Allergies No known active allergies Medications Medication [...] 09/18/2020, Additional history exists Influenza Vaccine (#1) 2025 , 03/23/2022, 05/13/2021, Additional history exists RSV [...] age to complete this topic Care Teams Billet Examiner Relationship Specialty Start Date End Date Marquita Morales MD PCP - General Internal Medicine 05/28/18
--- OUTSIDE RECORDS SUMMARY | 2025-02-21 10:57 | XMS_ITS | Clinical Summary ---
Author Organization [address] Address [address] [place] [id number] Phone Care Team Providers Care Pullman Clerk Name Role Phone Promise Morales MD Primary Care Provider [phone] Allergies No known active allergies Social History [...] 69 03/04/2022 9:02 PM EDT Temperature 36.9 C (98.4 F) 03/04/2022 8:00 PM EDT Respiratory Rate 18 03/04/2022 9:02 PM EDT [...] 65 - 110 mg/dL 03/04/2022 8:55 PM [facility] Comment: Non-fastin-110 mg/dL Fasting (minimum 6 hrs): 65-99 mg/dL BUN 18 7 - 18 mg/dL 03/04/2022 8:55 PM [facility] Creatinine 1.05 0.70 - 1.30 mg/dL 03/04/2022 8:55 PM [facility] Sodium 142 136 - 145 mmol/L 03/04/2022 8:55 PM [facility] Potassium 3.7 3.5 - 5.1 mmol/L 03/04/2022 8:55 PM [facility] Chloride 106 98 - 107 mmol/L 03/04/2022 8:55 PM [facility] CO2 26 21 - 32 mmol/L 03/04/2022 8:55 PM [facility] Anion Gap 10 5 - 15 mmol/L 03/04/2022 8:55 PM [facility] Calcium 8.8 8.5 - 10.1 mg/dL 03/04/2022 8:55 PM [facility] eGFR (Creatinine) >60 >=60 mL/min/1.7 3m2 03/04/2022 8:55 PM [facility] Comment:Estimated glomerular filtration rate (eGFR) was [...] MD LAB BLOOD ORDERABLES [place] [address], [facility] [phone] from Last 3 Months or Most Recently Relevant to Health Maintenance Insurance MEDICARE [facility] MEDICARE [facility] MEDICARE BS Care Teams Pullman Clerk Relationship Specialty Start Date End Date Promise Morales MD PCP - General Internal Medicine 03/04/22
--- OUTSIDE RECORDS SUMMARY | 2025-02-21 10:57 | XMS_ITS ---
Author Name [facility] Organization Unknown Care Team Organization Name Specialty Phone Email Start Date End Da te [facility] ACO 02/19/2025 [facility] 12/09/2022 02/19/2024 [facility] 05/10/2022 02/19/2024
--- NOTE | 2025-02-21 11:18 | A.OFFVIS_ITS ---
Intake Visit Reasons: Cysto Intake Note: Patient is present for: Cystoscopy Urology Medication: tamsulosin Blood Thinner:ASPIRIN,RIVAROXABAN Client Support Coordinator Required: No Accompanied by: Spouse Allergies oxycodone Allergy (Severe, Verified 02/21/25 11:19) Nausea and Vomiting ciprofloxacin (From CIPRO) Allergy (Unknown, Verified 02/21/25 11:19) UNKNOWN Kltsrfp-VQS-VrH Reductase Inhibitor Adverse Reaction (Intermediate, Verified 02/21/25 11:19) Muscle Pain HPI Comments Details: Mr Lopez is a very pleasant male. He is a patient of Dr. Morales. He is seen for the following urologic conditions. 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 Does have some areas of mild erythema No hematuria Plan check cystoscopy in three-month with three-week boost Did have urgency and frequency during last sequence Had dizziness with tamsulosin Next time we will give 1 month of Myrbetriq Bladder Cancer CIS 03/26 Bladder biopsy 03/26 Adjuvant therapy - induction mitomycin-C with cytarabine 04/25 - completed 07/27 - boost MMC with cytarabine 11/24 Cytology 08/27 rare atypical, 11/24 negative high-grade Has had some issues with hematuria secondary to anticoagulation Prostate cancer: Low-grade prostate cancer radical prostatectomy 2007 ?Discussed results ?Continue ED treatment. - stream remains okay - probable stricture ? Prostate cancer was diagnosed?2007.? Diagnosis was reached by?needle biopsy, for elevated PSA, size at TRUS 49cc.? The King grade is?3+3 = 6.? TNM Classification of Malignant Tumours (TNM)?T2a.? The D'Jaret (NCCN) risk category is?Low Risk (PSA< 10, Gl < 7, T1c).? Initial therapy included?Primary treatment, Prostatectomy (RRP/Robotic) ?, Additional treatment, Observation.? Recent labs included?a PSA (prostate-specific antigen) 2014 , < 0.1 ?12/2016 < 0.1, 02/17 < 0.1, 03/21 < 0.1, 03/22 < 0.1, 02/20 <0.1, 02/21 <0.1, 02/22 <0.1, 02/23 <0.1 ? Associated conditions ? erectile dysfunction ?Yes ? Erectile SIDRA Score ?18 respond to viagra ? Therapeutic plan:?Continue with surveillance.? Current symptoms include?had narrowing of stream and requred BNI 2009.? [facility] Medical History Wears dentures Spinal stenosis Back pain Arthritis GERD (gastroesophageal reflux disease) Hx of transient ischemic attack (TIA) (~2021) Cardiomyopathy Hx of myocardial infarction CAD (coronary artery disease) PAF (paroxysmal atrial fibrillation) Seasonal allergies PONV (postoperative nausea and vomiting) Spinal stenosis Allergies Hyperlipidemia BPH (benign prostatic hyperplasia) Erectile dysfunction following radical prostatectomy CA of prostate Surgical History Hx of tonsillectomy Hx of cardiac catheterization Hx of coronary artery bypass graft (~2019) Hx of radical prostatectomy (~2008) History of bilateral knee replacement Family History Sister PONV (postoperative nausea and vomiting) Sister PONV (postoperative nausea and vomiting) Social History Are you a primary home health care physician to a significant other at home: No Do you presently have visiting nurse or other home services: No Patient Tobacco Use Status: Former Tobacco user Tobacco use type: Cigarette Review of Systems Const Denies chills and Denies fever(s) Card Reports no additional complaints and Denies syncope Resp Denies cough GI Denies abdominal pain and Denies heartburn Reports as per HPI and Denies change in libido Neuro Denies syncope Psych Denies change in libido Endo Denies change in libido Physical Exam Const General: cooperative, healthy appearing, comfortable and no acute distress Orientation/consciousness: patient oriented x3 HEENT Face and sinus: Yes normal facial exam Mouth: moist mucous membranes Neck Neck: Yes normal visual inspection, Yes full ROM and Yes trachea midline Chest Chest palpation & inspection: normal inspection of the chest Resp Effort & Inspection: normal respiratory effort, able to speak in complete sentences and no respiratory distress GI Inspection: Yes normal to inspection Back/Spine/Pelvis Cervical Spine: normal cervical lordosis Thoracic/Lumbar Spine: thoracic and lumbar spine normal to inspection Skin General skin exam: no rashes or lesions noted Neuro General: patient oriented x3, gait normal, tone normal and moves all extremities Extrem General: Yes normal to inspection and Yes capillary refill normal Office Procedures Cystoscopy Consent Discussed risk and benefit or proposed procedure with the patient. Information consent for procedure given to the patient. Discussed technical aspects, risks, benefits and alternatives in full. Addressed all of the patient's questions and concerns regarding the procedure. The patient demonstrated knowledge and understanding. They wish to proceed with this procedure. Preparation The patient was prepped in the usual manner. A upholstery department supervisor was present and in the room. Genitalia was prepped with betadine solution in a sterile manner. Lidocaine Jelly 2% was placed into the urethra and 16Fr flexible Olympus cystoscope was inserted into the meatus after adequate lubrication. Procedure Cystoscopy performed using a disposable Urovue digital 16 Faroese cystoscope. Meatus circumcised Urethra anterior and posterior urethra normal Prostatic Urethra unremarkable Bladder examination with retroflexion of cystoscope Bladder Orifices normal shape and position Bladder Capacity Normal Trabeculations 1 Cellule Formation None Diverticulum Formation None Mucosal Erythema areas of diffuse erythema secondary to intravesical therapy Bladder Tumor None 50411-[id number] DISPOSABLE SCOPE URO-G FLEXIBLE SCOPE Procedure code (CPT) selection complete Office Meds lidocaine HCl 2 % mucosal jelly in applicator Performing Provider: Eduardo Atkinson MD Performing Location: [facility] Administered by: Ro Campbell RN on 02/21/25 11:32 Dose Route Admin Location Dispensed Lot Number Expiration Date [facility] Project Landscape Architect 10 mL intra-urethral 10 mL nitrofurantoin monohydrate/macrocrystals 100 mg capsule Performing Provider: Eduardo Atkinson MD Performing Location: [facility] Administered by: Ro Campbell RN on 02/21/25 11:32 Dose Route Admin Location Dispensed Lot Number Expiration Date [place] Project Landscape Architect 100 mg PO 1 cap Results AMB Urinalysis, Automated UA Leukoctes 0 Josselyn/uL Last Edit by DEAN Shepherd on 02/21/25 11:29 UA Nitrite Negative Last Edit by DEAN Shepherd on 02/21/25 11:29 UA Urobilinogen 0.2 mg/dL Last Edit by [facility] on 02/21/25 11:2 9 UA Protein 0 mg/dL Last Edit by Chantale Segundo [facility] on 02/21/25 11:29 UA pH 7.0 Last Edit by Chantale Segundo [facility] on 02/21/25 11:29 UA Blood 0 Chandan/uL Last Edit by Chantale Segundo [facility] on 02/21/25 11:29 UA Specific [place] 1.005 Last Edit by DEAN Shepherd on 02/21/25 11: 29 UA Ketone Negative Last Edit by Chantale Segundo [facility] on 02/21/25 11:29 UA Bilirubin 0 mg/dL Last Edit by Chantale Segundo [facility] on 02/21/25 11:29 UA Glucose 0 mg/dL Last Edit by Chantale Segundo [facility] on 02/21/25 11:29 Results Reviewed Results Reviewed: Laboratory Last Values Urine pH (Auto) 7.0 02/21/25 11:27 Specific [place] (Auto) 1.005 02/21/25 11:27 Urine Protein (Auto) 0 mg/dL 02/21/25 11:27 Glucose (UA)(Auto) 0 mg/dL 02/21/25 11:27 Urine Ketones (Auto) Negative 02/21/25 11:27 Urine Blood (Auto) 0 Chandan/uL 02/21/25 11:27 Urine Nitrite (Auto) Negative 02/21/25 11:27 Urine Bilirubin (Auto) 0 mg/dL 02/21/25 11:27 Urine Urobilinogen (Auto) 0.2 mg/dL 02/21/25 11:27 Leukocyte Esterase (Auto) 0 Josselyn/uL 02/21/25 11:27 Assessment & Plan Assessment & Plan (1) CA of prostate: Comment: Radical prostatectomy 2008 low-grade Code(s): C61 - Malignant neoplasm of prostate Category: Medical (2) Erectile dysfunction following radical prostatectomy: Code(s): N52.31 - Erectile dysfunction following radical prostatectomy Category: Medical (3) Bladder cancer: Comment: CIS on biopsy taken after hematuria Code(s): C67.9 - Malignant neoplasm of bladder, unspecified Category: Medical Plan Three-month follow-up check cystoscopy Orders: Orders AMB Urinalysis Automated Today Z13.9 - Encounter for screening, unspecified FISH Bladder Cancer Today C67.9 - Malignant neoplasm of bladder, unspecified AMB Cystoscopy Today C67.9 - Malignant neoplasm of bladder, unspecified Patient Instructions: This note is constructed using voice recognition software. While every effort has been made to ensure accuracy tree trimming line technician errors may have been included. Imaging studies, laboratory and physical exam results were discussed and reviewed in detail. No major barriers to patient understanding were identified. An opportunity to ask questions regarding the treatment plan was provided. All questions were answered. The patient expressed understanding and agreement with the above treatment plan. The patient is aware they should contact our office by phone for worsening of their current condition or the appearance of new urologic symptoms. Compliance is encouraged with any medications and followup testing that is ordered. It is a privilege to participate in the urologic care of your patient. If you have any questions or concerns regarding treatment for the above conditions, or other urologic issues, please do not hesitate to contact me. The office telephone contact is [phone]. Sincerely, Dr Eduardo Atkinson MD, [facility] - Urology Compassionate Specialist Care for the Genitourinary System Coding Level of Care Code Est Pt Level 3 (02843) Diagnoses CA of prostate C61 Erectile dysfunction following radical prostatectomy N52.31 Bladder cancer C67.9 CPT Codes Cystoscopy - CPT: 01260-Jqjpenviyh ([id number])
== END 2025-02-21 11:54 | disposition home or self-care (01) ==
LOC: HO.HUSH 10:53
PROVIDERS: PCP Internal Medicine; Visit Provider Urology
DX: C61 Malignant neoplasm of prostate (principal); N52.31 Erectile dysfunction following radical prostatectomy; C67.9 Malignant neoplasm of bladder, unspecified; Z13.9 Encounter for screening, unspecified
CPT/HCPCS: 52000; 99213

== ENCOUNTER 2025-05-22 10:56 | Outpatient (REF) | payer MEDICARE, SELFPAY ==
--- OUTSIDE RECORDS SUMMARY | 2025-05-22 17:57 | XMS_ITS | Data Portability ---
Author Organization CINDY - Damien Thayer [facility], [facility] Address [address] [place] [address] Care Team Providers Care Force Variation Equipment Tender Name Role Phone RICHIE MCNEILL Referring Provider [phone] RICHIE MCNEILL Primary Care Provider Assessment Encounter Date Assessment Date Assessment LastModified by Organization Details LastModified Time 01/28/2025 01/28/2025 Assessment: Patient demonstrates good akbar to rx. Good ROM , increasing strength Plan: Continue to progress LE strengthening as akbar. 1x/wk thru 10v max and d/c to HEP. Pt to trial low level Pickle ball activity Not available 01/28/2025 11:46:53 02/06/2025 02/06/2025 Assessment: Patient demonstrates good akbar to rx. Good ROM , increasing strength. + area of limited ST mobility at lat and prox/lat HS, improved w STM Plan: Continue to progress LE strengthening and HS specific treatment as akbar. 1x/wk thru 10v max and d/c to HEP. Pt to trial low level Pickle ball activity Not available 02/06/2025 11:40:10 02/10/2025 02/10/2025 Assessment: Patient cont to demonstrate good akbar for rx-emphasis today on hamstring strengthening. Plan: Continue to progress LE strengthening and HS specific treatment as akbar. 1x/wk thru 10v max and d/c to HEP. [email or web address] Not available 02/10/2025 15:56:51 02/18/2025 02/18/2025 Assessment: Patient cont to demonstrate good akbar for rx-emphasis today on hamstring strengthening. Plan: Continue to progress LE strengthening and HS specific treatment as akbar. 1x/wk thru 10v max and d/c to HEP. [email or web address] Not available 02/17/2025 18:13:46 02/26/2025 02/26/2025 Assessment: Discussed continuing with massage therapist, gym, frequent stretching. Plan: D/C today. [email or web address] Not available 02/26/2025 17:56:06 Plan of Treatment Reminders Order Date Submit Date Provider Last Modified By Organization Details Last Modified Time Details Appointments None record ed. Lab None record ed. Referral None record ed. Procedures None record ed. Surgeries None record ed. Imaging None record ed. Medication Orders None record ed. Patient TargetsNo targets recorded. Patient InstructionsNo instructions recorded. Reason for Referral None Reported. Problems Name Problem SNOMED Code Status Onset Date Resolution Date Notes Provider Name and Address Organization Details Recorded Time No complaints 789194303 Active Status : 'A'; Not Available [facility] 4 09:20:52 Pain of left shoulder joint 4060487096741 9109 Active 2023 JACINDA pacheco [facility] 4 14:36:57 Pain of knee region 2573794568 Active 2024 velma zheng [facility] 5 15:59:24 Problem Notes None recorded. Procedures Surgical History Date Name Laterality Status Provider Name and Address Organization Details Recorded Time 02/27/20 99923: Therapeutic Activities (1:1) completed Tere Liu, PLASTER BLOCK LAYER [address], [place], [address], [facility] 02/25/2025 11:44:23 02/27/20 42490 Therapeutic Exercise (1:1) completed Tere Liu PLASTER BLOCK LAYER [address], [place], [address], [facility] 02/25/2025 11:44:23 02/27/20 44796: Neuromuscular Re-Education completed Tere Liu, PLASTER BLOCK LAYER [address], [place], [address], [facility] 02/25/2025 11:44:23 02/27/20 63025: Manual therapy completed Tere Liu, PLASTER BLOCK LAYER [address], [place], [address], [facility] 02/26/2025 17:54:58 02/19/20 71204: Therapeutic Activities (1:1) completed Tere Liu, PLASTER BLOCK LAYER [address], [place], [address], [facility] 02/17/2025 18:13:46 02/19/20 50381 Therapeutic Exercise (1:1) completed Tere Liu, PLASTER BLOCK LAYER [address], [place], [address], [facility] 02/17/2025 18:13:45 02/19/20 54217: Neuromuscular Re-Education completed Tere Liu, PLASTER BLOCK LAYER [address], [place], [address], [facility] 02/18/2025 10:09:03 02/19/20 64422: Manual therapy completed Tere Liu, PLASTER BLOCK LAYER [address], [place], [address], [facility] 02/18/2025 10:08:57 02/11/20 12719: Therapeutic Activities (1:1) completed Tere Liu, PLASTER BLOCK LAYER [address], [place], [address], [facility] 02/09/2025 20:12:44 02/11/20 59316 Therapeutic Exercise (1:1) completed Tere Liu, PLASTER BLOCK LAYER [address], [place], [address], [facility] 02/10/2025 15:31:23 02/11/20 25 28746: Neuromuscular Re-Education completed Tere Liu, PLASTER BLOCK LAYER [address], [place], [address], [facility] 02/09/2025 20:12:44 02/11/20 97066: Manual therapy completed Tere Liu, PLASTER BLOCK LAYER [address], [place], [address], [facility] 02/09/2025 20:12:44 02/07/20 73864: Therapeutic Activities (1:1) completed Brodie Sheffieldser, PT [address], [place], [address], [facility] 02/05/2025 20:05:38 02/07/20 03796 Therapeutic Exercise (1:1) completed Brodie Sheffieldser, PT [address], [place], [address], [facility] 02/06/2025 11:47:29 02/07/20 54625: Neuromuscular Re-Education completed Brodie Hernandez, PT [address], [place], [address], [facility] 02/05/2025 20:05:38 02/07/20 98675: Manual therapy completed Brodie Sheffieldser, PT [address], [place], [address], [facility] 02/06/2025 11:40:46 01/29/20 97577: Therapeutic Activities (1:1) completed Brodie Hernandez, PT [address], [place], [address], [facility] 01/26/2025 15:39:46 01/29/20 90123 Therapeutic Exercise (1:1) completed Brodie Sheffieldser, PT [address], [place], [address], [facility] 01/28/2025 12:16:58 01/29/20 79411: Neuromuscular Re-Education completed Brodie Sheffieldser, PT [address], [place], [address], [facility] 01/28/2025 12:16:14 01/24/20 38998: Therapeutic Activities (1:1) completed Tere Liu, PLASTER BLOCK LAYER [address], [place], [address], [facility] 01/23/2025 12:15:57 01/24/20 73857 Therapeutic Exercise (1:1) completed Tere Liu, PLASTER BLOCK LAYER [address], [place], [address], [facility] 01/23/2025 12:16:02 01/24/20 46686: Neuromuscular Re-Education completed Tere Liu, PLASTER BLOCK LAYER [address], [place], [address], [facility] 01/23/2025 12:16:06 01/22/20 84447 Therapeutic Exercise (1:1) completed Tere Liu, PLASTER BLOCK LAYER [address], [place], [address], [facility] 01/21/2025 11:05:36 01/16/20 36070 Therapeutic Exercise (1:1) completed Brodie Pyser, PT [address], [place], [address], [facility] 01/14/2025 17:54:55 01/16/20 15444: Low complexity PT Eval completed Brodie Pyser, PT [address], [place], [address], [facility] 01/14/2025 17:54:57 01/16/20 25 G8417 BMI Above Upper Parameters, F/U Documented completed Brodie Pyser, PT [address], [place], [address], [facility] 01/14/2025 18:20:11 01/16/20 25 G8427 Current Medication Documented completed Brodie Pyser, PT [address], [place], [address], [facility] 01/14/2025 18:20:15 08/26/19 66849 Therapeutic Exercise (1:1) completed Brodie Pyser, PT [address], [place], [address], [facility] 08/23/2024 07:12:53 08/26/19 25 73891: Hot or Cold Pack completed Brodie Pyser, PT [address], [place], [address], [facility] 08/23/2024 07:12:53 08/26/19 83921: Manual therapy completed Brodie Sheffieldser, PT [address], [place], [address], [facility] 08/23/2024 07:12:53 08/21/19 13749 Therapeutic Exercise (1:1) completed Tere Liu, PLASTER BLOCK LAYER [address], [place], [address], [facility] 08/21/2024 15:27:53 08/21/19 63219: Hot or Cold Pack completed Tere Liu, PLASTER BLOCK LAYER [address], [place], [address], [facility] 08/20/2024 18:21:48 08/21/19 71194: Manual therapy completed Tere Liu, PLASTER BLOCK LAYER [address], [place], [address], [facility] 08/21/2024 15:27:59 08/12/19 25180 Therapeutic Exercise (1:1) completed Brodie Sheffieldser, PT [address], [place], [address], [facility] 08/09/2024 07:25:28 08/12/19 32962: Hot or Cold Pack completed Brodie Sheffieldser, PT [address], [place], [address], [facility] 08/09/2024 07:25:28 08/12/19 22789: Manual therapy completed Brodie Sheffieldser, PT [address], [place], [address], [facility] 08/09/2024 07:25:28 08/08/19 06584 Therapeutic Exercise (1:1) completed Brodie Sheffieldser, PT [address], [place], [address], [facility] 08/08/2024 09:34:12 08/08/19 25 33103: Hot or Cold Pack completed Brodie Pyser, PT [address], [place], [address], [facility] 08/06/2024 17:27:04 08/08/19 25 28765: Manual therapy completed Brodie Pyser, PT [address], [place], [address], [facility] 08/08/2024 09:34:08 08/05/19 25 94115 Therapeutic Exercise (1:1) completed Brodie Pyser, PT [address], [place], [address], [facility] 08/01/2024 17:54:02 08/05/19 25 66482: Low complexity PT Eval completed Brodie Pyser, PT [address], [place], [address], [facility] 08/01/2024 17:54:07 08/05/19 25 G8417 BMI Above Upper Parameters, F/U Documented completed Brodie Pyser, PT [address], [place], [address], [facility] 08/05/2024 11:26:45 08/05/19 25 G8427 Current Medication Documented completed Brodie Pyser, PT [address], [place], [address], [facility] 08/05/2024 11:20:37 Imaging Results None recorded. Procedure Notes None recorded. Medical Equipment None Reported. Allergies Allergen ID Allergen Name Allergen Category Reaction Reaction Severity Criticality Documentation Date Start Date Code Code System Note Provider Name and Address Organization Details Recorded Time 75401 Cipro medicatio n Not available Not available Not available 09/04/2023201056 3 RxNorm Not Available [facility] 12:19:14 Medications Name Sig Start Date Stop Date Status Note LastModified by Organization Details LastModified Time xarelto no dispense - refill NO DISPENSE 12/17 completed Not Available Not Available Not Available amoxicillin 500 mg capsule TAKE 4 CAPSULES BY MOUTH 1 HOUR BEFORE DENTAL APPOINTME NT active Not Available Not Available No t Available carvedilol 6.25 mg tablet active Not Available Not Available Not Available prednisone 10 mg tablet 12/17 completed Not Available Not Available Not Available azithromyci n 250 mg tablet 12/17 completed Not Available Not Available Not Available prednisone 20 mg tablet 12/17 completed Not Available Not Available Not Available carvedilol 3.125 mg tablet 12/17 completed Not Available Not Available Not Available pantoprazol e 20 mg tablet,clyde yed release active Not Available Not Available Not Available clotrimazol e-betametha sone 1 %-0.05 % topical cream 09/14 completed Not Available Not Available Not Available sertraline 25 mg tablet TAKE 1 TABLET BY MOUTH DAILY 09/14 completed Not Available Not Available Not Available montelukast 10 mg tablet 12/17 completed Not Available Not Available Not Available albuterol sulfate HFA 90 mcg/actuati on aerosol inhaler 12/17 completed Not Available Not Available Not Available fluticasone propionate 50 mcg/actuati on nasal spray,suspe nsion active Not Available Not Available Not Available amoxicillin 875 mg-potassiu m clavulanate 125 mg tablet 12/17 completed Not Available Not Available Not Available chemo diluent 1 (PF) 73 mg-19 mg-8 mg-3 mg/10 mL intrathecal solution Inject by intrathec al route. active Not Available Not Available No t Available oxycodone HCl-oxycodo ne-ASA Take 1 tablet every [address] WHILE TAKING THIS MEDICATIO N 02/22 completed Statu s: 'Disc ontin ued'; Not Available Not Available Not Available Xarelto 20 mg tablet TAKE 1 TABLET BY MOUTH EVERY DAY AT SUPPER - DISCONTIN UE ELIQUIS 12/17 completed Not Available Not Available Not Available Praluent Pen 150 mg/mL subcutaneou s pen injector active Not Available Not Available Not Available Vitals None Recorded Social History Question Answer Notes LastModified by Organizat ion Details LastModified Time Tobacco Smoking Status Never Smoker RAINER pacheco [place] - [facility] 12/17/2024 14:15:48 Have You Ever Been Counseled For Unhealthy Alcohol Use? No Information not available 12/17/2024 What Is Your Relationship Status? Information not available 12/17/2024 Sex: Unknown Functional Status Question Answer Note LastModified by Organizat ion Details LastModified Time How many times per week do you consume alcohol? Less than 1 time per week Information not available 12/17/2024 Do you use any illicit or recreational drugs? No Information not available 12/17/2024 Do you or have you ever used any other forms of tobacco or nicotine? No Information not available 12/17/2024 What is your level of alcohol consumption? Occasional Information not available 12/17/2024 Mental Status None recorded. Family History Nothing Reported. Medical History Condition Response Allergies/Hayfever N Coronary Artery Disease N Anxiety/Depression N Emphysema N Thyroid Problems N COPD N Pacemaker N Anemia N Kidney/Bladder Problems N Vascular Disease N Heart Attack (RI) N Gastrointestinal Disease N Cholesterol Y Diabetes N Autoimmune disease N Bleeding Disorder N Inflammatory Joint disease Y Orthotics N Arthritis Y Seizures/Epilepsy N Blood Clot N AIDS/HIV N Congestive Heart Failure (CHF) N Acid Reflux (GERD) Y Cancer Y Stroke N Asthma N Peripheral Vascular Disease N Sleep Apnea Y Hepatitis N Heart Disease Y Rheumatoid Arthritis N Arrhythmia N Pulmonary Embolism N Fibromyalgia N Hypertension Y Osteoporosis N Past Encounters Encounter ID Performer Location Encounter Start Date Encounter Closed Date Diagnosis/Indication Diagnosis SNOMED-CT Code Diagnosis ICD10 Code Diagnosis IMO Codes Diagnosis Note [id number] ALBERTA Medina [address] [place] [address] 09/15/2023 13:36:47 09/15/2023 14:13:41 Pain of left shoulder joint 1260600467 0257294 M25.512 Partial th ickness rotator cuff tear 100021789 M75.572 [id number] ALBERTA Medina [address] [place] [address] 12/13/2023 14:20:01 01/17/2024 15:38:24 Pain of left shoulder joint 1114453937 2075544 M25.512 Partial th ickness rotator cuff tear 697100207 M75.587 [id number] Karsten Alanis PA-C [facility] [address] [place] [address] 03/12/2024 14:15:42 04/04/2024 13:35:06 Adhesive capsulitis of left shoulder [id number] [address] [place], [place] [address] [id number] Brodie Sheffieldser, PT [facility] [address] [place] [address] 08/05/2024 09:50:00 08/05/2024 10:44:56 Adhesive capsulitis of left shoulder [id number] [address] [place], [place] [address] [id number] Brodie Sheffieldser, PT [facility] [address] [place] [address] 08/08/2024 07:17:23 08/08/2024 08:44:49 Adhesive capsulitis of left shoulder [id number] [address] [place], [place] [address] [id number] Brodie Sheffieldser, PT [facility] [address] [place] [address] 08/12/2024 10:25:23 08/12/2024 11:12:40 Adhesive capsulitis of left shoulder [id number] [facility] M75.02 [id number] Tere Liu, PLASTER BLOCK LAYER [facility] [address] [place] [address] 08/21/2024 12:14:51 08/21/2024 14:15:00 Adhesive capsulitis of left shoulder [id number] [address] [place], [place] [address] [id number] Brodie Hernandez, PT [facility] [address] [place] [address] 08/26/2024 11:25:14 08/26/2024 13:54:24 Adhesive capsulitis of left shoulder [id number] [facility] M75.02 [id number] Jose R Branham PA-C [facility] [address] [place] [address] 12/17/2024 13:59:00 12/30/2024 08:33:26 History of bilateral total knee [facility] [id number] 666[id number] Brodie Pyser, PT [facility] [address] [place] [address] 01/15/2025 11:07:37 01/15/2025 12:05:49 Knee joint prosthesis present [id number] [facility].428 [id number] Tere Liu, PLASTER BLOCK LAYER [facility] [address] [place] [address] 01/21/2025 09:51:34 01/21/2025 10:31:53 Knee joint prosthesis present 4907625191 02 Z96.338 [id number] Tere Liu, PLASTER BLOCK LAYER [facility] [address] [place] [address] 01/23/2025 09:54:36 01/23/2025 11:02:51 Knee joint prosthesis present 6242015154 02 Z96.021 [id number] Brodie Sheffieldser, PT [facility] [address] [place] [address] 01/28/2025 10:49:48 01/28/2025 12:17:29 Knee joint prosthesis present 8564447448 02 Z96.898 [id number] Brodie Pyser, PT [facility] [address] [place] [address] 02/06/2025 09:57:06 02/06/2025 11:47:57 Knee joint prosthesis present 8060555115 02 Z96.287 [id number] Tere Liu, PLASTER BLOCK LAYER [facility] [address] [place] [address] 02/10/2025 14:00:12 02/10/2025 15:09:22 Knee joint prosthesis present [id number] [facility].824 [id number] Tere Liu, PLASTER BLOCK LAYER [facility] [address] [place] [address] 02/18/2025 08:53:39 02/18/2025 09:54:25 Knee joint prosthesis present 2976637425 02 Z96.202 [id number] Tere Liu, PLASTER BLOCK LAYER [facility] [address] [place] [address] 02/26/2025 15:45:24 02/26/2025 18:11:33 Knee joint prosthesis present 4471657567 02 Z96.215 [id number] Health Concerns Section Related Observation LastModified by Organization Detai ls LastModified Time None Recorded Concern Status LastModified by Organization Details LastModified Time None Recorded Advance Directives Directive None Recorded Payers Insurance Date Sequence Insurance Name Policy Number Policy Griffin Covered Member ID Griffin Member ID Guarantor Name 02/23/2025 2 [place] [id number] Alberto Lopez [id number] Alberto Lopez 02/05/2025 1 [place] [employer] Alberto Lopez [id number] Alberto Lopez Notes Date Note Type Note Provider Name and Address Organization Details Recorded Time 01/28/2025 text/html Pt reports really no pain, mostly stiffness. HS tightness is primary c/o Brodie Hernandez, PT [address], [place], [address], [facility] 01/28/2025 12:17:19 02/06/2025 text/html Pt reports really no pain, mostly stiffness. HS tightness is primary c/o. Attempted Pickle ball, felt R HS tighten up after 5-10 min, was able to cont playing for 1 1/2 hrs, next day was tight but better Brodie Hernandez, PT [address], [place], [address], [facility] 02/06/2025 11:48:25 02/10/2025 text/html Pt cont to report right hamstring is tight-loosens up overnight but tightens again with activity. Tere Liu, PLASTER BLOCK LAYER [address], [place], [address], [facility] 02/10/2025 15:57:21 02/18/2025 text/html Pt cont to report right hamstring is tight-loosens up overnight but tightens again with activity. Went to a massage therapist with good results. Tere Liu, LAURYN [address] [facility] [address], [place], [address], [facility] 02/18/2025 10:11:23 02/26/2025 text/html Pt cont to report right hamstring is tight-feels about 50% better-good relief with massage therapist. Tere Liu, LAURYN [address] [facility] [address], [place], [address], [facility] 02/26/2025 17:57:03
--- OUTSIDE RECORDS SUMMARY | 2025-05-22 17:57 | XMS_ITS | Data Portability ---
Author Organization [place] - [facility], Allergy Address [address] [address] Assessment Encounter Date Assessment Date Assessment LastModified by Organization Details LastModified Time 02/05/2024 02/05/2024 68-year-old male presents for cerumen removal. Cerumen impaction removed bilaterally. Follow-up in 6 months for routine debridement. Patient with history of allergic rhinitis undergoing immunotherapy at [facility]. Recommended trial of Flonase nasal spray once daily in addition to Zyrtec. He will follow-up if symptoms persist or worsen. [email or web address] Not available 02/05/2024 09:52:33 08/09/2024 08/09/2024 68-year-old male presents for cerumen removal. Cerumen impaction removed bilaterally. Follow-up in 6 months for routine debridement. [email or web address] Not available 08/09/2024 10:31:15 03/06/2025 03/06/2025 69-year-old male with sensorineural hearing loss and allergic rhinitis presents for routine cerumen removal. Cerumen impactions removed bilaterally, which patient tolerated well. TMs are normal to inspection. Audiometric testing offered, but patient is not interested today. Hearing aids were dispensed by [employer] a couple years ago, and patient reports adequate benefit. He will continue SCIT at [facility] for allergy management. He will follow-up in 6 months for repeat debridement. 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 Other specifie d disorder s of Eustachi an tube, unspecif ied ear; Note: Date Diagnose d: 2 2:38 PM (H69.80) Not Available [facility] 4 02:50:56 Allergic rhinitis caused by pollen 44868272 Active 2021 Allergic rhinitis due to pollen; Note: Date Diagnose d: 2 2:35 PM (J30.1) Not Available [facility] 4 02:50:53 Otitis externa of right ear 13309274789 72589 Completed 202102/02/2024 Other otitis externa, right ear; Note: Date Diagnose d: 2 2:15 PM (H60.8X1 ) Not Available [facility] 4 02:50:58 Impacted cerumen of bilatera l ears 89545630840 15414 Active 2022 Impacted cerumen, bilatera l; Note: Date Diagnose d: 04/26/20 10:05 AM (H61.23) Impact ed cerumen, bilatera l; Note: Date Diagnose d: 05/25/20 10:49 AM (H61.23) ; Start Date : 05/25/20 Not Available [facility] 4 02:50:58 Impacted cerumen in left ear [id number] 63839 Active 2023 Impacted cerumen, left ear; Note: Date Diagnose d: 08/08/2023 11:22 AM (H61.22) Not Available [facility] 4 02:50:56 Allergic rhinitis 04228340 Active 2023 DILMA MILES PA-C 100 [facility],[address], [address] , [facility] - [facility] 4 09:51:15 Problem Notes None recorded. Procedures Surgical History Date Name Laterality Status Provider Name and Address Organization Details Recorded Time 5 Cerumen removal without microscope bilat completed NICHELLE GUILLERMO PA-C [address] [place] [address],[place] [address], [place], [address], [facility] - [facility] 03/06/2025 10:11:25 5 Cerumen removal without microscope bilat completed DILMA MILES PA-C [address] [place] [address],[address], [address], [facility] - [facility] 08/09/2024 10:42:52 4 Cerumen removal without microscope bilat completed DILMA MILES PA-C [address] [place] [address],[address], [address], [facility] - [facility] 02/05/2024 09:51:04 Imaging Results None recorded. Procedure Notes None recorded. Medical Equipment None Reported. Allergies Allergen ID Allergen Name Allergen Category Reaction Reaction Severity Criticality Documentation Date Start Date Code Code System Note Provider Name and Address Organization Details Recorded Time [id number] Cipro medicatio n other Not available Not available 11/14/2023 3 RxNorm React ion: other react ion, Unkno wn; Not Available [facility] 4 01:23:35 Medications Name Sig Start Date [...] mg tablet 2021 active Medicatio n ID: [id number] Br and Name: ondansetr on HCl Send Method: E-Prescri bed Subs Allowed: subs OK Medica tionGener icName: ondansetr on HCl Not Available Not Available Not Available prednisone 20 mg tablet active Not Available Not Available Not Available tramadol 50 mg tablet 2021 active Medicatio n ID: [id number] Br and Name: tramadol Send Method: E-Prescri bed Subs Allowed: subs OK Medica tionGener icName: tramadol Not Available Not Available Not Available carvedilol 3.125 mg tablet active Not Available Not Available Not Available pantoprazo le 20 mg tablet,del ayed release active Not Available Not Available Not Available ofloxacin 0.3 % ear drops 4 drop into right ear 2021 active Medicatio n ID: [id number] Du ration Value: 10 Prescrib ed By Name: ALBERTA Mohamud Name: ofloxacin Send Method: E-Prescri bed Subs Allowed: subs OK Specia l Instructi on: x 10 days Medi cationGen ericName: ofloxacin Not Available Not Available Not Available hydromorph one 2 mg tablet 2021 active Medicatio n ID: [id number] Br and Name: hydromorp bryan Send Method: E-Prescri bed Subs Allowed: subs OK Medica tionGener icName: hydromorp bryan Not Available Not Available Not Available pantoprazo le 40 mg tablet,del ayed release 2021 active Medicatio n ID: [id number] Br and Name: pantopraz ole Send Method: E-Prescri bed Subs Allowed: subs OK Medica tionGener icName: pantopraz ole Not Available Not Available Not Available clotrimazo le-betamet hasone 1 %-0.05 % topical cream active Not Available Not Available Not Available clotrimazo le 1 % topical solution 2021 active Medicatio n ID: [id number] Du ration Value: 14 Prescrib ed By Name: ALBERTA Mohamud Name: clotrimamohit ole Send Method: E-Prescri bed Subs Allowed: [...] mg tablet 2021 active Medicatio n ID: [id number] Br and Name: oxycodone Send Method: E-Prescri bed Subs Allowed: subs OK Medica tionGener icName: oxycodone Not Available Not Available Not Available TobraDex 0.3 %-0.1 % eye drops,susp ension 3 drop 2021 active Medicatio n ID: [id number] Du ration Value: 10 Prescrib ed By Name: ALBERTA Mohamud Name: TobraDex Send Method: E-Prescri bed Subs Allowed: subs OK Specia l Instructi on: Instill 3 drops in the right ear twice daily for 10 days [facility] cationGen ericName: TobraDex Not Available Not Available Not Available Xarelto 20 mg tablet TAKE 1 TABLET BY MOUTH EVERY DAY AT SUPPER - DISCONTIN UE ELIQUIS active Not Available Not Available No t Available Eliquis 5 mg tablet 2021 active Medicatio n ID: [id number] Br and Name: Eliquis S end Method: E-Prescri bed Subs Allowed: subs OK Medica tionGener icName: Eliquis Not Available Not Available Not Available Eliquis 2.5 mg tablet 2021 active Medicatio n ID: [id number] Br and Name: Lenore Allan end Method: E-Prescri bed Subs Allowed: subs OK Specia l Instructi on: TAKE 1 TABLET BY MOUTH TWO TIMES A DAY FOR 7 DAYS THEN RESTART HOME DOSE Medi cationGen ericName: Lenore Not Available Not Available Not Available Praluent Pen 150 mg/mL subcutaneo us pen injector active Not Available Not Available Not Available Vitals Date Recorded Body height Body mass index (BMI) Body weight Provider Name and Address Organization Details Last Updated DateTime 08/09/2024 177.8 cm 28.7 kg/m2 15426.47 g Naila Aguirre [facility] 08/09/2024 10:37:02 Date Recorded Body height Body mass index (BMI) Body weight Provider Name and Address Organization Details Last Updated DateTime 02/05/2024 177.8 cm 28.7 kg/m2 10090.47 g Naila Aguirre [facility] 02/05/2024 09:19:29 Date Recorded Body height Body mass index (BMI) Body weight Provider Name and Address Organization Details Last Updated DateTime 03/06/2025 177.8 cm 27.3 kg/m2 23563.55 g Cecelia Emery [facility] 03/06/2025 09:58:35 Social History None recorded. Functional Status None recorded. Mental Status None recorded. Family History Nothing Reported. Medical History No medical history recorded. Past Encounters Encounter ID Performer Location Encounter Start Date Encounter Closed Date Diagnosis/Indication Diagnosis SNOMED-CT Code Diagnosis ICD10 Code Diagnosis IMO Codes Diagnosis Note [id number] DILMA MILES PA-C [facility] [address] [address] 02/05/2024 09:12:10 02/05/2024 09:32:13 Impacted cerumen of bilateral ears [id number] 877748 H61.23 Allergic rhinitis 773377 04 J30.89 [id number] DILMA MILES PA-C [facility] [address] [address] 08/09/2024 10:27:18 08/09/2024 10:41:56 Impacted cerumen of bilateral ears [id number] 861086 H61.23 [id number] NICHELLE GUILLERMO PA-C [facility] [address] [place] [address] 03/06/2025 09:49:35 03/06/2025 10:15:01 Impacted cerumen of bilateral ears 6193475998 537296 H61.23 Sensorineu ral hearing loss of bilateral ears 876069134 H90.3 Allergic rhinitis 799248 04 J30.89 Health Concerns Section Related Observation LastModified by Organization Detai ls LastModified Time None Recorded Concern Status LastModified by Organization Details LastModified Time None Recorded Advance Directives Directive None Recorded Payers Insurance Date Sequence Insurance Name Policy Number Policy Griffin Covered Member ID Griffin Member ID Guarantor Name 03/09/2025 2 [place] [id number] Alberto L Boisseau [id number] Alberto L Boisseau 03/06/2025 1 [place] [employer] SERVICES Alberto L Boisseau [id number] Alberto L Boisseau Notes Date Note Type Note Provider Name and Address Organization Details Recorded Time 02/05/2024 text/html ROS as noted in the [facility] 68-year-old male presents for cerumen removal. Uses hearing aids dispensed from [employer]. Notes some ear pressure, worse in the fall. On immunotherapy at [facility] for allergic rhinitis. Takes Zyrtec daily with improvement. LEBRON REED MD [address] [place] [address], [address], [facility] - [facility] 02/05/2024 17:46:34 08/09/2024 text/html ROS as noted in the [facility] 68-year-old male presents for cerumen removal. Uses hearing aids dispensed from [employer]. No concerns today. LEBRON REED MD [address] [place] [address], [address], [facility] - [facility] 08/12/2024 08:00:21 03/06/2025 text/html ROS as noted in the [facility] 69-year-old male with sensorineural hearing loss and allergic rhinitis presents for routine ear cleaning. He reports his allergy symptoms have been acting up, but continues with SCIT at [facility] and [facility]. Denies ear pain, drainage, or changes to hearing. He is not interested in updating his audiometric testing today. CORBY GALEANA MD [address] [place] [address], [address], [facility] - [facility] 03/07/2025 07:41:42
--- OUTSIDE RECORDS SUMMARY | 2025-05-22 17:57 | XMS_ITS | Continuity of Care Document ---
Author Organization [place] - [facility], [facility] Address [address] [place] [address] Assessment Encounter Date Assessment Date Assessment LastModified by Organization Details LastModified Time 03/06/2025 03/06/2025 69-year-old male with sensorineural hearing loss and allergic rhinitis presents for routine cerumen removal. Cerumen impactions removed bilaterally, which patient tolerated well. TMs are normal to inspection. Audiometric testing offered, but patient is not interested today. Hearing aids were dispensed by [employer] a couple years ago, and patient reports adequate benefit. He will continue SCIT at [facility] for allergy management. He will follow-up in 6 months for repeat debridement. [email or web address] Not available 03/06/2025 11:17:27 Plan of Treatment [...] eural hearing loss of bilatera l ears 796485347 Active 2021 Sensorin eural hearing loss, bilatera l; Note: Date Diagnose d: 2 2:05 PM (H90.3) Not Available [facility] 4 02:50:56 Eustachi an tube disorder 92781661 Active 2021 Other specifie d disorder s of Eustachi an tube, unspecif ied ear; Note: Date Diagnose d: 2 2:38 PM (H69.80) Not Available [facility] 4 02:50:56 Allergic rhinitis caused by pollen 46019196 Active 2021 Allergic rhinitis due to pollen; Note: Date Diagnose d: 2 2:35 PM (J30.1) Not Available [facility] 4 02:50:53 Otitis externa of right ear 49856921988 64425 Completed 202102/02/2024 Other otitis externa, right ear; Note: Date Diagnose d: 2 2:15 PM (H60.8X1 ) Not Available [facility] 4 02:50:58 Impacted cerumen of bilatera l ears 09767218029 42107 Active 2022 Impacted cerumen, bilatera l; Note: Date Diagnose d: 04/26/20 23 10:05 AM (H61.23) Impact ed cerumen, bilatera l; Note: Date Diagnose d: 05/25/20 10:49 AM (H61.23) ; Start Date : 05/25/20 Not Available [facility] 4 02:50:58 Impacted cerumen in left ear 18855597537 91013 Active 2023 Impacted cerumen, left ear; Note: Date Diagnose d: 08/08/2023 11:22 AM (H61.22) Not Available [facility] 4 02:50:56 Allergic rhinitis 55475871 Active 2023 DILMA MILES PA-C [address] [place] [address],[place] [address], [place], [address] , [facility] 4 09:51:15 Problem Notes None recorded. Procedures Surgical History Date Name Laterality Status Provider Name and Address Organization Details Recorded Time 5 Cerumen removal without microscope bilat completed NICHELLE GUILLERMO PA-C 100 [facility],[place] [address], [place], [address], [place] - [facility] 03/06/2025 10:11:25 5 Cerumen removal without microscope bilat completed DILMA MILES PA-C 100 [facility],[address], [address], [facility] - [facility] 08/09/2024 10:42:52 4 Cerumen removal without microscope bilat completed DILMA MILES PA-C 100 [facility],[place] [address], [place], [address], [facility] - [facility] 02/05/2024 09:51:04 Imaging Results None recorded. Procedure Notes None recorded. Medical Equipment None Reported. Allergies Allergen ID Allergen Name Allergen Category Reaction Reaction Severity Criticality Documentation Date Start Date Code Code System Note Provider Name and Address Organization Details Recorded Time 047512 Cipro medicatio n other Not available Not available 11/14/202322909 3 RxNorm React ion: other react ion, Unkno wn; Not Available [facility] 4 01:23:35 Medications Name Sig Start [...] mg tablet 2021 active Medicatio n ID: [id number] Br and Name: ondansetr on HCl Send Method: E-Prescri bed Subs Allowed: subs OK Medica tionGener icName: ondansetr on HCl Not Available Not Available Not Available prednisone 20 mg tablet active Not Available Not Available Not Available tramadol 50 mg tablet 2021 active Medicatio n ID: [id number] Br and Name: tramadol Send Method: E-Prescri bed Subs Allowed: subs OK Medica tionGener icName: tramadol Not Available Not Available Not Available carvedilol 3.125 mg tablet active Not Available Not Available Not Available pantoprazo le 20 mg tablet,del ayed release active Not Available Not Available Not Available ofloxacin 0.3 % ear drops 4 drop into right ear 2021 active Medicatio n ID: [id number] Du ration Value: 10 Prescrib ed By Name: ALBERTA Mohamud Name: ofloxacin Send Method: E-Prescri bed Subs Allowed: subs OK Specia l Instructi on: x 10 days Medi cationGen ericName: ofloxacin Not Available Not Available Not Available hydromorph one 2 mg tablet 2021 active Medicatio n ID: [id number] Br and Name: hydromorp bryan Send Method: E-Prescri bed Subs Allowed: subs OK Medica tionGener icName: hydromorp bryan Not Available Not Available Not Available pantoprazo le 40 mg tablet,del ayed release 2021 active Medicatio n ID: [id number] Br and Name: pantopraz ole Send Method: E-Prescri bed Subs Allowed: subs OK Medica tionGener icName: pantopraz ole Not Available Not Available Not Available clotrimazo le-betamet hasone 1 %-0.05 % topical cream active Not Available Not Available Not Available clotrimazo le 1 % topical solution 2021 active Medicatio n ID: [id number] Du ration Value: 14 Prescrib ed By [...] mg tablet 2021 active Medicatio n ID: [id number] Br and Name: oxycodone Send Method: E-Prescri bed Subs Allowed: subs OK Medica tionGener icName: oxycodone Not Available Not Available Not Available TobraDex 0.3 %-0.1 % eye drops,susp ension 3 drop 2021 active Medicatio n ID: [id number] Du ration Value: 10 Prescrib ed By [...] mg tablet 2021 active Medicatio n ID: [id number] Br and Name: Eliquis S end Method: E-Prescri bed Subs Allowed: subs OK Medica tionGener icName: Eliquis Not Available Not Available Not Available Eliquis 2.5 mg tablet 2021 active Medicatio n ID: [id number] Br and Name: Eliquis S end Method: [...] Updated DateTime 03/06/2025 177.8 cm 27.3 kg/m2 82585.55 g Cecelia Emery [place] - [facility] 03/06/2025 09:58:35 Social History None recorded. Functional Status None recorded. Mental Status None recorded. Family History Nothing Reported. Medical History No medical history recorded. Past Encounters Encounter ID Performer Location Encounter Start Date Encounter Closed Date Diagnosis/Indication Diagnosis SNOMED-CT Code Diagnosis ICD10 Code Diagnosis IMO Codes Diagnosis Note [id number] NICHELLE GUILLERMO PA-C [facility] [address] [address] 03/06/2025 09:49:35 03/06/2025 10:15:01 Impacted cerumen of bilateral ears 3020179207 504000 H61.23 Sensorineu ral hearing loss of bilateral ears 724644394 H90.3 Allergic rhinitis 194824 04 J30.89 Health Concerns Section Related Observation LastModified by Organization Detai ls LastModified Time None Recorded Concern Status LastModified by Organization Details LastModified Time None Recorded Payers Encounter Date Sequence Insurance Name Policy Number Policy Griffin Covered Member ID Griffin Member ID Guarantor Name 03/06/2025 2 [place] [id number] Alberto L Boisseau [id number] Alberto L Boisseau 03/06/2025 1 [place] [employer] Alberto L Boisseau [id number] Alberto L Boisseau Notes Date Note Type Note Provider Name and Address Organization Details Recorded Time 03/06/2025 text/html ROS as noted in the HPI 69-year-old male with sensorineural hearing loss and allergic rhinitis presents for routine ear cleaning. He reports his allergy symptoms have been acting up, but continues with SCIT at [facility] and [facility]. Denies ear pain, drainage, or changes to hearing. He is not interested in updating his audiometric testing today. CORBY GALEANA MD [address] [place] [address], [place], [address], [facility] - [facility] 03/07/2025 07:41:42
--- OUTSIDE RECORDS SUMMARY | 2025-05-22 17:57 | XMS_ITS | Continuity of Care Document ---
Author Organization [facility], JARVIS Marroquin Address [address] [place] [address] Care Team Providers Care Machine Attendant Name Role Phone RICHIE MCNEILL Referring Provider [phone] RICHIE MCNEILL Primary Care Provider [phone] Assessment Encounter Date Assessment Date Assessment LastModified by Organization Details LastModified Time 02/26/2025 02/26/2025 Assessment: Discussed continuing with massage therapist, gym, frequent stretching. Plan: D/C today. Not available 02/26/2025 17:56:06 Plan of Treatment [...] Address Organization Details Recorded Time No complaints [id number] Active Status : 'A'; Not Available [facility] 4 09:20:52 Pain of left shoulder joint [id number] 9109 Active 2023 JACINDA GABRIEL [facility] 4 14:36:57 Pain of knee region [id number] Active 2024 velma zheng [facility] 5 15:59:24 Problem Notes None recorded. Procedures Surgical History Date Name Laterality Status Provider Name and Address Organization Details Recorded Time 02/27/20 25 64867: Therapeutic Activities (1:1) completed Tere Liu, CASH REGISTER REPAIRER [address], [place], [address], [facility] 02/25/2025 11:44:23 02/27/20 34079 Therapeutic Exercise (1:1) completed Tere Liu, CASH REGISTER REPAIRER [address], [place], [address], [facility] 02/25/2025 11:44:23 02/27/20 29521: Neuromuscular Re-Education completed Tere Liu, CASH REGISTER REPAIRER [address], [place], [address], [facility] 02/25/2025 11:44:23 02/27/20 06000: Manual therapy completed Tere Liu, CASH REGISTER REPAIRER [address], [place], [address], [facility] 02/26/2025 17:54:58 02/19/20 66695: Therapeutic Activities (1:1) completed Tere Liu, CASH REGISTER REPAIRER [address], [place], [address], [facility] 02/17/2025 18:13:46 02/19/20 09566 Therapeutic Exercise (1:1) completed Tere Liu, CASH REGISTER REPAIRER [address], [place], [address], [facility] 02/17/2025 18:13:45 02/19/20 70405: Neuromuscular Re-Education completed Tere Liu, CASH REGISTER REPAIRER [address], [place], [address], [facility] 02/18/2025 10:09:03 02/19/20 24968: Manual therapy completed Tere Liu, CASH REGISTER REPAIRER [address], [place], [address], [facility] 02/18/2025 10:08:57 02/11/20 63689: Therapeutic Activities (1:1) completed Tere Liu, CASH REGISTER REPAIRER [address], [place], [address], [facility] 02/09/2025 20:12:44 02/11/20 60729 Therapeutic Exercise (1:1) completed Tere Liu CASH REGISTER REPAIRER [address], [place], [address], [facility] 02/10/2025 15:31:23 02/11/20 10365: Neuromuscular Re-Education completed Tere Liu CASH REGISTER REPAIRER [address], [place], [address], [facility] 02/09/2025 20:12:44 02/11/20 32135: Manual therapy completed Tere Liu PTA [address], [place], [address], [facility] 02/09/2025 20:12:44 02/07/20 33700: Therapeutic Activities (1:1) completed Brodie Hernandez, PT [address], [place], [address], [facility] 02/05/2025 20:05:38 02/07/20 84935 Therapeutic Exercise (1:1) completed Brodie Hernandez, PT [address], [place], [address], [facility] 02/06/2025 11:47:29 02/07/20 58274: Neuromuscular Re-Education completed Brodie Hernandez, PT [address], [place], [address], [facility] 02/05/2025 20:05:38 02/07/20 29582: Manual therapy completed Brodie Hernandez, PT [address], [place], [address], [facility] 02/06/2025 11:40:46 01/29/20 59680: Therapeutic Activities (1:1) completed Brodie Hernandez, PT [address], [place], [address], [facility] 01/26/2025 15:39:46 01/29/20 82216 Therapeutic Exercise (1:1) completed Brodie Hernandez, PT [address], [place], [address], [facility] 01/28/2025 12:16:58 01/29/20 18411: Neuromuscular Re-Education completed Brodie Hernandez, PT [address], [place], [address], [facility] 01/28/2025 12:16:14 01/24/20 38994: Therapeutic Activities (1:1) completed Tere Liu, CASH REGISTER REPAIRER [address], [place], [address], [facility] 01/23/2025 12:15:57 01/24/20 45051 Therapeutic Exercise (1:1) completed Tere Liu, CASH REGISTER REPAIRER [address], [place], [address], [facility] 01/23/2025 12:16:02 01/24/20 12305: Neuromuscular Re-Education completed Tere Liu, CASH REGISTER REPAIRER [address], [place], [address], [facility] 01/23/2025 12:16:06 01/22/20 10526 Therapeutic Exercise (1:1) completed Tere Liu, CASH REGISTER REPAIRER [address], [place], [address], [facility] 01/21/2025 11:05:36 01/16/20 70040 Therapeutic Exercise (1:1) completed Brodie Hernandez, PT [address], [place], [address], [facility] 01/14/2025 17:54:55 01/16/20 84107: Low complexity PT Eval completed Brodie Sheffieldser, PT [address], [place], [address], [facility] 01/14/2025 17:54:57 01/16/20 G8417 BMI Above Upper Parameters, F/U Documented completed Brodie Pyser, PT [address], [place], [address], [facility] 01/14/2025 18:20:11 01/16/20 25 G8427 Current Medication Documented completed Brodie Pyser, PT [address], [place], [address], [facility] 01/14/2025 18:20:15 08/26/19 25 37780 Therapeutic Exercise (1:1) completed Brodie Pyser, PT [address], [place], [address], [facility] 08/23/2024 07:12:53 08/26/19 76036: Hot or Cold Pack completed Brodie Pyser, PT [address], [place], [address], [facility] 08/23/2024 07:12:53 08/26/19 97828: Manual therapy completed Brodie Sheffieldser, PT [address], [place], [address], [facility] 08/23/2024 07:12:53 08/21/19 37785 Therapeutic Exercise (1:1) completed Tere Liu, CASH REGISTER REPAIRER [address], [place], [address], [facility] 08/21/2024 15:27:53 08/21/19 59378: Hot or Cold Pack completed Tere Liu, CASH REGISTER REPAIRER [address], [place], [address], [facility] 08/20/2024 18:21:48 08/21/19 70244: Manual therapy completed Tere Liu, CASH REGISTER REPAIRER [address], [place], [address], [facility] 08/21/2024 15:27:59 08/12/19 38922 Therapeutic Exercise (1:1) completed Brodie Hernandez, PT [address], [place], [address], [facility] 08/09/2024 07:25:28 08/12/19 25 27419: Hot or Cold Pack completed Brodie Pyser, PT [address], [place], [address], [facility] 08/09/2024 07:25:28 08/12/19 25 59050: Manual therapy completed Brodie Pyser, PT [address], [place], [address], [facility] 08/09/2024 07:25:28 08/08/19 25 47112 Therapeutic Exercise (1:1) completed Brodie Pyser, PT [address], [place], [address], [facility] 08/08/2024 09:34:12 08/08/19 25 87147: Hot or Cold Pack completed Brodie Pyser, PT [address], [place], [address], [facility] 08/06/2024 17:27:04 08/08/19 25 20246: Manual therapy completed Brodie Pyser, PT [address], [place], [address], [facility] 08/08/2024 09:34:08 08/05/19 25 04542 Therapeutic Exercise (1:1) completed Brodie Pyser, PT [address], [place], [address], [facility] 08/01/2024 17:54:02 08/05/19 25 84253: Low complexity PT Eval completed Brodie Pyser, PT [address], [place], [address], [facility] 08/01/2024 17:54:07 08/05/19 25 G8417 BMI Above Upper Parameters, F/U Documented completed Brodie Pyser, PT [address], [place], [address], [facility] 08/05/2024 11:26:45 08/05/19 25 G8427 Current Medication Documented completed Brodie Pyser, PT [address], [place], [address], [place] [facility] 08/05/2024 11:20:37 Imaging Results None recorded. Procedure Notes None recorded. Medical Equipment None Reported. Allergies Allergen ID Allergen Name Allergen Category Reaction Reaction Severity Criticality Documentation Date Start Date Code Code System Note Provider Name and Address Organization Details Recorded Time 36661 Cipro medicatio n Not available Not available Not available 09/04/2023201056 3 RxNorm Not Available [facility] 12:19:14 Medications Name Sig Start Date Stop [...] Status Never Smoker RAINER pacheco [place] [facility] [place] [facility] 12/17/2024 14:15:48 Have You [...] Problems N Vascular Disease N Heart Attack ([place]) N Gastrointestinal Disease N Cholesterol Y Diabetes [...] ICD10 Code Diagnosis IMO Codes Diagnosis Note [id number] Brodie Hernandez, PT [facility] [address] [place] [address] 01/28/2025 10:49:48 01/28/2025 12:17:29 Knee joint prosthesis present [id number] [facility].384 [id number] Brodie Sheffieldser, PT [facility] [address] [place] [address] 02/06/2025 09:57:06 02/06/2025 11:47:57 Knee joint prosthesis present [id number] 02 Z96.987 [id number] Tere Liu, CASH REGISTER REPAIRER [facility] [address] [place] [address] 02/10/2025 14:00:12 02/10/2025 15:09:22 Knee joint prosthesis present [id number] 02 Z96.426 [id number] Terehoward Liu, CASH REGISTER REPAIRER [facility] [address] [place] [address] 02/18/2025 08:53:39 02/18/2025 09:54:25 Knee joint prosthesis present [id number] [facility]96.863 [id number] Tere [place], CASH REGISTER REPAIRER [facility] [address] [place] [address] 02/26/2025 15:45:24 02/26/2025 18:11:33 Knee joint prosthesis present 5908242100 02 Z96.962 [id number] Health Concerns Section Related Observation LastModified by Organization Detai ls LastModified Time None Recorded Concern Status LastModified by Organization Details LastModified Time None Recorded Payers Encounter Date Sequence Insurance Name Policy Number Policy Griffin Covered Member ID Griffin Member ID Guarantor Name 02/26/2025 2 [place] [id number] Alberto Lopez [id number] Alberto Lopez 02/26/2025 1 [place] [facility] Alberto Lopez [id number] Alberto Lopez Notes Date Note Type Note Provider Name and Address Organization Details Recorded Time 02/26/2025 text/html Pt cont to report right hamstring is tight-feels about 50% better-good relief with massage therapist. Tere Liu, CASH REGISTER REPAIRER [address], [place], [address], [facility] [place] [facility] 02/26/2025 17:57:03
== END 2025-05-22 10:57 | disposition home or self-care (01) ==
LOC: HO.LAB 10:56
PROVIDERS: PCP Internal Medicine; Visit Provider Urology
DX: N32.81 Overactive bladder (principal); C67.9 Malignant neoplasm of bladder, unspecified
CPT/HCPCS: 52000; 88112; 99212

== ENCOUNTER 2025-05-22 10:56 | Outpatient (AMB) | payer MEDICARE, SELFPAY ==
--- NOTE | 2025-05-22 11:20 | A.OFFVIS_ITS ---
Intake Visit Reasons: cysto Intake Note: Patient is present for: Cystoscopy Urology Medication: tamsulosin,tolterodine Blood Thinner:ASPIRIN,RIVAROXABAN Rn Resource Nurse Required: No Accompanied by: Spouse Allergies oxycodone Allergy (Severe, Verified 05/22/25 11:37) Nausea and Vomiting ciprofloxacin (From CIPRO) Allergy (Unknown, Verified 05/22/25 11:37) UNKNOWN Oyuyswl-MSD-ZfX Reductase Inhibitor Adverse Reaction (Intermediate, Verified 05/22/25 11:37) Muscle Pain HPI Comments Details: Mr Lopez is a very pleasant male. He is a patient of Dr. Morales. He is seen for the following urologic conditions. 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 Here for 12 month check cysto - NAD Last FISH negative Plan boost three-week mitomycin-C with cytarabine Did have urgency and frequency during last sequence Had dizziness with tamsulosin Next time we will give 1 month of Myrbetriq Bladder Cancer CIS 03/26 Bladder biopsy 03/26 Adjuvant therapy - induction mitomycin-C with cytarabine 04/25 - completed 07/27 - boost MMC with cytarabine 11/24 Cytology 08/27 rare atypical, 11/24 negative high-grade, 02/24 FISH negative Has had some issues with hematuria secondary to anticoagulation Prostate cancer: Low-grade prostate cancer radical prostatectomy 2007 ?Discussed results ?Continue ED treatment. - stream remains okay - probable stricture ? Prostate cancer was diagnosed?2007.? Diagnosis was reached by?needle biopsy, for elevated PSA, size at TRUS 49cc.? The Berkeley grade is?3+3 = 6.? TNM Classification of Malignant Tumours (TNM)?T2a.? The D'Jaret (NCCN) risk category is?Low Risk (PSA< 10, Gl < 7, T1c).? Initial therapy included?Primary treatment, Prostatectomy (RRP/Robotic) ?, Additional treatment, Observation.? Recent labs included?a PSA (prostate-specific antigen) 2014 , < 0.1 ?12/2016 < 0.1, 8/18 < 0.1, 03/21 < 0.1, 03/22 < 0.1, 02/20 <0.1, 02/21 <0.1, 02/22 <0.1, 02/23 <0.1 ? Associated conditions ? erectile dysfunction ?Yes ? Erectile SIDRA Score ?18 respond to viagra ? Therapeutic plan:?Continue with surveillance.? Current symptoms include?had narrowing of stream and requred BNI 2009.? PFSH Medical History Wears dentures Spinal stenosis Back pain Arthritis GERD (gastroesophageal reflux disease) Hx of transient ischemic attack (TIA) (~2021) Cardiomyopathy Hx of myocardial infarction CAD (coronary artery disease) PAF (paroxysmal atrial fibrillation) Seasonal allergies PONV (postoperative nausea and vomiting) Spinal stenosis Allergies Hyperlipidemia BPH (benign prostatic hyperplasia) Erectile dysfunction following radical prostatectomy CA of prostate Surgical History Hx of tonsillectomy Hx of cardiac catheterization Hx of coronary artery bypass graft (~2019) Hx of radical prostatectomy (~2008) History of bilateral knee replacement Family History Sister PONV (postoperative nausea and vomiting) Sister PONV (postoperative nausea and vomiting) Social History Are you a primary mall plant caretaker to a significant other at home: No Do you presently have visiting nurse or other home services: No Patient Tobacco Use Status: Former Tobacco user Tobacco use type: Cigarette Review of Systems Const Denies chills and Denies fever(s) Card Reports no additional complaints and Denies syncope Resp Denies cough GI Denies abdominal pain and Denies heartburn Reports as per HPI and Denies change in libido Neuro Denies syncope Psych Denies change in libido Endo Denies change in libido Physical Exam Const General: cooperative, healthy appearing, comfortable and no acute distress Orientation/consciousness: patient oriented x3 HEENT Face and sinus: Yes normal facial exam Mouth: moist mucous membranes Neck Neck: Yes normal visual inspection, Yes full ROM and Yes trachea midline Chest Chest palpation & inspection: normal inspection of the chest Resp Effort & Inspection: normal respiratory effort, able to speak in complete sentences and no respiratory distress GI Inspection: Yes normal to inspection Back/Spine/Pelvis Cervical Spine: normal cervical lordosis Thoracic/Lumbar Spine: thoracic and lumbar spine normal to inspection Skin General skin exam: no rashes or lesions noted Neuro General: patient oriented x3, gait normal, tone normal and moves all extremities Extrem General: Yes normal to inspection and Yes capillary refill normal Office Procedures Cystoscopy Consent Discussed risk and benefit or proposed procedure with the patient. Information consent for procedure given to the patient. Discussed technical aspects, risks, benefits and alternatives in full. Addressed all of the patient's questions and concerns regarding the procedure. The patient demonstrated knowledge and understanding. They wish to proceed with this procedure. Preparation The patient was prepped in the usual manner. A production hand was present and in the room. Genitalia was prepped with betadine solution in a sterile manner. Lidocaine Jelly 2% was placed into the urethra and 16Fr flexible Olympus cystoscope was inserted into the meatus after adequate lubrication. Procedure Consent confirmed Cystoscopy performed using a disposable Urovue digital 16 Mauritian cystoscope. Meatus circumcised Urethra anterior and posterior urethra normal Prostatic Urethra absent Bladder examination with retroflexion of cystoscope Bladder Orifices normal shape and position Bladder Capacity Normal Trabeculations Grade 0 Cellule Formation None Diverticulum Formation None Mucosal Erythema None Bladder Tumor posterior wall scar 32740-[id number] DISPOSABLE SCOPE URO-G FLEXIBLE SCOPE Procedure code (CPT) selection complete Office Meds lidocaine HCl 2 % mucosal jelly in applicator Performing Provider: Eduardo Atkinson MD Performing Location: [facility] Administered by: Shailesh Michaud LPN on 05/22/25 11:38 Dose Route Admin Location Dispensed Lot Number Expiration Date [facility] Hand Etcher Helper 10 mL intra-urethral 10 mL nitrofurantoin monohydrate/macrocrystals 100 mg capsule Performing Provider: Eduardo Atkinson MD Performing Location: [facility] Administered by: Shailesh Michaud LPN on 05/22/25 11:38 Dose Route Admin Location Dispensed Lot Number Expiration Date [place] Hand Etcher Helper 100 mg PO 1 cap Results AMB Urinalysis, Automated UA Leukoctes 0 Josselyn/uL Last Edit by DEAN Sullivan on 05/22/25 11:23 UA Nitrite Negative Last Edit by Jennifer Colon, CCMA on 05/22/25 11:23 UA Urobilinogen 0.2 mg/dL Last Edit by Jennifer Colon, [facility] on 05/22/25 11:23 UA Protein 0 mg/dL Last Edit by Jennifer Colon, [facility] on 05/22/25 11:23 UA pH 6.5 Last Edit by Jennifer Colon, [facility] on 05/22/25 11:23 UA Blood 0 Chandan/uL Last Edit by Jennifer Colon, [facility] on 05/22/25 11:23 UA Specific [place] 1.005 Last Edit by Jennifer Colon, [facility] on 05/22/25 11:2 3 UA Ketone Negative Last Edit by Jennifer Colon, [facility] on 05/22/25 11:23 UA Bilirubin 0 mg/dL Last Edit by Jennifer Colon, [facility] on 05/22/25 11:23 UA Glucose 0 mg/dL Last Edit by Jennifer Colon, [facility] on 05/22/25 11:23 Results Reviewed Results Reviewed: Laboratory Last Values Urine pH (Auto) 6.5 05/22/25 11:22 Specific [place] (Auto) 1.005 05/22/25 11:22 Urine Protein (Auto) 0 mg/dL 05/22/25 11:22 Glucose (UA)(Auto) 0 mg/dL 05/22/25 11:22 Urine Ketones (Auto) Negative 05/22/25 11:22 Urine Blood (Auto) 0 Chandan/uL 05/22/25 11:22 Urine Nitrite (Auto) Negative 05/22/25 11:22 Urine Bilirubin (Auto) 0 mg/dL 05/22/25 11:22 Urine Urobilinogen (Auto) 0.2 mg/dL 05/22/25 11:22 Leukocyte Esterase (Auto) 0 Josselyn/uL 05/22/25 11:22 Assessment & Plan Assessment & Plan (1) Overactive bladder: Code(s): N32.81 - Overactive bladder Category: Medical Plan Three-week boost immunotherapy bladder Bladder immunotherapy Bladder immuno/chemotherapy was discussed today. These medications are used to create an immune reaction against bladder cancer. The intention is to destroy any tumor cells left on the bladder surface. Since BCG and gemcitabine involved immunostimulation they are not indicated in situations where there is immune weakness. Medications are placed directly into the bladder. It should be held for one to 2 hours. The toilet should be disinfected with a cap full of household bleach prior to urination. Side effects from BCG and gemcitabine generally include mucosa-related changes such as urinary urgency and/or frequency, and hematuria BCG may also invoke an infection type response. An elevated temperature may be indicative of more serious issues and should be reported to the Dr. The intention with bladder immunotherapy is to reduce the frequency of bladder cancer recurrence by 50%. Availability of BCG is highly variable. There is a single manufacture who has had difficulty with quality control lab tech since 2016. Multiple protocols are available - mitomycin-C for alkalinization - 40mg/200mg in 40cc NSal - A Randomized Clinical Trial of Intravesical Instillation of Mitomycin-C and Combination of Mitomycin-C and Cytarabine (Iris-C) in Non-Muscle Invasive Bladder Cancer - Felicity Massey BJU Int. 2021;129(4):534-541. 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 Crossref DOI link:? https://doi.org/10.1200/JCO.2023.41.6_suppl.507 ) Will undergo - three-week boost mitomycin-C with cytarabine Orders: Orders Urine Cytology Today C67.9 - Malignant neoplasm of bladder, unspecified AMB Cystoscopy Today C67.9 - Malignant neoplasm of bladder, unspecified Prostate Specific Antigen 3 Months C67.9 - Malignant neoplasm of bladder, unspecified Medications: New mirabegron ER (Myrbetriq) Take 1 tablet day before, day after and day of bladder instillation 25 mg PO DAILY 30 tabs 0RF 30 days N32.81 - Overactive bladder Discontinued tolterodine ER take daily Discontinued Reason: Patient Completed Course 2 mg PO DAILY 30 caps 1RF bladder spasms tamsulosin Take one dose the evening prior to bladder instillations and once dose the evening of the bladder instillation. Discontinued Reason: Patient Completed Course 0.4 mg PO BEDTIME PRN 30 caps 0RF Urinary symtoms Patient Instructions: This note is constructed using voice recognition software. While every effort has been made to ensure accuracy diversified crops farmworker errors may have been included. Imaging studies, laboratory and physical exam results were discussed and reviewed in detail. No major barriers to patient understanding were identified. An opportunity to ask questions regarding the treatment plan was provided. All questions were answered. The patient expressed understanding and agreement with the above treatment plan. The patient is aware they should contact our office by phone for worsening of their current condition or the appearance of new urologic symptoms. Compliance is encouraged with any medications and followup testing that is ordered. It is a privilege to participate in the urologic care of your patient. If you have any questions or concerns regarding treatment for the above conditions, or other urologic issues, please do not hesitate to contact me. The office telephone contact is [phone]. Sincerely, Dr Eduardo Atkinson MD, [facility] - Urology Compassionate Specialist Care for the Genitourinary System Coding Level of Care Code Est Pt Level 3 (04665) Complex EM visit Add On G2211 Diagnoses Overactive bladder N32.81 CPT Codes Cystoscopy - CPT: 29273-[id number] ([id number])
== END 2025-05-22 12:16 | disposition home or self-care (01) ==
LOC: HO.HUSH 10:57
PROVIDERS: PCP Internal Medicine; Visit Provider Urology
DX: N32.81 Overactive bladder (principal)
CPT/HCPCS: 52000; 99213